=== PATIENT | female | born 1995 | race Asian ===

== ENCOUNTER 2020-04-18 15:33 | Emergency (ER) | payer MEDICAID, SELFPAY ==
[2020-04-18 16:21] VITALS: BP 117/79; PULSE 80; RESP 16; TEMP 37.7; O2SAT 98; BMI 23.1
--- NOTE | 2020-04-18 16:30 | PC.NURSE ---
PT TRAIGE DONE ON WRONG CHART, DISREGARD INITIAL TRIAGE BY THIS RN.
== END 2020-04-18 18:37 | disposition left against medical advice (07) ==
PROVIDERS: Emergency Provider Emergency Medicine
DX: R10.2 Pelvic and perineal pain (principal); N89.8 Other specified noninflammatory disorders of vagina
CPT/HCPCS: 99281; 99282

== ENCOUNTER 2020-05-18 07:14 | Emergency (ER) | payer MEDICAID, SELFPAY ==
[2020-05-18 07:23] VITALS: BP 140/78; PULSE 90; RESP 18; TEMP 36.7; O2SAT 98; BMI 23.6
--- NOTE | 2020-05-18 07:26 | ED_ITS ---
HPI - Asthma General Chief Complaint: Asthma Stated Complaint: asthma Time Seen by Provider: 05/18/20 07:26 Source: patient Mode of arrival: ambulatory Limitations: no limitations History of Present Illness HPI Narrative: No recent bump in steroids, now with increased wheezing and cough. Patient has been intubated once prior. complaint: asthma attack and shortness of breath Onset (ago): week(s) Severity: mild Context: recent URI Associated symptoms: dry cough Asthma History: history of frequent attacks and previously intubated Related Data Previous Rx's Medication Instructions Recorded prednisone 10 mg PO DAILY #69 tab 05/18/20 Allergies Allergy/AdvReac Type Severity Reaction Status Date / Time peach [PEACH] Allergy Severe RASH Unverified 12/31/19 16:33 perfume [PERFUME] Allergy Severe ASTHMA Unverified 12/31/19 16:33 ATTACK dog dander [DOG DANDER] Allergy Unknown ITCHY, Unverified 12/31/19 16:33 HIVES mite-Dermatophagoides Allergy Unknown ASTHMA, Unverified 12/31/19 16:33 farinae, wendy ITCHY [DUST MITES] THROAT Review of Systems Constitutional: Constitutional: Reports no additional constitutional complaints Eyes: Eyes: Reports no additional eye complaints ENT: Denies dizziness Cardiovascular: Cardiovascular: Reports no additional cardiovascular complaints Respiratory: Respiratory: Reports as per HPI Gastrointestinal: Gastrointestinal: Reports no additional gastrointestinal complaints Genitourinary: Genitourinary: Reports no additional female genitourinary complaints Musculoskeletal: Musculoskeletal: Reports no additional musculoskeletal complaints Integumentary/Breasts: Skin/Breast: Denies rash Neurologic: Reports system reviewed and no additional complaints, except as documented, Denies dizziness and Denies Sensory deficit (Neuro) Psychiatric: Psychiatric: Denies anxiety [facility] Past Medical History Medical History (Updated 05/18/20 @ 08:54 by Isac Franklin MD) No known health problems Social History Social History Alcohol intake: never Smoking Status: Never smoker Use of substances other than those prescribed or required for medical reasons: No Advance Directives: Yes Advance Directives Information Provided: No Advance Directives on File: No Physical Exam Vital Signs: Vital Signs: Last Vital Signs Temp 98.1 F 05/18/20 08:15 Pulse 90 05/18/20 08:15 Resp 18 05/18/20 08:15 BP 140/78 H 05/18/20 08:15 Pulse Ox 98 05/18/20 08:15 Body Mass Index 23.6 Const: General: healthy appearing Nutritional Appearance: average body habitus Orientation/consciousness: oriented to person and patient oriented x3 Limitations: no limitations HENMT: Head: Yes normal to inspection Ears: external ears normal General nose exam: Normal external nose present Mouth: Normal oral and palatal mucosa present and oropharynx normal Throat: Yes posterior oropharynx normal Eyes: General: appearance normal, both eyes and all related structures Neck: Other: supple Neck: Yes normal visual inspection Chest: Chest palpation & inspection: normal inspection of the chest Resp: Other: good air movement diffuse wheezing Cardio: Jugular venous distension: no JVD Rate: regular rate Rhythm: regular rhythm Heart sounds: S1 normal heart sound present and S2 normal heart sound present GI: Inspection: Yes normal to inspection Palpation (GI): Soft to palpation, nontender and No hepatosplenomegaly present Auscultation: normal bowel sounds : General: Yes no CVA tenderness Back/Spine/Pelvis: Back: no CVA tenderness Skin: General skin exam: no rashes or lesions noted Neuro: General: oriented to person and patient oriented x3 Cranial nerves: Yes CN's II-XII intact bilaterally Motor exam (neuro): 5/5 motor strength present throughout Sensory Exam: No Sensory deficit (Neuro) Extrem: General: Yes normal to inspection Psych: Appearance: grossly normal Course Course Course Narrative: breathing much better will dc on prednisone, albuterol and atrovent MDM - Asthma Differential Diagnosis Differential diagnosis: Likely Acute exacerbation Lab Data Labs: Lab Results 05/18/20 Range/Units 08:25 COVID-19 ([facility]) Negative (Negative) COVID-19 Clin Com See Note Discharge Plan Discharge Clinical Impression: Asthma with acute exacerbation Patient Disposition: Home, Self-Care Instructions: Asthma (ED) Additional Instructions: Albuuterol 4 puffs 4 times a day as needed, atrovent 2 puffs three times a day Prescriptions: New prednisone 10 mg tablet 10 mg PO DAILY Qty: 69 RF: 0 Referrals: Iveth Arauz MD [Primary Care Provider] - 2 days
[2020-05-18] MEDS: Albuterol Sulfate 90 MCG 8 GM INHALER 4 PUFF INHALE (07:50)
[2020-05-18] MEDS: predniSONE 20 MG TABLET 60 MG PO (07:51)
[2020-05-18 08:15] VITALS: BP 140/78; PULSE 90; RESP 18; TEMP 36.7; O2SAT 98
[2020-05-18] MEDS: Ipratropium Bromide 1 PUFF/17 MCG INHALER 4 PUFF INHALE (08:23)
[2020-05-18 08:48] LABS: COVID-19 Test Negative (Negative); IDNOW Serial# 9DD0AD1C
== END 2020-05-18 09:39 | disposition home or self-care (01) ==
PROVIDERS: Emergency Provider Emergency Medicine; PCP Internal Medicine
DX: J45.901 Unspecified asthma with (acute) exacerbation (principal); Z20.822 Contact with and (suspected) exposure to COVID-19
CPT/HCPCS: 36415; 87635; 99283; 99284

== ENCOUNTER 2020-07-10 18:06 | Emergency (ER) | payer MEDICAID, SELFPAY ==
--- NOTE | 2020-07-10 | ECG_ITS ---
Test Reason : ASTMA Blood Pressure : / mmHG Vent. Rate : 111 BPM Atrial Rate : 111 BPM P-R Int : 130 ms QRS Dur : 082 ms QT Int : 330 ms P-R-T Axes : 067 029 032 degrees QTc Int : 448 ms Sinus tachycardia Otherwise normal ECG When compared with ECG of 24-MAR-2017 15:12, No significant change was found Referred By: Domenico Yoon Electronically Signed By:Kashif Arce
[2020-07-10 18:21] VITALS: PULSE 98
[2020-07-10] MEDS: Albuterol Sulfate (0.083%) 2.5 MG/3 ML VIAL.NEB 10 MG INHALE (18:21)
[2020-07-10 18:24] VITALS: PULSE 128; RESP 30; O2SAT 97; BMI 22.3
[2020-07-10] MEDS: methylPREDNISolone Sod Succ 125 MG/2 ML VIAL IVPUSH (18:29)
[2020-07-10 20:00] VITALS: RESP 20; O2SAT 96
[2020-07-10 21:19] VITALS: PULSE 117; O2SAT 98
[2020-07-10] MEDS: Albuterol/Iprat 2.5/0.5MG 3 ML AMPUL.NEB INHALE (21:19)
--- NOTE | 2020-07-10 21:56 | ED.ASTHMA ---
HPI - Asthma General Chief Complaint: Dyspnea Stated Complaint: asthma Time Seen by Provider: 07/10/20 18:16 History of Present Illness HPI Narrative: Patient complains of asthma wheezing and chest tightness worse tonight, for the last days she has been using her nebulizer and her pump frequently but today it has been not enough to help her shortness of breath She has no chest pain, this wheezing is typical of prior asthma flare ups, she has had no sickness she has had no fever no cough no body aches no fatigue no runny nose Related Data Home Medications Medication Instructions Recorded Confirmed albuterol sulfate [ProAir HFA] 2 puff INHALATION Q6H PRN 06/06/20 06/06/20 cetirizine 10 mg PO DAILY 06/06/20 06/06/20 cholecalciferol (vitamin D3) 125 mcg PO DAILY 06/06/20 06/06/20 [Vitamin D3] fluticasone furoate-vilanterol 1 inh INHALATION DAILY 06/06/20 06/06/20 [Breo Ellipta] mepolizumab [Nucala] mg SUBCUT 06/06/20 06/06/20 montelukast [Singulair] 10 mg PO BEDTIME 06/06/20 06/06/20 nebulizer accessories [A.I.R.S 06/06/20 06/06/20 Nebulizer Replacement] nebulizer and compressor [Comp-Air 06/06/20 06/06/20 Compressor Neb System] omeprazole 20 mg PO DAILY 06/06/20 06/06/20 vit 64-szgh-seqtzs 6 1 tab PO 06/06/20 [Prenate Elite] tiotropium bromide [Spiriva 2 puff PO DAILY 06/06/20 06/06/20 Respimat] Previous Rx's Medication Instructions Recorded prednisone 10 mg PO DAILY #69 tab 05/18/20 albuterol sulfate 2 puff INHALATION Q4-6H PRN #8.5 g 07/10/20 albuterol sulfate 2.5 mg INHALATION Q6H PRN #75 ml 07/10/20 prednisone 60 mg PO DAILY 5 Days #15 tab 07/10/20 Allergies Allergy/AdvReac Type Severity Reaction Status Date / Time peach [PEACH] Allergy Severe RASH Verified 06/06/20 08:28 perfume [PERFUME] Allergy Severe ASTHMA Verified 06/06/20 08:28 ATTACK dog dander [DOG DANDER] Allergy Unknown ITCHY, Verified 06/06/20 08:28 HIVES mite-Dermatophagoides Allergy Unknown ASTHMA, Verified 06/06/20 08:28 farinae, wendy ITCHY [DUST MITES] THROAT Review of Systems Review of Systems: Wheezing shortness of breath and chest tightness There is no dizziness no weakness no fainting no confusion no headache no neck pain no sore throat no difficulty swallowing, no chest pain no palpitations, no abdominal pain no nausea no vomiting no leg swelling no calf pain or swelling, no rash no numbness or weakness [facility] Past Medical History [facility] Narrative: Patient has history of asthma with prior admissions in the past for asthma Medical History (Updated 07/10/20 @ 22:02 by MYRON Haas) Allergic rhinitis Anxiety History of miscarriage Hx of polyarthritis Severe persistent allergic asthma Sleep difficulties Family History Family History (Updated 06/06/20 @ 08:25 by Diane Wang RN) Maternal Aunt DVT (deep venous thrombosis) Father CHF (congestive heart failure) Diabetes Mother HTN (hypertension) Asthma Social History Social History (Updated 06/06/20 @ 08:27 by Diane Wang RN) Alcohol intake: current Alcohol intake frequency: holidays/special occasions only Smoking Status: Never smoker Use of substances other than those prescribed or required for medical reasons: No Substance Use Type: Marijuana Advance Directives: No Advance Directives Information Provided: Yes Physical Exam Vital Signs: Vital Signs: Last Vital Signs Pulse 117 H 07/10/20 21:19 Resp 20 07/10/20 20:00 Pulse Ox 96 07/10/20 20:00 Body Mass Index 22.3 General appearance is uncomfortable, breathing rapidly but speaking full sentences, a and O x3, no confusion The pharynx is clear with moist mucous membranes Neck is supple no JVD The chest has diminished breath sounds with prolonged expiration and wheezing, breath sounds are symmetrical Heart rate and rhythm regular Abdomen is soft nontender Extremities no edema, no calf tenderness or swelling Skin no rash Neural no deficit Course Course Course Narrative: Patient was given a dose of IV steroid and had several albuterol treatments and felt very improved but still had some wheezing and some mild shortness of breath She was speaking full sentences her chest exam was very improved with full symmetric breath sounds with some wheezing, no longer prolonged expiration, no longer diminished She was walked for 5 minutes with no decrease in O2 sat, no tachypnea, she did have a tachycardia around 125 after the albuterol treatments and this is attributed to the albuterol and patient was comfortable in very improved and discharged home Discharge Plan Discharge Clinical Impression: Asthma Qualifiers: Asthma severity: moderate Asthma persistence: unspecified Asthma complication type: with acute exacerbation Qualified Code(s): J45.901 - Unspecified asthma with (acute) exacerbation Patient Disposition: Home, Self-Care Additional Instructions: We treated with steroids and prolonged dosing of albuterol with lots of improvement, but he was still wheezing We expect further improvement as the prednisone steroid reduces inflammation You can return to the ER any time if you develop any worsening shortness of breath or have any concerns or any worse condition Prescriptions: New albuterol sulfate 90 mcg/actuation HFA aerosol inhaler 2 puff inhalation Q4-6H PRN (Reason: shortness of breath or wheezing) Qty: 8.5 RF: 0 albuterol sulfate 2.5 mg /3 mL (0.083 %) solution for nebulization 2.5 mg inhalation Q6H PRN (Reason: shortness of breath or wheezing) Qty: 75 RF: 0 prednisone 20 mg tablet 60 mg PO DAILY 5 Days Qty: 15 RF: 0 No Action prednisone 10 mg tablet 10 mg PO DAILY Qty: 69 RF: 0 cetirizine 10 mg Tablet 10 mg PO DAILY RF: 0 omeprazole 20 mg Capsule,Delayed Release(Dr/Ec) 20 mg PO DAILY RF: 0 montelukast [Singulair] 10 mg Tablet 10 mg PO BEDTIME RF: 0 albuterol sulfate [ProAir HFA] 90 mcg/actuation Hfa Aerosol Inhaler 2 puff INHALATION Q6H PRN (Reason: shortness of breath) RF: 0 (DME) A.I.R.S Nebulizer Replacement Kit MISCELLANEOUS RF: 0 (DME) Comp-Air Compressor Neb System Device MISCELLANEOUS RF: 0 cholecalciferol (vitamin D3) [Vitamin D3] 125 mcg (5,000 unit) Tablet 125 mcg PO DAILY RF: 0 Prenate Elite 26 mg iron- 1 mg Tablet 1 tab PO RF: 0 Spiriva Respimat 2.5 mcg/actuation mist 2 puff PO DAILY RF: 0 Breo Ellipta 100-25 mcg/dose Blister With Device 1 inh INHALATION DAILY RF: 0 Nucala 100 mg/mL auto-injector subcut RF: 0 Stand Alone Forms: Work/School Release
== END 2020-07-10 22:56 | disposition home or self-care (01) ==
PROVIDERS: Emergency Provider Emergency Medicine Emergency Medical Services; PCP Internal Medicine
DX: J45.901 Unspecified asthma with (acute) exacerbation (principal); Z79.899 Other long term (current) drug therapy; Z79.51 Long term (current) use of inhaled steroids; F12.90 Cannabis use, unspecified, uncomplicated
CPT/HCPCS: 93005; 94640; 94644; 96374; 99284; J2930

== ENCOUNTER 2020-09-03 05:58 | Emergency (ER) | payer MEDICAID, SELFPAY ==
--- NOTE | ~2020-09-03 | XR_ITS ---
EXAMINATION: XR CHEST CLINICAL INFORMATION: Cough and wheezing COMPARISON: 09/01/2019 TECHNIQUE: Frontal view of the chest was obtained. FINDINGS: The heart and mediastinum are normal in appearance. The lungs and pleural spaces are clear. No focal consolidation or atelectasis. XR/XR chest 1V IMPRESSION: Unremarkable examination.
[2020-09-03 06:16] VITALS: BP 143/90; PULSE 127; RESP 20; TEMP 36.4; O2SAT 99; BMI 24.9
[2020-09-03 07:37] VITALS: BP 144/97; PULSE 95; RESP 18; TEMP 36.9; O2SAT 100; BMI 24.7
--- NOTE | 2020-09-03 07:52 | ED_ITS ---
HPI - Asthma General Chief Complaint: Asthma Stated Complaint: SOB, asthma Time Seen by Provider: 09/03/20 07:38 Source: patient Mode of arrival: ambulatory Limitations: no limitations History of Present Illness HPI Narrative: 25-year-old female with a past medical history of asthma, multiple allergies here with complaints of wheezing, shortness of breath, cough acute on chronic for several days. She ran out of her albuterol tubing for her nebulizers and so has not had this. She is currently taking Spiriva, Breo, Singulair, albuterol MDI p.r.n.. She is also on Nucala injectable once a month. She is followed by pulmonology at [facility].. She is on chronic prednisone 5 mg daily. History of multiple admits. No intubation history MD complaint: asthma attack , shortness of breath and wheezing Related Data Home Medications Medication Instructions Recorded Confirmed albuterol sulfate [ProAir HFA] 2 puff INHALATION Q6H PRN 06/06/20 06/06/20 cetirizine 10 mg PO DAILY 06/06/20 06/06/20 cholecalciferol (vitamin D3) 125 mcg PO DAILY 06/06/20 06/06/20 [Vitamin D3] fluticasone furoate-vilanterol 1 inh INHALATION DAILY 06/06/20 06/06/20 [Breo Ellipta] mepolizumab [Nucala] mg SUBCUT 06/06/20 06/06/20 montelukast [Singulair] 10 mg PO BEDTIME 06/06/20 06/06/20 nebulizer accessories [A.I.R.S 06/06/20 06/06/20 Nebulizer Replacement] nebulizer and compressor [Comp-Air 06/06/20 06/06/20 Compressor Neb System] omeprazole 20 mg PO DAILY 06/06/20 06/06/20 vit 27-hhyu-ggaege 6 1 tab PO 06/06/20 [Prenate Elite] tiotropium bromide [Spiriva 2 puff PO DAILY 06/06/20 06/06/20 Respimat] Previous Rx's Medication Instructions Recorded prednisone 10 mg PO DAILY #69 tab 05/18/20 albuterol sulfate 2 puff INHALATION Q4-6H PRN #8.5 g 07/10/20 albuterol sulfate 2.5 mg INHALATION Q6H PRN #75 ml 07/10/20 prednisone 60 mg PO DAILY 5 Days #15 tab 07/10/20 prednisone 40 mg PO DAILY #10 tab 09/03/20 Allergies Allergy/AdvReac Type Severity Reaction Status Date / Time peach [PEACH] Allergy Severe RASH Verified 06/06/20 08:28 perfume [PERFUME] Allergy Severe ASTHMA Verified 06/06/20 08:28 ATTACK dog dander [DOG DANDER] Allergy Unknown ITCHY, Verified 06/06/20 08:28 HIVES mite-Dermatophagoides Allergy Unknown ASTHMA, Verified 06/06/20 08:28 farinae, wendy ITCHY [DUST MITES] THROAT Review of Systems Review of Systems: Yes all other systems are reviewed and are negative Constitutional: Constitutional: Reports no additional constitutional complaints, Denies body ache(s), Denies chills, Denies fever(s), Denies headache(s) and Denies weakness Eyes: Eyes: Reports no additional eye complaints and Denies change in vision ENT: Reports system reviewed and no additional complaints, except as documente d, Denies dizziness, Denies headache(s), Denies nasal congestion, Reports nasal discharge and Denies neck pain Cardiovascular: Cardiovascular: Reports no additional cardiovascular complaints, Denies chest pain, Denies leg edema and Reports dyspnea Respiratory: Respiratory: Reports no additional respiratory complaints, Reports cough and Reports dyspnea Gastrointestinal: Gastrointestinal: Reports no additional gastrointestinal complaints, Denies abdominal pain, Denies diarrhea, Denies nausea and Denies vomiting Genitourinary: Genitourinary: Reports no additional female genitourinary complaints and Denies urinary incontinence Musculoskeletal: Musculoskeletal: Reports no additional musculoskeletal complaints, Denies back pain, Denies arthralgias, Denies joint swelling, Denies neck pain, Denies numbness and Denies tingling Integumentary/Breasts: Skin/Breast: Reports system reviewed and no additional complaints, except as docu and Denies rash Neurologic: Reports system reviewed and no additional complaints, except as documented, Denies Abnormal speech present, Denies dizziness, Denies headache(s), Denies numbness, Denies tingling and Denies weakness PMFSH Past Medical History Attestation statement: The following information was validated with the patient. Source: old records reviewed and nursing notes reviewed Medical History Allergic rhinitis Anxiety History of miscarriage Hx of polyarthritis Severe persistent allergic asthma Sleep difficulties Family History Family History Maternal Aunt DVT (deep venous thrombosis) Father CHF (congestive heart failure) Diabetes Mother HTN (hypertension) Asthma Social History Social History Alcohol intake: current Alcohol intake frequency: holidays/special occasions only Smoking Status: Never smoker Use of substances other than those prescribed or required for medical reasons: No Substance Use Type: Marijuana Advance Directives: No Advance Directives Information Provided: No Patient : No Physical Exam Vital Signs: Vital Signs: Last Vital Signs Temp 98.5 F 09/03/20 07:37 Pulse 76 09/03/20 07:54 Resp 18 09/03/20 07:37 BP 144/97 H 09/03/20 07:37 Pulse Ox 100 09/03/20 07:37 Body Mass Index 24.7 Const: General: cooperative, healthy appearing, comfortable and no acute distress Orientation/consciousness: patient oriented x3 Limitations: no limitations HENMT: Head: Yes normal to inspection Ears: hearing grossly normal bilaterally General nose exam: Normal external nose present Face and sinus: Yes normal facial exam Mouth: Normal oral and palatal mucosa present Throat: Yes posterior oropharynx normal Eyes: General: appearance normal, both eyes and all related structures Pupils: Equal, round and reactive pupils present Neck: Neck: Yes normal visual inspection Chest: Chest palpation & inspection: normal inspection of the chest Resp: Effort & Inspection: normal respiratory effort Auscultation: abnormal I/E ratio and wheezes expiratory wheezes, inspiratory wheezes and throughout Cardio: Rate: regular rate Rhythm: regular rhythm Peripheral pulses: Peripheral pulses 2+ throughout GI: Inspection: Yes normal to inspection Palpation (GI): Soft to palpation and nontender Auscultation: normal bowel sounds Back/Spine/Pelvis: Thoracic/Lumbar Spine: thoracic and lumbar spine normal to inspection Skin: General skin exam: no rashes or lesions noted Neuro: General: patient oriented x3, no focal motor deficits and normal sensation to monofilament Cranial nerves: Yes Equal, round and reactive pupils present Cognition (Neuro): normal cognition Speech: No Abnormal speech present Gait exam (Neuro): Normal gait present Motor exam (neuro): 5/5 motor strength present throughout Extrem: General: Yes normal to inspection, Yes no pedal edema and Yes no calf tenderness Course Course Course Narrative: 25-year-old female with a past medical history of asthma here with complaints of cough, wheezing, shortness of breath acute on chronic for several days. No fevers, chills. She does have some rhinorrhea which she contributes to seasonal allergies. On exam mild tachycardia likely secondary to multiple albuterol treatments at home. Sitter and expiratory wheezing throughout. Will give DuoNeb, magnesium, Solu-Medrol. Check chest x-ray. Refusing COVID screen. 1015-x-ray negative. Labs show no acute finding. Patient feels much improved after receiving above medications. Her heart rate is 110 with activity however this is secondary to albuterol use and will improve with time. She ran out of tubing for her albuterol machine and so she was provided with tubing here. Will increase dose of prednisone for several days and have her f ollow-up with her pantograph setter. Reviewed worrisome signs and symptoms and when to return to the emergency department. Comfortable discharge home. MDM - Asthma Differential Diagnosis Differential diagnosis: Likely Acute exacerbation and Pneumonia Medical Records Attestation: I reviewed the patient's medical records. Lab Data Attestation: I reviewed the patient's lab results. Result diagrams: 09/03/20 08:12 09/03/20 08:12 Labs: Lab Results 09/03/20 09/03/20 09/03/20 Range/Units 08:12 08:12 08:12 WBC 10.4 (4.8-10.8) X10*3/uL RBC 4.54 (4.20-5.50) X10*6/uL Hgb 12.8 (12.0-16.0) g/dl Hct 40.0 (37-47) % MCV 88.1 (80-98) fL MCH 28.2 (27.0-33.0) pg MCHC 32.0 (31.0-35.0) g/dl RDW 14.4 (11.0-16.0) % Plt Count 317 (160-400) X10*3/uL MPV 9.9 (9.4-12.3) fL Immature Gran % (Auto) 0.5 H (0.0-0.4) % Neut % (Auto) 67.0 (45-73) % Lymph % (Auto) 24.3 (20-40) % [place] % (Auto) 8.0 (2-11) % Eos % (Auto) 0.0 (0-4) % Baso % (Auto) 0.2 (0-2) % Lymph # (Auto) 2.5 (1.2-4.9) X10*3/uL [place] # (Auto) 0.8 (0.1-1.2) X10*3/uL Eos # (Auto) 0.0 (0.0-0.4) X10*3/uL Baso # (Auto) 0.0 (0.0-0.2) X10*3/uL Abs Immat Gran (auto) 0.05 H (0.00-0.03) X10*3/uL Absolute Neuts (auto) 7.0 (2.0-8.3) X10*3/uL Absolute Nucleated RBC 0.000 (0.0-0.012) X10*3/uL Nucleated RBC % (auto) 0.0 (0.0-0.2) /100WBC Hold Blue Top SEE NOTE Sodium 141 (135-145) mmol/L Potassium 3.5 D (3.3-5.1) mmol/L Chloride 108 (96-108) mmol/L Carbon Dioxide 21 L (22-29) mmol/L Anion Gap 16 (12-20) BUN 11 (9-16) mg/dL Creatinine 0.80 (0.5-1.4) mg/dL Estim Creat Clear Calc 93.6 Estimated GFR > 60 Random Glucose 97 (60-115) mg/dL Calcium 9.1 D (8.4-10.2) mg/dL Imaging Data Chest x-ray: Attestation: I personally reviewed and interpreted this imaging study as follows: Radiologist's impression: EXAMINATION: XR CHEST CLINICAL INFORMATION: Cough and wheezing COMPARISON: 09/01/2019 TECHNIQUE: Frontal view of the chest was obtained. FINDINGS: The heart and mediastinum are normal in appearance. The lungs and pleural spaces are clear. No focal consolidation or atelectasis. XR/XR chest 1V IMPRESSION: Unremarkable examination. Discharge Plan Discharge Clinical Impression: Asthma with acute exacerbation Qualifiers: Asthma severity: severe Patient Disposition: Home, Self-Care Instructions: Asthma (ED) Additional Instructions: Start prednisone tomorrow Follow-up with your pantograph setter Prescriptions: New prednisone 20 mg tablet 40 mg PO DAILY Qty: 10 RF: 0 No Action prednisone 10 mg tablet 10 mg PO DAILY Qty: 69 RF: 0 cetirizine 10 mg Tablet 10 mg PO DAILY RF: 0 omeprazole 20 mg Capsule,Delayed Release(Dr/Ec) 20 mg PO DAILY RF: 0 montelukast [Singulair] 10 mg Tablet 10 mg PO BEDTIME RF: 0 albuterol sulfate [ProAir HFA] 90 mcg/actuation Hfa Aerosol Inhaler 2 puff INHALATION Q6H PRN (Reason: shortness of breath) RF: 0 (DME) A.I.R.S Nebulizer Replacement Kit MISCELLANEOUS RF: 0 (DME) Comp-Air Compressor Neb System Device MISCELLANEOUS RF: 0 cholecalciferol (vitamin D3) [Vitamin D3] 125 mcg (5,000 unit) Tablet 125 mcg PO DAILY RF: 0 Prenate Elite 26 mg iron- 1 mg Tablet 1 tab PO RF: 0 Spiriva Respimat 2.5 mcg/actuation mist 2 puff PO DAILY RF: 0 Breo Ellipta 100-25 mcg/dose Blister With Device 1 inh INHALATION DAILY RF: 0 Nucala 100 mg/mL auto-injector subcut RF: 0 albuterol sulfate 90 mcg/actuation HFA aerosol inhaler 2 puff inhalation Q4-6H PRN (Reason: shortness of breath or wheezing) Qty: 8.5 RF: 0 albuterol sulfate 2.5 mg /3 mL (0.083 %) solution for nebulization 2.5 mg inhalation Q6H PRN (Reason: shortness of breath or wheezing) Qty: 75 RF: 0 prednisone 20 mg tablet 60 mg PO DAILY 5 Days Qty: 15 RF: 0 Referrals: Physician,Unknown [Primary Care Provider] - 2 days
[2020-09-03 07:54] VITALS: PULSE 76; O2SAT 94
[2020-09-03] MEDS: Albuterol/Iprat 2.5/0.5MG 3 ML AMPUL.NEB INHALE (07:54)
[2020-09-03 08:19] LABS: MANUAL DIFF FLAG NO
[2020-09-03] MEDS: methylPREDNISolone Sod Succ 125 MG/2 ML VIAL IVPUSH (08:22)
[2020-09-03] MEDS: Magnesium Sulfate/H2O 2 GM/50 ML PIGGYBACK IV (08:22)
[2020-09-03 08:35] LABS: Basophils Percent Auto 0.2 % (0-2); Hemoglobin 12.8 g/dl (12.0-16.0); Imm Gran Abs Auto 0.05 X10*3/uL (0.00-0.03); Imm Gran Pct Auto 0.5 % (0.0-0.4); Lymphocytes Absolute Auto 2.5 X10*3/uL (1.2-4.9); Lymphocytes Percent Auto 24.3 % (20-40); Mean Corpuscular Hemoglobin 28.2 pg (27.0-33.0); Mean Corpuscular Volume 88.1 fL (80-98); Mean Platelet Volume 9.9 fL (9.4-12.3); Monocytes Absolute Auto 0.8 X10*3/uL (0.1-1.2); Platelet Count 317 X10*3/uL (160-400); Red Blood Count 4.54 X10*6/uL (4.20-5.50); Red Cell Distribution Width 14.4 % (11.0-16.0); White Blood Count 10.4 X10*3/uL (4.8-10.8)
[2020-09-03 08:47] LABS: Anion Gap 16 (12-20); Blood Urea Nitrogen 11 mg/dL (9-16); Calcium 9.1 mg/dL (8.4-10.2); Carbon Dioxide 21 mmol/L (22-29); Chloride 108 mmol/L (96-108); Creatinine Clr Calc Pharmacy 93.6; Estimated Glomerular Filt Rate > 60; Glucose Random 97 mg/dL (60-115); Potassium 3.5 mmol/L (3.3-5.1); Sodium 141 mmol/L (135-145)
--- NOTE | 2020-09-03 10:00 | PC.NURSE ---
pt eager to leave. has removed all medical equiptment.
[2020-09-03 10:22] VITALS: BP 125/86; PULSE 106; RESP 18; O2SAT 99
== END 2020-09-03 11:07 | disposition home or self-care (01) ==
PROVIDERS: Nurse Practitioner Family; Emergency Provider Emergency Medicine
DX: J45.51 Severe persistent asthma with (acute) exacerbation (principal)
CPT/HCPCS: 36415; 71045; 80048; 85025; 94640; 96365; 96366; 96374; 99284; J2930; J3475

== ENCOUNTER 2020-09-20 01:39 | Emergency (ER) | payer MEDICAID, SELFPAY ==
[2020-09-20 02:13] VITALS: BP 137/99; PULSE 93; RESP 16; TEMP 37; O2SAT 99; BMI 24.5
--- NOTE | 2020-09-20 03:00 | ED.GENADULT ---
HPI - General Adult General Chief complaint: Upper Respiratory Symptoms Stated complaint: asthma, sinus infection Time Seen by Provider: 09/20/20 03:00 Source: patient Mode of arrival: ambulatory History of Present Illness HPI narrative: 25-year-old female with nasal congestion without fevers, chills, purulent discharge and has strong history of asthma at this time as per patient. Related Data Home Medications Medication Instructions Recorded Confirmed albuterol sulfate [ProAir HFA] 2 puff INHALATION Q6H PRN 06/06/20 06/06/20 cetirizine 10 mg PO DAILY 06/06/20 06/06/20 cholecalciferol (vitamin D3) 125 mcg PO DAILY 06/06/20 06/06/20 [Vitamin D3] fluticasone furoate-vilanterol 1 inh INHALATION DAILY 06/06/20 06/06/20 [Breo Ellipta] mepolizumab [Nucala] mg SUBCUT 06/06/20 06/06/20 montelukast [Singulair] 10 mg PO BEDTIME 06/06/20 06/06/20 nebulizer accessories [A.I.R.S 06/06/20 06/06/20 Nebulizer Replacement] nebulizer and compressor [Comp-Air 06/06/20 06/06/20 Compressor Neb System] omeprazole 20 mg PO DAILY 06/06/20 06/06/20 vit 12-thdy-dtsehm 6 1 tab PO 06/06/20 [Prenate Elite] tiotropium bromide [Spiriva 2 puff PO DAILY 06/06/20 06/06/20 Respimat] Previous Rx's Medication Instructions Recorded prednisone 10 mg PO DAILY #69 tab 05/18/20 albuterol sulfate 2 puff INHALATION Q4-6H PRN #8.5 g 07/10/20 albuterol sulfate 2.5 mg INHALATION Q6H PRN #75 ml 07/10/20 prednisone 60 mg PO DAILY 5 Days #15 tab 07/10/20 prednisone 40 mg PO DAILY #10 tab 09/03/20 Allergies Allergy/AdvReac Type Severity Reaction Status Date / Time peach [PEACH] Allergy Severe RASH Verified 06/06/20 08:28 perfume [PERFUME] Allergy Severe ASTHMA Verified 06/06/20 08:28 ATTACK dog dander [DOG DANDER] Allergy Unknown ITCHY, Verified 06/06/20 08:28 HIVES mite-Dermatophagoides Allergy Unknown ASTHMA, Verified 06/06/20 08:28 farinae, wendy ITCHY [DUST MITES] THROAT Review of Systems Review of Systems: Pertinent positives and negatives as stated in HPI 10 point review of systems is otherwise negative. [facility] Past Medical History Source: nursing notes reviewed Medical History Allergic rhinitis Anxiety History of miscarriage Hx of polyarthritis Severe persistent allergic asthma Sleep difficulties Family History Family History Maternal Aunt DVT (deep venous thrombosis) Father CHF (congestive heart failure) Diabetes Mother HTN (hypertension) Asthma Social History Social History Alcohol intake: current Alcohol intake frequency: holidays/special occasions only Substance Use Type: Marijuana Advance Directives: No Patient : No Physical Exam Vital Signs: Vital Signs: Last Vital Signs Temp 98.6 F 09/20/20 02:13 Pulse 93 09/20/20 02:13 Resp 16 09/20/20 02:13 BP 137/99 H 09/20/20 02:13 Pulse Ox 99 09/20/20 02:13 Body Mass Index 24.5 VITAL SIGNS: Reviewed. GENERAL: Well developed, well nourished, in no acute distress. HEAD: Normocephalic/atraumatic, mild pain on palpation over frontal sinus but maxillary sinuses are without pain EYES: PERRLA, EOMI EARS: Ext canals without abnormality, TMs non-bulging and non-erythematous NOSE: boggy turbinate noted left greater than right OROPHARYNX: no oral lesions noted, posterior pharynx clear and non-erythematous without noted tonsillar enlargement/erythema/exudates NECK: Supple, no adenopathy LUNGS: Normal breath sounds. No adventitious sounds or accessory muscle use. SpO2<99> CARDIOVASCULAR: Regular rate and rhythm without noted murmurs ABDOMEN: Soft, non-tender, non-distended with bowel sounds. Course Course Course Narrative: 25-year-old female with history and clinical presentation most consistent with rhinosinusitis is no evidence of bacterial sinusitis. Discussed many mhxd-mzz-mfkeapb treatment options with the patient and she was discharged home in stable condition. Discharge Plan Discharge Clinical Impression: Allergic rhinitis, Sinusitis Patient Disposition: Home, Self-Care Instructions: Rhinosinusitis (ED) Additional Instructions: 1. Resume all home medications as prescribed. 2. Recommend initiating either Claritin D or Benadryl D to allow the decongestant to dry up your sinuses. 3. Recommend utilizing cool mist humidifier for additional symptom relief at night next to the bed. 4. Recommend reaching out to your primary care provider if in the next 1-2 days you began to develop thick mucus with color changes to green/yellow as this may be an indication that bacteria has set in. Return the ER for any acute worsening of your symptoms. Prescriptions: No Action prednisone 10 mg tablet 10 mg PO DAILY Qty: 69 RF: 0 cetirizine 10 mg Tablet 10 mg PO DAILY RF: 0 omeprazole 20 mg Capsule,Delayed Release(Dr/Ec) 20 mg PO DAILY RF: 0 montelukast [Singulair] 10 mg Tablet 10 mg PO BEDTIME RF: 0 albuterol sulfate [ProAir HFA] 90 mcg/actuation Hfa Aerosol Inhaler 2 puff INHALATION Q6H PRN (Reason: shortness of breath) RF: 0 (DME) A.I.R.S Nebulizer Replacement Kit MISCELLANEOUS RF: 0 (DME) Comp-Air Compressor Neb System Device MISCELLANEOUS RF: 0 cholecalciferol (vitamin D3) [Vitamin D3] 125 mcg (5,000 unit) Tablet 125 mcg PO DAILY RF: 0 Prenate Elite 26 mg iron- 1 mg Tablet 1 tab PO RF: 0 Spiriva Respimat 2.5 mcg/actuation mist 2 puff PO DAILY RF: 0 Breo Ellipta 100-25 mcg/dose Blister With Device 1 inh INHALATION DAILY RF: 0 Nucala 100 mg/mL auto-injector subcut RF: 0 albuterol sulfate 90 mcg/actuation HFA aerosol inhaler 2 puff inhalation Q4-6H PRN (Reason: shortness of breath or wheezing) Qty: 8.5 RF: 0 albuterol sulfate 2.5 mg /3 mL (0.083 %) solution for nebulization 2.5 mg inhalation Q6H PRN (Reason: shortness of breath or wheezing) Qty: 75 RF: 0 prednisone 20 mg tablet 60 mg PO DAILY 5 Days Qty: 15 RF: 0 prednisone 20 mg tablet 40 mg PO DAILY Qty: 10 RF: 0 Referrals: Iveth Arauz MD [Primary Care Provider] - 2 days (Re-evaluation after seen in the ER 09/20 for rhinosinusitis.) Stand Alone Forms: Work/School Release Interventions: ED Discharge Assessment Last Done: 09/20/20 03:31 Discharge Date/Time: 09/20/20 03:33
== END 2020-09-20 03:33 | disposition home or self-care (01) ==
PROVIDERS: Emergency Provider Student in an Organized Health Care Education/Training Program; PCP Internal Medicine
DX: J32.9 Chronic sinusitis, unspecified (principal); J45.909 Unspecified asthma, uncomplicated; F12.90 Cannabis use, unspecified, uncomplicated; Z79.899 Other long term (current) drug therapy
CPT/HCPCS: 99283

== ENCOUNTER 2020-12-13 22:29 | Emergency (ER) | payer MEDICAID, SELFPAY ==
[2020-12-13 22:30] VITALS: BP 157/94; PULSE 107; RESP 16; TEMP 36.2; O2SAT 98; BMI 25.7
--- NOTE | 2020-12-13 23:15 | ED.SOB ---
HPI - SOB/Dyspnea General Chief Complaint: Dyspnea Stated Complaint: asthma Time Seen by Provider: 12/13/20 22:51 Source: patient Mode of arrival: ambulatory Limitations: no limitations History of Present Illness HPI Narrative: Patient with history of asthma complaining of increased cough low-grade fever since yesterday wheezing a lot has not received COVID-19 vaccine. Related Data Home Medications Medication Instructions Recorded Confirmed albuterol sulfate 90 mcg/actuation 2 puff INHALATION Q6H PRN 06/06/20 06/06/20 aerosol inhaler (ProAir HFA) cetirizine 10 mg tablet 10 mg PO DAILY 06/06/20 06/06/20 cholecalciferol (vitamin D3) 125 125 mcg PO DAILY 06/06/20 06/06/20 mcg (5,000 unit) tablet (Vitamin D3) fluticasone furoate 100 1 inh INHALATION DAILY 06/06/20 06/06/20 mcg-vilanterol 25 mcg/dose inhalation powder (Breo Ellipta) mepolizumab 100 mg/mL subcutaneous mg SUBCUT 06/06/20 06/06/20 auto-injector (Nucala) montelukast 10 mg tablet 10 mg PO BEDTIME 06/06/20 06/06/20 (Singulair) nebulizer accessories (A.I.R.S 06/06/20 06/06/20 Nebulizer Replacement) nebulizer and compressor 06/06/20 06/06/20 omeprazole 20 mg capsule,delayed 20 mg PO DAILY 06/06/20 06/06/20 release vits no.36-ferrous fum 26 1 tab PO 06/06/20 mg iron-folate cmb no.6 1 mg tablet (Prenate Elite) tiotropium bromide 2.5 2 puff PO DAILY 06/06/20 06/06/20 mcg/actuation mist for inhalation (Spiriva Respimat) Previous Rx's Medication Instructions Recorded prednisone 10 mg tablet 10 mg PO DAILY #69 tab 05/18/20 albuterol sulfate 2.5 mg INHALATION Q6H PRN #75 ml 07/10/20 albuterol sulfate 90 mcg/actuation 2 puff INHALATION Q4-6H PRN #8.5 g 07/10/20 aerosol inhaler prednisone 20 mg tablet 60 mg PO DAILY 5 Days #15 tab 07/10/20 prednisone 20 mg tablet 40 mg PO DAILY #10 tab 09/03/20 albuterol sulfate 90 mcg/actuation 2 puff INHALATION Q4-6H PRN #8.5 g 12/14/20 aerosol inhaler (ProAir HFA) azithromycin 250 mg tablet 250 mg PO DAILY 120 Days #120 tab 12/14/20 (Zithromax) prednisone 20 mg tablet 40 mg PO DAILY #10 tab 12/14/20 Allergies Allergy/AdvReac Type Severity Reaction Status Date / Time peach [PEACH] Allergy Severe RASH Verified 06/06/20 08:28 perfume [PERFUME] Allergy Severe ASTHMA Verified 06/06/20 08:28 ATTACK dog dander [DOG DANDER] Allergy Unknown ITCHY, Verified 06/06/20 08:28 HIVES mite-Dermatophagoides Allergy Unknown ASTHMA, Verified 06/06/20 08:28 farinae, wendy ITCHY [DUST MITES] THROAT Review of Systems Review of Systems: Yes all other systems are reviewed and are negative PMFSH Past Medical History Medical History Allergic rhinitis Anxiety History of miscarriage Hx of polyarthritis Severe persistent allergic asthma Sleep difficulties Family History Family History Maternal Aunt DVT (deep venous thrombosis) Father CHF (congestive heart failure) Diabetes Mother HTN (hypertension) Asthma Social History Social History Alcohol intake: current Alcohol intake frequency: a few times a month Patient Tobacco Use Status: Never used Tobacco Substance Use Type: Marijuana Advance Directives: No Advance Directives Information Provided: Yes Physical Exam Vital Signs: Vital Signs: Last Vital Signs Temp 98.6 F 12/14/20 00:17 Pulse 90 12/14/20 00:17 Resp 18 12/14/20 00:17 BP 134/103 H 12/14/20 00:17 Pulse Ox 99 12/14/20 00:17 Body Mass Index 25.7 Appearance: Alert. Oriented X3. No acute distress. Eyes: PERRLA, No Nystagmus ENT: Pharynx normal. Oral Mucosa moist Neck: Normal inspection. Neck supple. CVS: Normal heart rate and rhythm. Pulses normal. Respiratory: No respiratory distress. Equal air entry bilateral, prolonged expiration with wheezing Abdomen: Soft and nontender. Skin: Skin warm and dry. Normal skin color. Normal skin turgor. Extremities: No lower extremity edema. No calf tenderness Neuro: Oriented X 3. MDM - SOB/Dyspnea Lab Data Labs: Lab Results 12/13/20 Range/Units 23:22 COVID-19 ([facility]) Negative (Negative) COVID-19 Clin Com See Note Discharge Plan Discharge Clinical Impression: Acute asthmatic bronchitis Patient Disposition: Home, Self-Care Instructions: Acute Bronchitis (ED) Additional Instructions: Continues inhaler as prescribed Prednisone and antibiotics as prescribed and follow with PCP Prescriptions: New azithromycin [Zithromax] 250 mg tablet 250 mg PO DAILY 120 Days Qty: 120 RF: 0 prednisone 20 mg tablet 40 mg PO DAILY Qty: 10 RF: 0 albuterol sulfate [ProAir HFA] 90 mcg/actuation HFA aerosol inhaler 2 puff inhalation Q4-6H PRN (Reason: shortness of breath or wheezing) Qty: 8.5 RF: 0 No Action prednisone 10 mg tablet 10 mg PO DAILY Qty: 69 RF: 0 cetirizine 10 mg Tablet 10 mg PO DAILY RF: 0 omeprazole 20 mg Capsule,Delayed Release(Dr/Ec) 20 mg PO DAILY RF: 0 montelukast [Singulair] 10 mg Tablet 10 mg PO BEDTIME RF: 0 albuterol sulfate [ProAir HFA] 90 mcg/actuation Hfa Aerosol Inhaler 2 puff INHALATION Q6H PRN (Reason: shortness of breath) RF: 0 (DME) A.I.R.S Nebulizer Replacement Kit MISCELLANEOUS RF: 0 (DME) Comp-Air Compressor Neb System Device MISCELLANEOUS RF: 0 cholecalciferol (vitamin D3) [Vitamin D3] 125 mcg (5,000 unit) Tablet 125 mcg PO DAILY RF: 0 Prenate Elite 26 mg iron- 1 mg Tablet 1 tab PO RF: 0 Spiriva Respimat 2.5 mcg/actuation mist 2 puff PO DAILY RF: 0 Breo Ellipta 100-25 mcg/dose Blister With Device 1 inh INHALATION DAILY RF: 0 Nucala 100 mg/mL auto-injector subcut RF: 0 albuterol sulfate 90 mcg/actuation HFA aerosol inhaler 2 puff inhalation Q4-6H PRN (Reason: shortness of breath or wheezing) Qty: 8.5 RF: 0 albuterol sulfate 2.5 mg /3 mL (0.083 %) solution for nebulization 2.5 mg inhalation Q6H PRN (Reason: shortness of breath or wheezing) Qty: 75 RF: 0 prednisone 20 mg tablet 60 mg PO DAILY 5 Days Qty: 15 RF: 0 prednisone 20 mg tablet 40 mg PO DAILY Qty: 10 RF: 0 Stand Alone Forms: Work/School Release
--- NOTE | 2020-12-13 23:26 | PC.NURSE ---
PT REPORTS DRY COUGH, BODY ACHES, JOINT PAIN, AND CHILLS BEGINNING TODAY. VOMITx1. UNVACCINATED. HX OF ASTHMA. DID NOT USE RESCUE INHALERS OR NEBULIZERS ROD TAPE OPERATOR. SAO2 98% RESPIRATIONS EVEN UNLABORED. SKIN PWD. LOW GRADE TEMP NOTED. COVID SWAB SENT TO LAB FOR PROCESSING.
[2020-12-13 23:29] VITALS: PULSE 99; RESP 18; TEMP 37.4; O2SAT 98
[2020-12-13 23:42] LABS: COVID-19 Test Negative (Negative)
--- NOTE | 2020-12-13 23:49 | PC.NURSE ---
COVID NEGATIVE PT AWAITING RT FOR UPDRAFT AND INHALER.
[2020-12-14] MEDS: Albuterol Sulfate (0.083%) 2.5 MG/3 ML VIAL.NEB 5 MG INHALE (00:15)
[2020-12-14] MEDS: Albuterol/Iprat 2.5/0.5MG 3 ML AMPUL.NEB INHALE (00:15)
[2020-12-14 00:16] VITALS: PULSE 95; O2SAT 97
[2020-12-14 00:17] VITALS: BP 134/103; PULSE 90; RESP 18; TEMP 37; O2SAT 99
[2020-12-14] MEDS: Azithromycin 500 MG TABLET PO (00:52)
[2020-12-14] MEDS: Benzonatate 100 MG CAPSULE 200 MG PO (00:52)
[2020-12-14] MEDS: predniSONE 20 MG TABLET 40 MG PO (00:53)
== END 2020-12-14 01:29 | disposition home or self-care (01) ==
PROVIDERS: Emergency Provider Internal Medicine
DX: J20.9 Acute bronchitis, unspecified (principal); Z20.822 Contact with and (suspected) exposure to COVID-19; R50.9 Fever, unspecified
CPT/HCPCS: 36415; 87635; 94640; 99284

== ENCOUNTER 2021-02-05 13:37 | Emergency (ER) | payer MEDICAID, SELFPAY ==
--- NOTE | ~2021-02-05 | US_ITS ---
EXAMINATION: US PELVIS CLINICAL INFORMATION: Suprapubic abdominal pain. Amenorrhea since July. COMPARISON: None TECHNIQUE: Ultrasound of the pelvis is performed using a transabdominal transducer along with Doppler. Transvaginal imaging is performed due to inadequate visualization transabdominally. FINDINGS: Uterus: The uterus is anteverted and measures 6.9 x 3.2 x 3.9 cm. The double wall endometrial thickness is 4 mm. The uterus is smooth in contour and has normal myometrial echogenicity. No visible fibroid. Adnexa: Both ovaries are visualized. There is normal color flow to the adnexa. There is no ovarian torsion. There is no pelvic ascites or fluid collection. Right ovary measures 3.3 x 2.0 x 2.5 cm. Left ovary measures 2.2 x 1.4 x 2.3 cm. US/US pelvic complete IMPRESSION: Unremarkable transabdominal ultrasound.
[2021-02-05 13:45] VITALS: BP 153/100; PULSE 100; RESP 18; TEMP 36.8; O2SAT 99; BMI 25.9
--- NOTE | 2021-02-05 14:24 | ED.ABDPAIN ---
HPI - Abdominal Pain General Chief Complaint: Abdominal Pain Stated Complaint: Abdominal Pain Time Seen by Provider: 02/05/21 14:08 Source: patient Mode of arrival: ambulatory History of Present Illness HPI narrative: 25-year-old female with a past medical history of anxiety, S/P miscarriage, presenting to the ED complaining of worsening lower abdominal cramping x months. Admits received 1st Depo-Provera shot in July, was due for 2nd shot in November, however, never received it, and her last LMP was in June. Reports breast soreness, nausea and pelvic pressure. Denies vaginal bleeding, vaginal discharge, dysuria/hematuria, flank pain Admits to taking 2 home tests that were negative MD elicited complaint: abdominal pain Related Data Home Medications Medication Instructions Recorded Confirmed albuterol sulfate 90 mcg/actuation 2 puff INHALATION Q6H PRN 06/06/20 06/06/20 aerosol inhaler (ProAir HFA) cetirizine 10 mg tablet 10 mg PO DAILY 06/06/20 06/06/20 cholecalciferol (vitamin D3) 125 125 mcg PO DAILY 06/06/20 06/06/20 mcg (5,000 unit) tablet (Vitamin D3) fluticasone furoate 100 1 inh INHALATION DAILY 06/06/20 06/06/20 mcg-vilanterol 25 mcg/dose inhalation powder (Breo Ellipta) mepolizumab 100 mg/mL subcutaneous mg SUBCUT 06/06/20 06/06/20 auto-injector (Nucala) montelukast 10 mg tablet 10 mg PO BEDTIME 06/06/20 06/06/20 (Singulair) nebulizer accessories (A.I.R.S 06/06/20 06/06/20 Nebulizer Replacement) nebulizer and compressor 06/06/20 06/06/20 omeprazole 20 mg capsule,delayed 20 mg PO DAILY 06/06/20 06/06/20 release vits no.36-ferrous fum 26 1 tab PO 06/06/20 mg iron-folate cmb no.6 1 mg tablet (Prenate Elite) tiotropium bromide 2.5 2 puff PO DAILY 06/06/20 06/06/20 mcg/actuation mist for inhalation (Spiriva Respimat) Previous Rx's Medication Instructions Recorded prednisone 10 mg tablet 10 mg PO DAILY #69 tab 05/18/20 albuterol sulfate 2.5 mg INHALATION Q6H PRN #75 ml 07/10/20 albuterol sulfate 90 mcg/actuation 2 puff INHALATION Q4-6H PRN #8.5 g 07/10/20 aerosol inhaler prednisone 20 mg tablet 60 mg PO DAILY 5 Days #15 tab 07/10/20 prednisone 20 mg tablet 40 mg PO DAILY #10 tab 09/03/20 albuterol sulfate 90 mcg/actuation 2 puff INHALATION Q4-6H PRN #8.5 g 12/14/20 aerosol inhaler (ProAir HFA) azithromycin 250 mg tablet 250 mg PO DAILY 120 Days #120 tab 12/14/20 (Zithromax) prednisone 20 mg tablet 40 mg PO DAILY #10 tab 12/14/20 Allergies Allergy/AdvReac Type Severity Reaction Status Date / Time peach [PEACH] Allergy Severe RASH Verified 06/06/20 08:28 perfume [PERFUME] Allergy Severe ASTHMA Verified 06/06/20 08:28 ATTACK dog dander [DOG DANDER] Allergy Unknown ITCHY, Verified 06/06/20 08:28 HIVES mite-Dermatophagoides Allergy Unknown ASTHMA, Verified 06/06/20 08:28 farinae, wendy ITCHY [DUST MITES] THROAT Review of Systems Review of Systems Constitutional: No Fever, No Fatigue, No Malaise ENT/Mouth: No Ear Pain, No Nasal Congestion, No sore throat, No Rhinorrhea Eyes: No Eye Pain, No Swelling, No Redness, No Vision Changes Cardiovascular: No Chest Pain, No SOB, No Edema, No Palpitations Respiratory: No Cough, No Dyspnea Gastrointestinal: + Nausea, No Vomiting, No Diarrhea, No Constipation, + Abdominal pain Genitourinary: No irregular bleeding, No Dysuria, No Urinary Frequency, No Hematuria,No Flank Pain Musculoskeletal: No joint pain, No Myalgias, No Joint Swelling Skin: No Skin Lesions, No rash Neuro: No Weakness, No Numbness, No Headache Yes all other systems are reviewed and are negative Physical Exam Vital Signs: Vital Signs: Last Vital Signs Temp 98.3 F 02/05/21 13:45 Pulse 88 02/05/21 15:50 Resp 16 02/05/21 15:50 BP 127/89 02/05/21 15:50 Pulse Ox 99 02/05/21 15:50 Body Mass Index 25.9 Const: General: cooperative, healthy appearing and no acute distress Orientation/consciousness: patient oriented x3 Limitations: no limitations HENMT: Head: Yes normal to inspection Ears: hearing grossly normal bilaterally General nose exam: Normal external nose present Face and sinus: Yes normal facial exam Eyes: General: appearance normal, both eyes and all related structures EOM: EOMs intact bilaterally Neck: Neck: Yes normal visual inspection and Yes no meningeal signs Resp: Effort & Inspection: normal respiratory effort and no respiratory distress Cardio: Rate: regular rate GI: Inspection: Yes normal to inspection Palpation (GI): Soft to palpation, Tenderness to palpation present (GI) (Suprapubic), no guarding and not rigid : General: Yes no CVA tenderness Back/Spine/Pelvis: Back: no CVA tenderness Skin: Rashes: no rashes Wounds: no wounds Neuro: General: patient oriented x3 and no meningeal signs Extrem: General: Yes normal to inspection Course Course Course Narrative: -1525--mild leukocytosis of 12, labs otherwise unremarkable, beta quant negative -1639--UA negative US pelvic complete IMPRESSION: Unremarkable transabdominal ultrasound. >> results discussed with patient, discussed she needs to follow-up with OBGYN for further testing/hormone testing outpatient, she verbalized understanding feel safe for discharge home MDM - Abdominal Pain MDM Narrative Medical decision making narrative: 25-year-old female with a past medical history of anxiety, S/P miscarriage, presenting to the ED complaining of worsening lower abdominal cramping x months. On exam hypertensive, NAD, suprapubic tenderness elicited, no CVAT. Concern for vs hormonal imbalance vs metabolic abnormalities vs ? PCOS Plan: Labs, urine , pelvic ultrasound, patient requesting STI testing Medical Records Attestation: I reviewed the patient's medical records. Lab Data Attestation: I reviewed the patient's lab results. Result diagrams: 02/05/21 14:32 02/05/21 14:32 Labs: Lab Results 02/05/21 02/05/21 02/05/21 Range/Units 14:32 14:32 14:32 WBC 12.0 H (4.8-10.8) X10*3/uL RBC 4.55 (4.20-5.50) X10*6/uL Hgb 13.2 (12.0-16.0) g/dl Hct 40.5 (37-47) % MCV 89.0 (80-98) fL MCH 29.0 (27.0-33.0) pg MCHC 32.6 (31.0-35.0) g/dl RDW 14.7 (11.0-16.0) % Plt Count 355 (160-400) X10*3/uL MPV 9.7 (9.4-12.3) fL Immature Gran % (Auto) 0.5 H (0.0-0.4) % Neut % (Auto) 70.0 (45-73) % Lymph % (Auto) 22.9 (20-40) % Dewitt % (Auto) 6.5 (2-11) % Eos % (Auto) 0.0 (0-4) % Baso % (Auto) 0.1 (0-2) % Lymph # (Auto) 2.7 (1.2-4.9) X10*3/uL Dewitt # (Auto) 0.8 (0.1-1.2) X10*3/uL Eos # (Auto) 0.0 (0.0-0.4) X10*3/uL Baso # (Auto) 0.0 (0.0-0.2) X10*3/uL Abs Immat Gran (auto) 0.06 H (0.00-0.03) X10*3/uL Absolute Neuts (auto) 8.4 H (2.0-8.3) X10*3/uL Absolute Nucleated RBC 0.000 (0.0-0.012) X10*3/uL Nucleated RBC % (auto) 0.0 (0.0-0.2) /100WBC Sodium 137 (135-145) mmol/L Potassium 4.0 (3.3-5.1) mmol/L Chloride 104 (96-108) mmol/L Carbon Dioxide 26 (22-29) mmol/L Anion Gap 11 L (12-20) BUN 12 (9-16) mg/dL Creatinine 0.86 (0.5-1.4) mg/dL Estim Creat Clear Calc 96.0 Estimated GFR > 60 Random Glucose 90 (60-115) mg/dL Calcium 9.5 (8.4-10.2) mg/dL Total Bilirubin 0.5 (0.0-1.0) mg/dL Direct Bilirubin 0.2 (0.0-0.5) mg/dL AST 16 (5-31) U/L ALT 12 (0-31) U/L Alkaline Phosphatase 77 (39-117) U/L Total Protein 7.3 (6.5-8.0) g/dL Albumin 4.2 (3.5-5.0) g/dL Lipase 38 (8-78) U/L TSH 0.74 (0.32-4.0) uIU/mL Beta HCG, Quant < 2 mIU/mL Urine Color Urine Appearance Urine pH (5.0-8.0) Ur Specific [place] (1.005-1.025) Urine Protein (NEG-TRACE) MG/DL Urine Glucose (UA) (NEG) MG/DL Urine Ketones (NEG) MG/DL Urine Blood (NEG) Urine Nitrite (NEG) Ur Leukocyte Esterase (NEG) Urine Test NEGATIVE (NEGATIVE) 02/05/21 Range/Units 15:48 WBC (4.8-10.8) X10*3/uL RBC (4.20-5.50) X10*6/uL Hgb (12.0-16.0) g/dl Hct (37-47) % MCV (80-98) fL MCH (27.0-33.0) pg MCHC (31.0-35.0) g/dl RDW (11.0-16.0) % Plt Count (160-400) X10*3/uL MPV (9.4-12.3) fL Immature Gran % (Auto) (0.0-0.4) % Neut % (Auto) (45-73) % Lymph % (Auto) (20-40) % Dewitt % (Auto) (2-11) % Eos % (Auto) (0-4) % Baso % (Auto) (0-2) % Lymph # (Auto) (1.2-4.9) X10*3/uL Dew[place] # (Auto) (0.1-1.2) X10*3/uL Eos # (Auto) (0.0-0.4) X10*3/uL Baso # (Auto) (0.0-0.2) X10*3/uL Abs Immat Gran (auto) (0.00-0.03) X10*3/uL Absolute Neuts (auto) (2.0-8.3) X10*3/uL Absolute Nucleated RBC (0.0-0.012) X10*3/uL Nucleated RBC % (auto) (0.0-0.2) /100WBC Sodium (135-145) mmol/L Potassium (3.3-5.1) mmol/L Chloride (96-108) mmol/L Carbon Dioxide (22-29) mmol/L Anion Gap (12-20) BUN (9-16) mg/dL Creatinine (0.5-1.4) mg/dL Estim Creat Clear Calc Estimated GFR Random Glucose (60-115) mg/dL Calcium (8.4-10.2) mg/dL Total Bilirubin (0.0-1.0) mg/dL Direct Bilirubin (0.0-0.5) mg/dL AST (5-31) U/L ALT (0-31) U/L Alkaline Phosphatase (39-117) U/L Total Protein (6.5-8.0) g/dL Albumin (3.5-5.0) g/dL Lipase (8-78) U/L TSH (0.32-4.0) uIU/mL Beta HCG, Quant mIU/mL Urine Color YELLOW Urine Appearance HAZY Urine pH 6.0 (5.0-8.0) Ur Specific [place] 1.025 (1.005-1.025) Urine Protein NEG (NEG-TRACE) MG/DL Urine Glucose (UA) NEG (NEG) MG/DL Urine Ketones NEG (NEG) MG/DL Urine Blood NEG (NEG) Urine Nitrite NEG (NEG) Ur Leukocyte Esterase NEG (NEG) Urine Test (NEGATIVE) Discharge Plan Discharge Clinical Impression: Abdominal pain, suprapubic, Amenorrhea Patient Disposition: Home, Self-Care Instructions: Pelvic Pain (ED) Additional Instructions: Your blood work, urine, and ultrasound were unremarkable You need to follow-up with your OBGYN You need hormone testing outpatient If her symptoms persist or worsen, you develop worsening or constant abdominal pain, nausea/vomiting, or fever please return to the ED Your STI testing is pending at this time, refrain from any sexual contact until your results are back You may go to [facility] for further STI testing Prescriptions: No Action prednisone 10 mg tablet 10 mg PO DAILY Qty: 69 RF: 0 cetirizine 10 mg Tablet 10 mg PO DAILY RF: 0 omeprazole 20 mg Capsule,Delayed Release(Dr/Ec) 20 mg PO DAILY RF: 0 montelukast [Singulair] 10 mg Tablet 10 mg PO BEDTIME RF: 0 albuterol sulfate [ProAir HFA] 90 mcg/actuation Hfa Aerosol Inhaler 2 puff INHALATION Q6H PRN (Reason: shortness of breath) RF: 0 (DME) A.I.R.S Nebulizer Replacement Kit MISCELLANEOUS RF: 0 (DME) Comp-Air Compressor Neb System Device MISCELLANEOUS RF: 0 cholecalciferol (vitamin D3) [Vitamin D3] 125 mcg (5,000 unit) Tablet 125 mcg PO DAILY RF: 0 Prenate Elite 26 mg iron- 1 mg Tablet 1 tab PO RF: 0 Spiriva Respimat 2.5 mcg/actuation mist 2 puff PO DAILY RF: 0 Breo Ellipta 100-25 mcg/dose Blister With Device 1 inh INHALATION DAILY RF: 0 Nucala 100 mg/mL auto-injector subcut RF: 0 azithromycin [Zithromax] 250 mg tablet 250 mg PO DAILY 120 Days Qty: 120 RF: 0 prednisone 20 mg tablet 40 mg PO DAILY Qty: 10 RF: 0 albuterol sulfate [ProAir HFA] 90 mcg/actuation HFA aerosol inhaler 2 puff inhalation Q4-6H PRN (Reason: shortness of breath or wheezing) Qty: 8.5 RF: 0 albuterol sulfate 90 mcg/actuation HFA aerosol inhaler 2 puff inhalation Q4-6H PRN (Reason: shortness of breath or wheezing) Qty: 8.5 RF: 0 albuterol sulfate 2.5 mg /3 mL (0.083 %) solution for nebulization 2.5 mg inhalation Q6H PRN (Reason: shortness of breath or wheezing) Qty: 75 RF: 0 prednisone 20 mg tablet 60 mg PO DAILY 5 Days Qty: 15 RF: 0 prednisone 20 mg tablet 40 mg PO DAILY Qty: 10 RF: 0 Referrals: Trevor Kelly MD [Physician] - 5 days [facility] Past Medical History Attestation statement: The following information was validated with the patient. Medical History Allergic rhinitis Anxiety History of miscarriage Hx of polyarthritis Severe persistent allergic asthma Sleep difficulties Family History Family History Maternal Aunt DVT (deep venous thrombosis) Father CHF (congestive heart failure) Diabetes Mother HTN (hypertension) Asthma Social History Social History Alcohol intake: current Alcohol intake frequency: a few times a month Patient Tobacco Use Status: Never used Tobacco Substance Use Type: Marijuana Advance Directives: No Advance Directives Information Provided: Yes
[2021-02-05 14:38] LABS: MANUAL DIFF FLAG NO
[2021-02-05 14:41] LABS: Basophils Percent Auto 0.1 % (0-2); Hematocrit 40.5 % (37-47); Hemoglobin 13.2 g/dl (12.0-16.0); Imm Gran Abs Auto 0.06 X10*3/uL (0.00-0.03); Imm Gran Pct Auto 0.5 % (0.0-0.4); Lymphocytes Absolute Auto 2.7 X10*3/uL (1.2-4.9); Lymphocytes Percent Auto 22.9 % (20-40); Mean Corpuscular HGB Conc 32.6 g/dl (31.0-35.0); Mean Platelet Volume 9.7 fL (9.4-12.3); Monocytes Absolute Auto 0.8 X10*3/uL (0.1-1.2); Monocytes Percent Auto 6.5 % (2-11); Neutrophils Absolute Auto 8.4 X10*3/uL (2.0-8.3); Platelet Count 355 X10*3/uL (160-400); Red Blood Count 4.55 X10*6/uL (4.20-5.50); Red Cell Distribution Width 14.7 % (11.0-16.0)
[2021-02-05 14:44] LABS: UPreg QC Valid YES; Urine Pregnancy NEGATIVE (NEGATIVE)
[2021-02-05 14:56] LABS: Alanine Aminotransferase 12 U/L (0-31); Albumin Level 4.2 g/dL (3.5-5.0); Alkaline Phosphatase 77 U/L (39-117); Anion Gap 11 (12-20); Aspartate Amino Transferase 16 U/L (5-31); Bilirubin Direct 0.2 mg/dL (0.0-0.5); Bilirubin Total 0.5 mg/dL (0.0-1.0); Blood Urea Nitrogen 12 mg/dL (9-16); Calcium 9.5 mg/dL (8.4-10.2); Carbon Dioxide 26 mmol/L (22-29); Chloride 104 mmol/L (96-108); Estimated Glomerular Filt Rate > 60; Glucose Random 90 mg/dL (60-115); Lipase 38 U/L (8-78); Sodium 137 mmol/L (135-145); Total Protein 7.3 g/dL (6.5-8.0)
[2021-02-05 15:02] LABS: HCG Quantitative < 2 mIU/mL
[2021-02-05 15:50] VITALS: BP 127/89; PULSE 88; RESP 16; O2SAT 99
[2021-02-05 15:55] LABS: Appearance Urine HAZY; Color Urine YELLOW; Glucose Urine UA NEG (NEG); Leukocyte Esterase Urine NEG (NEG); Nitrite Urine NEG (NEG); Specific Gravity - Urine 1.025 (1.005-1.025); Urine Blood NEG (NEG); Urine Ketones NEG (NEG); Urine Protein NEG (NEG-TRACE)
[2021-02-05 15:57] LABS: TSH reflex Free T4 0.74 uIU/mL (0.32-4.0)
[2021-02-06 01:34] LABS: CT PCR NOT DETECTED (Not Detect.); NG PCR NOT DETECTED (Not Detect.)
== END 2021-02-05 16:52 | disposition home or self-care (01) ==
PROVIDERS: Physician Assistant; Emergency Provider Emergency Medicine Emergency Medical Services
DX: N91.0 Primary amenorrhea (principal); R10.9 Unspecified abdominal pain; F41.9 Anxiety disorder, unspecified; Z79.899 Other long term (current) drug therapy
CPT/HCPCS: 36415; 76856; 80048; 80076; 81003; 81025; 83690; 84443; 84702; 85025; 87491; 87591; 99284

== ENCOUNTER 2021-02-15 07:12 | Emergency (ER) | payer MEDICAID, SELFPAY ==
--- NOTE | ~2021-02-15 | XR_ITS ---
EXAMINATION: XR CHEST CLINICAL INFORMATION: Asthma COMPARISON: None TECHNIQUE: Frontal view of the chest was obtained. FINDINGS: There is no hyperinflation. No pneumothorax or pneumomediastinum. The lungs are clear and there is no airspace elevation or groundglass opacity or effusion. The heart is normal in size. The hilar and mediastinal contours and visualized bony structures are unremarkable. XR/XR chest 1V IMPRESSION: Unremarkable examination.
[2021-02-15 07:25] VITALS: BP 147/94; PULSE 106; RESP 22; TEMP 36.6; O2SAT 97; BMI 25.7
--- NOTE | 2021-02-15 08:03 | ED_ITS ---
HPI - SOB/Dyspnea General Chief Complaint: Dyspnea Stated Complaint: asthma, cough Time Seen by Provider: 02/15/21 07:51 Source: patient Mode of arrival: ambulatory Limitations: no limitations History of Present Illness HPI Narrative: 25-year-old female history of asthma, history of intubation, no ICU admissions this year, came in for evaluation of asthma exacerbation. No sick contact, no recent travel. No fever, no chills. Related Data Home Medications Medication Instructions Recorded Confirmed albuterol sulfate 90 mcg/actuation 2 puff INHALATION Q6H PRN 06/06/20 06/06/20 aerosol inhaler (ProAir HFA) cetirizine 10 mg tablet 10 mg PO DAILY 06/06/20 06/06/20 cholecalciferol (vitamin D3) 125 125 mcg PO DAILY 06/06/20 06/06/20 mcg (5,000 unit) tablet (Vitamin D3) fluticasone furoate 100 1 inh INHALATION DAILY 06/06/20 06/06/20 mcg-vilanterol 25 mcg/dose inhalation powder (Breo Ellipta) mepolizumab 100 mg/mL subcutaneous mg SUBCUT 06/06/20 06/06/20 auto-injector (Nucala) montelukast 10 mg tablet 10 mg PO BEDTIME 06/06/20 06/06/20 (Singulair) nebulizer accessories (A.I.R.S 06/06/20 06/06/20 Nebulizer Replacement) nebulizer and compressor 06/06/20 06/06/20 omeprazole 20 mg capsule,delayed 20 mg PO DAILY 06/06/20 06/06/20 release vits no.36-ferrous fum 26 1 tab PO 06/06/20 mg iron-folate cmb no.6 1 mg tablet (Prenate Elite) tiotropium bromide 2.5 2 puff PO DAILY 06/06/20 06/06/20 mcg/actuation mist for inhalation (Spiriva Respimat) Previous Rx's Medication Instructions Recorded prednisone 10 mg tablet 10 mg PO DAILY #69 tab 05/18/20 albuterol sulfate 2.5 mg INHALATION Q6H PRN #75 ml 07/10/20 albuterol sulfate 90 mcg/actuation 2 puff INHALATION Q4-6H PRN #8.5 g 07/10/20 aerosol inhaler prednisone 20 mg tablet 60 mg PO DAILY 5 Days #15 tab 07/10/20 prednisone 20 mg tablet 40 mg PO DAILY #10 tab 09/03/20 albuterol sulfate 90 mcg/actuation 2 puff INHALATION Q4-6H PRN #8.5 g 12/14/20 aerosol inhaler (ProAir HFA) azithromycin 250 mg tablet 250 mg PO DAILY 120 Days #120 tab 12/14/20 (Zithromax) prednisone 20 mg tablet 40 mg PO DAILY #10 tab 12/14/20 dicyclomine 20 mg tablet 20 mg PO QID PRN #14 tab 02/05/21 albuterol sulfate 90 mcg/actuation 1 inh INHALATION QID PRN #8.5 g 02/15/21 aerosol inhaler prednisone 20 mg tablet 20 mg PO BID #10 tab 02/15/21 Allergies Allergy/AdvReac Type Severity Reaction Status Date / Time peach [PEACH] Allergy Severe RASH Verified 06/06/20 08:28 perfume [PERFUME] Allergy Severe ASTHMA Verified 06/06/20 08:28 ATTACK dog dander [DOG DANDER] Allergy Unknown ITCHY, Verified 06/06/20 08:28 HIVES mite-Dermatophagoides Allergy Unknown ASTHMA, Verified 06/06/20 08:28 farinae, wendy ITCHY [DUST MITES] THROAT Review of Systems Review of Systems: All other systems are reviewed and are negative Constitutional: Reports as per HPI and Reports no additional constitutional complaints Eyes: Reports as per HPI and Reports no additional eye complaints Reports system reviewed and no additional complaints, except as documented Cardiovascular: Reports as per HPI and Reports no additional cardiovascular complaints Respiratory: Reports as per HPI and Reports no additional respiratory complaints Gastrointestinal: Reports as per HPI and Reports no additional gastrointestinal complaints Genitourinary: Reports no additional female genitourinary complaints Musculoskeletal: Reports no additional musculoskeletal complaints Skin/Breast: Reports system reviewed and no additional complaints, except as d ocu Psychiatric: Reports no additional psychiatric complaints Endocrine: Reports no additional endocrine complaints Hematologic/Lymphatic: Reports no additional hematologic/lymphatic complaints Allergic/Immunologic: Reports no additional allergic/immunologic complaints Reports system reviewed and no additional complaints, except as documented and Reports Abnormal speech present PMFSH Past Medical History Medical History Allergic rhinitis Anxiety History of miscarriage Hx of polyarthritis Severe persistent allergic asthma Sleep difficulties Family History Family History Maternal Aunt DVT (deep venous thrombosis) Father CHF (congestive heart failure) Diabetes Mother HTN (hypertension) Asthma Social History Social History Alcohol intake: current Alcohol intake frequency: holidays/special occasions only Patient Tobacco Use Status: Never used Tobacco Use of substances other than those prescribed or required for medical reasons: Yes Substance Use Type: Marijuana Advance Directives: No Patient : No Physical Exam Vital Signs: Vital Signs: Last Vital Signs Temp 97.9 F 02/15/21 07:25 Pulse 106 H 02/15/21 10:02 Resp 18 02/15/21 10:02 BP 140/94 H 02/15/21 10:02 Pulse Ox 98 02/15/21 10:02 Body Mass Index 25.7 Vital signs have been reviewed as appeared to be correct. Blood pressure normal. Heart rate normal. Respiration rate normal. Temperature normal. Oxygen saturation normal. Appearance: Alert. Oriented X3. No acute distress. Head: Normal external exam. Normocephalic. Atraumatic. No Baez signs noted. No raccoon eyes noted Eyes: PERRLA. EOMI. Conjunctiva and sclera normal. Eyelids normal. ENT: TM's Normal. Pharynx normal. Uvula midline. Moist mucous membranes. No trismus noted. No drooling noted. No muffled voice noted. Neck: Normal inspection. Neck supple. FROM. No adenopathy. Thyroid Normal. No meningeal signs. No neck mass noted. CVS: Normal heart rate and rhythm. Heart sound normal. No murmurs noted. Pulses normal throughout. Respiratory: No respiratory distress. Painless inspiration. Breath sounds nor mal, diffuse expiratory wheezing with prolonged expiration. Chest nontender. No accessory muscle usage noted or decreased air movement noted. Abdomen: Soft and nontender. Bowel sounds normal in all 4 quadrants. No distention noted. No organomegaly noted. No visible injury noted. Back: No CVA tenderness. Full range of motion noted. Skin: Skin warm and dry. Normal skin color. Normal skin turgor. No rashes/lesions/lacerations noted. Extremities: No lower extremity edema. Extremities exhibit normal range of motion. Extremities nontender. Neuro: Oriented X 3. Cranial nerve exam: II-XII are grossly intact No motor deficit. No sensory deficit. Reflexes normal. Course Course Course Narrative: Assessment and plan. [age] old female history of asthma came in with acute asthma exacerbation will start her on albuterol/prednisone today. MDM - SOB/Dyspnea Medical Records Attestation: I reviewed the patient's medical records. Lab Data Attestation: I reviewed the patient's lab results. Labs: Lab Results 02/15/21 Range/Units 08:24 COVID-19 ([facility]) Negative (Negative) COVID-19 Clin Com See Note Imaging Data Chest x-ray: Radiologist's impression: Unremarkable examination Discharge Plan Discharge Clinical Impression: Asthma with exacerbation Patient Disposition: Home, Self-Care Instructions: Asthma (ED) Prescriptions: New albuterol sulfate 90 mcg/actuation HFA aerosol inhaler 1 inh inhalation QID PRN (Reason: shortness of breath or wheezing) Qty: 8.5 RF: 0 prednisone 20 mg tablet 20 mg PO BID Qty: 10 RF: 0 No Action prednisone 10 mg tablet 10 mg PO DAILY Qty: 69 RF: 0 cetirizine 10 mg Tablet 10 mg PO DAILY RF: 0 omeprazole 20 mg Capsule,Delayed Release(Dr/Ec) 20 mg PO DAILY RF: 0 montelukast [Singulair] 10 mg Tablet 10 mg PO BEDTIME RF: 0 albuterol sulfate [ProAir HFA] 90 mcg/actuation Hfa Aerosol Inhaler 2 puff INHALATION Q6H PRN (Reason: shortness of breath) RF: 0 (DME) A.I.R.S Nebulizer Replacement Kit MISCELLANEOUS RF: 0 (DME) Comp-Air Compressor Neb System Device MISCELLANEOUS RF: 0 cholecalciferol (vitamin D3) [Vitamin D3] 125 mcg (5,000 unit) Tablet 125 mcg PO DAILY RF: 0 Prenate Elite 26 mg iron- 1 mg Tablet 1 tab PO RF: 0 Spiriva Respimat 2.5 mcg/actuation mist 2 puff PO DAILY RF: 0 Breo Ellipta 100-25 mcg/dose Blister With Device 1 inh INHALATION DAILY RF: 0 Nucala 100 mg/mL auto-injector subcut RF: 0 azithromycin [Zithromax] 250 mg tablet 250 mg PO DAILY 120 Days Qty: 120 RF: 0 prednisone 20 mg tablet 40 mg PO DAILY Qty: 10 RF: 0 albuterol sulfate [ProAir HFA] 90 mcg/actuation HFA aerosol inhaler 2 puff inhalation Q4-6H PRN (Reason: shortness of breath or wheezing) Qty: 8.5 RF: 0 albuterol sulfate 90 mcg/actuation HFA aerosol inhaler 2 puff inhalation Q4-6H PRN (Reason: shortness of breath or wheezing) Qty: 8.5 RF: 0 albuterol sulfate 2.5 mg /3 mL (0.083 %) solution for nebulization 2.5 mg inhalation Q6H PRN (Reason: shortness of breath or wheezing) Qty: 75 RF: 0 prednisone 20 mg tablet 60 mg PO DAILY 5 Days Qty: 15 RF: 0 prednisone 20 mg tablet 40 mg PO DAILY Qty: 10 RF: 0 dicyclomine 20 mg tablet 20 mg PO QID PRN (Reason: Abdominal cramping) Qty: 14 RF: 0 Referrals: [facility] [Primary Care Provider] - 2 days
[2021-02-15] MEDS: predniSONE 20 MG TABLET 40 MG PO (08:21)
[2021-02-15 08:37] VITALS: PULSE 84; O2SAT 96
[2021-02-15] MEDS: Albuterol Sulfate (0.083%) 2.5 MG/3 ML VIAL.NEB INHALE (08:37)
[2021-02-15] MEDS: Albuterol/Iprat 2.5/0.5MG 3 ML AMPUL.NEB INHALE (08:37)
[2021-02-15 08:46] LABS: COVID-19 Test Negative (Negative)
[2021-02-15 10:02] VITALS: BP 140/94; PULSE 106; RESP 18; O2SAT 98
--- NOTE | 2021-02-15 10:16 | PC.NURSE ---
pt alert and oriented, vss, denies pain/sob/headache/dizziness. no complaints. pt states she feels better. will update ED provider.
--- NOTE | 2021-02-15 10:33 | PC.NURSE ---
pt medically cleared for discharge, discharge summary given and explained, pt denies pain, vss. no complaints.
== END 2021-02-15 10:37 | disposition home or self-care (01) ==
PROVIDERS: Emergency Provider Emergency Medicine
DX: J45.51 Severe persistent asthma with (acute) exacerbation (principal); Z20.822 Contact with and (suspected) exposure to COVID-19
CPT/HCPCS: 36415; 71045; 87635; 94640; 99284

== ENCOUNTER 2021-04-04 02:25 | Emergency (ER) | payer MEDICAID, SELFPAY ==
[2021-04-04 02:49] VITALS: BP 157/97; PULSE 127; RESP 20; TEMP 37; O2SAT 97; BMI 26.4
--- NOTE | 2021-04-04 02:55 | ECG_ITS ---
Test Reason : TACHYCARDIC Blood Pressure : / mmHG Vent. Rate : 120 BPM Atrial Rate : 120 BPM P-R Int : 126 ms QRS Dur : 076 ms QT Int : 308 ms P-R-T Axes : 046 009 009 degrees QTc Int : 435 ms Sinus tachycardia Nonspecific T wave abnormality Borderline ECG When compared with ECG of 10-JUL-2020 20:57, Nonspecific T wave abnormality now evident in Anterior leads Referred By: Generic ED Physician Electronically Signed By:JOHN PAUL RHOADES
[2021-04-04 03:22] LABS: IDNOW Serial# 55D5AD1C
[2021-04-04 03:23] LABS: COVID-19 Test Positive (Negative)
== END 2021-04-04 04:44 | disposition left against medical advice (07) ==
PROVIDERS: Emergency Provider Emergency Medicine; PCP Internal Medicine
DX: R68.89 Other general symptoms and signs (principal); Z20.822 Contact with and (suspected) exposure to COVID-19
CPT/HCPCS: 36415; 87635; 93005; 99283

== ENCOUNTER 2021-04-09 16:36 | Emergency (ER) | payer MEDICAID, SELFPAY | END 2021-04-09 23:15 | disposition left against medical advice (07) | PROVIDERS: Emergency Provider Emergency Medicine; PCP Internal Medicine | DX: R11.2 Nausea with vomiting, unspecified (principal) ==

== ENCOUNTER 2021-05-23 03:33 | Emergency (ER) | payer MEDICAID, SELFPAY ==
--- NOTE | ~2021-05-23 | XR_ITS ---
EXAMINATION: XR FOOT, LEFT CLINICAL INFORMATION: Fall, pain COMPARISON: None TECHNIQUE: 3 views of the left foot. of the left foot. XR/XR foot LT min 3V FINDINGS/IMPRESSION: There is a slightly displaced transverse fracture at the base of the fifth metatarsal. Adjacent soft tissue swelling is suspected. On the oblique view there appears to be slight malalignment of the base of the fourth metatarsal with the cuboid, of uncertain clinical significance as this alignment appears within normal limits on the AP view. Articular alignment across the foot otherwise appears preserved.
[2021-05-23 03:42] VITALS: BP 120/83; PULSE 125; RESP 16; TEMP 36.6; O2SAT 98; BMI 27.5
--- NOTE | 2021-05-23 04:36 | ED.LOWEXIN ---
HPI - Extremity Injury (Lower) General Chief Complaint: Extremity Injury, Lower Stated Complaint: foot/ankle inj Time Seen by Provider: 05/23/21 04:24 Source: patient Mode of arrival: ambulatory History of Present Illness HPI Narrative: 25-year-old female presents with complaints of pain to the left foot after she was reportedly intoxicated and fell down 5 steps tonight and rates the pain as a 10/10 to the lateral side of her left foot. Patient denies any head strike or loss of consciousness. Related Data Home Medications Medication Instructions Recorded Confirmed albuterol sulfate 90 mcg/actuation 2 puff INHALATION Q6H PRN 06/06/20 06/06/20 aerosol inhaler (ProAir HFA) cetirizine 10 mg tablet 10 mg PO DAILY 06/06/20 06/06/20 cholecalciferol (vitamin D3) 125 125 mcg PO DAILY 06/06/20 06/06/20 mcg (5,000 unit) tablet (Vitamin D3) fluticasone furoate 100 1 inh INHALATION DAILY 06/06/20 06/06/20 mcg-vilanterol 25 mcg/dose inhalation powder (Breo Ellipta) mepolizumab 100 mg/mL subcutaneous mg SUBCUT 06/06/20 06/06/20 auto-injector (Nucala) montelukast 10 mg tablet 10 mg PO BEDTIME 06/06/20 06/06/20 (Singulair) nebulizer accessories (A.I.R.S 06/06/20 06/06/20 Nebulizer Replacement) nebulizer and compressor 06/06/20 06/06/20 omeprazole 20 mg capsule,delayed 20 mg PO DAILY 06/06/20 06/06/20 release vits no.36-ferrous fum 26 1 tab PO 06/06/20 mg iron-folate cmb no.6 1 mg tablet (Prenate Elite) tiotropium bromide 2.5 2 puff PO DAILY 06/06/20 06/06/20 mcg/actuation mist for inhalation (Spiriva Respimat) Previous Rx's Medication Instructions Recorded prednisone 10 mg tablet 10 mg PO DAILY #69 tab 05/18/20 albuterol sulfate 2.5 mg (3 mL) INHALATION Q6H PRN 07/10/20 #75 ml albuterol sulfate 90 mcg/actuation 2 puff INHALATION Q4-6H PRN #8.5 g 07/10/20 aerosol inhaler prednisone 20 mg tablet 60 mg PO DAILY 5 Days #15 tab 07/10/20 prednisone 20 mg tablet 40 mg PO DAILY #10 tab 09/03/20 albuterol sulfate 90 mcg/actuation 2 puff INHALATION Q4-6H PRN #8.5 g 12/14/20 aerosol inhaler (ProAir HFA) azithromycin 250 mg tablet 250 mg PO DAILY 120 Days #120 tab 12/14/20 (Zithromax) prednisone 20 mg tablet 40 mg PO DAILY #10 tab 12/14/20 dicyclomine 20 mg tablet 20 mg PO QID PRN #14 tab 02/05/21 albuterol sulfate 90 mcg/actuation 1 inh INHALATION QID PRN #8.5 g 02/15/21 aerosol inhaler prednisone 20 mg tablet 20 mg PO BID #10 tab 02/15/21 Allergies Allergy/AdvReac Type Severity Reaction Status Date / Time peach [PEACH] Allergy Severe RASH Verified 06/06/20 08:28 perfume [PERFUME] Allergy Severe ASTHMA Verified 06/06/20 08:28 ATTACK dog dander [DOG DANDER] Allergy Unknown ITCHY, Verified 06/06/20 08:28 HIVES mite-Dermatophagoides Allergy Unknown ASTHMA, Verified 06/06/20 08:28 farinae, wendy ITCHY [DUST MITES] THROAT Review of Systems Review of Systems: Pertinent positives and negatives as stated in HPI 10 point review of systems is otherwise negative. [facility] Past Medical History Source: nursing notes reviewed Medical History Allergic rhinitis Anxiety History of miscarriage Hx of polyarthritis Severe persistent allergic asthma Sleep difficulties Family History Family History Maternal Aunt DVT (deep venous thrombosis) Father CHF (congestive heart failure) Diabetes Mother HTN (hypertension) Asthma Social History Social History Alcohol intake: current Alcohol intake frequency: holidays/special occasions only Patient Tobacco Use Status: Never used Tobacco Substance Use Type: Marijuana Advance Directives: No Advance Directives Information Provided: Yes Patient : No Physical Exam Vital Signs: Vital Signs: Last Vital Signs Temp 98 F 05/23/21 03:42 Pulse 75 05/23/21 04:52 Resp 18 05/23/21 04:52 BP 122/76 05/23/21 04:52 Pulse Ox 98 05/23/21 04:52 BMI result Body Mass Index 27.5 VITAL SIGNS: Reviewed. GENERAL: Well developed, well nourished, in no acute distress. HEAD: Normocephalic/atraumatic EYES: PERRLA, EOMI OROPHARYNX: no oral lesions noted, posterior pharynx clear LUNGS: Normal breath sounds. No adventitious sounds or accessory muscle use. SpO2<98> CARDIOVASCULAR: Regular rate and rhythm without noted murmurs ABDOMEN: Soft, non-tender, non-distended with bowel sounds. LEFT FOOT: No deformity, bruising noted to the lateral aspect of the left foot, capillary refill less than 3 seconds, sensation is intact and palpable DP/PT and no noted malleoli tenderness. NEUROLOGIC: Alert and oriented x 4. Course Course Course Narrative: 25-year-old female with history and clinical presentation after review of imaging studies consistent with zone 1/5 metatarsal fracture. Patient was placed in a postop shoe in provided with crutch training after discussion with the orthopedic provider. Patient is otherwise instructed to follow-up with orthopedics office this morning for re-evaluation. She was provided with combination analgesics and discharged home with a friend in stable condition. Discharge Plan Discharge Clinical Impression: Metatarsal fracture Patient Disposition: Home, Self-Care Instructions: Crutch Instructions (ED), Foot Fracture in Adults (ED) Additional Instructions: 1. Tylenol 1000 mg, orally, every 6 hours as needed for pain control. Do not exceed 4000 mg within 24 hours. 2. Ibuprofen 400 mg, for 6 hours as needed for pain control. 3. Apply ice to unexposed skin for 10-15 minutes, 3-4 times a a and keep extremity elevated as much as possible. 4. You with an orthopedic consult and should call the office 1st thing in the morning. Return to the ER for worsening symptoms. Prescriptions: No Action prednisone 10 mg tablet 10 mg PO DAILY Qty: 69 0RF Rx Instructions: 60mg for 4 days, 50mg for 3 days, 40mg for 3 days, 30mg for 3 days, 20mg for 3 days, 10mg for 3 days cetirizine 10 mg Tablet 10 mg PO DAILY 0RF omeprazole 20 mg Capsule,Delayed Release(Dr/Ec) 20 mg PO DAILY 0RF montelukast [Singulair] 10 mg Tablet 10 mg PO BEDTIME 0RF albuterol sulfate [ProAir HFA] 90 mcg/actuation Hfa Aerosol Inhaler 2 puff INHALATION Q6H PRN (Reason: shortness of breath) 0RF (DME) A.I.R.S Nebulizer Replacement Kit MISCELLANEOUS 0RF (DME) Comp-Air Compressor Neb System Device MISCELLANEOUS 0RF cholecalciferol (vitamin D3) [Vitamin D3] 125 mcg (5,000 unit) Tablet 125 mcg PO DAILY 0RF Prenate Elite 26 mg iron- 1 mg Tablet 1 tab PO 0RF Spiriva Respimat 2.5 mcg/actuation mist 2 puff PO DAILY 0RF Breo Ellipta 100-25 mcg/dose Blister With Device 1 inh INHALATION DAILY 0RF Nucala 100 mg/mL auto-injector subcut 0RF azithromycin [Zithromax] 250 mg tablet 250 mg PO DAILY 120 Days Qty: 120 0RF prednisone 20 mg tablet 40 mg PO DAILY Qty: 10 0RF albuterol sulfate [ProAir HFA] 90 mcg/actuation HFA aerosol inhaler 2 puff inhalation Q4-6H PRN (Reason: shortness of breath or wheezing) Qty: 8.5 0RF albuterol sulfate 90 mcg/actuation HFA aerosol inhaler 2 puff inhalation Q4-6H PRN (Reason: shortness of breath or wheezing) Qty: 8.5 0RF albuterol sulfate 2.5 mg /3 mL (0.083 %) solution for nebulization 2.5 mg inhalation Q6H PRN (Reason: shortness of breath or wheezing) Qty: 75 0RF prednisone 20 mg tablet 60 mg PO DAILY 5 Days Qty: 15 0RF prednisone 20 mg tablet 40 mg PO DAILY Qty: 10 0RF dicyclomine 20 mg tablet 20 mg PO QID PRN (Reason: Abdominal cramping) Qty: 14 0RF albuterol sulfate 90 mcg/actuation HFA aerosol inhaler 1 inh inhalation QID PRN (Reason: shortness of breath or wheezing) Qty: 8.5 0RF prednisone 20 mg tablet 20 mg PO BID Qty: 10 0RF Referrals: Richie Acevedo MD [Physician] - 2 days (Zone 1 fracture of left 5th metatarsal) [facility] [Primary Care Provider] - 2 days Stand Alone Forms: Work/School Release Interventions: ED Discharge Assessment Last Done: 05/23/21 04:53 Discharge Date/Time: 05/23/21 04:58
[2021-05-23 04:52] VITALS: BP 122/76; PULSE 75; RESP 18; O2SAT 98
[2021-05-23] MEDS: Ibuprofen 400 MG TABLET PO (04:56)
[2021-05-23] MEDS: Acetaminophen 325 MG TABLET 975 MG PO (04:56)
== END 2021-05-23 04:58 | disposition home or self-care (01) ==
PROVIDERS: Emergency Provider Student in an Organized Health Care Education/Training Program
DX: S92.202A Fracture of unspecified tarsal bone(s) of left foot, initial encounter for closed fracture (principal); M79.672 Pain in left foot; W10.9XXA Fall (on) (from) unspecified stairs and steps, initial encounter; Y93.9 Activity, unspecified; Y92.9 Unspecified place or not applicable; Y99.9 Unspecified external cause status; Z79.899 Other long term (current) drug therapy
CPT/HCPCS: 73630; 99283; 99284

== ENCOUNTER → 2021-05-29 09:11 | Outpatient (BNVA) | payer MEDICAID, SELFPAY | PROVIDERS: Visit Provider Physician Assistant | DX: S92.352A Displaced fracture of fifth metatarsal bone, left foot, initial encounter for closed fracture (principal) | CPT/HCPCS: 99202 ==

== ENCOUNTER 2021-05-31 13:33 | Day surgery (SDC) | payer MEDICAID, SELFPAY ==
--- NOTE | 2021-05-30 14:31 | HO.ANESPROP2 ---
Documented by User: Melania Boateng NP 05/30/21 14:32 HPI - Anesthesia Eval Consult details Narrative: 25yo F for Left fifth toe Fx ORIF PMFSH Active Problems Active Problems: All Active Problems (Updated 05/24/21 @ 00:01 by Luiz Dangelo) Anti-cardiolipin antibody positive (Acute) Past Medical History Medical History Allergic rhinitis Anxiety History of miscarriage Hx of polyarthritis Severe persistent allergic asthma Sleep difficulties Family History Family History Maternal Aunt DVT (deep venous thrombosis) Father CHF (congestive heart failure) Diabetes Mother HTN (hypertension) Asthma Social History Social History (Updated 05/29/21 @ 09:31 by OMAR Borrero) Alcohol intake: current Alcohol intake frequency: a few times a week Patient Tobacco Use Status: Never used Tobacco Use of substances other than those prescribed or required for medical reasons: Yes Substance Use Type: Marijuana Substance Use Frequency: Occasionally Are you DNR?: No Advance Directives: No Advance Directives Information Provided: Yes Current occupational status: employed 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 Allergies Allergy/AdvReac Type Severity Reaction Status Date / Time peach [PEACH] Allergy Severe RASH Verified 05/31/21 13:57 perfume [PERFUME] Allergy Severe ASTHMA Verified 05/31/21 13:57 ATTACK dog dander [DOG DANDER] Allergy Unknown ITCHY, Verified 05/31/21 13:57 HIVES mite-Dermatophagoides Allergy Unknown ASTHMA, Verified 05/31/21 13:57 farinae, wendy ITCHY [DUST MITES] THROAT kiwi Allergy Swelling Verified 05/31/21 13:57 strawberry Allergy Itching Verified 05/31/21 13:57 Home Medications Medication Instructions Recorded Confirmed Last Taken Type albuterol sulfate 90 mcg/actuation 2 puff INHALATION Q6H PRN 06/06/20 06/06/20 Unknown History aerosol inhaler (ProAir HFA) cetirizine 10 mg tablet 10 mg PO DAILY 06/06/20 06/06/20 Unknown History cholecalciferol (vitamin D3) 125 125 mcg PO DAILY 06/06/20 06/06/20 Unknown History mcg (5,000 unit) tablet (Vitamin D3) fluticasone furoate 100 1 inh INHALATION DAILY 06/06/20 06/06/20 Unknown History mcg-vilanterol 25 mcg/dose inhalation powder (Breo Ellipta) mepolizumab 100 mg/mL subcutaneous mg SUBCUT 06/06/20 06/06/20 Unknown History auto-injector (Nucala) montelukast 10 mg tablet 10 mg PO BEDTIME 06/06/20 06/06/20 Unknown History (Singulair) nebulizer accessories (A.I.R.S 06/06/20 06/06/20 Unknown History Nebulizer Replacement) nebulizer and compressor 06/06/20 06/06/20 Unknown History omeprazole 20 mg capsule,delayed 20 mg PO DAILY 06/06/20 06/06/20 Unknown History release vits no.36-ferrous fum 26 1 tab PO 06/06/20 Unknown History mg iron-folate cmb no.6 1 mg tablet (Prenate Elite) tiotropium bromide 2.5 2 puff PO DAILY 06/06/20 06/06/20 Unknown History mcg/actuation mist for inhalation (Spiriva Respimat) Exam Exam Date and Time: May 30, 2021 1431 Assessment and Plan Assessment Anesthesia Assessment: Chart Reviewed Documented by User: Tana Medina MD 05/31/21 14:29 [facility] Past Medical History Medical History Allergic rhinitis Anxiety History of miscarriage Hx of polyarthritis Severe persistent allergic asthma Sleep difficulties Family History Family History Maternal Aunt DVT (deep venous thrombosis) Father CHF (congestive heart failure) Diabetes Mother HTN (hypertension) Asthma Family history of problems with anesthesia: No Surgical History History of Problems with Anesthesia: No Social History Social History (Updated 05/29/21 @ 09:31 by Anahy Cigaran, CCMA) Alcohol intake: current Alcohol intake frequency: a few times a week Patient Tobacco Use Status: Never used Tobacco Use of substances other than those prescribed or required for medical reasons: Yes Substance Use Type: Marijuana Substance Use Frequency: Occasionally Are you DNR?: No Advance Directives: No Advance Directives Information Provided: Yes Current occupational status: employed 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 Allergies Allergy/AdvReac Type Severity Reaction Status Date / Time peach [PEACH] Allergy Severe RASH Verified 05/31/21 13:57 perfume [PERFUME] Allergy Severe ASTHMA Verified 05/31/21 13:57 ATTACK dog dander [DOG DANDER] Allergy Unknown ITCHY, Verified 05/31/21 13:57 HIVES mite-Dermatophagoides Allergy Unknown ASTHMA, Verified 05/31/21 13:57 farinae, wendy ITCHY [DUST MITES] THROAT kiwi Allergy Swelling Verified 05/31/21 13:57 strawberry Allergy Itching Verified 05/31/21 13:57 Home Medications Medication Instructions Recorded Confirmed Last Taken Type albuterol sulfate 90 mcg/actuation 2 puff INHALATION Q6H PRN 06/06/20 06/06/20 Unknown History aerosol inhaler (ProAir HFA) cetirizine 10 mg tablet 10 mg PO DAILY 06/06/20 06/06/20 Unknown History cholecalciferol (vitamin D3) 125 125 mcg PO DAILY 06/06/20 06/06/20 Unknown History mcg (5,000 unit) tablet (Vitamin D3) fluticasone furoate 100 1 inh INHALATION DAILY 06/06/20 06/06/20 Unknown History mcg-vilanterol 25 mcg/dose inhalation powder (Breo Ellipta) mepolizumab 100 mg/mL subcutaneous mg SUBCUT 06/06/20 06/06/20 Unknown History auto-injector (Nucala) montelukast 10 mg tablet 10 mg PO BEDTIME 06/06/20 06/06/20 Unknown History (Singulair) nebulizer accessories (A.I.R.S 06/06/20 06/06/20 Unknown History Nebulizer Replacement) nebulizer and compressor 06/06/20 06/06/20 Unknown History omeprazole 20 mg capsule,delayed 20 mg PO DAILY 06/06/20 06/06/20 Unknown History release vits no.36-ferrous fum 26 1 tab PO 06/06/20 Unknown History mg iron-folate cmb no.6 1 mg tablet (Prenate Elite) tiotropium bromide 2.5 2 puff PO DAILY 06/06/20 06/06/20 Unknown History mcg/actuation mist for inhalation (Spiriva Respimat) Exam Airway Mallampati Class: II TM Dist: >3cm Neck ROM: Full Assessment and Plan Assessment Anesthesia Assessment: Anesthesia Plan Discussed Final Anesthetic Review Family History of Problems with Anesthesia: No History of Problems with Anesthesia: No NPO: Yes ASA Class: II Final Preanesthetic Review: No Changes in Pt Med Stat, Meds/Allgs Chart Reviewed, Consent Obtained/Reviewed and Anes Risks/Benef Reviewed Patient Risk: Low Procedure Risk: Low Anesthetic Plan Anesthetic Plan: GA Disposition: Standard PACU
[2021-05-31] VITALS (9 sets, daily range): BP systolic 130–154; BP diastolic 68–108; PULSE 106–147; RESP 11–24; TEMP 36.4–36.7; O2SAT 95–100; BMI 25.0
--- NOTE | ~2021-05-31 | FL_ITS ---
EXAMINATION: XR FL WITH IMAGES CLINICAL INFORMATION: Fifth metatarsal fracture. COMPARISON: None TECHNIQUE: Fluoroscopy performed by Dr. Richie Acevedo. Fluoroscopy Time: 0.6 minutes. DAP: 2616.6 mGycm2. Images: 4. FINDINGS: Images demonstrate placement of a screw, 5th metatarsal. FL/FL guidance in OR IMPRESSION: Fluoroscopy and spot films provided during orthopedic procedure. Please see full procedure note for details.
[2021-05-31 13:55] LABS: UPreg QC Valid YES; Urine Pregnancy NEGATIVE (NEGATIVE)
[2021-05-31] MEDS: Lactated Ringers 1,000 ML 100 ML IVCONT (14:15)
--- NOTE | 2021-05-31 16:34 | PM.OP ---
Brief Operative Note Date of Service: 05/31/21 Pre-op diagnosis: left 5th metatarsal fracture Post-op diagnosis: same Procedure: ORIF left 5th MT fracture Implants: 4.0 partially threaded cancellous cannulated screw Surgeon: Richie Acevedo MD Anesthesia: GETA and local Was an Tipping Machine Operator Automatic used for this Procedure?: Yes Tipping Machine Operator Automatic: Sobia Beatty Estimated blood loss (mL): 20 Tourniquet time (min): 65 IV fluids (mL): 1,000 Pathology: none sent Condition: stable Disposition: PACU
[2021-05-31] MEDS: oxyCODONE HCl Immed Release 5 MG TABLET PO (17:36)
--- NOTE | 2021-06-13 09:51 | P.OP_ITS ---
Operative Note Operative Note Date of Service: 05/31/21 Narrative: Date of Service: 05/31/21 Pre-op diagnosis: left 5th metatarsal fracture Post-op diagnosis: same Procedure: ORIF left 5th MT fracture Implants: 4.0 partially threaded cancellous cannulated screw Surgeon: Richie Acevedo MD Anesthesia: GETA and local Was an Powder Hand used for this Procedure?: Yes Powder Hand: Sobia Beatty Estimated blood loss (mL): 20 Tourniquet time (min): 65 IV fluids (mL): 1,000 Pathology: none sent Condition: stable Disposition: PACU Procedure in detail: Patient was brought to the operating room and placed supine on the operative table. All bony prominences were well padded and a time-out was called to identify proper site proper procedure proper surgeon. IV antibiotics per weight were administered. I began by exsanguinating limb is slightly tourniquet to 300 mm Hg. I then made a standard oblique incision over the 5th metatarsal base. Littler dissection was taken down to the bone. I then used a sharp tenaculum to reduce the fracture. I then placed a threaded K-wire across the fracture. Biplanar fluoroscopy was used to confirm hardware position and fracture reduction. Once I was satisfied, i measured and placed a partially threaded 4.0 cancellous screw. Again biplanar fluoro was used to confirm hardware position. I was satisfied with the position. I then irrigated copiously and closed with absorbable suture. Patient was then placed in sterile dressing and then extubate d and brought to the recovery room in stable condition. There were no know complications.
== END 2021-05-31 19:00 | disposition home or self-care (01) ==
LOC: HO.SSS 13:34
PROVIDERS: Nurse Practitioner; PCP Internal Medicine; Visit Provider Orthopaedic Surgery
PROC: (CPT 26746; principal; 2021-05-31 16:00)
DX: S92.352A Displaced fracture of fifth metatarsal bone, left foot, initial encounter for closed fracture (principal); W10.9XXA Fall (on) (from) unspecified stairs and steps, initial encounter; Y93.01 Activity, walking, marching and hiking; Y92.9 Unspecified place or not applicable; Y99.8 Other external cause status; J45.50 Severe persistent asthma, uncomplicated; F41.1 Generalized anxiety disorder; F12.90 Cannabis use, unspecified, uncomplicated; Z79.51 Long term (current) use of inhaled steroids
CPT/HCPCS: 26746; 81025; C1713; J0690; J1170; J1200; J2250; J2405; J2550; J3010

== ENCOUNTER → 2021-06-07 11:24 | Outpatient (BNVA) | payer MEDICAID, SELFPAY | PROVIDERS: PCP Internal Medicine; Visit Provider Physician Assistant | DX: S92.352D Displaced fracture of fifth metatarsal bone, left foot, subsequent encounter for fracture with routine healing (principal) | CPT/HCPCS: 29405; 99212 ==

== ENCOUNTER 2021-06-12 08:05 | Outpatient (REF) | payer MEDICAID, SELFPAY ==
--- NOTE | ~2021-06-12 | XR_ITS ---
EXAMINATION: XR FOOT, LEFT CLINICAL INFORMATION: Pain COMPARISON: Left foot 05/23/2021 TECHNIQUE: AP, lateral, and oblique views of the left foot. FINDINGS: The base of fifth metatarsal fracture has been stabilized with a solitary screw in satisfactory alignment. Rest the visualized tarsal and metatarsal bones are unremarkable. The ankle mortise and subtalar joints are normal. XR/XR foot LT min 3V IMPRESSION: Stabilized fracture base of fifth metatarsal with a solitary screw in satisfactory alignment.
== END 2021-06-12 08:06 | disposition home or self-care (01) ==
LOC: HO.HOSX 08:05
PROVIDERS: Visit Provider Physician Assistant
DX: S92.352D Displaced fracture of fifth metatarsal bone, left foot, subsequent encounter for fracture with routine healing (principal)
CPT/HCPCS: 73630; 99212

== ENCOUNTER 2021-07-05 13:23 | Outpatient (REF) | payer MEDICAID, SELFPAY ==
--- NOTE | ~2021-07-05 | XR_ITS ---
EXAMINATION: XR FOOT, LEFT CLINICAL INFORMATION: Pain in the left foot. COMPARISON: Prior x-rays most recent May 2021. TECHNIQUE: AP, lateral, and oblique views of the left foot. FINDINGS: Single screw remains in place crossing the previously noted fracture at the base of the 5th metatarsal. The alignment is unchanged. There is ill-defined decreased density surrounding the fracture line which may be related to osteopenia or some bone resorption along the fracture line. The fracture line is not clearly outlined throughout the length of the fracture visible only laterally. The hardware remains intact without fracture or immediately surrounding lucency. XR/XR foot LT min 3V IMPRESSION: Postop changes related to orthopedic fixation of previously noted metatarsal fracture with unchanged alignment. Perhaps some bone resorption or disuse osteopenia immediately surrounding the fracture line. There may be some interval healing given that the fracture line is not fully visualized.
== END 2021-07-05 13:24 | disposition home or self-care (01) ==
LOC: HO.HOSX 13:23
PROVIDERS: PCP Internal Medicine; Visit Provider Physician Assistant
DX: S92.352D Displaced fracture of fifth metatarsal bone, left foot, subsequent encounter for fracture with routine healing (principal)
CPT/HCPCS: 73630; 99212

== ENCOUNTER 2021-07-10 07:41 | Outpatient (REF) | payer MEDICAID, SELFPAY ==
--- NOTE | ~2021-07-10 | XR_ITS ---
EXAMINATION: XR FOOT, LEFT CLINICAL INFORMATION: Pain COMPARISON: Prior x-rays latest 07/05/2021 TECHNIQUE: AP, lateral, and oblique views of the left foot. FINDINGS: Redemonstrated is single intact screw transfixing a proximal fifth metacarpal fracture. Intact hardware without surrounding lucency. Stable position and alignment of the fracture. The fracture plane remains ill-defined, similar to previous. There is a longitudinally oriented ill-defined lucency distal to the transverse fracture plane, along the lateral aspect of the proximal metatarsal base,, which may reflect a subtle additional fracture plane. The bones otherwise appear intact. XR/XR foot LT min 3V IMPRESSION: Postoperative changes, with similar appearance of ill-definition of the proximal fifth metatarsal fracture plane. Question subtle longitudinal oriented linear lucency along the lateral aspect of the fifth metatarsal base, distally to the transverse fracture plane. This could represent additional subacute fracture plane. Clinically correlate for focal tenderness.
== END 2021-07-10 07:42 | disposition home or self-care (01) ==
LOC: HO.HOSX 07:41
PROVIDERS: Visit Provider Physician Assistant
DX: S92.352D Displaced fracture of fifth metatarsal bone, left foot, subsequent encounter for fracture with routine healing (principal)
CPT/HCPCS: 73630; 99212

== ENCOUNTER 2021-08-07 08:32 | Outpatient (REF) | payer MEDICAID, SELFPAY | END 2021-08-07 08:33 | disposition home or self-care (01) | LOC: HO.HOSX 08:32 | PROVIDERS: Visit Provider Physician Assistant | DX: Z13.89 Encounter for screening for other disorder (principal) ==

== ENCOUNTER 2021-08-18 07:16 | Outpatient (REF) | payer MEDICAID, SELFPAY | END 2021-08-18 07:17 | disposition home or self-care (01) | LOC: HO.HOSX 07:16 | PROVIDERS: Visit Provider Physician Assistant | DX: Z13.89 Encounter for screening for other disorder (principal) ==

== ENCOUNTER 2021-08-28 08:55 | Inpatient (IN) | payer MEDICAID, SELFPAY ==
[2021-08-28] VITALS (8 sets, daily range): BP systolic 120–146; BP diastolic 86–98; PULSE 102–145; RESP 16–28; TEMP 36–37.5; O2SAT 95–98; BMI 24.9
--- NOTE | ~2021-08-28 | XR_ITS ---
EXAMINATION: XR CHEST CLINICAL INFORMATION: Shortness of breath COMPARISON: 02.15.2021 TECHNIQUE: 2 views of the chest were obtained. FINDINGS: No significant abnormality is noted involving the heart, lungs, mediastinum, bony thorax or soft tissues. XR/XR chest 2V IMPRESSION: Unremarkable examination.
[2021-08-28] MEDS: Albuterol Sulfate (0.083%) 2.5 MG/3 ML VIAL.NEB 7.5 MG INHALE (09:24)
[2021-08-28] MEDS: Albuterol/Iprat 2.5/0.5MG 3 ML AMPUL.NEB INHALE ×2 (09:24→20:08)
--- NOTE | 2021-08-28 09:36 | ECG_ITS ---
Test Reason : asthma Blood Pressure : / mmHG Vent. Rate : 134 BPM Atrial Rate : 134 BPM P-R Int : 124 ms QRS Dur : 078 ms QT Int : 320 ms P-R-T Axes : 083 046 001 degrees QTc Int : 477 ms Sinus tachycardia Nonspecific ST and T wave abnormality Abnormal ECG When compared with ECG of 04-APR-2021 03:01, No significant change was found Referred By: Sammie Sue Electronically Signed By:JOHN PAUL RHOADES
[2021-08-28] MEDS: 0.9 % Sodium Chloride 1,000 ML 999 ML IV (09:56)
[2021-08-28] MEDS: methylPREDNISolone Sod Succ 125 MG/2 ML VIAL IVPUSH (09:56)
[2021-08-28 10:28] LABS: MANUAL DIFF FLAG NO
[2021-08-28 10:30] LABS: Basophils Absolute Auto 0.2 X10*3/uL (0.0-0.2); Basophils Percent Auto 1.2 % (0-2); Eosinophils Absolute Auto 1.3 X10*3/uL (0.0-0.4); Eosinophils Percent Auto 9.4 % (0-4); Hematocrit 40.4 % (37.0-47.0); Hemoglobin 13.2 g/dl (12.0-16.0); Imm Gran Abs Auto 0.07 X10*3/uL (0.00-0.03); Imm Gran Pct Auto 0.5 % (0.0-0.4); Lymphocytes Absolute Auto 3.2 X10*3/uL (1.2-4.9); Mean Corpuscular HGB Conc 32.7 g/dl (31.0-35.0); Mean Corpuscular Hemoglobin 29.1 pg (27.0-33.0); Mean Corpuscular Volume 89.2 fL (80.0-98.0); Mean Platelet Volume 9.7 fL (9.4-12.3); Monocytes Absolute Auto 0.7 X10*3/uL (0.1-1.2); Monocytes Percent Auto 5.2 % (2-11); Neutrophils Percent Auto 59.7 % (45-73); Platelet Count 396 X10*3/uL (160-400); Red Blood Count 4.53 X10*6/uL (4.20-5.50); Red Cell Distribution Width 13.2 % (11.0-16.0); White Blood Count 13.4 X10*3/uL (4.8-10.8)
--- NOTE | 2021-08-28 10:34 | ED_ITS ---
HPI - Asthma General Chief Complaint: General Medical Stated Complaint: asthma attack Time Seen by Provider: 08/28/21 09:13 Source: patient Mode of arrival: ambulatory Limitations: no limitations History of Present Illness HPI Narrative: Patient presents to the emergency department for evaluation of an asthma attack. She states for the past 2 days her asthma has been particularly bothersome. Increasing shortness of breath and difficulty breathing with dry nonproductive cough and chest tightness. She has no albuterol inhaler that she has ran out of. She states she is currently taking prednisone 5 mg daily. Reports a history of being intubated in 2019. Denies any known sick contacts. States she has been vaccinated for COVID-19 with [employer] x2, reports she has been vaccinated for influenza this year. She denies fevers, chills, nasal congestion, neck pain, nausea, vomiting, abdominal pain dysuria, urinary frequency, pedal edema, generalized weakness. MD complaint: asthma attack Onset (ago): day(s) Severity: similar to prior Context: ran out of meds (Albuterol) Associated symptoms: dry cough and chest pain (Tightness) Treatments Prior to Arrival: inhaled bronchodilator Related Data Current Asthma Therapy: inhaled bronchodilator, inhaled steroid and recent oral steroid Home Medications Medication Instructions Recorded Confirmed fluticasone furoate 100 1 inh INHALATION DAILY 06/06/20 08/28/21 mcg-vilanterol 25 mcg/dose inhalation powder (Breo Ellipta) montelukast 10 mg tablet 10 mg PO BEDTIME 06/06/20 08/28/21 (Singulair) nebulizer accessories (A.I.R.S 06/06/20 06/06/20 Nebulizer Replacement) nebulizer and compressor 06/06/20 06/06/20 omeprazole 20 mg capsule,delayed 20 mg PO DAILY 06/06/20 08/28/21 release tiotropium bromide 2.5 2 puff PO DAILY 06/06/20 08/28/21 mcg/actuation mist for inhalation (Spiriva Respimat) diphenhydramine HCl 25 mg capsule 25 mg PO BEDTIME PRN 08/28/21 08/28/21 (Benadryl) prednisone 5 mg tablet 1 tab PO DAILY 08/28/21 08/28/21 Previous Rx's Medication Instructions Recorded albuterol sulfate 2.5 mg (3 mL) INHALATION Q6H PRN 07/10/20 #75 ml albuterol sulfate 90 mcg/actuation 2 puff INHALATION Q4-6H PRN #8.5 g 07/10/20 aerosol inhaler Allergies Allergy/AdvReac Type Severity Reaction Status Date / Time peach [PEACH] Allergy Severe RASH Verified 05/31/21 13:57 perfume [PERFUME] Allergy Severe ASTHMA Verified 05/31/21 13:57 ATTACK dog dander [DOG DANDER] Allergy Unknown ITCHY, Verified 05/31/21 13:57 HIVES mite-Dermatophagoides Allergy Unknown ASTHMA, Verified 05/31/21 13:57 farinae, wendy ITCHY [DUST MITES] THROAT kiwi Allergy Swelling Verified 05/31/21 13:57 strawberry Allergy Itching Verified 05/31/21 13:57 Review of Systems Review of Systems: Constitutional : No Fever, No Chills ENT/Mouth : No Hoarseness, No sore throat, No Rhinorrhea Eyes: No Redness, No Discharge, No Vision Changes Cardiovascular : No Chest Pain, positive SOB, positive Dyspnea on Exertion, No Edema Respiratory : positive Cough, No Sputum, positive Wheezing, Gastrointestinal : No Nausea, No Vomiting, No Diarrhea, No abdominal Pain Genitourinary : No Dysuria, No Hematuria Musculoskeletal : No joint pain, No Myalgias Skin : No rash Neuro : No Weakness, No Numbness, No Headache Psych : No anxiety, depression Heme/Lymph: No Bruising, No Bleeding Endocrine : No Polyuria, No Polydipsia Yes all other systems are reviewed and are negative [facility] Past Medical History Attestation statement: The following information was validated with the patient. Source: old records reviewed Medical History Allergic rhinitis Anxiety History of miscarriage Hx of polyarthritis Severe persistent allergic asthma Sleep difficulties Family History Family History Maternal Aunt DVT (deep venous thrombosis) Father CHF (congestive heart failure) Diabetes Mother HTN (hypertension) Asthma Social History Social History Alcohol intake: current Alcohol intake frequency: a few times a week Patient Tobacco Use Status: Never used Tobacco Substance Use Type: Marijuana Advance Directives: No Advance Directives Information Provided: No Current occupational status: employed 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 Blood pressure normal.? Heart rate normal.? Respiration rate normal. Temperature normal.? Oxygen saturation normal. Appearance: Alert.?Oriented to person, place and time.?Normal affect. Eyes: Pupils equal, round and reactive to light.? ENT: Pharynx normal.?? Neck: Normal inspection.? Neck supple.?? CVS: Heart sounds normal. Sinus tachycardia.? Pulses normal.?? Respiratory: Increased work of breathing, no tripoding, mildly diaphoretic, tachypneic, no hypoxia, Lung sounds with inspiratory and expiratory wheezing bilaterally Abdomen: Soft and non-tender. Normoactive bowel sounds. ? Skin: Skin warm and dry.? Normal skin color.? Extremities: No lower extremity edema.? No calf ttp? Neuro: Moves all extremities spontaneously. Sensation intact bilaterally. CN II- XII intact. No focal neuro deficits. Ambulates with normal steady gait. Course Course Course Narrative: 26-year-old female with history of asthma currently prescribed Breo, Spiriva, albuterol as needed and prednisone 5 mg daily. Asthma exacerbation with onset 2 days ago. Unrelieved with her home medications. No sick contacts as far she knows. Will obtain CBC, BMP, magnesium, troponin, EKG, COVID in influenza, and chest x-ray. Patient to receive ipratropium 0.5 mg/10 mg nebulizer, and Solu- Medrol 125 mg p.o. she appears fatigued, notable increased work of breathing she is tachycardic and tachypneic, afebrile, at this time do not suspect sepsis/bacterial infection, tachycardia and tachypnea with the secondary to a sthma exacerbation. Reevaluation(s) Reevaluation #1: CBC reveals mild leukocytosis 13.4. BMP overall unremarkable, except potassium which was 3.1, of note this was drawn after patient received 10 mg albuterol nebulizer. EKG reveals sinus tachycardia nonspecific ST/T-wave abnormality, Trop <3.5, unlikely ACS, no risk factors. Chest x-ray is unremarkable for acute findings, no pulmonary congestion, consolidation, infiltrate, pneumothorax. COVID-19 and influenza testing are negative. Time: 10:45 Reevaluation #2: Ambulatory O2 trial pulse oximeter 86% room air, heart rate 130, reporting dyspnea with exertion but does feel compared to arrival, faint expiratory wheezing in the upper lobes, bilateral lower lobes diminished, additional albuterol 5 mg nebulizer be ordered, magnesium 2 g IV Time: 12:00 Reevaluation #3: Lower lobes continue to be diminished. Second ambulation O2 trial, patient reports feeling short of breath while walking, O2 saturation 88% on room air heart rate 140s. Current heart rate at rest 110. Spoke with hospitalist service, Dr. Fan, who accepts patient for admission to medicine. Patient updated on plan of care and agreeable. Time: 13:27 [facility] - Asthma Medical Records Attestation: I reviewed the patient's medical records. Lab Data Attestation: I reviewed the patient's lab results. Result diagrams: 08/28/21 10:22 08/28/21 10:22 Labs: Lab Results 08/28/21 08/28/21 08/28/21 Range/Units 10:22 10:22 10:22 WBC 13.4 H (4.8-10.8) X10*3/uL RBC 4.53 (4.20-5.50) X10*6/uL Hgb 13.2 (12.0-16.0) g/dl Hct 40.4 (37.0-47.0) % MCV 89.2 (80.0-98.0) fL MCH 29.1 (27.0-33.0) pg MCHC 32.7 (31.0-35.0) g/dl RDW 13.2 (11.0-16.0) % Plt Count 396 (160-400) X10*3/uL MPV 9.7 (9.4-12.3) fL Immature Gran % (Auto) 0.5 H (0.0-0.4) % Neut % (Auto) 59.7 (45-73) % Lymph % (Auto) 24.0 (20-40) % [place] % (Auto) 5.2 (2-11) % Eos % (Auto) 9.4 H (0-4) % Baso % (Auto) 1.2 (0-2) % Lymph # (Auto) 3.2 (1.2-4.9) X10*3/uL [place] # (Auto) 0.7 (0.1-1.2) X10*3/uL Eos # (Auto) 1.3 H (0.0-0.4) X10*3/uL Baso # (Auto) 0.2 (0.0-0.2) X10*3/uL Abs Immat Gran (auto) 0.07 H (0.00-0.03) X10*3/uL Absolute Neuts (auto) 8.0 (2.0-8.3) x10*3/uL Absolute Nucleated RBC 0.000 (0.0-0.012) X10*3/uL Nucleated RBC % (auto) 0.0 (0.0-0.2) /100WBC Sodium 138 (135-145) mmol/L Potassium 3.1 L D (3.3-5.1) mmol/L Chloride 105 (96-108) mmol/L Carbon Dioxide 22 (22-29) mmol/L Anion Gap 14 (12-20) BUN 12 (9-16) mg/dL Creatinine 0.80 (0.5-1.4) mg/dL Estim Creat Clear Calc 100.3 Estimated GFR > 60 Random Glucose 157 H (60-115) mg/dL Calcium 9.0 (8.4-10.2) mg/dL Magnesium (1.6-2.6) mg/dL Troponin I High Sens (<3.5-17.0) ng/L Beta HCG, Quant < 2 mIU/mL COVID-19 (NEHA) (Negative) COVID-19 Clin Com Influenza Type A (DONOVAN) Negative (Negative) Influenza Type B (DONOVAN) Negative (Negative) Influenza A & B Note See Note 08/28/21 08/28/21 08/28/21 Range/Units 10:22 10:22 10:22 WBC (4.8-10.8) X10*3/uL RBC (4.20-5.50) X10*6/uL Hgb (12.0-16.0) g/dl Hct (37.0-47.0) % MCV (80.0-98.0) fL MCH (27.0-33.0) pg MCHC (31.0-35.0) g/dl RDW (11.0-16.0) % Plt Count (160-400) X10*3/uL MPV (9.4-12.3) fL Immature Gran % (Auto) (0.0-0.4) % Neut % (Auto) (45-73) % Lymph % (Auto) (20-40) % [place] % (Auto) (2-11) % Eos % (Auto) (0-4) % Baso % (Auto) (0-2) % Lymph # (Auto) (1.2-4.9) X10*3/uL [place] # (Auto) (0.1-1.2) X10*3/uL Eos # (Auto) (0.0-0.4) X10*3/uL Baso # (Auto) (0.0-0.2) X10*3/uL Abs Immat Gran (auto) (0.00-0.03) X10*3/uL Absolute Neuts (auto) (2.0-8.3) x10*3/uL Absolute Nucleated RBC (0.0-0.012) X10*3/uL Nucleated RBC % (auto) (0.0-0.2) /100WBC Sodium (135-145) mmol/L Potassium (3.3-5.1) mmol/L Chloride (96-108) mmol/L Carbon Dioxide (22-29) mmol/L Anion Gap (12-20) BUN (9-16) mg/dL Creatinine (0.5-1.4) mg/dL Estim Creat Clear Calc Estimated GFR Random Glucose (60-115) mg/dL Calcium (8.4-10.2) mg/dL Magnesium 1.8 (1.6-2.6) mg/dL Troponin I High Sens < 3.5 (<3.5-17.0) ng/L Beta HCG, Quant mIU/mL COVID-19 (NEHA) Negative (Negative) COVID-19 Clin Com See Note Influenza Type A (DONOVAN) (Negative) Influenza Type B (DONOVAN) (Negative) Influenza A & B Note Imaging Data Chest x-ray: Radiologist's impression: FINDINGS: No significant abnormality is noted involving the heart, lungs, mediastinum, bony thorax or soft tissues. XR/XR chest 2V IMPRESSION: Unremarkable examination. ECG Data Attestation: I personally reviewed and interpreted this ECG as follows: ECG interpretation date: 08/28/21 ECG interpretation time: 10:46 Prior ECG tracings: available for review Interpretation: Rate: 134 Rhythm:? Sinus tachycardia [place]:? Normal Normal P waves.? Normal [place]IS.?? Normal QRS complex.?? ST T wave :??Nonspecific ST/ T abnormality qTC: 477 prior studies:? March 2021 The study has been interpreted contemporaneously by me. Discharge Plan Discharge Clinical Impression: Asthma exacerbation Patient Disposition: Admitted As Inpatient
[2021-08-28 10:46] LABS: Anion Gap 14 (12-20); Blood Urea Nitrogen 12 mg/dL (9-16); Carbon Dioxide 22 mmol/L (22-29); Chloride 105 mmol/L (96-108); Creatinine Clr Calc Pharmacy 100.3; Estimated Glomerular Filt Rate > 60; Glucose Random 157 mg/dL (60-115); Potassium 3.1 mmol/L (3.3-5.1); Sodium 138 mmol/L (135-145)
[2021-08-28 10:47] LABS: Magnesium 1.8 mg/dL (1.6-2.6)
[2021-08-28 10:53] LABS: Troponin-I High Sensitivity < 3.5 ng/L (<3.5-17.0)
[2021-08-28 10:54] LABS: HCG Quantitative < 2 mIU/mL
[2021-08-28 10:57] LABS: COVID-19 Test Negative (Negative); IDNOW Serial# 16C4AD1C; Influenza A Negative (Negative); Influenza B2 Negative (Negative)
[2021-08-28] MEDS: Albuterol Sulfate (0.083%) 2.5 MG/3 ML VIAL.NEB 5 MG INHALE (12:22)
[2021-08-28] MEDS: Magnesium Sulfate/H2O 2 GM/50 ML PIGGYBACK IV (12:44)
--- NOTE | 2021-08-28 13:57 | PHA.MEDREC ---
Pharmacy Consult ? Medication Reconciliation Pharmacy has completed the medication reconciliation. Patient confirmed medicaitons. Adrienne Doty, AbdirahmanD
--- NOTE | 2021-08-28 16:39 | PM.IMHP ---
History of Present Illness Date of Service: 08/28/21 Chief Complaint: dyspnea, cough, wheeze 26yo F with severe allergic asthma, chronically steroid-dependent, and on immunotherapy with Fasenra (benralizumab) at [facility], with history of prior intubation in 2019, presenting with 1 day of worsening wheezing, cough, and dyspnea unresponsive to her nebulized albuterol at home and she thinks may be triggered by tree pollen. No fever, rigors, or purulent sputum production. 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 She is vaccinated against Covid-19. In the ED, she presented with extensive wheezing and respiratory distress and was given 125 mg of methylprednisolone, 2g of IV magnseium sulfate and a continuous 10mg albuterol nebulization. She became hypoxic to 86%. She was given another 5mg of albuterol. Review of Systems Review of Systems: Yes all other systems are reviewed and are negative [facility] Medical History Allergic rhinitis Anxiety History of miscarriage Hx of polyarthritis Severe persistent allergic asthma Sleep difficulties Family History Maternal Aunt DVT (deep venous thrombosis) Father CHF (congestive heart failure) Diabetes Mother HTN (hypertension) Asthma Social History Alcohol intake: current Alcohol intake frequency: a few times a week Patient Tobacco Use Status: Never used Tobacco Substance Use Type: Marijuana Advance Directives: No Advance Directives Information Provided: No Current occupational status: employed 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 Meds Allergies Allergy/AdvReac Type Severity Reaction Status Date / Time peach [PEACH] Allergy Severe RASH Verified 05/31/21 13:57 perfume [PERFUME] Allergy Severe ASTHMA Verified 05/31/21 13:57 ATTACK dog dander [DOG DANDER] Allergy Unknown ITCHY, Verified 05/31/21 13:57 HIVES mite-Dermatophagoides Allergy Unknown ASTHMA, Verified 05/31/21 13:57 farinae, wendy ITCHY [DUST MITES] THROAT kiwi Allergy Swelling Verified 05/31/21 13:57 strawberry Allergy Itching Verified 05/31/21 13:57 Active Medications: Current Medications Acetaminophen (Acetaminophen 325 Mg Tablet) 650 mg PO Q6H PRN PRN Reason: Pain, Mild (Pain Scale 1-3) Albuterol Sulfate (Albuterol Sulfate (0.083%) 2.5 Mg/3 Ml Vial.Neb) 2.5 mg INHALE Q2H PRN PRN Reason: Shortness of Breath/Wheezing Albuterol/Ipratropium (Albuterol/Iprat 2.5/0.5mg 3 Ml Ampul.Neb) 3 ml INHALE RQ6H WHILE AWAKE [facility] Diphenhydramine HCl (Diphenhydramine Hcl 25 Mg Tablet) 25 mg PO BEDTIME PRN PRN Reason: Allergy Symptoms Fluticasone/Vilanterol (Fluticasone/Vilanterol 100/25 Blst.W.Dev) 1 puff INHALE DAILY [facility]1983 Methylprednisolone Sodium Succinate (Methylprednisolone Sod Succ 40 Mg/Ml Vial) 40 mg IVPUSH Q12H [facility] Montelukast Sodium (Montelukast Sodium 10 Mg Tablet) 10 mg PO BEDTIME [facility] Non-Formulary Medication (Tiotropium Hibbs [Spiriva Respimat]) 2 puff PO DAILY [facility] Omeprazole (Omeprazole 20 Mg Capsule.Dr) 20 mg PO DAILY@0630 [facility] Ondansetron HCl (Ondansetron Hcl 4 Mg/2 Ml Vial) 4 mg IVPUSH Q8H PRN PRN Reason: Nausea and Vomiting Pharmacy Consult (Consult Rx Perform Med Rec) 1 each MISCELLANE ONCE PRN PRN Reason: Consult order Sodium Chloride (0.9 % Sodium Chloride Flush 3 Ml Syringe) 3 ml IVFLUSH QSHIFT [facility] Home Medications Medication Instructions Recorded Confirmed Last Taken Type fluticasone furoate 100 1 inh INHALATION DAILY 06/06/20 08/28/21 08/27/21 History mcg-vilanterol 25 mcg/dose inhalation powder (Breo Ellipta) montelukast 10 mg tablet 10 mg PO BEDTIME 06/06/20 08/28/21 08/27/21 History (Chat[place]air) nebulizer accessories (A.I.R.S 06/06/20 06/06/20 Unknown History Nebulizer Replacement) nebulizer and compressor 06/06/20 06/06/20 Unknown History omeprazole 20 mg capsule,delayed 20 mg PO DAILY 06/06/20 08/28/21 08/27/21 History release tiotropium bromide 2.5 2 puff PO DAILY 06/06/20 08/28/21 08/27/21 History mcg/actuation mist for inhalation (Spiriva Respimat) diphenhydramine HCl 25 mg capsule 25 mg PO BEDTIME PRN 08/28/21 08/28/21 08/27/21 History (Benadryl) prednisone 5 mg tablet 1 tab PO DAILY 08/28/21 08/28/21 08/27/21 History Physical Exam Vital Signs and Narrative: Vital Signs: Last Vital Signs Temp 97 F 08/28/21 09:05 Pulse 117 H 08/28/21 12:22 Resp 20 08/28/21 12:22 BP 146/86 H 08/28/21 10:46 Pulse Ox 98 08/28/21 10:46 BMI result Body Mass Index 24.9 Gen: in mild resp distress HEENT: sclera anicteric, moist mucus membranes Neck: supple Lungs: tachypneic, bibasilar expiratory and inspiratory wheezing Heart: regular, tachycardic, no murmurs Abd: soft, non-tender, non-distended Ext: no edema Skin: warm/well-perfused Neuro: alert and oriented x3, no focal findings Psych: appropriate affect Results Labs CBC and Chem 7: 08/28/21 10:22 08/28/21 10:22 Labs: Laboratory Results - last 24 hr 08/28/21 08/28/21 08/28/21 10:22 10:22 10:22 MCV 89.2 MCH 29.1 MCHC 32.7 RDW 13.2 Plt Count 396 MPV 9.7 Immature Gran % (Auto) 0.5 H Neut % (Auto) 59.7 Lymph % (Auto) 24.0 [place] % (Auto) 5.2 Eos % (Auto) 9.4 H Baso % (Auto) 1.2 Lymph # (Auto) 3.2 [place] # (Auto) 0.7 Eos # (Auto) 1.3 H Baso # (Auto) 0.2 Abs Immat Gran (auto) 0.07 H Absolute Neuts (auto) 8.0 Absolute Nucleated RBC 0.000 Nucleated RBC % (auto) 0.0 Anion Gap 14 Estim Creat Clear Calc 100.3 Estimated GFR > 60 Random Glucose 157 H Calcium 9.0 Magnesium Troponin I High Sens Beta HCG, Quant < 2 COVID-19 ([facility]HA) COVID-19 Clin Com Influenza Type A (DONOVAN) Negative Influenza Type B (DONOVAN) Negative Influenza A & B Note See Note 08/28/21 08/28/21 08/28/21 10:22 10: 10:22 MCV MCH MCHC RDW Plt Count MPV Immature Gran % (Auto) Neut % (Auto) Lymph % (Auto) [place] % (Auto) Eos % (Auto) Baso % (Auto) Lymph # (Auto) [place] # (Auto) Eos # (Auto) Baso # (Auto) Abs Immat Gran (auto) Absolute Neuts (auto) Absolute Nucleated RBC Nucleated RBC % (auto) Anion Gap Estim Creat Clear Calc Estimated GFR Random Glucose Calcium Magnesium 1.8 Troponin I High Sens < 3.5 Beta HCG, Quant COVID-19 (NEHA) Negative COVID-19 Clin Com See Note Influenza Type A (DONOVAN) Influenza Type B (DONOVAN) Influenza A & B Note Imaging Radiologist's Impressions: Impressions Chest X-Ray 08/28/21 10:08 IMPRESSION: Unremarkable examination. Assessment and Plan (1) Severe persistent allergic asthma with acute exacerbation: Status: Acute Plan 26yo F with severe allergic asthma on chronic steroids + immunotherapy, previously intubated 3 yrs ago, presenting with acute exacerbation and hypoxia # acute exacerbation of severe persistent allergic asthma - admit to M/S, give IV methylprednisolone, standing/prn nebs, continue ICS/LABA, consult Pulmnology # acute hypoxic resp failure - supplemental O2, wean O2 as srikanth # hypoK - replete, recheck in AM # VTE ppx - SCDs, early ambulation I anticipate that the patient will stay at least 2 midnights in hospital due to the above reasons. It is not reasonable or safe to care for them in a less acute setting. Quality Stroke Does the patient have a stroke diagnosis?: No VTE Prior VTE?: No VTE Risk Level:: Medical - moderate - high VTE Device Contraindication: N/A - Device Ordered VTE Drug Contraindication: Treatment Not Indicated
[2021-08-28] MEDS: Potassium Chloride ER 20 MEQ TAB.ER.PRT PO (17:27)
[2021-08-28] MEDS: Acetaminophen 325 MG TABLET 650 MG PO (19:59)
[2021-08-28] MEDS: Fluticasone/Vilanterol 100/25 BLST.W.DEV 1 PUFF INHALE (20:20)
[2021-08-28] MEDS: methylPREDNISolone Sod Succ 40 MG/ML VIAL IVPUSH (22:09)
[2021-08-28] MEDS: Montelukast Sodium 10 MG TABLET PO (22:09)
[2021-08-29] MEDS: diphenhydrAMINE HCL 25 MG TABLET PO (01:52)
[2021-08-29] MEDS: Acetaminophen 325 MG TABLET 650 MG PO (01:52)
[2021-08-29] MEDS: 0.9 % Sodium Chloride Flush 3 ML SYRINGE IVFLUSH ×2 (03:37→08:38)
[2021-08-29 04:03] VITALS: BP 149/88; PULSE 111; RESP 17; TEMP 36.9; O2SAT 98
[2021-08-29] MEDS: Omeprazole 20 MG CAPSULE.DR PO (06:12)
--- NOTE | 2021-08-29 07:00 | PC.NURSE ---
Received patient to overflow, bed 10 - awaiting bed assignment on med surg - patient denies pain, no distress. Vitals stable - 98% on room air. Patient requesting to go home if possible today.
[2021-08-29 07:40] LABS: Anion Gap 16 (12-20); Blood Urea Nitrogen 12 mg/dL (9-16); Calcium 10.3 mg/dL (8.4-10.2); Carbon Dioxide 19 mmol/L (22-29); Chloride 105 mmol/L (96-108); Creatinine Clr Calc Pharmacy 104.2; Estimated Glomerular Filt Rate > 60; Glucose Random 161 mg/dL (60-115); Potassium 5.7 mmol/L (3.3-5.1); Sodium 134 mmol/L (135-145)
[2021-08-29] MEDS: Fluticasone/Vilanterol 100/25 BLST.W.DEV 1 PUFF INHALE (08:09)
[2021-08-29] MEDS: Albuterol/Iprat 2.5/0.5MG 3 ML AMPUL.NEB INHALE (08:09)
[2021-08-29 08:11] VITALS: PULSE 101; RESP 18; O2SAT 98
[2021-08-29] MEDS: methylPREDNISolone Sod Succ 40 MG/ML VIAL IVPUSH (08:38)
--- NOTE | 2021-08-29 08:41 | PC.NURSE ---
Pt A&Ox4, would like to go home as she is feeling better at this time. LCA, ST w/VS but had received IV solumedrol. No complaints at this time. Walking O2 sat remains 99% on room air. made aware, rodger coles within reach. Will continue to monitor.
[2021-08-29 08:44] VITALS: BP 151/92; PULSE 133; RESP 16; TEMP 36.9; O2SAT 99
--- NOTE | 2021-08-29 09:34 | P.CONPL_ITS ---
History of Present Illness History of Present Illness Consult date: 08/29/21 Chief complaint: Asthma, hypoxia Narrative: This is an inpatient pulmonary consultation. The patient is a 26yo F with severe allergic asthma, chronically steroid-dependent, and on immunotherapy with Fasenra (benralizumab) at [facility] [place], with history of prior intubation in 2019, presenting with 1 day of worsening wheezing, cough, and dyspnea unresponsive to her nebulized albuterol at home and she thinks may be triggered by tree pollen.? No fever, rigors, or purulent sputum production.? She works at a [employer].? She is vaccinated against Covid-19. In the ED, she presented with extensive wheezing and respiratory distress and was given 125 mg of methylprednisolone, 2g of IV magnseium sulfate and a continuous 10mg albuterol nebulization.? She became hypoxic to 86%.? She was given another 5mg of albuterol. Today the patient workup feeling much better. She is back to her baseline. No further wheezing. I did evaluate her blood work demonstrating significant eosinophilia. On further questioning she has not been taking her Fasenra as prescribed. After she had a ankle fracture she has been able to move around as much. She also had surgery for her foot. She still recovering from that. She is open to switch her care to a close her by clinic. Will make arrangements for 4 to follow-up with us. Currently she is feeling a lot better. I did review her chest x-ray demonstrating no acute disease. And again her blood work with eosinophilia. Her oxygenation vital signs appear to be better at this time. She is talking in full sentences without any wheezing on examination. Review of Systems Review of Systems: Constitutional : No Fever, No Chills ENT/Mouth : No Hoarseness, No sore throat, No Rhinorrhea Eyes: No Redness, No Discharge, No Vision Changes Cardiovascular : No Chest Pain, positive SOB, positive Dyspnea on Exertion, No Edema Respiratory : positive Cough, No Sputum, positive Wheezing, Gastrointestinal : No Nausea, No Vomiting, No Diarrhea, No abdominal Pain Genitourinary : No Dysuria, No Hematuria Musculoskeletal : No joint pain, No Myalgias Skin : No rash Neuro : No Weakness, No Numbness, No Headache Psych : No anxiety, depression Heme/Lymph: No Bruising, No Bleeding Endocrine : No Polyuria, No Polydipsia Yes all other systems are reviewed and are negative PMFSH Past Medical History Medical History (Updated 08/29/21 @ 09:39 by Tato Zhang MD) Allergic rhinitis Anxiety Eosinophilia History of miscarriage Hx of polyarthritis Severe persistent allergic asthma Sleep difficulties Family History Family History Maternal Aunt DVT (deep venous thrombosis) Father CHF (congestive heart failure) Diabetes Mother HTN (hypertension) Asthma Social History Social History Alcohol intake: current Alcohol intake frequency: a few times a week Patient Tobacco Use Status: Never used Tobacco Substance Use Type: Marijuana Advance Directives: No Advance Directives Information Provided: No Current occupational status: employed 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 Meds Allergies Allergy/AdvReac Type Severity Reaction Status Date / Time peach [PEACH] Allergy Severe RASH Verified 05/31/21 13:57 perfume [PERFUME] Allergy Severe ASTHMA Verified 05/31/21 13:57 ATTACK dog dander [DOG DANDER] Allergy Unknown ITCHY, Verified 05/31/21 13:57 HIVES mite-Dermatophagoides Allergy Unknown ASTHMA, Verified 05/31/21 13:57 farinae, wendy ITCHY [DUST MITES] THROAT kiwi Allergy Swelling Verified 05/31/21 13:57 strawberry Allergy Itching Verified 05/31/21 13:57 Active Medications: Current Medications Acetaminophen (Acetaminophen 325 Mg Tablet) 650 mg PO Q6H PRN PRN Reason: Pain, Mild (Pain Scale 1-3) Last Admin: 08/28/21 19:59 Dose: 650 mg Documented by: Albuterol Sulfate (Albuterol Sulfate (0.083%) 2.5 Mg/3 Ml Vial.Neb) 2.5 mg INHALE Q2H PRN PRN Reason: Shortness of Breath/Wheezing Albuterol/Ipratropium (Albuterol/Iprat 2.5/0.5mg 3 Ml Ampul.Neb) 3 ml INHALE RQ6H WHILE AWAKE LORI Last Admin: 08/29/21 08:09 Dose: 3 ml Documented by: Diphenhydramine HCl (Diphenhydramine Hcl 25 Mg Tablet) 25 mg PO BEDTIME PRN PRN Reason: Allergy Symptoms Fluticasone/Vilanterol (Fluticasone/Vilanterol 100/25 Blst.W.Dev) 1 puff INHALE DAILY [facility] Last Admin: 08/29/21 08:09 Dose: 1 puff Documented by: Methylprednisolone Sodium Succinate (Methylprednisolone Sod Succ 40 Mg/Ml Vial) 40 mg IVPUSH Q12H [facility] Last Admin: 08/29/21 08:38 Dose: 40 mg Documented by: Montelukast Sodium (Montelukast Sodium 10 Mg Tablet) 10 mg PO BEDTIME [facility] Last Admin: 08/28/21 22:09 Dose: 10 mg Documented by: Omeprazole (Omeprazole 20 Mg Capsule.) 20 mg PO DAILY@0630 [facility] Last Admin: 08/29/21 06:12 Dose: 20 mg Documented by: Ondansetron HCl (Ondansetron Hcl 4 Mg/2 Ml Vial) 4 mg IVPUSH Q8H PRN PRN Reason: Nausea and Vomiting Pharmacy Consult (Consult Rx Perform Med Rec) 1 each MISCELLANE ONCE PRN PRN Reason: Consult order Sodium Chloride (0.9 % Sodium Chloride Flush 3 Ml Syringe) 3 ml IVFLUSH QSHIFT [facility] Last Admin: 08/29/21 08:38 Dose: 3 ml Documented by: Home Medications Medication Instructions Recorded Confirmed Last Taken Type fluticasone furoate 100 1 inh INHALATION DAILY 06/06/20 08/28/21 08/27/21 History mcg-vilanterol 25 mcg/dose inhalation powder (Breo Ellipta) montelukast 10 mg tablet 10 mg PO BEDTIME 06/06/20 08/28/21 08/27/21 History (Singulair) nebulizer accessories (A.I.R.S 06/06/20 06/06/20 Unknown History Nebulizer Replacement) nebulizer and compressor 06/06/20 06/06/20 Unknown History omeprazole 20 mg capsule,delayed 20 mg PO DAILY 06/06/20 08/28/21 08/27/21 History release tiotropium bromide 2.5 2 puff PO DAILY 06/06/20 08/28/21 08/27/21 History mcg/actuation mist for inhalation (Spiriva Respimat) diphenhydramine HCl 25 mg capsule 25 mg PO BEDTIME PRN 08/28/21 08/28/21 08/27/21 History (Benadryl) prednisone 5 mg tablet 1 tab PO DAILY 08/28/21 08/28/21 08/27/21 History Physical Exam Vital Signs: Vital Signs: Last Vital Signs Temp 98.4 F 08/29/21 08:44 Pulse 133 H 08/29/21 08:44 Resp 16 08/29/21 08:44 BP 151/92 H 08/29/21 08:44 Pulse Ox 99 08/29/21 08:44 BMI result Body Mass Index 24.9 Const: General: alert Neck: Neck: Yes normal visual inspection, Yes full ROM and Yes no lymphadenopathy Chest: Chest palpation & inspection: normal inspection of the chest Resp: Auscultation: diminished lung sounds Cardio: Rate: regular rate Rhythm: regular rhythm Heart sounds: S1 normal heart sound present and S2 normal heart sound present GI: Palpation (GI): Soft to palpation and nontender Auscultation: normal bowel sounds Skin: General skin exam: rashes and/or lesions noted Results Laboratory Findings CBC and BMP: 08/28/21 10:22 08/29/21 07:02 Abnormal lab findings: Abnormal Labs 08/28/21 08/28/21 08/29/21 10:22 10:22 07:02 WBC 13.4 H Immature Gran % (Auto) 0.5 H Eos % (Auto) 9.4 H Eos # (Auto) 1.3 H Abs Immat Gran (auto) 0.07 H Sodium 134 L Potassium 3.1 L D 5.7 H D Carbon Dioxide 19 L Random Glucose 157 H 161 H Calcium 10.3 H D Assessment and Plan (1) Severe persistent allergic asthma with acute exacerbation: Status: Acute (2) Eosinophilia: Status: Acute Plan prednisone taper, is on 5mg chronic dose Needs to restart Biologic therapy Continue Breo and Spiriva Continue Singulair SOCO as needed Will benefit from allergy referral ([place]) Will make arrangements for her to follow up with [facility] pulmonology Procedures Date of Service Date of Service: 08/29/21
--- NOTE | 2021-08-29 10:39 | PM.DS ---
DS: Providers Provider Date of Service: 08/29/21 Date of admission: 08/28/21 16:16 Date of discharge: 08/29/21 Primary care physician: Iveth Arauz MD Consults: 08/28/21 16:14 Consult to Pulmonology Routine Consulting Provider: Tato Zhang Reason for consultation: severe persistent asthma with exacerbation, steroid dependent Follow-up with Dr. Zhang 09/12/2021 at 03:30pm DS: Diagnosis Discharge Diagnosis (1) Severe persistent allergic asthma with acute exacerbation: Status: Acute (2) Eosinophilia: Status: Acute DS: Summary Hospital Course Hospital Course: 26-year-old female with severe persistent allergic asthma steroid dependent presents with acute exacerbation that failed outpatient therapies. She states she has been taking her Fasenra as prescribed along with other inhalers however her breathing has failed to respond to these treatments. She presented to the emergency room where she was given 125 mg of methylprednisolone 2 g of Mag sulfate and continuous neb. On arrival she was hypoxic at 86%. She was admitted given aggressive nebs and IV methylprednisolone. Over the next 24 hours she continued to improve and was over able to wean off oxygen. At this point time she is medically acceptable for discharge and will follow-up with Dr. Zhang as scheduled in the office. She will complete a prednisone taper resume her 5 mg daily and this can be titrated at the discretion of Dr. Zhang Time Spent with Patient Time attestation: Total time spent providing and/or coordinating discharge services: Discharge coordination time: Greater than 30 minutes Quality: Safe Use of Opioids Does Pt have an Active Cancer Diagnosis on the Problem List?: No Quality: Stroke Does the patient have a stroke diagnosis?: No Physical Exam Vital Signs: Vital Signs: Last Vital Signs Temp 98.4 F 08/29/21 08:44 Pulse 133 H 08/29/21 08:44 Resp 16 08/29/21 08:44 BP 151/92 H 08/29/21 08:44 Pulse Ox 99 08/29/21 08:44 BMI result Body Mass Index 24.9 Const: Other: Awake alert oriented x3 breathing effortlessly lying supine Resp: Other: Clear to auscultation bilaterally no rales rhonchi or wheezes Cardio: Other: No S4; positive S1-S2; no S3 murmurs rubs or gallops GI: Other: Soft nontender nondistended with normoactive bowel sounds. There are no acute peritoneal signs Extrem: Other: No edema bilaterally DS: Data Data Completed and Pending Labs on day of discharge: Laboratory Results - last 24 hr 08/28/21 08/28/21 08/28/21 10:22 10:22 10:22 Sodium 138 Potassium 3.1 L D Chloride 105 Carbon Dioxide 22 Anion Gap 14 BUN 12 Creatinine 0.80 Estim Creat Clear Calc 100.3 Estimated GFR > 60 Random Glucose 157 H Calcium 9.0 Magnesium Troponin I High Sens Beta HCG, Quant < 2 COVID-19 ([facility]) Negative COVID-19 Clin Com See Note Influenza Type A (DONOVAN) Negative Influenza Type B (DONOVAN) Negative Influenza A & B Note See Note 08/28/21 08/28/21 08/29/21 10:22 10:22 07:02 Sodium 134 L Potassium 5.7 H D Chloride 105 Carbon Dioxide 19 L Anion Gap 16 BUN 12 Creatinine 0.77 Estim Creat Clear Calc 104.2 Estimated GFR > 60 Random Glucose 161 H Calcium 10.3 H D Magnesium 1.8 Troponin I High Sens < 3.5 Beta HCG, Quant COVID-19 ([facility]) COVID-19 Clin Com Influenza Type A (DONOVAN) Influenza Type B (DONOVAN) Influenza A & B Note Discharge Plan Discharge Patient Disposition: Home, Self-Care Discharge Diagnosis: Severe persistent allergic asthma with acute exacerbation Referrals: Iveth Arauz MD [Primary Care Provider] - 1 Week Discharge Medications: New prednisone 20 mg tablet See Rx Instructions .ROUTE .COMPLEX Qty: 18 0RF Rx Instructions: 20 mg orally ;Three tabs daily x3 days, 2 tabs daily for 3 days, 1 tab daily for 3 days Continued omeprazole 20 mg Capsule,Delayed Release(Dr/Ec) 20 mg PO DAILY 0RF montelukast [Singulair] 10 mg Tablet 10 mg PO BEDTIME 0RF (DME) A.I.R.S Nebulizer Replacement Kit MISCELLANEOUS 0RF (DME) nebulizer and compressor Device MISCELLANEOUS 0RF Spiriva Respimat 2.5 mcg/actuation mist 2 puff PO DAILY 0RF Breo Ellipta 100-25 mcg/dose Blister With Device 1 inh INHALATION DAILY 0RF albuterol sulfate 90 mcg/actuation HFA aerosol inhaler 2 puff inhalation Q4-6H PRN (Reason: shortness of breath or wheezing) Qty: 8.5 0RF albuterol sulfate 2.5 mg /3 mL (0.083 %) solution for nebulization 2.5 mg inhalation Q6H PRN (Reason: shortness of breath or wheezing) Qty: 75 0RF diphenhydramine HCl [Benadryl] 25 mg Capsule 25 mg PO BEDTIME PRN (Reason: Allergy Symptoms) 0RF Discontinued prednisone 5 mg tablet 1 tab PO DAILY 0RF Discharge Orders: Discharge Order (Routine); Ordered 08/29/21 Ordered By: Armando Lopez Diet: advance to usual diet Activity on Discharge: As tolerated Stand Alone Forms: Patient Portal Discharge page Care Plan Goals: Stop taking prednisone 5 mg daily. Take prednisone 20 mg as prescribed. When complete restart 5 mg tabs and follow up with Dr. Zhang Health Concerns: Continue to use your inhalers nebs and all other medicines as usual Plan of Treatment: You have an appointment with Dr. Zhang 09/12/2021 at 15:30 Assessment: See DC summary
--- NOTE | 2021-08-29 11:06 | MHC.CM.PN ---
Patient has been medically cleared for dc to home today no services. DC order was in prior to CM meeting with Patient.
== END 2021-08-29 12:14 | disposition home or self-care (01) | DRG 141 ==
LOC: HO.ED 09:16 → HO.EDOVER 16:23
PROVIDERS: Nurse Practitioner Family; Admitting Provider Family Medicine; Emergency Provider Emergency Medicine; PCP Internal Medicine; Visit Provider Hospitalist
DX: J45.51 Severe persistent asthma with (acute) exacerbation (principal); J96.01 Acute respiratory failure with hypoxia; E87.6 Hypokalemia; D72.10 Eosinophilia, unspecified; F41.9 Anxiety disorder, unspecified; Z20.822 Contact with and (suspected) exposure to COVID-19; Z79.899 Other long term (current) drug therapy
CPT/HCPCS: 36415; 71046; 80048; 83735; 84484; 84702; 85025; 87502; 87635; 93005; 94640; 94645; 96361; 96365; 96366; 96375; 99218; 99285; J2920; J2930; J3475; Q0163

== ENCOUNTER 2021-09-04 08:13 | Outpatient (REF) | payer MEDICAID, SELFPAY ==
--- NOTE | ~2021-09-04 | XR_ITS ---
EXAMINATION: XR FOOT, LEFT CLINICAL INFORMATION: Fracture COMPARISON: Previous x-ray most recent June 2021 TECHNIQUE: AP, lateral, and oblique views of the left foot. FINDINGS: There is a single screw seen in the base proximal shaft of the fifth metatarsal bone. Orthopedic hardware appears intact. No evidence of loosening is seen. There is an old healed fracture of the base of the fifth metatarsal bone. No other fracture is seen. Soft tissues are unremarkable. XR/XR foot LT min 3V IMPRESSION: ORIF of left fifth metatarsal fracture.
== END 2021-09-04 08:14 | disposition home or self-care (01) ==
LOC: HO.HOSX 08:13
PROVIDERS: Visit Provider Physician Assistant
DX: S92.352D Displaced fracture of fifth metatarsal bone, left foot, subsequent encounter for fracture with routine healing (principal); M76.72 Peroneal tendinitis, left leg
CPT/HCPCS: 73630; 99212

== ENCOUNTER 2021-10-01 20:33 | Emergency (ER) | payer MEDICAID, SELFPAY ==
[2021-10-01 21:04] VITALS: BP 142/93; PULSE 90; RESP 22; TEMP 37.3; O2SAT 98; BMI 25.3
[2021-10-01 21:18] LABS: Appearance Urine HAZY; Color Urine YELLOW; Glucose Urine UA NEG (NEG); Leukocyte Esterase Urine 1+ (NEG); Nitrite Urine NEG (NEG); PH 5.5 (5.0-8.0); UACC Culture Trigger YES; Urine Blood TRACE (NEG); Urine Ketones NEG (NEG); Urine Protein NEG (NEG-TRACE)
[2021-10-01 21:19] VITALS: BP 143/99; PULSE 97; RESP 13; TEMP 37.4; O2SAT 98
[2021-10-01 21:21] LABS: UPreg QC Valid YES; Urine Pregnancy POSITIVE (NEGATIVE)
[2021-10-01 21:27] LABS: Squamous Epithelial Cell Urine 4+ /LPF
[2021-10-01 21:28] LABS: Bacteria Urine 2+ /LPF; RBC Urine 0-2 /HPF (0)
--- NOTE | 2021-10-01 21:50 | ED_ITS ---
HPI - Asthma General Chief Complaint: Asthma Stated Complaint: asthma Time Seen by Provider: 10/01/21 21:50 Source: patient Mode of arrival: ambulatory Limitations: no limitations History of Present Illness HPI Narrative: patient With history of asthma LMP 08/17 missed her cycle in September , was seen here on 08/28 hCG was negative, tested positive for a week ago on prednisone 5 mg daily comes here for increased shortness of breath and wheezing for last 1 week also complaining of strong odor in the urine no dysuria frequency no vaginal bleeding patient has severe allergic asthma chronically steroid dependent currently taking 5 mg prednisone daily on immunotherapy with Fasenra with history of prior intubation 2018 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 Related Data Home Medications Medication Instructions Recorded Confirmed fluticasone furoate 100 1 inh inhalation DAILY 06/06/20 08/28/21 mcg-vilanterol 25 mcg/dose inhalation powder (Breo Ellipta) montelukast 10 mg tablet 10 mg PO BEDTIME 06/06/20 08/28/21 (Singulair) nebulizer accessories (A.I.R.S 06/06/20 06/06/20 Nebulizer Replacement) nebulizer and compressor 06/06/20 06/06/20 omeprazole 20 mg capsule,delayed 20 mg PO DAILY 06/06/20 08/28/21 release tiotropium bromide 2.5 2 puff PO DAILY 06/06/20 08/28/21 mcg/actuation mist for inhalation (Spiriva Respimat) diphenhydramine HCl 25 mg capsule 25 mg PO BEDTIME PRN Allergy 08/28/21 08/28/21 (Benadryl) Symptoms Previous Rx's Medication Instructions Recorded albuterol sulfate 2.5 mg (3 mL) inhalation Q6H PRN 07/10/20 shortness of breath or wheezing #75 mL albuterol sulfate 90 mcg/actuation 2 puff inhalation Q4-6H PRN 07/10/20 aerosol inhaler shortness of breath or wheezing #8.5 grams prednisone 20 mg tablet See Rx Instructions .Route 08/29/21 .COMPLEX #18 tabs prednisone 20 mg tablet 40 mg PO DAILY #10 tabs 10/02/21 Allergies Allergy/AdvReac Type Severity Reaction Status Date / Time peach [PEACH] Allergy Severe RASH Verified 09/04/21 13:54 perfume [PERFUME] Allergy Severe ASTHMA Verified 09/04/21 13:54 ATTACK dog dander [DOG DANDER] Allergy Unknown ITCHY, Verified 09/04/21 13:54 HIVES mite-Dermatophagoides Allergy Unknown ASTHMA, Verified 09/04/21 13:54 farinae, wendy ITCHY [DUST MITES] THROAT kiwi Allergy Swelling Verified 09/04/21 13:54 strawberry Allergy Itching Verified 09/04/21 13:54 Review of Systems Review of Systems: Yes all other systems are reviewed and are negative [facility] Past Medical History Medical History Allergic rhinitis Anxiety History of miscarriage Hx of polyarthritis Severe persistent allergic asthma Sleep difficulties Family History Family History Maternal Aunt DVT (deep venous thrombosis) Father CHF (congestive heart failure) Diabetes Mother HTN (hypertension) Asthma Social History Social History Alcohol intake: current Alcohol intake frequency: a few times a week Patient Tobacco Use Status: Never used Tobacco Substance Use Type: Marijuana Advance Directives: No Advance Directives Information Provided: Yes Current occupational status: employed 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 Oriented X3. No acute distress. ENT: Pharynx normal. Oral Mucosa moist Neck: Normal inspection. Neck supple. CVS: Normal heart rate and rhythm. Pulses normal. Respiratory: No respiratory distress. Equal air entry bilateral, bilateral wheezing Abdomen: Soft and nontender. Bowel sounds are present, no mass palpable, no CVA tenderness Skin: Skin warm and dry. Normal skin color. Normal skin turgor. Extremities: No lower extremity edema. No calf tenderness Neuro: Oriented X 3. No motor deficit. MDM - Asthma MDM Narrative Medical decision making narrative: Patient about 6 weeks with severe asthma responded to prednisone and continued albuterol treatment discharge patient home advised to take prednisone 40 mg for 5 days patient is saturating 96% at room air Differential Diagnosis Differential diagnosis: Likely Acute exacerbation Lab Data Attestation: I reviewed the patient's lab results. Labs: Lab Results 10/01/21 10/01/21 10/01/21 Range/Units 21:12 21:12 22:53 Beta HCG, Quant 72713 mIU/mL Urine Color YELLOW Urine Appearance HAZY Urine pH 5.5 (5.0-8.0) Ur Specific [place] 1.020 (1.005-1.025) Urine Protein NEG (NEG-TRACE) MG/DL Urine Glucose (UA) NEG (NEG) MG/DL Urine Ketones NEG (NEG) MG/DL Urine Blood TRACE (NEG) Urine Nitrite NEG (NEG) Ur Leukocyte Esterase 1+ H (NEG) Urine RBC 0-2 (0) /HPF Urine WBC 1-4 (0-4) /HPF Ur Squamous Epith Cells 4+ /LPF Urine Bacteria 2+ /LPF Urine Test POSITIVE H (NEGATIVE) Discharge Plan Discharge Clinical Impression: Asthma with acute exacerbation, Early stage of Patient Disposition: Home, Self-Care Instructions: (ED), Asthma (ED) Additional Instructions: Continue albuterol inhaler/nebulizing treatment every 4-6 hours as needed Increased dose of prednisone to 40 mg daily for 5 days Follow-up with retail loss prevention specialist Follow-up with OBG for your Prescriptions: New prednisone 20 mg tablet 40 mg PO DAILY Qty: 10 0RF No Action omeprazole 20 mg Capsule,Delayed Release(Dr/Ec) 20 mg PO DAILY montelukast [Singulair] 10 mg Tablet 10 mg PO BEDTIME (DME) A.I.R.S Nebulizer Replacement Kit MISCELLANEOUS (DME) nebulizer and compressor Device MISCELLANEOUS Spiriva Respimat 2.5 mcg/actuation mist 2 puff PO DAILY Breo Ellipta 100-25 mcg/dose Blister With Device 1 inh INHALATION DAILY albuterol sulfate 90 mcg/actuation HFA aerosol inhaler 2 puff inhalation Q4-6H PRN (Reason: shortness of breath or wheezing) Qty: 8.5 0RF albuterol sulfate 2.5 mg /3 mL (0.083 %) solution for nebulization 2.5 mg inhalation Q6H PRN (Reason: shortness of breath or wheezing) Qty: 75 0RF diphenhydramine HCl [Benadryl] 25 mg Capsule 25 mg PO BEDTIME PRN (Reason: Allergy Symptoms) prednisone 20 mg tablet See Rx Instructions .ROUTE .COMPLEX Qty: 18 0RF Rx Instructions: 20 mg orally ;Three tabs daily x3 days, 2 tabs daily for 3 days, 1 tab daily for 3 days Referrals: Trevor Kelly MD [Physician] - 2 weeks
--- NOTE | 2021-10-01 21:59 | PC.NURSE ---
respiratory contacted to give nebulizer tx
[2021-10-01] MEDS: Albuterol/Iprat 2.5/0.5MG 3 ML AMPUL.NEB INHALE (22:13)
[2021-10-01] MEDS: Albuterol Sulfate (0.083%) 2.5 MG/3 ML VIAL.NEB 7.5 MG INHALE (22:13)
[2021-10-01 22:14] VITALS: PULSE 90; RESP 16; O2SAT 95
[2021-10-01 23:42] LABS: HCG Quantitative 54316 mIU/mL
[2021-10-01] MEDS: predniSONE 20 MG TABLET 40 MG PO (23:43)
[2021-10-01] MEDS: Albuterol Sulfate (0.083%) 2.5 MG/3 ML VIAL.NEB 5 MG INHALE (23:52)
[2021-10-01 23:53] VITALS: PULSE 90; RESP 16; O2SAT 95
[2021-10-01 23:59] VITALS: BP 132/80; PULSE 97; RESP 16; TEMP 36.8; O2SAT 97
== END 2021-10-02 00:15 | disposition home or self-care (01) ==
PROVIDERS: Emergency Provider Internal Medicine
DX: J45.901 Unspecified asthma with (acute) exacerbation (principal); R06.02 Shortness of breath; Z79.899 Other long term (current) drug therapy
CPT/HCPCS: 36415; 81001; 81025; 84702; 87086; 94640; 94644; 99284; 99285

== ENCOUNTER → 2021-10-17 10:56 | Outpatient (BNVA) | payer MEDICAID, SELFPAY | PROVIDERS: PCP Internal Medicine; Visit Provider Hospitalist | DX: O99.511 Diseases of the respiratory system complicating pregnancy, first trimester (principal); J45.50 Severe persistent asthma, uncomplicated; J30.89 Other allergic rhinitis; O99.111 Other diseases of the blood and blood-forming organs and certain disorders involving the immune mechanism complicating pregnancy, first trimester; D72.19 Other eosinophilia; Z3A.00 Weeks of gestation of pregnancy not specified | CPT/HCPCS: 99212 ==

== ENCOUNTER → 2021-11-07 13:51 | Outpatient (BNVA) | payer MEDICAID, SELFPAY | PROVIDERS: PCP Internal Medicine; Visit Provider Hospitalist | DX: J45.50 Severe persistent asthma, uncomplicated (principal); J30.89 Other allergic rhinitis; D72.19 Other eosinophilia | CPT/HCPCS: 99212 ==

== ENCOUNTER 2021-12-26 03:54 | Emergency (ER) | payer MEDICAID, SELFPAY ==
[2021-12-26 04:09] VITALS: BP 127/83; PULSE 114; RESP 18; TEMP 37.4; O2SAT 96; BMI 25.2
[2021-12-26 04:49] LABS: COVID-19 Test Negative (Negative)
[2021-12-26 05:34] VITALS: BP 120/77; PULSE 92; RESP 16; TEMP 36.3; O2SAT 97
--- NOTE | 2021-12-26 06:11 | ED_ITS ---
HPI - Asthma General Chief Complaint: Asthma Stated Complaint: asthma, Time Seen by Provider: 12/26/21 06:11 Source: patient Mode of arrival: ambulatory Limitations: no limitations History of Present Illness HPI Narrative: patient felt wheezy and her oxygen was low at home so she got nervous and came to the ED. Patient is 18 weeks , . complaint: shortness of breath Onset (ago): hour(s) Severity: mild Associated symptoms: none Treatments Prior to Arrival: inhaled bronchodilator and inhaled steroid Related Data Home Medications Medication Instructions Recorded Confirmed fluticasone furoate 100 1 inh inhalation DAILY 06/06/20 08/28/21 mcg-vilanterol 25 mcg/dose inhalation powder (Breo Ellipta) montelukast 10 mg tablet 10 mg PO BEDTIME 06/06/20 08/28/21 (Singulair) nebulizer accessories (A.I.R.S 06/06/20 06/06/20 Nebulizer Replacement kit) nebulizer and compressor 06/06/20 06/06/20 omeprazole 20 mg capsule,delayed 20 mg PO DAILY 06/06/20 08/28/21 release tiotropium bromide 2.5 2 puff PO DAILY 06/06/20 08/28/21 mcg/actuation mist for inhalation (Spiriva Respimat) diphenhydramine HCl 25 mg capsule 25 mg PO BEDTIME PRN Allergy 08/28/21 08/28/21 (Benadryl) Symptoms Previous Rx's Medication Instructions Recorded albuterol sulfate 2.5 mg/3 mL 2.5 mg (3 mL) inhalation Q6H PRN 07/10/20 (0.083 %) solution for nebulization shortness of breath or wheezing #75 mL albuterol sulfate 90 mcg/actuation 2 puff inhalation Q4-6H PRN 07/10/20 aerosol inhaler shortness of breath or wheezing #8.5 grams prednisone 20 mg tablet 40 mg PO DAILY #10 tabs 10/02/21 budesonide-formoterol HFA 160 2 puff inhalation BID 30 days 10/17/21 mcg-4.5 mcg/actuation aerosol #10.2 grams inhaler (Symbicort) benzonatate 200 mg capsule 200 mg PO BID PRN cough 30 days 11/07/21 #30 caps budesonide 0.5 mg/2 mL suspension 0.5 mg (2 mL) inhalation BID 30 11/07/21 for nebulization days #120 mL Allergies Allergy/AdvReac Type Severity Reaction Status Date / Time peach [PEACH] Allergy Severe RASH Verified 11/07/21 14:12 perfume [PERFUME] Allergy Severe ASTHMA Verified 11/07/21 14:12 ATTACK dog dander [DOG DANDER] Allergy Unknown ITCHY, Verified 11/07/21 14:12 HIVES mite-Dermatophagoides Allergy Unknown ASTHMA, Verified 11/07/21 14:12 farinae, wendy ITCHY [DUST MITES] THROAT kiwi Allergy Swelling Verified 11/07/21 14:12 strawberry Allergy Itching Verified 11/07/21 14:12 Review of Systems Constitutional: Constitutional: Reports no additional constitutional complaints Eyes: Eyes: Reports no additional eye complaints ENT: Denies dizziness Cardiovascular: Cardiovascular: Reports no additional cardiovascular complaints Respiratory: Respiratory: Reports as per HPI Gastrointestinal: Gastrointestinal: Reports no additional gastrointestinal complaints Genitourinary: Genitourinary: Reports no additional female genitourinary complaints Musculoskeletal: Musculoskeletal: Reports no additional musculoskeletal complaints Integumentary/Breasts: Skin/Breast: Denies rash Neurologic: Reports system reviewed and no additional complaints, except as documented, Denies dizziness and Denies Sensory deficit (Neuro) Psychiatric: Psychiatric: Denies anxiety PMFSH Past Medical History Medical History Allergic rhinitis Anti-cardiolipin antibody positive Anxiety Eosinophilia History of miscarriage Hx of polyarthritis Severe persistent allergic asthma Sleep difficulties Family History Family History Maternal Aunt DVT (deep venous thrombosis) Father CHF (congestive heart failure) Diabetes Mother HTN (hypertension) Asthma Social History Social History Alcohol intake: current Alcohol intake frequency: a few times a week Patient Tobacco Use Status: Never used Tobacco Substance Use Type: Marijuana Advance Directives: No Current occupational status: employed 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 Physical Exam Vital Signs: Vital Signs: Last Vital Signs Temp 97.4 F 12/26/21 05:34 Pulse 76 12/26/21 06:27 Resp 14 12/26/21 06:27 BP 120/77 12/26/21 05:34 Pulse Ox 97 12/26/21 05:34 O2 Del Method 12/26/21 05:34 BMI result Body Mass Index 25.2 Const: General: healthy appearing Nutritional Appearance: average body habitus Orientation/consciousness: oriented to person and patient oriented x3 Limitations: no limitations HEENT: Head: Yes normal to inspection Ears: external ears normal General nose exam: Normal external nose present Mouth: Normal oral and palatal mucosa present and oropharynx normal Throat: Yes posterior oropharynx normal Eyes: General: appearance normal, both eyes and all related structures Neck: Other: supple Neck: Yes normal visual inspection Chest: Chest palpation & inspection: normal inspection of the chest Resp: Other: slight wheeze bilaterally Cardio: Jugular venous distension: no JVD Rate: regular rate Rhythm: regular rhythm Heart sounds: S1 normal heart sound present and S2 normal heart sound present GI: Other: gravid uterus Palpation (GI): Soft to palpation, nontender and No hepatosplenomegaly present Auscultation: normal bowel sounds : General: Yes no CVA tenderness Back/Spine/Pelvis: Back: no CVA tenderness Skin: General skin exam: no rashes or lesions noted Neuro: General: oriented to person and patient oriented x3 Cranial nerves: Yes CN's II-XII intact bilaterally Motor exam (neuro): 5/5 motor strength present throughout Sensory Exam: No Sensory deficit (Neuro) Extrem: General: Yes normal to inspection Psych: Appearance: grossly normal Course Reevaluation(s) Reevaluation #1: breathing better will dc home Time: 07:31 MDM - Asthma Lab Data Labs: Lab Results 12/26/21 Range/Units 04:15 COVID-19 ([facility]) Negative (Negative) COVID-19 Clin Com See Note Discharge Plan Discharge Clinical Impression: Asthma with acute exacerbation, Patient Disposition: Home, Self-Care Instructions: Asthma (ED) Prescriptions: No Action omeprazole 20 mg Capsule,Delayed Release(Dr/Ec) 20 mg PO DAILY montelukast [Singulair] 10 mg Tablet 10 mg PO BEDTIME (DME) A.I.R.S Nebulizer Replacement Kit MISCELLANEOUS (DME) nebulizer and compressor Device MISCELLANEOUS Spiriva Respimat 2.5 mcg/actuation mist 2 puff PO DAILY Breo Ellipta 100-25 mcg/dose Blister With Device 1 inh INHALATION DAILY albuterol sulfate 90 mcg/actuation HFA aerosol inhaler 2 puff inhalation Q4-6H PRN (Reason: shortness of breath or wheezing) Qty: 8.5 0RF albuterol sulfate 2.5 mg /3 mL (0.083 %) solution for nebulization 2.5 mg inhalation Q6H PRN (Reason: shortness of breath or wheezing) Qty: 75 0RF diphenhydramine HCl [Benadryl] 25 mg Capsule 25 mg PO BEDTIME PRN (Reason: Allergy Symptoms) prednisone 20 mg tablet 40 mg PO DAILY Qty: 10 0RF budesonide 0.5 mg/2 mL suspension for nebulization 0.5 mg inhalation BID 30 Days Qty: 120 11RF benzonatate 200 mg capsule 200 mg PO BID PRN (Reason: cough) 30 Days Qty: 30 11RF budesonide-formoterol [Symbicort] 160-4.5 mcg/actuation HFA aerosol inhaler 2 puff inhalation BID 30 Days Qty: 10.2 11RF Referrals: Iveth Arauz MD [Primary Care Provider] - 5 days
[2021-12-26 06:27] VITALS: PULSE 76; RESP 14; O2SAT 97
[2021-12-26] MEDS: Albuterol/Iprat 2.5/0.5MG 3 ML AMPUL.NEB INHALE (06:27)
== END 2021-12-26 07:47 | disposition home or self-care (01) ==
PROVIDERS: Emergency Provider Emergency Medicine; PCP Internal Medicine
DX: O99.512 Diseases of the respiratory system complicating pregnancy, second trimester (principal); J45.901 Unspecified asthma with (acute) exacerbation; Z3A.18 18 weeks gestation of pregnancy
CPT/HCPCS: 87635; 94640; 99284

== ENCOUNTER → 2022-01-05 13:44 | Outpatient (BNVA) | payer MEDICAID, SELFPAY | PROVIDERS: PCP Internal Medicine; Visit Provider Hospitalist | DX: J44.9 Chronic obstructive pulmonary disease, unspecified (principal); J45.50 Severe persistent asthma, uncomplicated; J30.89 Other allergic rhinitis; D72.19 Other eosinophilia | CPT/HCPCS: 99212 ==

== ENCOUNTER 2022-02-14 15:28 | Outpatient (RCR) | payer MEDICAID, SELFPAY ==
--- NOTE | 2022-02-15 13:48 | MHC.PT.EP ---
[facility] [place] Office [place] Office [place] Office [address] Harika Shrestha [address] [phone] F: [phone] F: [phone] F: [phone] F: [phone] Physical Therapy Plan of Care Date of Evaluation: Date of Surgery: 05/31/2021 Diagnosis: s/p ORIF for L 5th metatarsal fracture Assessment: Patient is , 26 y.o. female who presents to PT s/p ORIF of 5th metatarsal fracture (DOS: 05/31/21). She presents with antalgic gait, pain, weakness, tightness with limited ROM, impaired functional mobility with difficulty with work tasks, stair use. She will benefit from skilled PT to restore full function of L ankle/foot. Frequency and Duration: The patient will be seen 2x/week for 4 weeks Short Term Goals: 2 weeks Patient demonstrates ability to perform desensitization of L foot at incision site at home. Patient presents with increased L ankle DF 0 degrees to perform gait rockers. 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 Patient presents with increased L ankle eversion 4+/5 to improve joint stability for bend/squatting. Treatment Plan: Modalities to reduce pain, spasms and effusion. Manual therapy to restore motion and function. Therapeutic exercise to improve strength and flexibility. Neuromuscular re-education for posture and balance. Therapeutic activities to return to functional activities of daily living. Electronically signed by: Angela Ortiz, PT, DPT Please sign and return to therapist. Thank you for your referral.
--- NOTE | 2022-03-21 10:56 | MHC.PT.DC ---
[facility] [place] Office [place] Office [place] Office [address] Harika Shrestha 140 [facility] [phone] F: [phone] F: [phone] F: [phone] F: [phone] Physical Therapy Discharge Report Diagnosis: s/p ORIF for L 5th metatarsal fracture Date of Surgery: 05/31/2021 Date of Evaluation: 02/14/22 Date of Discharge: 03/21/22 Treatments to Date: 1 Cancellations to Date: 1 No Shows to Date: 3 Discharge Status: Visit Non-compliance Discharge Summary: Patient was only seen for initial evaluation and canceled or did not show to any FUP visits. Therefore she is discharged from PT. Electronically signed by: Angela Ortiz, PT, DPT Please sign and return to therapist. Thank you for your referral.
== END 2022-03-21 10:56 | disposition home or self-care (01) ==
LOC: HO.PT 15:28
PROVIDERS: PCP Internal Medicine; Visit Provider Physician Assistant
DX: S92.352A Displaced fracture of fifth metatarsal bone, left foot, initial encounter for closed fracture (principal); M76.72 Peroneal tendinitis, left leg
CPT/HCPCS: 97110; 97116; 97161

== ENCOUNTER 2022-03-19 10:57 | Emergency (ER) | payer MEDICAID, SELFPAY ==
--- NOTE | ~2022-03-19 | XR_ITS ---
EXAMINATION: XR CHEST CLINICAL INFORMATION: Cough, . COMPARISON: Chest radiographs 08/28/2021, 02/15/2021 TECHNIQUE: Frontal view of the chest was obtained. FINDINGS: The lungs are clear. There is no hyperinflation, airspace consolidation or groundglass opacity. The costophrenic sulci are clear. The heart is normal in size. The vascularity is normal. The hilar and mediastinal contours and visualized bony structures are unremarkable. XR/XR chest 1V IMPRESSION: Lungs clear.
[2022-03-19 11:00] VITALS: BP 145/89; PULSE 120; RESP 22; TEMP 36.4; O2SAT 92; BMI 25.7
[2022-03-19] MEDS: predniSONE 20 MG TABLET 60 MG PO (11:19)
[2022-03-19] MEDS: Albuterol/Iprat 2.5/0.5MG 3 ML AMPUL.NEB INHALE (11:24)
[2022-03-19 11:26] VITALS: RESP 18; O2SAT 96
--- NOTE | 2022-03-19 11:35 | ED_ITS ---
HPI - Asthma General Chief Complaint: Asthma Stated Complaint: asthma Time Seen by Provider: 03/19/22 11:09 Source: patient Mode of arrival: ambulatory Limitations: no limitations History of Present Illness HPI Narrative: 26-year-old female 7 months 1st time presents to ED for asthma exacerbation. Patient states coughing since yesterday with shortness of breath and wheezing. Patient states now she could hear herself wheezing and needs treatment. Patient denies any leg swelling, calf pain, or coughing up blood. Patient states her mother was sick. Patient denies any abdominal pain, or vaginal bleeding Related Data Home Medications Medication Instructions Recorded Confirmed fluticasone furoate 100 1 inh inhalation DAILY 06/06/20 08/28/21 mcg-vilanterol 25 mcg/dose inhalation powder (Breo Ellipta) montelukast 10 mg tablet 10 mg PO BEDTIME 06/06/20 08/28/21 (Singulair) nebulizer accessories (A.I.R.S 06/06/20 06/06/20 Nebulizer Replacement kit) nebulizer and compressor 06/06/20 06/06/20 omeprazole 20 mg capsule,delayed 20 mg PO DAILY 06/06/20 08/28/21 release tiotropium bromide 2.5 2 puff PO DAILY 06/06/20 08/28/21 mcg/actuation mist for inhalation (Spiriva Respimat) diphenhydramine HCl 25 mg capsule 25 mg PO BEDTIME PRN Allergy 08/28/21 08/28/21 (Benadryl) Symptoms Previous Rx's Medication Instructions Recorded albuterol sulfate 2.5 mg/3 mL 2.5 mg (3 mL) inhalation Q6H PRN 07/10/20 (0.083 %) solution for nebulization shortness of breath or wheezing #75 mL albuterol sulfate 90 mcg/actuation 2 puff inhalation Q4-6H PRN 07/10/20 aerosol inhaler shortness of breath or wheezing #8.5 grams prednisone 20 mg tablet 40 mg PO DAILY #10 tabs 10/02/21 budesonide-formoterol HFA 160 2 puff inhalation BID 30 days 10/17/21 mcg-4.5 mcg/actuation aerosol #10.2 grams inhaler (Symbicort) benzonatate 200 mg capsule 200 mg PO BID PRN cough 30 days 11/07/21 #30 caps budesonide 0.5 mg/2 mL suspension 0.5 mg (2 mL) inhalation BID 30 11/07/21 for nebulization days #120 mL prednisone 5 mg tablet 10 mg PO DAILY #60 tabs 03/12/22 albuterol sulfate 90 mcg/actuation 2 puff inhalation Q4-6H PRN 03/19/22 aerosol inhaler shortness of breath or wheezing #6.7 grams prednisone 20 mg tablet 40 mg PO DAILY 5 days #10 tabs 03/19/22 Allergies Allergy/AdvReac Type Severity Reaction Status Date / Time peach [PEACH] Allergy Severe RASH Verified 03/19/22 11:02 perfume [PERFUME] Allergy Severe ASTHMA Verified 03/19/22 11:02 ATTACK dog dander [DOG DANDER] Allergy Unknown ITCHY, Verified 03/19/22 11:02 HIVES mite-Dermatophagoides Allergy Unknown ASTHMA, Verified 03/19/22 11:02 farinae, wendy ITCHY [DUST MITES] THROAT kiwi Allergy Swelling Verified 03/19/22 11:02 strawberry Allergy Itching Verified 03/19/22 11:02 Review of Systems Review of Systems: Cough, wheezing, asthma exacerbation Yes all other systems are reviewed and are negative PMFSH Past Medical History Medical History Allergic rhinitis Anti-cardiolipin antibody positive Anxiety Eosinophilia History of miscarriage Hx of polyarthritis Severe persistent allergic asthma Sleep difficulties Family History Family History Maternal Aunt DVT (deep venous thrombosis) Father CHF (congestive heart failure) Diabetes Mother HTN (hypertension) Asthma Social History Social History Alcohol intake: never Patient Tobacco Use Status: Never used Tobacco Smoked in Last 30 Days: No Use of substances other than those prescribed or required for medical reasons: No Substance Use Type: Marijuana Advance Directives: No Advance Directives Information Provided: No Patient : Yes Current occupational status: employed 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 Physical Exam Vital Signs: Vital Signs: Last Vital Signs Temp 97.6 F 03/19/22 11:00 Pulse 94 12/05/22 12:32 Resp 18 03/19/22 12:32 BP 138/76 03/19/22 12:00 Pulse Ox 96 03/19/22 12:00 O2 Del Method 03/19/22 12:00 BMI result Body Mass Index 25.7 Const: General: cooperative, healthy appearing, comfortable, no acute distress, well developed, alert, awake and Physically active Orientation/consciousness: oriented to person, oriented to place, oriented to time and patient oriented x3 HEENT: Head: Yes normal to inspection, Yes No palpable skull fracture present, Yes normocephalic, Yes atraumatic and No abrasion Eyes: General: appearance normal, both eyes and all related structures Neck: Neck: Yes normal visual inspection, Yes full ROM, Yes no lymphadenopathy, Yes no meningeal signs, Yes trachea midline, Yes supple, No anterior neck swelling and No tender Chest: Chest palpation & inspection: normal inspection of the chest Resp: Effort & Inspection: normal respiratory effort and able to speak in complete sentences Auscultation: wheezes (Auditory) expiratory wheezes and throughout Cardio: Jugular venous distension: no JVD Heart sounds: S1 normal heart sound present and S2 normal heart sound present GI: Inspection: Yes normal to inspection and No abdominal wall ecchymosis Palpation (GI): Soft to palpation, not firm, nontender, no guarding and not rigid : General: No CVA tenderness and Yes no CVA tenderness Back/Spine/Pelvis: Back: no CVA tenderness, No CVA tenderness and No back tenderness Skin: General skin exam: no rashes or lesions noted and elasticity normal Neuro: General: oriented to person, oriented to place, oriented to time, patient oriented x3, gait normal and no meningeal signs Extrem: Other: Lower extremities negative for swelling, pitting edema, calf tenderness Course Course Course Narrative: Audible wheezing O2 sat 92%. Albuterol DuoNeb ordered. SARs ordered. Informed that in house OBGYN recommend patient be transferred immediately to [facility]. Will do heart monitoring and call [facility] Reevaluation(s) Reevaluation #1: After albuterol treatments steroids patient O2 sat now 96% the patient still tachycardic at heart rate of 118. Respiratory rate now 16. 138/76. FHR 165. POC 100. : [facility] transfer with OBGYN to call back Time: 12:11 Reevaluation #2: On ambulation O2 saturation 96 97%. Patient still has some wheezing. Will order another nebulizer treatment. Time: 12:26 Reevaluation #3: Case discussed with OBGYN Dr. Rodriguze. She was informed of patient's history and physical exam. Patient states feeling better. Recommends patient be sent to [place]. patient given cobra and her mother will bring her. Patient presently not any distress. X-ray and COVID swabs pending Time: 12:38 Additional Reevaluation(s): Patient no longer tachycardic. History rate improved. O2 sat 96%. Will discharge with albuterol inhaler and prednisone. Mother will bring patient straight to [facility]. Chest x-ray normal. SARs influenza COVID RSV negative. 13:30. Patient wheezing significantly improved. Patient no longer has any audible wheezing. Patient is safe for transport. 13:37. Medications Administered Discontinued Medications Generic Name Dose Route Start Last Admin Trade Name Freq PRN Reason Stop Dose Admin Albuterol Sulfate 2.5 mg/ 5 mg 03/19/22 12:25 03/19/22 12:32 Albuterol Sulfate 2.5 mg INHALE 03/19/22 12:26 5 mg ONCE ONE Administration Albuterol/Ipratropium 3 ml 03/19/22 11:10 03/19/22 11:24 Albuterol/Iprat 2.5/0.5mg 3 Ml Ampul.Neb INHALE 03/19/22 11:11 3 ml ONCE ONE Administration Prednisone 60 mg 03/19/22 11:10 03/19/22 11:19 Prednisone 20 Mg Tablet PO 03/19/22 11:11 60 mg ONCE ONE Administration Medical Decision Making Medical Decision Making MDM Narrative: 26-year-old 7 month be seen in the ER for asthma exacerbation. Patient asthma symptoms improved. Vital signs improved. Patient no longer tachycardic. Patient room air 96 97% on ambulation. Respiratory rate improved. Patient states she feels better. COVID RSV and influenza negative. Chest x-ray normal. Presently not suspecting PE or CHF hydro myopathy. Patient has no chest pain, pleurisy, or calf pain. Patient [facility] be [facility] straight [facility] after discharge. Discharge Plan Discharge Clinical Impression: Asthma exacerbation, Asthma with acute exacerbation Patient Disposition: Home, Self-Care Instructions: Asthma (ED) Additional Instructions: You came back negative for COVID, influenza, and RSV. His chest x-ray came back normal. Your vital signs improved. Recommend after discharge going to [facility] Triage for monitoring and observation of your asthma at [address] [place] [address]. Return to the ED immediately for any leg swelling, calf pain, coughing up blood, weakness, fever, chills, or any other concerning symptoms. FOllow up with your OBGYN as soon as possible after being seen and cleared at [facility] Prescriptions: New prednisone 20 mg tablet 40 mg PO DAILY 5 Days Qty: 10 0RF albuterol sulfate 90 mcg/actuation HFA aerosol inhaler 2 puff inhalation Q4-6H PRN (Reason: shortness of breath or wheezing) Qty: 6.7 0RF No Action prednisone 5 mg tablet 10 mg PO DAILY Qty: 60 1RF omeprazole 20 mg Capsule,Delayed Release(Dr/Ec) 20 mg PO DAILY montelukast [Singulair] 10 mg Tablet 10 mg PO BEDTIME (DME) A.I.R.S Nebulizer Replacement Kit MISCELLANEOUS (DME) nebulizer and compressor Device MISCELLANEOUS Spiriva Respimat 2.5 mcg/actuation mist 2 puff PO DAILY Breo Ellipta 100-25 mcg/dose Blister With Device 1 inh INHALATION DAILY albuterol sulfate 90 mcg/actuation HFA aerosol inhaler 2 puff inhalation Q4-6H PRN (Reason: shortness of breath or wheezing) Qty: 8.5 0RF albuterol sulfate 2.5 mg /3 mL (0.083 %) solution for nebulization 2.5 mg inhalation Q6H PRN (Reason: shortness of breath or wheezing) Qty: 75 0RF diphenhydramine HCl [Benadryl] 25 mg Capsule 25 mg PO BEDTIME PRN (Reason: Allergy Symptoms) prednisone 20 mg tablet 40 mg PO DAILY Qty: 10 0RF budesonide 0.5 mg/2 mL suspension for nebulization 0.5 mg inhalation BID 30 Days Qty: 120 11RF benzonatate 200 mg capsule 200 mg PO BID PRN (Reason: cough) 30 Days Qty: 30 11RF budesonide-formoterol [Symbicort] 160-4.5 mcg/actuation HFA aerosol inhaler 2 puff inhalation BID 30 Days Qty: 10.2 11RF Interventions: ED Discharge Assessment Last Done: 03/19/22 13:40 Discharge Date/Time: 03/19/22 13:42 Print Language: Tamazight
[2022-03-19 11:44] LABS: Glucose, Whole Blood 100 mg/dL (60-115)
[2022-03-19 12:00] VITALS: BP 138/76; PULSE 115; RESP 20; O2SAT 96
--- NOTE | 2022-03-19 12:03 | PC.NURSE ---
HEART RATE OBTAINED. 165 STRONG/REGULAR
--- NOTE | 2022-03-19 12:27 | PC.NURSE ---
@ 1226PM CALL RECEIVED FROM [facility] PT TX LINE ASKING TO SPEAK WITH MYRON ROMERO TAKES OVER CALL RIGHT AWAY
[2022-03-19 12:32] VITALS: PULSE 94; RESP 18; O2SAT 97
[2022-03-19] MEDS: Albuterol Sulfate 2.5 MG, Albuterol Sulfate (0.083%) 2.5 MG 5 MG INHALE (12:32)
[2022-03-19 12:48] LABS: Influenza A PCR NEGATIVE (Negative); Influenza B PCR NEGATIVE (Negative); Resp Syncy Virus RNA Qual PCR NEGATIVE (Negative); SARS COV2 PCR INHOUSE NEGATIVE (Negative)
== END 2022-03-19 13:42 | disposition home or self-care (01) ==
PROVIDERS: Physician Assistant; Emergency Provider Emergency Medicine; PCP Internal Medicine
DX: O99.512 Diseases of the respiratory system complicating pregnancy, second trimester (principal); Z3A.28 28 weeks gestation of pregnancy; Z20.822 Contact with and (suspected) exposure to COVID-19; Z79.899 Other long term (current) drug therapy
CPT/HCPCS: 0241U; 71045; 82947; 94640; 99284; 99285

== ENCOUNTER 2022-09-30 12:42 | Emergency (ER) | payer MEDICAID, SELFPAY ==
--- NOTE | ~2022-09-30 | XR_ITS ---
EXAMINATION: Chest x-ray and right foot CLINICAL INDICATIONS:: SOB.. Right foot pain COMPARISON: Chest x-ray 03/19/2022. TECHNIQUE: chest one view. Right foot 3 views. FINDINGS: CHEST: The lungs are fairly well-expanded and clear. The heart size and pulmonary vascularity is normal. No gross bony abnormality seen except for minimal dextroscoliosis of dorsolumbar spine. RIGHT FOOT: There is no visible acute fracture, dislocation or subluxation seen. The ankle mortise and subtalar joints are normal. No visible fracture or dislocation seen. The soft tissues are normal. XR/XR foot RT 2V IMPRESSION: Unremarkable chest exam. Unremarkable right foot exam.
--- NOTE | ~2022-09-30 | XR_ITS ---
EXAMINATION: Chest x-ray and right foot CLINICAL INDICATIONS:: SOB.. Right foot pain COMPARISON: Chest x-ray 03/19/2022. TECHNIQUE: chest one view. Right foot 3 views. FINDINGS: CHEST: The lungs are fairly well-expanded and clear. The heart size and pulmonary vascularity is normal. No gross bony abnormality seen except for minimal dextroscoliosis of dorsolumbar spine. RIGHT FOOT: There is no visible acute fracture, dislocation or subluxation seen. The ankle mortise and subtalar joints are normal. No visible fracture or dislocation seen. The soft tissues are normal. XR/XR chest 1V IMPRESSION: Unremarkable chest exam. Unremarkable right foot exam.
--- NOTE | 2022-09-30 12:58 | ED.GENADULT ---
HPI - General Adult General Chief complaint: Upper Respiratory Symptoms Stated complaint: R foot swelling, sore throat Time Seen by Provider: 09/30/22 13:19 Source: patient Mode of arrival: ambulatory Limitations: no limitations History of Present Illness HPI narrative: 27 yo female with history of asthma here with 2 days of sore throat, cough, wheezing unrelieved with home albuterol MDI. No fevers, chills, diff breathing, chest pain. Son has similar symptoms. Also right foot pain with no known injury or trauma. NO associated redness, warmth, fevers, numbness.tinging, calf pain or swelling. Related Data Home Medications Medication Instructions Recorded Confirmed fluticasone furoate 100 1 inh inhalation DAILY 06/06/20 08/28/21 mcg-vilanterol 25 mcg/dose inhalation powder (Breo Ellipta) montelukast 10 mg tablet 10 mg PO BEDTIME 06/06/20 08/28/21 (Singulair) nebulizer accessories (A.I.R.S 06/06/20 06/06/20 Nebulizer Replacement kit) nebulizer and compressor 06/06/20 06/06/20 omeprazole 20 mg capsule,delayed 20 mg PO DAILY 06/06/20 08/28/21 release tiotropium bromide 2.5 2 puff PO DAILY 06/06/20 08/28/21 mcg/actuation mist for inhalation (Spiriva Respimat) diphenhydramine HCl 25 mg capsule 25 mg PO BEDTIME PRN Allergy 08/28/21 08/28/21 (Benadryl) Symptoms Previous Rx's Medication Instructions Recorded albuterol sulfate 2.5 mg/3 mL 2.5 mg (3 mL) inhalation Q6H PRN 07/10/20 (0.083 %) solution for nebulization shortness of breath or wheezing #75 mL albuterol sulfate 90 mcg/actuation 2 puff inhalation Q4-6H PRN 07/10/20 aerosol inhaler shortness of breath or wheezing #8.5 grams prednisone 20 mg tablet 40 mg PO DAILY #10 tabs 10/02/21 budesonide-formoterol HFA 160 2 puff inhalation BID 30 days 10/17/21 mcg-4.5 mcg/actuation aerosol #10.2 grams inhaler (Symbicort) benzonatate 200 mg capsule 200 mg PO BID PRN cough 30 days 11/07/21 #30 caps budesonide 0.5 mg/2 mL suspension 0.5 mg (2 mL) inhalation BID 30 11/07/21 for nebulization days #120 mL albuterol sulfate 90 mcg/actuation 2 puff inhalation Q4-6H PRN 03/19/22 aerosol inhaler shortness of breath or wheezing #6.7 grams prednisone 20 mg tablet 40 mg PO DAILY 5 days #10 tabs 03/19/22 prednisone 5 mg tablet 10 mg PO DAILY #60 ea 09/24/22 prednisone 20 mg tablet 60 mg PO DAILY #12 tabs 09/30/22 Allergies Allergy/AdvReac Type Severity Reaction Status Date / Time peach [PEACH] Allergy Severe RASH Verified 03/19/22 11:02 perfume [PERFUME] Allergy Severe ASTHMA Verified 03/19/22 11:02 ATTACK dog dander [DOG DANDER] Allergy Unknown ITCHY, Verified 03/19/22 11:02 HIVES mite-Dermatophagoides Allergy Unknown ASTHMA, Verified 03/19/22 11:02 farinae, wendy ITCHY [DUST MITES] THROAT kiwi Allergy Swelling Verified 03/19/22 11:02 strawberry Allergy Itching Verified 03/19/22 11:02 Review of Systems Review of Systems: Yes all other systems are reviewed and are negative Constitutional: Constitutional: Reports no additional constitutional complaints, Denies body ache(s), Denies chills, Denies fever(s), Denies headache(s) and Denies weakness Eyes: Eyes: Reports no additional eye complaints and Denies change in vision ENT: Reports system reviewed and no additional complaints, except as documented, Denies dizziness, Denies headache(s), Denies nasal congestion, Denies nasal discharge, Denies neck pain and Reports sore throat Cardiovascular: Cardiovascular: Reports no additional cardiovascular complaints, Denies chest pain, Denies leg edema and Denies dyspnea Respiratory: Respiratory: Reports no additional respiratory complaints, Reports cough, Denies dyspnea and Reports wheezing Gastrointestinal: Gastrointestinal: Reports no additional gastrointestinal complaints, Denies abdominal pain, Denies diarrhea, Denies nausea and Denies vomiting Genitourinary: Genitourinary: Reports no additional female genitourinary complaints and Denies urinary incontinence Musculoskeletal: Musculoskeletal: Reports no additional musculoskeletal complaints, Denies back pain, Reports arthralgias, Denies joint swelling, Denies neck pain, Denies numbness and Denies tingling Integumentary/Breasts: Skin/Breast: Reports system reviewed and no additional complaints, except as docu and Denies rash Neurologic: Reports system reviewed and no additional complaints, except as documented, Denies dizziness, Denies headache(s), Denies numbness, Denies tingling and Denies weakness Allergic/Immunologic: Allergic/Immunologic: Reports wheezing PMFSH Past Medical History Attestation statement: The following information was validated with the patient. Source: old records reviewed and nursing notes reviewed Medical History Allergic rhinitis Anti-cardiolipin antibody positive Anxiety Eosinophilia History of miscarriage Hx of polyarthritis Severe persistent allergic asthma Sleep difficulties Family History Family History Maternal Aunt DVT (deep venous thrombosis) Father CHF (congestive heart failure) Diabetes Mother HTN (hypertension) Asthma Social History Social History Alcohol intake: never Patient Tobacco Use Status: Never used Tobacco Substance Use Type: Marijuana Advance Directives: No Advance Directives Information Provided: Yes Current occupational status: employed 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 Physical Exam ED Vital Signs: Vital Signs - 24 hr 09/30/22 13:03 09/30/22 14:14 Temperature 98.7 F Pulse Rate 119 H Respiratory Rate 18 18 Blood Pressure 140/101 H Pulse Oximetry 96 Oxygen Delivery Method Room Air BMI result Body Mass Index 25.7 Const General: cooperative, healthy appearing, comfortable and no acute distress Orientation/consciousness: patient oriented x3 Limitations: no limitations HENMT Head: Yes normal to inspection Ears: hearing grossly normal bilaterally and TM's normal bilaterally General nose exam: Normal external nose present Face and sinus: Yes normal facial exam Mouth: Normal oral and palatal mucosa present Throat: Yes posterior oropharynx normal, Yes tonsils normal and Yes uvula midline Eyes General: appearance normal, both eyes and all related structures Pupils: Equal, round and reactive pupils present Neck Neck: Yes normal visual inspection, Yes full ROM, Yes no lymphadenopathy and Yes no meningeal signs Chest Chest palpation & inspection: normal inspection of the chest Resp Other: exp wheezing Effort & Inspection: normal respiratory effort Cardio Rate: regular rate Rhythm: regular rhythm Peripheral pulses: Peripheral pulses 2+ throughout GI Inspection: Yes normal to inspection Palpation (GI): Soft to palpation and nontender General: Yes no CVA tenderness Back/Spine/Pelvis Back: no CVA tenderness Thoracic/Lumbar Spine: thoracic and lumbar spine normal to inspection Skin General skin exam: no rashes or lesions noted Neuro General: patient oriented x3, moves all extremities and no meningeal signs Cranial nerves: Yes Equal, round and reactive pupils present Cognition (Neuro): normal cognition Gait exam (Neuro): Normal gait present Extrem Other: Over the distal dorsal foot there is TTP with no erythema/warmth or swelling. Normal pulses/sensation. FROM General: Yes no pedal edema and Yes no calf tenderness Course Course Course Narrative: This is an RME: Additional HPI, ROS, PE not included below will be deferred to primary provider. 27-year-old female presents with fatigue, malaise, sore throat home a redness to top of right foot a past few days. Also reports her asthma has been progressively worsening. Denies fevers, chills, chest pain, shortness of breath. Physical exam benign. Vital signs stable. Plan viral testing Reevaluation(s) Reevaluation #1: Viral testing is negative. X-ray of the chest shows no acute finding. X-ray of the right foot shows no bony abnormality. Likely viral syndrome with asthma exacerbation. Patient be discharged home with course of prednisone. Reviewed worrisome signs and symptoms of when to return to the emergency room. Comfortable plan for discharge home. Medications Administered Discontinued Medications Generic Name Dose Route Start Last Admin Trade Name Neo PRN Reason Stop Dose Admin Albuterol/Ipratropium 3 ml 09/30/22 13:43 09/30/22 14:13 Albuterol/Iprat 2.5/0.5mg 3 Ml Ampul.Neb INHALE 09/30/22 13:44 3 ml ONCE ONE Administration Ibuprofen 600 mg 09/30/22 13:43 09/30/22 14:03 Ibuprofen 600 Mg Tablet PO 09/30/22 13:44 600 mg ONCE ONE Administration Prednisone 60 mg 09/30/22 13:43 09/30/22 14:03 Prednisone 20 Mg Tablet PO 09/30/22 13:44 60 mg ONCE ONE Administration Medical Decision Making Medical Decision Making [facility] Narrative: 27 yo female with history of asthma here with complaints of URI symptoms with wheezing with sick contact. VSS. Does have exp wheezing. Will give prednisone, duoneb, send testing for flu/covid, check CXR Also c/o atraumatic right foot pain with TTP over right dorsal foot with no obvious swelling/redness/warmth. Will check xray Differential Diagnosis Differential Diagnoses: The differential diagnosis associated with the presentation includes viral syndrome, asthma exacerbation Lab Data [facility] Lab Attestation statement: I reviewed the patient's lab results. Labs: Lab Results 09/30/22 09/30/22 09/30/22 Range/Units 13:17 13:17 13:17 COVID-19 ([facility]) Negative (Negative) COVID-19 Clin Com See Note Influenza Type A ([facility]) Negative (Negative) Influenza Type B ([facility]) Negative (Negative) Influenza A & B Note See Note S. pyogenes GrpA [facility] Negative (Negative) Independent Interpretation I performed an independent interpretation of an: Plain X-Ray Interpretation: I independetely reviewed the x-ray and agree with radiologist's report Radiology Impression Discussion of test interpretation with radiology: I have reviewed the radiologist's reading. Radiologist Impression: [address] [address] XRay Report Signed Patient: Afshan Stein MR#: [id number] : 1995 Acct:[id number] Age/Sex: 27 / F ADM Date: 09/30/22 Loc: .ED Attending Dr: Ordering Physician: Felipe Smith Date of Service: 09/30/22 Procedure(s): XR chest 1V Accession Number(s): [id number] cc: Felipe Smith~ EXAMINATION: Chest x-ray and right foot CLINICAL INDICATIONS:: SOB.. Right foot pain COMPARISON: Chest x-ray 03/19/2022. TECHNIQUE: chest one view. Right foot 3 views. FINDINGS: CHEST: The lungs are fairly well-expanded and clear. The heart size and pulmonary vascularity is normal. No gross bony abnormality seen except for minimal dextroscoliosis of dorsolumbar spine. RIGHT FOOT: There is no visible acute fracture, dislocation or subluxation seen. The ankle mortise and subtalar joints are normal. No visible fracture or dislocation seen. The soft tissues are normal. XR/XR chest 1V IMPRESSION: Unremarkable chest exam. ? Unremarkable right foot exam. Discharge Plan Discharge Clinical Impression: Viral infection, Asthma exacerbation, Acute foot pain Patient Disposition: Home, Self-Care Instructions: Viral Syndrome (ED), Arthralgia (ED) Additional Instructions: Testing for flu and COVID are negative X-ray of chest shows no signs of infection Start prednisone tomorrow Prescriptions: New prednisone 20 mg tablet 60 mg PO DAILY Qty: 12 0RF No Action prednisone 5 mg tablet 10 mg PO DAILY Qty: 60 1RF omeprazole 20 mg Capsule,Delayed Release(Dr/Ec) 20 mg PO DAILY montelukast [Singulair] 10 mg Tablet 10 mg PO BEDTIME (DME) A.I.R.S Nebulizer Replacement Kit MISCELLANEOUS (DME) nebulizer and compressor Device MISCELLANEOUS Spiriva Respimat 2.5 mcg/actuation mist 2 puff PO DAILY Breo Ellipta 100-25 mcg/dose Blister With Device 1 inh INHALATION DAILY albuterol sulfate 90 mcg/actuation HFA aerosol inhaler 2 puff inhalation Q4-6H PRN (Reason: shortness of breath or wheezing) Qty: 8.5 0RF albuterol sulfate 2.5 mg /3 mL (0.083 %) solution for nebulization 2.5 mg inhalation Q6H PRN (Reason: shortness of breath or wheezing) Qty: 75 0RF diphenhydramine HCl [Benadryl] 25 mg Capsule 25 mg PO BEDTIME PRN (Reason: Allergy Symptoms) prednisone 20 mg tablet 40 mg PO DAILY Qty: 10 0RF prednisone 20 mg tablet 40 mg PO DAILY 5 Days Qty: 10 0RF albuterol sulfate 90 mcg/actuation HFA aerosol inhaler 2 puff inhalation Q4-6H PRN (Reason: shortness of breath or wheezing) Qty: 6.7 0RF budesonide 0.5 mg/2 mL suspension for nebulization 0.5 mg inhalation BID 30 Days Qty: 120 11RF benzonatate 200 mg capsule 200 mg PO BID PRN (Reason: cough) 30 Days Qty: 30 11RF budesonide-formoterol [Symbicort] 160-4.5 mcg/actuation HFA aerosol inhaler 2 puff inhalation BID 30 Days Qty: 10.2 11RF Referrals: Yvonne Kee MD [Primary Care Provider] - 5 days
[2022-09-30 13:03] VITALS: BP 140/101; PULSE 119; RESP 18; TEMP 37.1; O2SAT 96; BMI 25.7
[2022-09-30 13:37] LABS: IDNOW Serial# 08D9AD1C; Strep A Nucleic Acid Negative (Negative)
[2022-09-30 13:45] LABS: COVID-19 Test Negative (Negative); IDNOW Serial# 9DB6401D
[2022-09-30 13:46] LABS: IDNOW Serial# BCCEAD1C; Influenza A Negative (Negative); Influenza B2 Negative (Negative)
[2022-09-30] MEDS: Ibuprofen 600 MG TABLET PO (14:03)
[2022-09-30] MEDS: predniSONE 20 MG TABLET 60 MG PO (14:03)
--- NOTE | 2022-09-30 14:07 | PC.NURSE ---
pt medicated per JUN, awaiting resp for updraft
[2022-09-30] MEDS: Albuterol/Iprat 2.5/0.5MG 3 ML AMPUL.NEB INHALE (14:13)
[2022-09-30 14:14] VITALS: RESP 18; O2SAT 96
== END 2022-09-30 16:55 | disposition home or self-care (01) ==
PROVIDERS: Physician Assistant; Emergency Provider Student in an Organized Health Care Education/Training Program; PCP General Practice
DX: B34.9 Viral infection, unspecified (principal); J45.901 Unspecified asthma with (acute) exacerbation; M79.671 Pain in right foot; Z20.822 Contact with and (suspected) exposure to COVID-19; F12.90 Cannabis use, unspecified, uncomplicated; Z79.899 Other long term (current) drug therapy
CPT/HCPCS: 71045; 73620; 87502; 87635; 87651; 94640; 99283; 99284

== ENCOUNTER 2022-10-25 13:17 | Outpatient (AMB) | payer MEDICAID, SELFPAY ==
[2022-10-25 13:31] VITALS: PULSE 90; O2SAT 97; BMI 26.4
--- NOTE | 2022-10-25 13:31 | A.OFFVIS_ITS ---
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 Allergies peach [PEACH] Allergy (Severe, Verified 10/25/22 13:32) RASH perfume [PERFUME] Allergy (Severe, Verified 10/25/22 13:32) ASTHMA ATTACK dog dander [DOG DANDER] Allergy (Unknown, Verified 10/25/22 13:32) ITCHY, HIVES mite-Dermatophagoides farinae, wendy [DUST MITES] Allergy (Unknown, Verified 10/25/22 13:32) ASTHMA, ITCHY THROAT kiwi Allergy (Verified 10/25/22 13:32) Swelling strawberry Allergy (Verified 10/25/22 13:32) Itching HPI HPI Comments History of Present Illness Details The patient is a 27yo F with severe allergic asthma, chronically steroid-dependent, and on immunotherapy with Fasenra (benralizumab) at [facility], with history of prior intubation in 2019, Who presented to [facility] couple months ago worsening respiratory symptoms. She was admitted with status asthmaticus. The patient was able to improved. She did follow-up with her primary care doctor found that she is . Currently she is around 6-7 weeks gestation. This is her 2nd and had 1 miscarriage. She is concerned about the medication she is taking and the health of her baby. Therefore will try to help her with a respiratory regimen that is safe for her baby and also helps her with her respiratory symptoms. This patient has been on prednisone off and on because of her uncontrolled asthma. She has been off the biologic therapy. She does use her allergy medicine. 11/07/2021 the patient is here for a pulmonary follow-up visit. Her still Going well. She continues on the Symbicort twice a day. Unfortunately she still continues on the prednisone because of worsening asthma symptoms. We had prescribed her budesonide to optimize her inhaled steroids and hopefully wean her off the prednisone. However, this has been just approved and she will pick it up at the pharmacy. Also the patient complains of a cough primarily at nighttime that starts triggering her asthma symptoms. She is having some reflux symptoms. We did talk about raising the head of the bed to try to eliminate that. Also she can try Tessalon Perles as needed for cough. She also continues on her allergy medication. Spiriva was not effective for her and therefore she is not taking any longer. 01/05/2022 the patient is here for a pulmonary follow-up visit. She still struggling with her asthma. We did add the budesonide nebs but she did not see any improvement. The only thing that helps her is prednisone. We also talked about restarting the Spiriva but, she did not feel that that helped either. She has been a prednisone now for about 5-6 years. again, talking about her regimen she does not take her medications as prescribed. She is reluctant to take medications specially because of her . I emphasized to her that she needs to take her medications in order to allow him to work and improve her symptoms and to minimize her prednisone use. Understanding that she will need to stay on a small dose prednisone since she has been on it for so many years. I did write around a program of how to take her inhalers and nebulized therapy and she will follow up. 10/25/2022 the patient is here for pulmonary follow-up visit. The patient is now 6 months post gestation. She did have a very tough with significant asthma flare ups. She was also hospitalized because of hypoxia. The patient continues to be on prednisone chronically. Prior to becoming she had a good response to biologics. She does have an elevated eosinophil count. Her IgE level is only slightly elevated. The patient is known to have significant allergies. Will go ahead and retest her at this time. The patient needs to come off prednisone. Therefore, she needs to go back in biologics now that she is no longer . She continues on Symbicort and also Spiriva out although some time she is not a 6 year into the therapy. I do believe that a triple agent will be best in order to provide better adherence to the medicine. She is also using Ventolin HFA. She does not feel like it is as effective and she also gets tremors. Will try Xopenex at this time. 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 Review of Systems Const Denies fatigue and Reports weight gain Eyes Denies change in vision ENT Reports nasal congestion Card Denies chest pain and Reports dyspnea on exertion Resp Reports cough, Reports dyspnea on exertion and Reports wheezing GI Denies abdominal pain Denies no additional complaints Musc Reports no additional complaints Skin/Breast Denies rash Neuro Reports no additional complaints and Denies Sensory deficit (Neuro) Endo Denies fatigue Aller/Immun Reports wheezing Physical Exam Vital Signs: Last Vital Signs Pulse 90 10/25/22 13:31 Pulse Ox 97 10/25/22 13:31 Oxygen Delivery Method Room Air 10/25/22 13:31 BMI result Body Mass Index 26.4 Const General: healthy appearing Nutritional Appearance: average body habitus Orientation/consciousness: oriented to person and patient oriented x3 Limitations: no limitations HEENT Head: Yes normal to inspection Ears: external ears normal General nose exam: Normal external nose present Mouth: Normal oral and palatal mucosa present and oropharynx normal Throat: Yes posterior oropharynx normal Eyes General: appearance normal, both eyes and all related structures Neck Other: supple Neck: Yes normal visual inspection Chest Chest palpation & inspection: normal inspection of the chest Resp Other: slight wheeze bilaterally Auscultation: wheezes and diminished lung sounds Cardio Jugular venous distension: no JVD Rate: regular rate Rhythm: regular rhythm Heart sounds: S1 normal heart sound present and S2 normal heart sound present GI Other: gravid uterus Palpation (GI): Soft to palpation, nontender and No hepatosplenomegaly present Auscultation: normal bowel sounds General: Yes no CVA tenderness Back/Spine/Pelvis Back: no CVA tenderness Skin General skin exam: no rashes or lesions noted Neuro General: oriented to person and patient oriented x3 Cranial nerves: Yes CN's II-XII intact bilaterally Motor exam (neuro): 5/5 motor strength present throughout Sensory Exam: No Sensory deficit (Neuro) Extrem General: Yes normal to inspection Psych Appearance: grossly normal Assessment & Plan Assessment & Plan (1) Severe persistent allergic asthma: Code(s): J45.50 - Severe persistent asthma, uncomplicated (2) Allergic rhinitis: Code(s): J30.9 - Allergic rhinitis, unspecified Qualifiers: Allergic rhinitis seasonality: seasonal Allergic rhinitis trigger: other Qualified Code(s): J30.89 - Other allergic rhinitis (3) Eosinophilia: Code(s): D72.10 - Eosinophilia, unspecified Qualifiers: Eosinophilia type: other eosinophilia Qualified Code(s): D72.19 - Other eosinophilia Plan stop Symbicort and spiriva start Trelegy 200 start Xopenex cont budesonide/albuterol nebulized therapy wean the prednisone slowly to 5mg continue Singulair Tessalon pearls as needed for cough start Tezspire, if not available Fasenra Bloodwork / Allergy testing F/U 6-8 weeks Orders: Orders Complete Blood Count Auto Diff Today J30.9 - Allergic rhinitis, unspecified, J45.50 - Severe persistent asthma, uncomplicated Erythrocyte Sedimentation Rate Today J30.9 - Allergic rhinitis, unspecified, J45.50 - Severe persistent asthma, uncomplicated Hypersensitive Pneumonitis Prf Today J30.9 - Allergic rhinitis, unspecified, J45.50 - Severe persistent asthma, uncomplicated, R91.8 - Other nonspecific abnormal finding of lung field Immunoglobulin E Today J30.9 - Allergic rhinitis, unspecified, J45.50 - Severe persistent asthma, uncomplicated Rast Allergen Today J30.9 - Allergic rhinitis, unspecified, J45.50 - Severe persistent asthma, uncomplicated Medications: New avmqzynauwe-arjbufxlm-unneqstp 200-62.5-25 mcg (Trelegy Ellipta) 1 inh inhalation DAILY 30 days 60 ea 12RF levalbuterol tartrate 45 mcg/actuation (Xopenex HFA) 2 puffs inhalation Q6H 30 days PRN 15 grams 11RF shortness of breath or wheezing J45.909 - Unspecified asthma, uncomplicated Coding Level of Care Code Est Pt Level 4 (92791) Diagnoses Severe persistent allergic asthma J45.50 Allergic rhinitis J30.89 Allergic rhinitis seasonality: seasonal Allergic rhinitis trigger: other Eosinophilia D72.19 Eosinophilia type: other eosinophilia Time Spent (min) 21
== END 2022-10-25 14:09 | disposition home or self-care (01) ==
PROVIDERS: PCP General Practice; Visit Provider Hospitalist
DX: J45.50 Severe persistent asthma, uncomplicated (principal); J30.89 Other allergic rhinitis; D72.19 Other eosinophilia
CPT/HCPCS: 99214

== ENCOUNTER 2022-10-25 13:17 | Outpatient (REF) | payer MEDICAID, SELFPAY ==
[2022-10-25 14:42] LABS: MANUAL DIFF FLAG NO
[2022-10-25 15:08] LABS: Basophils Absolute Auto 0.1 X10*3/uL (0.0-0.2); Basophils Percent Auto 0.6 % (0-2); Eosinophils Absolute Auto 1.1 X10*3/uL (0.0-0.4); Eosinophils Percent Auto 6.8 % (0-4); Hematocrit 45.6 % (37.0-47.0); Hemoglobin 14.8 g/dl (12.0-16.0); Imm Gran Abs Auto 0.13 X10*3/uL (0.00-0.03); Imm Gran Pct Auto 0.8 % (0.0-0.4); Lymphocytes Absolute Auto 2.8 X10*3/uL (1.2-4.9); Lymphocytes Percent Auto 17.9 % (20-40); Mean Corpuscular HGB Conc 32.5 g/dl (31.0-35.0); Mean Corpuscular Hemoglobin 29.1 pg (27.0-33.0); Mean Corpuscular Volume 89.8 fL (80.0-98.0); Mean Platelet Volume 9.3 fL (9.4-12.3); Monocytes Absolute Auto 0.9 X10*3/uL (0.1-1.2); Monocytes Percent Auto 5.5 % (2-11); Neutrophils Absolute Auto 10.8 x10*3/uL (2.0-8.3); Neutrophils Percent Auto 68.4 % (45-73); Platelet Count 459 X10*3/uL (160-400); Red Blood Count 5.08 X10*6/uL (4.20-5.50); Red Cell Distribution Width 12.8 % (11.0-16.0); White Blood Count 15.8 X10*3/uL (4.8-10.8)
[2022-10-25 15:59] LABS: Erythrocyte Sedimentation Rate 7 MM/HR (0-20)
[2022-10-29 20:08] LABS: Immunoglobulin E 21 kU/L (<OR=114)
[2022-11-03 00:24] LABS: Asperg fumigatus Precip Abs NEGATIVE (NEGATIVE); Micropoly faeni Abs NEGATIVE (NEGATIVE); Pigeon serum Abs NEGATIVE (NEGATIVE); Saccharo pora viridis Abs NEGATIVE (NEGATIVE); Thermo candidus Abs NEGATIVE (NEGATIVE); Thermoa vulgaris #1 NEGATIVE (NEGATIVE)
== END 2022-10-25 13:18 | disposition home or self-care (01) ==
LOC: HO.LAB 13:17
PROVIDERS: PCP General Practice; Visit Provider Hospitalist
DX: J45.50 Severe persistent asthma, uncomplicated (principal); R91.8 Other nonspecific abnormal finding of lung field; J30.89 Other allergic rhinitis; D72.19 Other eosinophilia
CPT/HCPCS: 36415; 82785; 85025; 85652; 86003; 86331; 86606; 86609; 99212

== ENCOUNTER 2022-11-26 12:45 | Outpatient (REF) | payer MEDICAID, SELFPAY | END 2022-11-26 12:46 | disposition home or self-care (01) | LOC: HO.MDS 12:45 | PROVIDERS: Visit Provider Hospitalist | DX: J45.50 Severe persistent asthma, uncomplicated (principal) | CPT/HCPCS: 96372 ==

== ENCOUNTER 2023-01-08 12:51 | Outpatient (REF) | payer MEDICAID, SELFPAY | END 2023-01-08 12:52 | disposition home or self-care (01) | LOC: HO.MDS 12:51 | PROVIDERS: Visit Provider Hospitalist | DX: J45.50 Severe persistent asthma, uncomplicated (principal) | CPT/HCPCS: 96372 ==

== ENCOUNTER 2023-01-25 13:30 | Outpatient (AMB) | payer MEDICAID, SELFPAY ==
[2023-01-25 13:30] VITALS: BMI 27.1
--- NOTE | 2023-01-25 13:30 | A.OFFVIS_ITS ---
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 Allergies peach [PEACH] Allergy (Severe, Verified 01/25/23 13:31) RASH perfume [PERFUME] Allergy (Severe, Verified 01/25/23 13:31) ASTHMA ATTACK dog dander [DOG DANDER] Allergy (Unknown, Verified 01/25/23 13:31) ITCHY, HIVES mite-Dermatophagoides farinae, wendy [DUST MITES] Allergy (Unknown, Verified 01/25/23 13:31) ASTHMA, ITCHY THROAT kiwi Allergy (Verified 01/25/23 13:31) Swelling strawberry Allergy (Verified 01/25/23:31) Itching HPI HPI Comments History of Present Illness Details The patient is a 27yo F with severe allergic asthma, chronically steroid-dependent, and on immunotherapy with Fasenra (benralizumab) at [facility], with history of prior intubation in 2019, Who presented to [facility] couple months ago worsening respiratory symptoms. She was admitted with status asthmaticus. The patient was able to improved. She did follow-up with her primary care doctor found that she is . Currently she is around 6-7 weeks gestation. This is her 2nd and had 1 miscarriage. She is concerned about the medication she is taking and the health of her baby. Therefore will try to help her with a respiratory regimen that is safe for her baby and also helps her with her respiratory symptoms. This patient has been on prednisone off and on because of her uncontrolled asthma. She has been off the biologic therapy. She does use her allergy medicine. 11/07/2021 the patient is here for a pulmonary follow-up visit. Her still Going well. She continues on the Symbicort twice a day. Unfortunately she still continues on the prednisone because of worsening asthma symptoms. We had prescribed her budesonide to optimize her inhaled steroids and hopefully wean her off the prednisone. However, this has been just approved and she will pick it up at the pharmacy. Also the patient complains of a cough primarily at nighttime that starts triggering her asthma symptoms. She is having some reflux symptoms. We did talk about raising the head of the bed to try to eliminate that. Also she can try Tessalon Perles as needed for cough. She also continues on her allergy medication. Spiriva was not effective for her and therefore she is not taking any longer. 01/05/2022 the patient is here for a pulmonary follow-up visit. She still struggling with her asthma. We did add the budesonide nebs but she did not see any improvement. The only thing that helps her is prednisone. We also talked about restarting the Spiriva but, she did not feel that that helped either. She has been a prednisone now for about 5-6 years. again, talking about her regimen she does not take her medications as prescribed. She is reluctant to take medications specially because of her . I emphasized to her that she needs to take her medications in order to allow him to work and improve her symptoms and to minimize her prednisone use. Understanding that she will need to stay on a small dose prednisone since she has been on it for so many years. I did write around a program of how to take her inhalers and nebulized therapy and she will follow up. 10/25/2022 the patient is here for pulmonary follow-up visit. The patient is now 6 months post gestation. She did have a very tough with significant asthma flare ups. She was also hospitalized because of hypoxia. The patient continues to be on prednisone chronically. Prior to becoming she had a good response to biologics. She does have an elevated eosinophil count. Her IgE level is only slightly elevated. The patient is known to have significant allergies. Will go ahead and retest her at this time. The patient needs to come off prednisone. Therefore, she needs to go back in biologics now that she is no longer . She continues on Symbicort and also Spiriva out although some time she is not a 6 year into the therapy. I do believe that a triple agent will be best in order to provide better adherence to the medicine. She is also using Ventolin HFA. She does not feel like it is as effective and she also gets tremors. Will try Xopenex at this time. 01/25/2023 the patient has a telehealth visit. She is been having difficulties with her asthma again. She did start the biologic therapy that appears to be very affecting beneficial. She was able to stop the prednisone altogether and actually stopped all her inhalers after starting the Tezspire. unfortunately her symptoms came back and she is been having some difficulty with breathing. She also noticed a rash looks like eczema around her eyes. She is not sure if his from the biologic injection. Will going to continue to watch him monitor specially since she did very well with the therapy. She continue with her respiratory inhalers she knows she continued them even if she feels well after Taking the next does of Tezspire. if her rash worsen she will call the office otherwise will follow-up in 2-3 months. 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 Review of Systems Const Denies fatigue and Reports weight gain Eyes Denies change in vision ENT Reports nasal congestion Card Denies chest pain and Reports dyspnea on exertion Resp Reports cough, Reports dyspnea on exertion and Reports wheezing GI Denies abdominal pain Denies no additional complaints Musc Reports no additional complaints Skin/Breast Reports rash Neuro Reports no additional complaints and Denies Sensory deficit (Neuro) Endo Denies fatigue Aller/Immun Reports wheezing Physical Exam Vital Signs: BMI result Body Mass Index 27.1 Const General: comfortable Orientation/consciousness: patient oriented x3 Resp Effort & Inspection: able to speak in complete sentences Neuro General: patient oriented x3 Sensory Exam: No Sensory deficit (Neuro) Assessment & Plan Assessment & Plan (1) Severe persistent allergic asthma: Code(s): J45.50 - Severe persistent asthma, uncomplicated (2) Allergic rhinitis: Code(s): J30.9 - Allergic rhinitis, unspecified Qualifiers: Allergic rhinitis seasonality: seasonal Allergic rhinitis trigger: other Qualified Code(s): J30.89 - Other allergic rhinitis (3) Eosinophilia: Code(s): D72.10 - Eosinophilia, unspecified Qualifiers: Eosinophilia type: other eosinophilia Qualified Code(s): D72.19 - Other eosinophilia (4) Rash: Comment: eczema like around eyes Code(s): R21 - Rash and other nonspecific skin eruption Plan continue Trelegy 200 continue Xopenex as needed holding budesonide continue albuterol nebulized therapy wean the prednisone slowly off continue Singulair Tessalon pearls as needed for cough continue Tezspire, monitor for eczema rash F/U 3-4 months Medications: Refilled albuterol sulfate 90 mcg/actuation 2 puffs inhalation Q4-6H PRN 6.7 grams 9RF shortness of breath or wheezing prednisone 10 mg (2 x 5 mg) PO DAILY 60 ea 1RF albuterol sulfate 2.5 mg (3 mL) inhalation Q6H PRN 180 mL 7RF shortness of breath or wheezing Telehealth Telehealth Location of provider rendering services: practice address Location of patient: address on file Patient Identification confirmed using: Name, : Yes Telehealth method: voice only Patient verbally consented to treatment: Yes Patient verbally consented to billing insurance company: Yes Patient informed of any privacy concerns related to visit: Yes Coding Level of Care Code Tele Est Pt Level 4 (93485) Diagnoses Severe persistent allergic asthma J45.50 Seasonal allergic rhinitis due to other allergic trigger J30.89 Allergic rhinitis seasonality: seasonal Allergic rhinitis trigger: other Other eosinophilia D72.19 Eosinophilia type: other eosinophilia Rash R21 Time Spent (min) 14
== END 2023-01-25 14:05 | disposition home or self-care (01) ==
LOC: HO.HPS 13:30
PROVIDERS: PCP General Practice; Visit Provider Hospitalist
DX: J45.50 Severe persistent asthma, uncomplicated (principal); J30.89 Other allergic rhinitis; D72.19 Other eosinophilia; R21 Rash and other nonspecific skin eruption
CPT/HCPCS: 99214

== ENCOUNTER → 2023-01-25 13:30 | Outpatient (BNVA) | payer MEDICAID, SELFPAY | PROVIDERS: PCP General Practice; Visit Provider Hospitalist | DX: J45.50 Severe persistent asthma, uncomplicated (principal); J30.9 Allergic rhinitis, unspecified; J45.909 Unspecified asthma, uncomplicated ==

== ENCOUNTER 2023-02-04 14:43 | Outpatient (REF) | payer MEDICAID, SELFPAY | END 2023-02-04 14:44 | disposition home or self-care (01) | LOC: HO.MDS 14:43 | PROVIDERS: Visit Provider Hospitalist | DX: J45.909 Unspecified asthma, uncomplicated (principal) | CPT/HCPCS: 96372 ==

== ENCOUNTER 2023-03-10 20:36 | Emergency (ER) | payer MEDICAID, SELFPAY ==
[2023-03-10 20:44] VITALS: BP 170/86; PULSE 143; RESP 18; TEMP 37.4; O2SAT 97; BMI 26.0
[2023-03-10 21:16] LABS: Basophils Absolute Auto 0.1 X10*3/uL (0.0-0.2); Basophils Percent Auto 0.4 % (0-2); Eosinophils Absolute Auto 0.2 X10*3/uL (0.0-0.4); Eosinophils Percent Auto 1.1 % (0-4); Hematocrit 46.1 % (37.0-47.0); Hemoglobin 15.1 g/dl (12.0-16.0); Imm Gran Abs Auto 0.09 X10*3/uL (0.00-0.03); Imm Gran Pct Auto 0.5 % (0.0-0.4); Lymphocytes Absolute Auto 0.7 X10*3/uL (1.2-4.9); Lymphocytes Percent Auto 3.6 % (20-40); MANUAL DIFF FLAG SCAN; Mean Corpuscular HGB Conc 32.8 g/dl (31.0-35.0); Mean Corpuscular Hemoglobin 28.3 pg (27.0-33.0); Mean Corpuscular Volume 86.5 fL (80.0-98.0); Mean Platelet Volume 9.5 fL (9.4-12.3); Monocytes Absolute Auto 0.7 X10*3/uL (0.1-1.2); Monocytes Percent Auto 3.3 % (2-11); Neutrophils Absolute Auto 17.9 x10*3/uL (2.0-8.3); Neutrophils Percent Auto 91.1 % (45-73); Platelet Count 418 X10*3/uL (160-400); Red Blood Count 5.33 X10*6/uL (4.20-5.50); Red Cell Distribution Width 13.6 % (11.0-16.0); SCAN SMEAR FLAG 1; White Blood Count 19.6 X10*3/uL (4.8-10.8)
[2023-03-10 21:20] LABS: SLIDE REVIEW VERIFIED
[2023-03-10 21:39] LABS: Alanine Aminotransferase 19 U/L (0-31); Albumin Level 4.4 g/dL (3.5-5.0); Alkaline Phosphatase 101 U/L (39-117); Anion Gap 16 (12-20); Aspartate Amino Transferase 26 U/L (5-31); Bilirubin Direct 0.2 mg/dL (0.0-0.5); Bilirubin Total 0.9 mg/dL (0.0-1.0); Blood Urea Nitrogen 14 mg/dL (9-16); Calcium 9.4 mg/dL (8.4-10.2); Carbon Dioxide 23 mmol/L (22-29); Chloride 107 mmol/L (96-108); Creatinine Clr Calc Pharmacy 96.5; Estimated Glomerular Filt Rate > 60; Glucose Random 145 mg/dL (60-115); Potassium 3.9 mmol/L (3.3-5.1); Sodium 142 mmol/L (135-145); Total Protein 8.4 g/dL (6.5-8.0)
[2023-03-10 22:55] VITALS: BP 132/89; PULSE 111; RESP 16; TEMP 37; O2SAT 98
--- NOTE | 2023-03-10 23:24 | ED_ITS ---
HPI - Nausea/Vomiting/Diarrhea General Chief complaint: Nausea/Vomiting/Diarrhea Stated complaint: vomiting Time Seen by Provider: 03/10/23 23:14 Source: patient Mode of arrival: ambulatory Limitations: no limitations History of Present Illness HPI Narrative: 27-year-old female past medical history asthma who presents emergency department for evaluation of nausea vomiting diarrhea with symptoms beginning last night. Patient states that she has not been able to hold down food or fluid. She states she has vomited too numerous times to count. She states she has also had frequent diarrhea again too numerous to count. Patient denies any blood in the emesis or stool. She states she has diffuse myalgias and arthralgias, she is also having abdominal pain. She points to her epigastric area when asked to localize the pain, she describes as a constant, dull ache which is 7/10 at its worse, she is also having pain in her lower back which is 8/10. Patient states that last week she had laryngitis and this just regaining her voice. She denied fever but did have chills. She denied rhinorrhea, sore throat, she has an occasional cough. Related Data Home Medications Medication Instructions Recorded Confirmed fluticasone furoate 100 1 inh inhalation DAILY 06/06/20 08/28/21 mcg-vilanterol 25 mcg/dose inhalation powder (Breo Ellipta) montelukast 10 mg tablet 10 mg PO BEDTIME 06/06/20 08/28/21 (Singulair) nebulizer and compressor 06/06/20 06/06/20 omeprazole 20 mg capsule,delayed 20 mg PO DAILY 06/06/20 08/28/21 release tiotropium bromide 2.5 2 puff PO DAILY 06/06/20 08/28/21 mcg/actuation mist for inhalation (Spiriva Respimat) diphenhydramine HCl 25 mg capsule 25 mg PO BEDTIME PRN Allergy 08/28/21 08/28/21 (Benadryl) Symptoms Previous Rx's Medication Instructions Recorded budesonide-formoterol HFA 160 2 puff inhalation BID 30 days 10/17/21 mcg-4.5 mcg/actuation aerosol #10.2 grams inhaler (Symbicort) budesonide 0.5 mg/2 mL suspension 0.5 mg (2 mL) inhalation BID 30 11/07/21 for nebulization days #120 mL fluticasone fur. 200 mcg-umeclid 1 inh inhalation DAILY 30 days #60 10/25/22 62.5 mcg-vilant 25 mcg ea inhalat.powder (Trelegy Ellipta) levalbuterol tartrate 45 2 puff inhalation Q6H PRN 10/25/22 mcg/actuation aerosol inhaler shortness of breath or wheezing 30 (Xopenex HFA) days #15 grams tezepelumab-ekko 210 mg/1.91 mL 210 mg (1.91 mL) subcut Q4W 4 11/12/22 (110 mg/mL) subcutaneous syringe weeks #1.91 mL (Tezspire) albuterol sulfate 2.5 mg/3 mL 2.5 mg (3 mL) inhalation Q6H PRN 01/25/23 (0.083 %) solution for nebulization shortness of breath or wheezing #180 mL albuterol sulfate 90 mcg/actuation 2 puff inhalation Q4-6H PRN 01/25/23 aerosol inhaler shortness of breath or wheezing #6.7 grams prednisone 5 mg tablet 10 mg (2 x 5 mg) PO DAILY #60 ea 01/25/23 ondansetron 4 mg disintegrating 4 mg PO Q6-8H PRN nausea and 03/11/23 tablet vomiting #20 tabs Allergies Allergy/AdvReac Type Severity Reaction Status Date / Time peach [PEACH] Allergy Severe RASH Verified 01/25/23 13:31 perfume [PERFUME] Allergy Severe ASTHMA Verified 01/25/23 13:31 ATTACK dog dander [DOG DANDER] Allergy Unknown ITCHY, Verified 01/25/23 13:31 HIVES mite-Dermatophagoides Allergy Unknown ASTHMA, Verified 01/25/23 13:31 farinae, wendy ITCHY [DUST MITES] THROAT kiwi Allergy Swelling Verified 01/25/23 13:31 strawberry Allergy Itching Verified 01/25/23 13:31 Review of Systems 2 Review of Systems: Yes all other systems are reviewed and are negative [facility] Past Medical History [facility] Narrative: Social history: She denies tobacco use. She occasionally drinks alcohol. She states that over the she has had increased alcohol consumption. She denied drug use. 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 Exam General: Awake, alert in no distress Head: Normocephalic, atraumatic EENT: PERRL, Lids normal, sclera normal, conjunctiva normal, nose normal , ears normal, throat without erythema or exudates Neck: Supple, no adenopathy, no trachea midline or C-spine tenderness Lung: breath sounds symmetric, no wheezing, rales or rhonchi Chest: symmetric movement, nontender Heart: regular rate and rhythm, normal S1, S2 no murmurs or rubs Abdomen: soft, diffuse tenderness with moderate epigastric tender, nondistended, normal bowel sounds Back: no vertebral tenderness, no CVAT Extremities: no deformities, moves all extremities symmetrically Neuro: Awake, alert, oriented, normal speech, moves all extremities symmetrically Psych: Pleasant, cooperative Medications Administered Discontinued Medications Generic Name Dose Route Start Last Admin Trade Name Freq PRN Reason Stop Dose Admin Sodium Chloride 1,000 mls @ 999 mls/hr 03/10/23 23:24 03/10/23 23:35 Ns IV 03/11/23 00:24 999 mls/hr .Q1H1M STA Administration Ketorolac Tromethamine 15 mg 03/10/23 23:24 03/10/23 23:35 Ketorolac Tromethamine 15 Mg/Ml Vial IVPUSH 03/10/23 23:25 15 mg ONCE STA Administration Ondansetron HCl 4 mg 03/10/23 23:24 03/10/23 23:35 Ondansetron Hcl 4 Mg/2 Ml Vial IVPUSH 03/10/23 23:25 4 mg ONCE ONE Administration Medical Decision Making Medical Decision Making [facility] Narrative: 27-year-old female past medical history asthma who presents emergency department for evaluation of nausea vomiting diarrhea with symptoms beginning last night. Patient is not able to eat or drink secondary to symptoms. She complained of epigastric and back pain as well as diffuse myalgias arthralgias. Vital signs were unremarkable pain. Examination did reveal diffuse abdominal tenderness with moderate epigastric tenderness otherwise unremarkable. Following evaluation was ordered: CBC, CMP, liver panel, urinalysis, urine test. Patient was treated with the following medications: Toradol 15 mg IV, Zofran 4 mg IV and normal saline x1 L. 00:28 Patient is feeling better after the above treatment She is able to drink orlando sana and water without vomiting she was also able to eat crackers without vomiting. Patient was prescribed Zofran ODT 4 mg every 6-8 hours as needed for nausea and vomiting She was advised to take Tylenol and ibuprofen for pain and Imodium for diarrhea She was given printed and verbal instructions and discharged home Differential Diagnosis Differential Diagnoses: The differential diagnosis associated with the presentation includes Differential diagnosis includes was not limited to viral syndrome, food poisoning, gastritis, volume depletion, dehydration, electrolyte abnormalities, COVID-19, influenza, RSV Admission/Observation Consideration of admission/observation: Escalation of care including admission/observation considered Lab Data [facility] Lab Attestation statement: I reviewed the patient's lab results. My interpretation patient's laboratory evaluation as follows elevated WBC 98824. Platelet count elevated 418,000. Glucose elevated 145. 03/10/23 21:11 03/10/23 21:11 Labs: Lab Results 03/10/23 03/10/23 Range/Units 21:11 23:40 WBC 19.6 H (4.8-10.8) X10*3/uL RBC 5.33 (4.20-5.50) X10*6/uL Hgb 15.1 (12.0-16.0) g/dl Hct 46.1 (37.0-47.0) % MCV 86.5 (80.0-98.0) fL MCH 28.3 (27.0-33.0) pg MCHC 32.8 (31.0-35.0) g/dl RDW 13.6 (11.0-16.0) % Plt Count 418 H (160-400) X10*3/uL MPV 9.5 (9.4-12.3) fL Immature Gran % (Auto) 0.5 H (0.0-0.4) % Neut % (Auto) 91.1 H (45-73) % Lymph % (Auto) 3.6 L (20-40) % Saunders % (Auto) 3.3 (2-11) % Eos % (Auto) 1.1 (0-4) % Baso % (Auto) 0.4 (0-2) % Lymph # (Auto) 0.7 L (1.2-4.9) X10*3/uL Saunders # (Auto) 0.7 (0.1-1.2) X10*3/uL Eos # (Auto) 0.2 (0.0-0.4) X10*3/uL Baso # (Auto) 0.1 (0.0-0.2) X10*3/uL Abs Immat Gran (auto) 0.09 H (0.00-0.03) X10*3/uL Absolute Neuts (auto) 17.9 H (2.0-8.3) x10*3/uL Absolute Nucleated RBC 0.000 (0.0-0.012) X10*3/uL Nucleated RBC % (auto) 0.0 (0.0-0.2) /100WBC Smear Tech's Comments VERIFIED Sodium 142 (135-145) mmol/L Potassium 3.9 D (3.3-5.1) mmol/L Chloride 107 (96-108) mmol/L Carbon Dioxide 23 (22-29) mmol/L Anion Gap 16 (12-20) BUN 14 (9-16) mg/dL Creatinine 0.84 (0.5-1.4) mg/dL Estim Creat Clear Calc 96.5 Estimated GFR > 60 Random Glucose 145 H (60-115) mg/dL Calcium 9.4 D (8.4-10.2) mg/dL Total Bilirubin 0.9 (0.0-1.0) mg/dL Direct Bilirubin 0.2 (0.0-0.5) mg/dL AST 26 (5-31) U/L ALT 19 (0-31) U/L Alkaline Phosphatase 101 (39-117) U/L Total Protein 8.4 H (6.5-8.0) g/dL Albumin 4.4 (3.5-5.0) g/dL Influenza Type A (PCR) NEGATIVE (Negative) Influenza Type B (PCR) NEGATIVE (Negative) RSV RNA Qual (PCR) NEGATIVE (Negative) SARS-CoV-2 RNA (RT-PCR) NEGATIVE (Negative) Prescription Management I considered prescription management with: Other (Anti emetics) Chronic Conditions Patient?s care impacted by: Other (Asthma) Discharge Plan Discharge Clinical Impression: Viral syndrome, Acute dehydration Vomiting Qualifiers: Vomiting type: unspecified Nausea presence: with nausea Qualified Code(s): R 11.2 - Nausea with vomiting, unspecified Diarrhea Qualifiers: Diarrhea type: unspecified type Qualified Code(s): R19.7 - Diarrhea, unspecified Patient Disposition: Home, Self-Care Instructions: Viral Syndrome (ED) Additional Instructions: Your blood [place] [address] otherwise was unremarkable. Your COVID-19, influenza and RSV were negative Your symptoms are consistent with a viral infection. Take Zofran ODT 4 mg pills, 1 pill dissolved in your mouth every 8 hours as needed for nausea and vomiting. Take ibuprofen 200 mg pills, 2 pills every 6 hours as needed for pain or fever. Take Tylenol (acetaminophen) 500 mg pills, 2 pills every 6 hours as needed for pain or fever. For diarrhea I want you to take Imodium 2 mg pills. Take 2 pills after the 1st loose, diarrheal stool then 1 pill after each loose, diarrheal stool up to 8 pills per day. This usually stops diarrhea within 24 hours. Follow-up with your doctor in 2 days. Please return to the emergency department if your symptoms get worse or if you develop any symptoms that are concerning to you. Prescriptions: New ondansetron 4 mg tablet,disintegrating 4 mg PO Q6-8H PRN (Reason: nausea and vomiting) Qty: 20 0RF No Action Tezspire 210 mg/1.91 mL (110 mg/mL) syringe 210 mg subcut Q4W 28 Days Qty: 1.91 11RF omeprazole 20 mg Capsule,Delayed Release(Dr/Ec) 20 mg PO DAILY montelukast [Singulair] 10 mg Tablet 10 mg PO BEDTIME (DME) nebulizer and compressor Device MISCELLANEOUS Spiriva Respimat 2.5 mcg/actuation mist 2 puff PO DAILY Breo Ellipta 100-25 mcg/dose Blister With Device 1 inh INHALATION DAILY diphenhydramine HCl [Benadryl] 25 mg Capsule 25 mg PO BEDTIME PRN (Reason: Allergy Symptoms) budesonide 0.5 mg/2 mL suspension for nebulization 0.5 mg inhalation BID 30 Days Qty: 120 11RF budesonide-formoterol [Symbicort] 160-4.5 mcg/actuation HFA aerosol inhaler 2 puff inhalation BID 30 Days Qty: 10.2 11RF prednisone 5 mg tablet 10 mg PO DAILY Qty: 60 1RF albuterol sulfate 2.5 mg /3 mL (0.083 %) solution for nebulization 2.5 mg inhalation Q6H PRN (Reason: shortness of breath or wheezing) Qty: 180 7RF albuterol sulfate 90 mcg/actuation HFA aerosol inhaler 2 puff inhalation Q4-6H PRN (Reason: shortness of breath or wheezing) Qty: 6.7 9RF Trelegy Ellipta 200-62.5-25 mcg blister with device 1 inh inhalation DAILY 30 Days Qty: 60 12RF levalbuterol tartrate [Xopenex HFA] 45 mcg/actuation HFA aerosol inhaler 2 puff inhalation Q6H PRN (Reason: shortness of breath or wheezing) 30 Days Qty: 15 11RF
[2023-03-10] MEDS: Ketorolac Tromethamine 15 MG/ML VIAL IVPUSH (23:35)
[2023-03-10] MEDS: 0.9 % Sodium Chloride 1,000 ML 999 ML IV (23:35)
[2023-03-10] MEDS: ondansetron HCL 4 MG/2 ML VIAL IVPUSH (23:35)
[2023-03-11 00:22] LABS: Influenza A PCR NEGATIVE (Negative); Influenza B PCR NEGATIVE (Negative); Resp Syncy Virus RNA Qual PCR NEGATIVE (Negative); SARS COV2 PCR INHOUSE NEGATIVE (Negative)
[2023-03-11 01:04] VITALS: BP 150/84; PULSE 108; RESP 17; O2SAT 98
== END 2023-03-11 01:04 | disposition home or self-care (01) ==
PROVIDERS: Emergency Provider Emergency Medicine Emergency Medical Services; PCP General Practice
DX: R11.2 Nausea with vomiting, unspecified (principal); R19.7 Diarrhea, unspecified; R10.30 Lower abdominal pain, unspecified; R05.9 Cough, unspecified; M79.10 Myalgia, unspecified site; B34.9 Viral infection, unspecified; E86.0 Dehydration; Z20.822 Contact with and (suspected) exposure to COVID-19; Z20.828 Contact with and (suspected) exposure to other viral communicable diseases; Z79.899 Other long term (current) drug therapy
CPT/HCPCS: 0241U; 36415; 80053; 82248; 85025; 96374; 96375; 99284; 99285; J1885; J2405

== ENCOUNTER 2023-10-31 14:21 | Outpatient (AMB) | payer MEDICAID, SELFPAY ==
[2023-10-31 14:23] VITALS: BP 112/67; PULSE 105; O2SAT 97; BMI 26.3
--- NOTE | 2023-10-31 14:23 | MHC.OFFVIS ---
Vital Signs 10/31/23 14:23 Height 5 ft 4 in Weight 153 lb 3.54 oz BMI 26.3 BP 112/67 Blood Pressure Location Lt brachial Position Sitting Pulse 105 H Pulse Source Doppler Pulse Oximetry (%) 97 Oxygen Delivery Method Room Air Intake Visit Reasons: asthma Allergies peach [PEACH] Allergy (Severe, Verified 01/25/23 13:31) RASH perfume [PERFUME] Allergy (Severe, Verified 01/25/23 13:31) ASTHMA ATTACK dog dander [DOG DANDER] Allergy (Unknown, Verified 01/25/23 13:31) ITCHY, HIVES mite-Dermatophagoides farinae, wendy [DUST MITES] Allergy (Unknown, Verified 01/25/23 13:31) ASTHMA, ITCHY THROAT kiwi Allergy (Verified 01/25/23:) Swelling strawberry Allergy (Verified 01/25/23) Itching HPI Comments Details: The patient is a 28yo F with severe allergic asthma, chronically steroid-dependent, and on immunotherapy with Fasenra (benralizumab) at [facility], with history of prior intubation in 2019, Who presented to [facility] couple months ago worsening respiratory symptoms. She was admitted with status asthmaticus. The patient was able to improved. She did follow-up with her primary care doctor found that she is . Currently she is around 6-7 weeks gestation. This is her 2nd and had 1 miscarriage. She is concerned about the medication she is taking and the health of her baby. Therefore will try to help her with a respiratory regimen that is safe for her baby and also helps her with her respiratory symptoms. This patient has been on prednisone off and on because of her uncontrolled asthma. She has been off the biologic therapy. She does use her allergy medicine. 11/07/2021 the patient is here for a pulmonary follow-up visit. Her still Going well. She continues on the Symbicort twice a day. Unfortunately she still continues on the prednisone because of worsening asthma symptoms. We had prescribed her budesonide to optimize her inhaled steroids and hopefully wean her off the prednisone. However, this has been just approved and she will pick it up at the pharmacy. Also the patient complains of a cough primarily at nighttime that starts triggering her asthma symptoms. She is having some reflux symptoms. We did talk about raising the head of the bed to try to eliminate that. Also she can try Tessalon Perles as needed for cough. She also continues on her allergy medication. Spiriva was not effective for her and therefore she is not taking any longer. 01/05/2022 the patient is here for a pulmonary follow-up visit. She still struggling with her asthma. We did add the budesonide nebs but she did not see any improvement. The only thing that helps her is prednisone. We also talked about restarting the Spiriva but, she did not feel that that helped either. She has been a prednisone now for about 5-6 years. again, talking about her regimen she does not take her medications as prescribed. She is reluctant to take medications specially because of her . I emphasized to her that she needs to take her medications in order to allow him to work and improve her symptoms and to minimize her prednisone use. Understanding that she will need to stay on a small dose prednisone since she has been on it for so many years. I did write around a program of how to take her inhalers and nebulized therapy and she will follow up. 10/25/2022 the patient is here for pulmonary follow-up visit. The patient is now 6 months post gestation. She did have a very tough with significant asthma flare ups. She was also hospitalized because of hypoxia. The patient continues to be on prednisone chronically. Prior to becoming she had a good response to biologics. She does have an elevated eosinophil count. Her IgE level is only slightly elevated. The patient is known to have significant allergies. Will go ahead and retest her at this time. The patient needs to come off prednisone. Therefore, she needs to go back in biologics now that she is no longer . She continues on Symbicort and also Spiriva out although some time she is not a 6 year into the therapy. I do believe that a triple agent will be best in order to provide better adherence to the medicine. She is also using Ventolin HFA. She does not feel like it is as effective and she also gets tremors. Will try Xopenex at this time. 01/25/2023 the patient has a telehealth visit. She is been having difficulties with her asthma again. She did start the biologic therapy that appears to be very affecting beneficial. She was able to stop the prednisone altogether and actually stopped all her inhalers after starting the Tezspire. unfortunately her symptoms came back and she is been having some difficulty with breathing. She also noticed a rash looks like eczema around her eyes. She is not sure if his from the biologic injection. Will going to continue to watch him monitor specially since she did very well with the therapy. She continue with her respiratory inhalers she knows she continued them even if she feels well after Taking the next does of Tezspire. if her rash worsen she will call the office otherwise will follow-up in 2-3 months. 10/31/2023 the patient is here for a pulmonary follow-up visit. The patient is struggling to breathe. She was started on Tezspire during the last visit. She was on it for few months. Unfortunately she did not see the benefits that she was hoping for. The patient would get some slight improvement for about a week or so and then was started having symptoms again. Therefore she stopped calling for the prescription. Will go ahead and discontinue this time. The patient however has been on chronic prednisone. Therefore, I do believe that switching over to Dupixent be the better option. The patient will be able to give her some Dupixent every 2 weeks with the hope of stabilizing her asthma and decreasing the prednisone dose. Recently her prednisone was increased to 40 mg daily although she typically uses about 10 mg a day. She does have significant wheezing on examination. She also describes different episodes of cause of shortness of breath and sometimes feels like her throat is close that. Therefore is reasonable just to do a bronchoscopy to assess for vocal cord dysfunction or other reasons for obstructive airway disease. Therefore will plan to do a bronchoscopy at this time. In the meantime because of her chronic prednisone use and chronic bronchitis the addition of Daliresp will be a good option as well 2 Swazi minimize the amount of prednisone she is using. Unfortunately she has already been diagnosed with diabetes and started on medications for that. As far as imaging the patient did have a chest x-ray demonstrating no acute disease. 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 Review of Systems Const Denies fatigue and Reports weight gain Eyes Denies change in vision ENT Reports nasal congestion Card Denies chest pain and Reports dyspnea on exertion Resp Reports cough, Reports dyspnea on exertion and Reports wheezing GI Denies abdominal pain Denies no additional complaints Musc Reports no additional complaints Skin/Breast Reports rash Neuro Reports no additional complaints and Denies Sensory deficit (Neuro) Endo Denies fatigue Aller/Immun Reports wheezing Physical Exam Vital Signs: Last Vital Signs Pulse 105 H 10/31/23 14:23 BP 112/67 10/31/23 14:23 Pulse Ox 97 10/31/23 14:23 Oxygen Delivery Method Room Air 10/31/23 14:23 BMI result Body Mass Index 26.3 Const General: healthy appearing Nutritional Appearance: average body habitus Orientation/consciousness: oriented to person and patient oriented x3 Limitations: no limitations HEENT Head: Yes normal to inspection Ears: external ears normal General nose exam: Normal external nose present Mouth: Normal oral and palatal mucosa present and oropharynx normal Throat: Yes posterior oropharynx normal Eyes General: appearance normal, both eyes and all related structures Neck Other: supple Neck: Yes normal visual inspection Chest Chest palpation & inspection: normal inspection of the chest Resp Other: slight wheeze bilaterally Auscultation: wheezes and diminished lung sounds Cardio Jugular venous distension: no JVD Rate: regular rate Rhythm: regular rhythm Heart sounds: S1 normal heart sound present and S2 normal heart sound present GI Other: gravid uterus Palpation (GI): Soft to palpation, nontender and No hepatosplenomegaly present Auscultation: normal bowel sounds General: Yes no CVA tenderness Back/Spine/Pelvis Back: no CVA tenderness Skin General skin exam: no rashes or lesions noted Neuro General: oriented to person and patient oriented x3 Cranial nerves: Yes CN's II-XII intact bilaterally Motor exam (neuro): 5/5 motor strength present throughout Sensory Exam: No Sensory deficit (Neuro) Extrem General: Yes normal to inspection Psych Appearance: grossly normal Assessment & Plan Assessment & Plan (1) Severe persistent allergic asthma: Code(s): J45.50 - Severe persistent asthma, uncomplicated Category: Medical (2) Allergic rhinitis: Code(s): J30.9 - Allergic rhinitis, unspecified Category: Medical Qualifiers: Allergic rhinitis seasonality: seasonal Allergic rhinitis trigger: other Qualified Code(s): J30.89 - Other allergic rhinitis (3) Eosinophilia: Code(s): D72.10 - Eosinophilia, unspecified Category: Medical Qualifiers: Eosinophilia type: other eosinophilia Qualified Code(s): D72.19 - Other eosinophilia (4) Rash: Comment: eczema like around eyes Code(s): R21 - Rash and other nonspecific skin eruption Category: Medical Plan continue Trelegy 200 continue Xopenex as needed continue albuterol nebulized therapy wean the prednisone slowly off continue Singulair Tessalon pearls as needed for cough stop Tezspire, monitor for eczema rash, not effective start Dupixent start Daliresp 250mcg daily bronchosocopy to assess the persistent wheezing F/U 2 months Medications: New prednisone PO daily; Take 3 tabs x 4 days, then 2 tabs daily x 4 days, then 1 tab x 4 days to complete. 24 tabs 0RF 12 days roflumilast (Daliresp) 250 mcg PO DAILY 30 tabs 11RF 30 days J44.9 - Chronic obstructive pulmonary disease, unspecified Coding Level of Care Code Est Pt Level 4 (75260) Diagnoses Severe persistent allergic asthma J45.50 Seasonal allergic rhinitis due to other allergic trigger J30.89 Allergic rhinitis seasonality: seasonal Allergic rhinitis trigger: other Other eosinophilia D72.19 Eosinophilia type: other eosinophilia Rash R21 Time Spent (min) 18
== END 2023-10-31 15:03 | disposition home or self-care (01) ==
PROVIDERS: PCP General Practice; Visit Provider Hospitalist
DX: J45.50 Severe persistent asthma, uncomplicated (principal); J30.89 Other allergic rhinitis; D72.19 Other eosinophilia; R21 Rash and other nonspecific skin eruption
CPT/HCPCS: 99214

== ENCOUNTER → 2023-10-31 14:21 | Outpatient (BNVA) | payer MEDICAID, SELFPAY | PROVIDERS: PCP General Practice; Visit Provider Hospitalist | DX: J45.50 Severe persistent asthma, uncomplicated (principal); J44.9 Chronic obstructive pulmonary disease, unspecified; J30.89 Other allergic rhinitis; D72.19 Other eosinophilia; R21 Rash and other nonspecific skin eruption | CPT/HCPCS: 99212 ==

== ENCOUNTER → 2023-12-11 14:51 | Outpatient (RCR) | payer MEDICAID, SELFPAY ==
[2020-06-06 08:21] VITALS: BP 132/85; PULSE 76; RESP 18; TEMP 36.4; O2SAT 99; BMI 24.6
--- NOTE | 2020-06-06 08:54 | P.CNHO_ITS ---
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 Patient: new to practice Consult date: 06/06/20 Requesting Physician: Thomas Arauz. Primary Care Provider: Iveth Arauz MD Medical Summary: DIAGNOSIS: 1. Positive cardiolipin antibody. 2. Positive beta 2 glycoprotein. HPI - Consult Narrative Narrative: Afshan Stein is a pleasant 24 year old lady, who has had multiple complaints. She had multiple joint pains, family history of unspecified arthritis. She had a first-trimester miscarriage. Her primary was concerned and the proceeded with further evaluation. Cardiolipin antibody: IgM 18, IgG less than 14. Beta 2 glycoprotein: IgM 24, IgG: less than 20 ROS: She does feel rather fatigued. She has been under stress lately. She has been depressed. Her dad . She does get sick easily. She gets headaches. She has been sleeping a lot. Her appetite is good however she has not been eating due to the stress. She has lost 10 lb. She has bad asthma. She has to be on steroids. She has heartburn and nausea. Bowels are regular. No gross blood in the stools. Denies urinary complaints. She does get joint pains. Her legs are weak. She does not have rashes but she is allergic to a lot of things. Family history: Her father has CHF diabetes sleep apnea and bradycardia. Her maternal aunt has a history of blood clot. 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 She is not . Has no children. She does not smoke. She drinks occasionally. She does use marijuana edibles and cigarettes. Review of Systems - Constitutional Reports system reviewed and no additional complaints, except as documented, Reports fatigue, Reports lack of energy, Reports malaise, Reports weakness, Reports weight loss - Eyes Reports system reviewed and no additional complaints, except as documented - ENT Reports system reviewed and no additional complaints, except as documented - Cardiovascular Reports system reviewed and no additional complaints, except as documented - Respiratory Reports no additional respiratory complaints - Gastrointestinal Reports system reviewed and no additional complaints, except as documented - Genitourinary Reports no additional female genitourinary complaints - Musculoskeletal Reports system reviewed and no additional complaints, except as documented - Integumentary/Breasts Skin/Breast: Reports no additional skin complaints - Neurologic Reports system reviewed and no additional complaints, except as documented - Psychiatric Reports system reviewed and no additional complaints, except as documented - Endocrine Reports no additional endocrine complaints - Hematologic/Lymphatic Reports system reviewed and no additional complaints, except as documented - Allergic/Immunologic Reports system reviewed and no additional complaints, except as documented Oncology Screenings - ECOG Performance Status ECOG Performance Status: 0 [facility] Medical History: Medical History (Last Updated 06/06/20 @ 08:27 by Diane Wang RN) Allergic rhinitis Anxiety History of miscarriage Hx of polyarthritis Severe persistent allergic asthma Sleep difficulties Functional capacity: independent ambulation Patient : No Family History: Family History (Last Updated 06/06/20 @ 08:25 by Diane Wang RN) Maternal Aunt DVT (deep venous thrombosis) Father CHF (congestive heart failure) Diabetes Mother HTN (hypertension) Asthma Social History: Social History (Last Updated 06/06/20 @ 08:27 by Diane Wang RN) Alcohol History: Alcohol intake: current Alcohol History Details: Alcohol intake frequency: holiday/special occasion Substance Use History: Use of substances other than those prescribed or required for medical reasons : Yes Substance Use Type: Marijuana Nutrition Assessment: Patient : No Home Medications and Allergies Home Medications Medication Instructions Recorded Confirmed Type albuterol sulfate [ProAir HFA] 2 puff INHALATION Q6H PRN 06/06/20 06/06/20 History cetirizine 10 mg PO DAILY 06/06/20 06/06/20 History cholecalciferol (vitamin D3) 125 mcg PO DAILY 06/06/20 06/06/20 History [Vitamin D3] fluticasone furoate-vilanterol 1 inh INHALATION DAILY 06/06/20 06/06/20 History [Breo Ellipta] mepolizumab [Nucala] mg SUBCUT 06/06/20 06/06/20 History montelukast [Singulair] 10 mg PO BEDTIME 06/06/20 06/06/20 History nebulizer accessories [A.I.R.S 06/06/20 06/06/20 History Nebulizer Replacement] nebulizer and compressor [Comp-Air 06/06/20 06/06/20 History Compressor Neb System] omeprazole 20 mg PO DAILY 06/06/20 06/06/20 History vit 82-kyrz-rxbflk 6 1 tab PO 02/22/21 History [Prenate Elite] tiotropium bromide [Spiriva 2 puff PO DAILY 06/06/20 06/06/20 History Respimat] Allergies Allergy/AdvReac Type Severity Reaction Status Date / Time peach [PEACH] Allergy Severe RASH Verified 06/06/20 08:28 perfume [PERFUME] Allergy Severe ASTHMA Verified 06/06/20 08:28 ATTACK dog dander [DOG DANDER] Allergy Unknown ITCHY, Verified 06/06/20 08:28 HIVES mite-Dermatophagoides Allergy Unknown ASTHMA, Verified 06/06/20 08:28 farinae, wendy ITCHY [DUST MITES] THROAT Physical Exam Vital signs: Vital Signs Temp 97.5 F 06/06/20 08:21 Pulse 76 06/06/20 08:21 Resp 18 06/06/20 08:21 BP 132/85 06/06/20 08:21 Pulse Ox 99 06/06/20 08:21 Intake & Output 06/05/20 06/06/20 06/06/20 18:59 06:59 18:59 Other: Weight 65.1 kg [place] Weight in Grams [id number] Weight 65.1 kg - Constitutional Present: no acute distress - Routine HEENT Exam Head: Present: normal inspection ENT: Present: mucous membranes moist - Routine Neck Exam Present: supple - Routine Respiratory Exam Present: CTAB - Routine Cardiovascular Exam Cardiovascular: Present: RRR, S1, S2 - Routine Abdominal Exam Present: normal bowel sounds, nontender - Routine Rectal Exam Patient deferred: digital exam - Routine Skin Exam Present: intact - Routine Neurological Exam Present: alert, oriented X3 - Detailed Neurological Exam: Coma Scale Eye Opening: Spontaneous (4) Verbal Response: Oriented (5) Motor Response: Obeys commands (6) Geoffrey Coma Scale Total: 15 Hem/Onc Consult Result - Labs CBC & Chem 7: 06/06/20 08:54 06/06/20 08:54 Assessment and Plan (1) Anti-cardiolipin antibody positive Status: Acute In this is a pleasant 24-year-old lady with history of asthma and arthralgias. She was tested for at cardiolipin antibody. This came back mildly positive. Beta 2 glycoprotein also showed low positivity. She does not have any history of previous thromboembolic phenomena nor 2nd trimester miscarriage. PLAN: I will simply repeat the tests. Actually, repeat testing revealed: Beta 2 GPI-IGG Ab: <9. Beta 2 GPI- IGM Ab: 11. Anti cardiolipin IgG antibody:<14. Anti cardiolipin IgM antibody:<12. All these are in the normal range. I called her to reassure her of that. She will return in 1 month for a follow-up. Thank you, CC: Dr. Thomas Arauz.
[2020-06-06 08:56] LABS: MANUAL DIFF FLAG NO
--- NOTE | 2020-06-06 08:58 | MHC.HEMONC ---
Patient here for consult for elevated labs. Clinical summary updated with nurse. Provider seen patient. Labs drawn. Patient to follow-up in one month.
[2020-06-06 09:26] LABS: Basophils Percent Auto 0.2 % (0-2); Hemoglobin 12.6 g/dl (12.0-16.0); Imm Gran Abs Auto 0.08 X10*3/uL (0.00-0.03); Imm Gran Pct Auto 0.5 % (0.0-0.4); Lymphocytes Absolute Auto 1.5 X10*3/uL (1.2-4.9); Lymphocytes Percent Auto 9.6 % (20-40); Mean Corpuscular HGB Conc 31.5 g/dl (31.0-35.0); Mean Corpuscular Hemoglobin 28.2 pg (27.0-33.0); Mean Corpuscular Volume 89.5 fL (80-98); Mean Platelet Volume 10.2 fL (9.4-12.3); Monocytes Absolute Auto 0.6 X10*3/uL (0.1-1.2); Monocytes Percent Auto 3.9 % (2-11); Neutrophils Absolute Auto 13.6 X10*3/uL (2.0-8.3); Neutrophils Percent Auto 85.8 % (45-73); Platelet Count 408 X10*3/uL (160-400); Red Blood Count 4.47 X10*6/uL (4.20-5.50); Red Cell Distribution Width 14.6 % (11.0-16.0); White Blood Count 15.8 X10*3/uL (4.8-10.8)
[2020-06-06 09:48] LABS: Alanine Aminotransferase 20 U/L (0-31); Albumin Level 4.4 g/dL (3.5-5.0); Alkaline Phosphatase 89 U/L (39-117); Anion Gap 15 (12-20); Aspartate Amino Transferase 17 U/L (5-31); Bilirubin Total 0.5 mg/dL (0.0-1.0); Blood Urea Nitrogen 13 mg/dL (9-16); Calcium 9.7 mg/dL (8.4-10.2); Carbon Dioxide 24 mmol/L (22-29); Chloride 104 mmol/L (96-108); Creatinine Clr Calc Pharmacy 102.1; Estimated Glomerular Filt Rate > 60; Glucose Random 84 mg/dL (60-115); Potassium 4.6 mmol/L (3.3-5.1); Sodium 138 mmol/L (135-145); Total Protein 7.6 g/dL (6.5-8.0)
--- NOTE | 2020-06-06 13:15 | P.PNHO_ITS ---
Hem/Onc Clinic Telehealth - Telehealth Location of Provider rendering services: Oncology department Telehealth Method: Telephone Medical Summary - Medical Summary Date of Service: 06/06/20 Medical Summary: DIAGNOSIS: 1. Positive cardiolipin antibody. 2. Positive beta 2 glycoprotein. Review of Systems - Neurologic Reports no additional neurologic complaints, Reports weakness Home Medications and Allergies Home Medications Medication Instructions Recorded Confirmed Type albuterol sulfate [ProAir HFA] 2 puff INHALATION Q6H PRN 06/06/20 06/06/20 History cetirizine 10 mg PO DAILY 06/06/20 06/06/20 History cholecalciferol (vitamin D3) 125 mcg PO DAILY 06/06/20 06/06/20 History [Vitamin D3] fluticasone furoate-vilanterol 1 inh INHALATION DAILY 06/06/20 06/06/20 History [Breo Ellipta] mepolizumab [Nucala] mg SUBCUT 06/06/20 06/06/20 History montelukast [Singulair] 10 mg PO BEDTIME 06/06/20 06/06/20 History nebulizer accessories [A.I.R.S 06/06/20 06/06/20 History Nebulizer Replacement] nebulizer and compressor [Comp-Air 06/06/20 06/06/20 History Compressor Neb System] omeprazole 20 mg PO DAILY 06/06/20 06/06/20 History vit 55-cpoy-dqwhbk 6 1 tab PO 06/06/20 History [Prenate Elite] tiotropium bromide [Spiriva 2 puff PO DAILY 06/06/20 06/06/20 History Respimat] Allergies Allergy/AdvReac Type Severity Reaction Status Date / Time peach [PEACH] Allergy Severe RASH Verified 06/06/20 08:28 perfume [PERFUME] Allergy Severe ASTHMA Verified 06/06/20 08:28 ATTACK dog dander [DOG DANDER] Allergy Unknown ITCHY, Verified 06/06/20 08:28 HIVES mite-Dermatophagoides Allergy Unknown ASTHMA, Verified 06/06/20 08:28 farinae, wendy ITCHY [DUST MITES] THROAT Exam Vital signs: Vital Signs Temp 97.5 F 06/06/20 08:21 Pulse 76 06/06/20 08:21 Resp 18 06/06/20 08:21 BP 132/85 06/06/20 08:21 Pulse Ox 99 06/06/20 08:21 Intake & Output 06/05/20 06/06/20 06/06/20 18:59 06:59 18:59 Other: Weight 65.1 kg Weight in Grams [id number] Weight 65.1 kg Body Mass Index 24.6 - Constitutional Present: no acute distress - Routine HEENT Exam Head: Present: normal inspection - Routine Respiratory Exam Present: CTAB - Routine Cardiovascular Exam Cardiovascular: Present: RRR, S1, S2 - Routine Abdominal Exam Present: normal bowel sounds, nontender - Routine Rectal Exam Patient deferred: digital exam - Routine Skin Exam Present: intact - Routine Neurological Exam Present: alert, oriented X3 - Detailed Neurological Exam: Coma Scale Eye Opening: Spontaneous (4) Data - Labs CBC & Chem 7: 06/06/20 08:54 06/06/20 08:54 Labs: 06/06/20 08:54 Complete Blood Count Auto Diff Routine Comprehensive Met. Panel Routine Laboratory Last Values WBC 15.8 X10*3/uL (4.8-10.8) H 06/06/20 08:54 RBC 4.47 X10*6/uL (4.20-5.50) 06/06/20 08:54 Hgb 12.6 g/dl (12.0-16.0) 06/06/20 08:54 Hct 40.0 % (37-47) 06/06/20 08:54 MCV 89.5 fL (80-98) 06/06/20 08:54 MCH 28.2 pg (27.0-33.0) 06/06/20 08:54 MCHC 31.5 g/dl (31.0-35.0) 06/06/20 08:54 RDW 14.6 % (11.0-16.0) 06/06/20 08:54 Plt Count 408 X10*3/uL (160-400) H 06/06/20 08:54 MPV 10.2 fL (9.4-12.3) 06/06/20 08:54 Immature Gran % (Auto) 0.5 % (0.0-0.4) H 06/06/20 08:54 Neut % (Auto) 85.8 % (45-73) H 06/06/20 08:54 Lymph % (Auto) 9.6 % (20-40) L 06/06/20 08:54 [place]mer % (Auto) 3.9 % (2-11) 06/06/20 08:54 Eos % (Auto) 0.0 % (0-4) 06/06/20 08:54 Baso % (Auto) 0.2 % (0-2) 06/06/20 08:54 Lymph # (Auto) 1.5 X10*3/uL (1.2-4.9) 06/06/20 08:54 [place]mer # (Auto) 0.6 X10*3/uL (0.1-1.2) 06/06/20 08:54 Eos # (Auto) 0.0 X10*3/uL (0.0-0.4) 06/06/20 08:54 Baso # (Auto) 0.0 X10*3/uL (0.0-0.2) 06/06/20 08:54 Abs Immat Gran (auto) 0.08 X10*3/uL (0.00-0.03) H 06/06/20 08:54 Absolute Neuts (auto) 13.6 X10*3/uL (2.0-8.3) H 06/06/20 08:54 Absolute Nucleated RBC 0.000 X10*3/uL (0.0-0.012) 06/06/20 08:54 Nucleated RBC % (auto) 0.0 /100WBC (0.0-0.2) 06/06/20 08:54 Sodium 138 mmol/L (135-145) 06/06/20 08:54 Potassium 4.6 mmol/L (3.3-5.1) 06/06/20 08:54 Chloride 104 mmol/L (96-108) 06/06/20 08:54 Carbon Dioxide 24 mmol/L (22-29) 06/06/20 08:54 Anion Gap 15 (12-20) 06/06/20 08:54 BUN 13 mg/dL (9-16) 06/06/20 08:54 Creatinine 0.74 mg/dL (0.5-1.4) 06/06/20 08:54 Estim Creat Clear Calc 102.1 06/06/20 08:54 Estimated GFR > 60 06/06/20 08:54 Random Glucose 84 mg/dL (60-115) 06/06/20 08:54 Calcium 9.7 mg/dL (8.4-10.2) 06/06/20 08:54 Total Bilirubin 0.5 mg/dL (0.0-1.0) 06/06/20 08:54 AST 17 U/L (5-31) 06/06/20 08:54 ALT 20 U/L (0-31) 06/06/20 08:54 Alkaline Phosphatase 89 U/L (39-117) 06/06/20 08:54 Total Protein 7.6 g/dL (6.5-8.0) 06/06/20 08:54 Albumin 4.4 g/dL (3.5-5.0) 06/06/20 08:54 Progress Note: A/P (1) Anti-cardiolipin antibody positive Status: Acute - Time Spent With Patient Total time spent is greater than 50% in coordination of care (as documented) at patient's floor/unit and/or counseling patient:
[2020-06-09 13:52] LABS: PTT (LAC) Screen 29 sec (< OR = 40)
[2020-06-09 15:51] LABS: Cardiolipin IgG Ab <14 GPL; Cardiolipin IgM Ab <12 MPL
[2020-06-10 02:06] LABS: Beta-2 Glycoprotein IgA <9 SAU (<=20); Beta-2 Glycoprotein IgG <9 SGU (<=20); Beta-2 Glycoprotein IgM 11 SMU (<=20)
== END | disposition home or self-care (01) ==
LOC: HO.ONC 06-06 08:08
PROVIDERS: PCP Internal Medicine; Referring Provider Internal Medicine; Visit Provider Internal Medicine Medical Oncology
DX: R76.0 Raised antibody titer (principal)
CPT/HCPCS: 36415; 80053; 85025; 85597; 85613; 85730; 86146; 86147; 99204

== ENCOUNTER 2024-03-30 08:23 | Emergency (ER) | payer MEDICAID, SELFPAY ==
[2024-03-30 08:36] VITALS: BP 128/94; PULSE 112; RESP 18; TEMP 37.5; O2SAT 97; BMI 26.8
--- NOTE | 2024-03-30 09:25 | ED_ITS ---
HPI - Nausea/Vomiting/Diarrhea General Chief complaint: Nausea/Vomiting/Diarrhea Stated complaint: abd pain Time Seen by Provider: 03/30/24 08:54 Source: patient Mode of arrival: ambulatory Limitations: no limitations History of Present Illness ED Provider: DENIS HPI Narrative: 28 yo female with PMH of allergies, asthma here with c/o n/v/d starting 2pm yesterday. She feels weak and dehydrated. No recent travel or abx use, no abdominal pain, no fevers. Patient also feels she has body aches and chills. She did go to a [employer] republican at on Saturday night but denies sick contacts or anyone else getting sick. MD elicited complaint: nausea, vomiting and diarrhea Onset (ago): day(s) (Saturday 2pm) Description of vomiting: watery Description of diarrhea: watery Associated nausea: Yes Associated abdominal pain: No Severity: moderate Exacerbating factors: eating Relieving factors: none Context: possible food poisoning and sick contacts Associated symptoms: loss of appetite, malaise and nausea/vomiting Related Data Home Medications ?Medication ?Instructions ?Recorded ?Confirmed montelukast 10 mg tablet 10 mg PO BEDTIME 06/06/20 08/28/21 (Singulair) nebulizer and compressor 06/06/20 06/06/20 omeprazole 20 mg capsule,delayed 20 mg PO DAILY 06/06/20 08/28/21 release tiotropium bromide 2.5 2 puff PO DAILY 06/06/20 08/28/21 mcg/actuation mist for inhalation (Spiriva Respimat) diphenhydramine HCl 25 mg capsule 25 mg PO BEDTIME PRN Allergy 08/28/21 08/28/21 (Benadryl) Symptoms Previous Rx's ?Medication ?Instructions ?Recorded budesonide-formoterol HFA 160 2 puff inhalation BID 30 days 10/17/21 mcg-4.5 mcg/actuation aerosol #10.2 grams inhaler (Symbicort) budesonide 0.5 mg/2 mL suspension 0.5 mg (2 mL) inhalation BID 30 11/07/21 for nebulization days #120 mL levalbuterol tartrate 45 2 puff inhalation Q6H PRN 10/25/22 mcg/actuation aerosol inhaler shortness of breath or wheezing 30 (Xopenex HFA) days #15 grams tezepelumab-ekko 210 mg/1.91 mL 210 mg (1.91 mL) subcut Q4W 4 11/12/22 (110 mg/mL) subcutaneous syringe weeks #1.91 mL (Tezspire) albuterol sulfate 2.5 mg/3 mL 2.5 mg (3 mL) inhalation Q6H PRN 01/25/23 (0.083 %) solution for nebulization shortness of breath or wheezing #180 mL albuterol sulfate 90 mcg/actuation 2 puff inhalation Q4-6H PRN 01/25/23 aerosol inhaler shortness of breath or wheezing #6.7 grams ondansetron 4 mg disintegrating 4 mg PO Q6-8H PRN nausea and 03/11/23 tablet vomiting #20 tabs prednisone 5 mg tablet 10 mg (2 x 5 mg) PO DAILY #60 tabs 09/21/23 prednisone 10 mg tablet See Rx Instructions PO DAILY 12 10/31/23 days #24 tabs roflumilast 250 mcg tablet 250 mcg PO DAILY 30 days #30 tabs 10/31/23 (Daliresp) dupilumab 300 mg/2 mL subcutaneous See Rx Instructions subcut Q2W 4 11/12/23 pen injector (Dupixent) weeks #4 mL ondansetron 4 mg disintegrating 4 mg PO Q8H PRN nausea and 03/30/24 tablet vomiting #20 tabs Allergies Allergy/AdvReac Type Severity Reaction Status Date / Time peach [PEACH] Allergy Severe RASH Verified 03/30/24 08:37 perfume [PERFUME] Allergy Severe ASTHMA Verified 03/30/24 08:37 ATTACK dog dander [DOG DANDER] Allergy Unknown ITCHY, Verified 03/30/24 08:37 HIVES mite-Dermatophagoides Allergy Unknown ASTHMA, Verified 03/30/24 08:37 farinae, wendy ITCHY [DUST MITES] THROAT kiwi Allergy Swelling Verified 03/30/24 08:37 strawberry Allergy Itching Verified 03/30/24 08:37 Review of Systems 2 Review of Systems: Constitutional : No Weight loss, No Fever, No Chills ENT/Mouth : No sore throat, No Rhinorrhea Eyes: No Swelling, No Redness Cardiovascular : No Chest Pain, No SOB, NoEdema Respiratory : No Cough, No Sputum, No Wheezing Gastrointestinal : Positive Nausea, Positive Vomiting, positive Diarrhea, positive abdominal Pain, No Hematochezia, No Melena Genitourinary : No Dysuria, No Urinary Frequency, No Hematuria, No Urgency Musculoskeletal : No joint pain, No Myalgias, No Joint Swelling Skin : No Skin Lesions, No rash Neuro : No Weakness, No Numbness, No Dizziness, No Headache All other systems reviewed and are negative. Gastrointestinal: Gastrointestinal: Reports nausea PMFSH Past Medical History Attestation statement: The following information was validated with the patient. Source: old records reviewed Medical History Eosinophilia Anti-cardiolipin antibody positive History of miscarriage Hx of polyarthritis Severe persistent allergic asthma Anxiety Sleep difficulties Allergic rhinitis Family History Family History Maternal Aunt DVT (deep venous thrombosis) Father CHF (congestive heart failure) Diabetes Mother HTN (hypertension) Asthma Social History Social History Alcohol intake: never Patient Tobacco Use Status: Never used Tobacco Smoked in Last 30 Days: No Use of substances other than those prescribed or required for medical reasons: No Substance Use Type: Marijuana Advance Directives: No Advance Directives Information Provided: Yes Do you have a plan to hurt others: No Plan Patient : No Current occupational status: employed 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 Oriented X3. No acute distress. Eyes: Pupils equal, round and reactive to light. ENT: Pharynx mild dry MM Neck: Normal inspection. Neck supple. CVS: Normal heart rate and rhythm. Pulses normal. Respiratory: No respiratory distress. Breath sounds normal. Abdomen: Soft and nontender. Skin: Skin warm and dry. Normal skin color. Normal skin turgor. Extremities: No lower extremity edema. No calf ttp Neuro: Oriented X 3. No motor deficit. No sensory deficit. Course Course Course Narrative: able to drink fluids feels better stable for DC Medications Administered Discontinued Medications Generic Name Dose Route Start Last Admin Trade Name Neo PRN Reason Stop Dose Admin Sodium Chloride 1,000 mls @ 999 mls/hr 03/30/24 08:56 03/30/24 10:06 Ns IV 03/30/24 09:56 999 mls/hr .Q1H1M ONE Administration Acetaminophen 1,000 mg in 100 mls @ 400 mls/hr 03/30/24 08:57 03/30/24 10:06 Ofirmev IV 03/30/24 09:11 400 mls/hr ONCE ONE Administration Ondansetron HCl 4 mg 03/30/24 08:56 03/30/24 10:06 Ondansetron Hcl 4 Mg/2 Ml Vial IVPUSH 03/30/24 08:57 4 mg ONCE ONE Administration Medical Decision Making Medical Decision Making MDM Narrative: 28 yo female with PMH of allergies, asthma here with c/o n/v/d after [employer] but she denies any food exposures or sick contacts. At this time labs, hydration, supportive medications. Has no pain on abdominal exam at this time to suggest localized pathology in the abdomen. Suspect viral syndrome and food toxicity. Overall not toxic Differential Diagnosis Differential Diagnoses: The differential diagnosis associated with the presentation includes viral syndrome, food toxicity, dehydration Admission/Observation Consideration of admission/observation: Escalation of care including admission/observation considered feels better able to tolerate PO stable for DC Lab Data [facility] Lab Attestation statement: I reviewed the patient's lab results. 03/30/24 09:17 03/30/24 09:17 Labs: Lab Results 03/30/24 Range/Units 09:17 WBC 12.6 H (4.8-10.8) X10*3/uL RBC 4.69 (4.20-5.50) X10*6/uL Hgb 13.8 (12.0-16.0) g/dl Hct 40.9 (37.0-47.0) % MCV 87.2 (80.0-98.0) fL MCH 29.4 (27.0-33.0) pg MCHC 33.7 (31.0-35.0) g/dl RDW 12.7 (11.0-16.0) % Plt Count 370 (160-400) X10*3/uL MPV 9.8 (9.4-12.3) fL Immature Gran % (Auto) 0.5 H (0.0-0.4) % Neut % (Auto) 84.5 H (45-73) % Lymph % (Auto) 7.6 L (20-40) % [place] % (Auto) 5.2 (2-11) % Eos % (Auto) 1.7 (0-4) % Baso % (Auto) 0.5 (0-2) % Lymph # (Auto) 1.0 L (1.2-4.9) X10*3/uL [place] # (Auto) 0.7 (0.1-1.2) X10*3/uL Eos # (Auto) 0.2 (0.0-0.4) X10*3/uL Baso # (Auto) 0.1 (0.0-0.2) X10*3/uL Abs Immat Gran (auto) 0.06 H (0.00-0.03) X10*3/uL Absolute Neuts (auto) 10.7 H (2.0-8.3) x10*3/uL Absolute Nucleated RBC 0.000 (0.0-0.012) X10*3/uL Nucleated RBC % (auto) 0.0 (0.0-0.2) /100WBC Sodium 139 (135-145) mmol/L Potassium 3.3 (3.3-5.1) mmol/L Chloride 104 (96-108) mmol/L Carbon Dioxide 25 (22-29) mmol/L Anion Gap 13 (12-20) BUN 11 (9-16) mg/dL Creatinine 0.84 (0.5-1.4) mg/dL Estim Creat Clear Calc 97.1 Estimated GFR > 60 Random Glucose 140 H (60-115) mg/dL Calcium 9.0 (8.4-10.2) mg/dL Total Bilirubin 0.7 (0.0-1.0) mg/dL AST 24 (5-31) U/L ALT 17 (0-31) U/L Alkaline Phosphatase 95 (39-117) U/L Total Protein 7.9 (6.5-8.0) g/dL Albumin 4.1 (3.5-5.0) g/dL Lipase 16 (8-78) U/L Beta HCG, Quant < 2 mIU/mL Urine Color Yellow Urine Appearance Cloudy Urine pH 5.5 (5.0-9.0) Ur Specific [place] >= 1.030 H (1.005-1.025) Urine Protein 30 (1+) H (Neg-Trace) mg/dL Urine Glucose (UA) Negative (Negative) mg/dL Urine Ketones Negative (Negative) mg/dL Urine Blood Negative (Negative) Urine Nitrite Negative (Negative) Ur Leukocyte Esterase Small (1+) H (Negative) Urine RBC 0-2 (0-2) /HPF Urine WBC 21-50 H (0-5) /HPF Ur Squamous Epith Cells 11-20 (0-2) /HPF Urine Bacteria Trace (None Seen) Hyaline Casts 0-2 (0-2) /LPF Influenza Type A (PCR) NEGATIVE (Negative) Influenza Type B (PCR) NEGATIVE (Negative) RSV RNA Qual (PCR) NEGATIVE (Negative) SARS-CoV-2 RNA (RT-PCR) NEGATIVE (Negative) External Record Review External record reviewed: Outpatient record Prescription Management I considered prescription management with: Other Discharge Plan Discharge Clinical Impression: Nausea vomiting and diarrhea Patient Disposition: Home, Self-Care Instructions: Acute Nausea and Vomiting (ED), Acute Diarrhea (ED) Additional Instructions: return for any worsening symptoms 48 hours bland diet - rice apple sauce bananas toast stay hydrated and drink plenty of fluids return for worsening symptoms, fevers, blood stools or any other concerns. Prescriptions: New ondansetron 4 mg tablet,disintegrating 4 mg PO Q8H PRN (Reason: nausea and vomiting) Qty: 20 0RF No Action Tezspire 210 mg/1.91 mL (110 mg/mL) syringe 210 mg subcut Q4W 28 Days Qty: 1.91 11RF prednisone 5 mg tablet 10 mg PO DAILY Qty: 60 1RF Dupixent Pen 300 mg/2 mL pen injector See Rx Instructions subcut Q2W 28 Days Qty: 4 11RF Rx Instructions: loading dose: 600mg SC x 1, then 300mg SC every 2 weeks omeprazole 20 mg Capsule,Delayed Release(Dr/Ec) 20 mg PO DAILY montelukast [Singulair] 10 mg Tablet 10 mg PO BEDTIME (DME) nebulizer and compressor Device MISCELLANEOUS Spiriva Respimat 2.5 mcg/actuation mist 2 puff PO DAILY diphenhydramine HCl [Benadryl] 25 mg Capsule 25 mg PO BEDTIME PRN (Reason: Allergy Symptoms) ondansetron 4 mg tablet,disintegrating 4 mg PO Q6-8H PRN (Reason: nausea and vomiting) Qty: 20 0RF budesonide 0.5 mg/2 mL suspension for nebulization 0.5 mg inhalation BID 30 Days Qty: 120 11RF budesonide-formoterol [Symbicort] 160-4.5 mcg/actuation HFA aerosol inhaler 2 puff inhalation BID 30 Days Qty: 10.2 11RF albuterol sulfate 2.5 mg /3 mL (0.083 %) solution for nebulization 2.5 mg inhalation Q6H PRN (Reason: shortness of breath or wheezing) Qty: 180 7RF albuterol sulfate 90 mcg/actuation HFA aerosol inhaler 2 puff inhalation Q4-6H PRN (Reason: shortness of breath or wheezing) Qty: 6.7 9RF levalbuterol tartrate [Xopenex HFA] 45 mcg/actuation HFA aerosol inhaler 2 puff inhalation Q6H PRN (Reason: shortness of breath or wheezing) 30 Days Qty: 15 11RF prednisone 10 mg tablet See Rx Instructions PO DAILY 12 Days Qty: 24 0RF Rx Instructions: PO daily; Take 3 tabs x 4 days, then 2 tabs daily x 4 days, then 1 tab x 4 days to complete. roflumilast [Daliresp] 250 mcg tablet 250 mcg PO DAILY 30 Days Qty: 30 11RF Stand Alone Forms: Work/School Release Print Language: Yi
[2024-03-30 09:38] LABS: MANUAL DIFF FLAG NO
[2024-03-30 09:40] LABS: Basophils Absolute Auto 0.1 X10*3/uL (0.0-0.2); Basophils Percent Auto 0.5 % (0-2); Eosinophils Absolute Auto 0.2 X10*3/uL (0.0-0.4); Eosinophils Percent Auto 1.7 % (0-4); Hematocrit 40.9 % (37.0-47.0); Hemoglobin 13.8 g/dl (12.0-16.0); Imm Gran Abs Auto 0.06 X10*3/uL (0.00-0.03); Imm Gran Pct Auto 0.5 % (0.0-0.4); Lymphocytes Percent Auto 7.6 % (20-40); Mean Corpuscular HGB Conc 33.7 g/dl (31.0-35.0); Mean Corpuscular Hemoglobin 29.4 pg (27.0-33.0); Mean Corpuscular Volume 87.2 fL (80.0-98.0); Mean Platelet Volume 9.8 fL (9.4-12.3); Monocytes Absolute Auto 0.7 X10*3/uL (0.1-1.2); Monocytes Percent Auto 5.2 % (2-11); Neutrophils Absolute Auto 10.7 x10*3/uL (2.0-8.3); Neutrophils Percent Auto 84.5 % (45-73); Platelet Count 370 X10*3/uL (160-400); Red Blood Count 4.69 X10*6/uL (4.20-5.50); Red Cell Distribution Width 12.7 % (11.0-16.0); White Blood Count 12.6 X10*3/uL (4.8-10.8)
[2024-03-30 09:42] LABS: Appearance Urine Cloudy; Color Urine Yellow; Glucose Urine UA Negative (Negative); Leukocyte Esterase Urine Small (1+) (Negative); Nitrite Urine Negative (Negative); PH 5.5 (5.0-9.0); Specific Gravity - Urine >= 1.030 (1.005-1.025); UMIC TRIGGER UACC YES; Urine Blood Negative (Negative); Urine Ketones Negative (Negative); Urine Protein 30 (1+) mg/dL (Neg-Trace)
[2024-03-30 09:50] LABS: Bacteria Urine Trace (None Seen); Hyaline Casts Urine 0-2 /LPF (0-2); RBC Urine 0-2 /HPF (0-2); UACC Culture Trigger YES; WBC Urine 21-50 /HPF (0-5)
[2024-03-30 09:51] LABS: Lipase 16 U/L (8-78)
[2024-03-30 09:59] LABS: Alanine Aminotransferase 17 U/L (0-31); Albumin Level 4.1 g/dL (3.5-5.0); Alkaline Phosphatase 95 U/L (39-117); Anion Gap 13 (12-20); Aspartate Amino Transferase 24 U/L (5-31); Bilirubin Total 0.7 mg/dL (0.0-1.0); Blood Urea Nitrogen 11 mg/dL (9-16); Carbon Dioxide 25 mmol/L (22-29); Chloride 104 mmol/L (96-108); Creatinine Clr Calc Pharmacy 97.1; Estimated Glomerular Filt Rate > 60; Glucose Random 140 mg/dL (60-115); Potassium 3.3 mmol/L (3.3-5.1); Sodium 139 mmol/L (135-145); Total Protein 7.9 g/dL (6.5-8.0)
[2024-03-30] MEDS: ondansetron HCL 4 MG/2 ML VIAL IVPUSH (10:06)
[2024-03-30] MEDS: Acetaminophen 1,000 MG/100 ML PIGGYBACK 400 MG IV (10:06)
[2024-03-30] MEDS: 0.9 % Sodium Chloride 1,000 ML 999 ML IV (10:06)
[2024-03-30 10:09] VITALS: BP 128/92; PULSE 100; RESP 18; TEMP 36.6; O2SAT 97
--- NOTE | 2024-03-30 10:10 | PC.NURSE ---
slightly dry MM. states she's vomited x 100 since yesterday 2p. unlikely but unkown . was drinking heavily p/t N/V/D. at this time denies abd pain and nausea. axox3. Abd soft non tender.
[2024-03-30 10:30] LABS: Influenza A PCR NEGATIVE (Negative); Influenza B PCR NEGATIVE (Negative); Resp Syncy Virus RNA Qual PCR NEGATIVE (Negative); SARS COV2 PCR INHOUSE NEGATIVE (Negative)
[2024-03-30 10:31] LABS: HCG Quantitative < 2 mIU/mL
[2024-03-30 11:24] VITALS: BP 128/87; PULSE 94; RESP 18; TEMP 36.6; O2SAT 100
== END 2024-03-30 11:25 | disposition home or self-care (01) ==
PROVIDERS: Emergency Provider Emergency Medicine; PCP General Practice
DX: R11.2 Nausea with vomiting, unspecified (principal); E86.0 Dehydration; R19.7 Diarrhea, unspecified; Z03.818 Encounter for observation for suspected exposure to other biological agents ruled out; Z79.899 Other long term (current) drug therapy
CPT/HCPCS: 0241U; 36415; 80053; 81001; 83690; 84702; 85025; 87086; 96361; 96374; 96375; 99284; J0131; J2405

== ENCOUNTER 2024-04-02 08:51 | Outpatient (REF) | payer MEDICAID, SELFPAY | END 2024-04-02 08:52 | disposition home or self-care (01) | LOC: HO.HOSX 08:51 | PROVIDERS: Visit Provider Physician Assistant | DX: Z13.89 Encounter for screening for other disorder (principal) ==

== ENCOUNTER 2024-06-15 14:11 | Outpatient (REF) | payer MEDICAID, SELFPAY ==
[2024-06-15 16:19] LABS: MANUAL DIFF FLAG NO
[2024-06-15 16:31] LABS: Basophils Absolute Auto 0.1 X10*3/uL (0.0-0.2); Basophils Percent Auto 0.5 % (0-2); Eosinophils Percent Auto 6.8 % (0-4); Hematocrit 43.4 % (37.0-47.0); Hemoglobin 14.2 g/dl (12.0-16.0); Imm Gran Abs Auto 0.07 X10*3/uL (0.00-0.03); Imm Gran Pct Auto 0.5 % (0.0-0.4); Lymphocytes Absolute Auto 3.3 X10*3/uL (1.2-4.9); Mean Corpuscular HGB Conc 32.7 g/dl (31.0-35.0); Mean Corpuscular Hemoglobin 28.2 pg (27.0-33.0); Mean Corpuscular Volume 86.3 fL (80.0-98.0); Mean Platelet Volume 10.6 fL (9.4-12.3); Monocytes Absolute Auto 0.6 X10*3/uL (0.1-1.2); Monocytes Percent Auto 4.1 % (2-11); Neutrophils Absolute Auto 9.8 x10*3/uL (2.0-8.3); Neutrophils Percent Auto 66.1 % (45-73); Platelet Count 412 X10*3/uL (160-400); Red Blood Count 5.03 X10*6/uL (4.20-5.50); Red Cell Distribution Width 13.9 % (11.0-16.0); White Blood Count 14.9 X10*3/uL (4.8-10.8)
[2024-06-15 16:36] LABS: Estimated Average Glucose 120 mg/dL; Hemoglobin A1C 146.6411 umol/L; Hemoglobin A1c % 5.8 % (<6.0); Total Hemoglobin (HGBA1C) 3727.5212 umol/L
[2024-06-15 16:56] LABS: Alanine Aminotransferase 29 U/L (0-31); Albumin Level 4.3 g/dL (3.5-5.0); Alkaline Phosphatase 116 U/L (39-117); Anion Gap 14 (12-20); Aspartate Amino Transferase 27 U/L (5-31); Bilirubin Total 0.5 mg/dL (0.0-1.0); Blood Urea Nitrogen 12 mg/dL (9-16); Calcium 9.4 mg/dL (8.4-10.2); Carbon Dioxide 27 mmol/L (22-29); Chloride 104 mmol/L (96-108); Cholesterol 263 mg/dL (<200); Estimated Glomerular Filt Rate > 60; Glucose Random 124 mg/dL (60-115); HDL Cholesterol 65 mg/dL (>40); LDL Cholesterol Calculated 155 mg/dL (<100); Potassium 3.3 mmol/L (3.3-5.1); Sodium 142 mmol/L (135-145); Total Protein 8.5 g/dL (6.5-8.0); Triglycerides 215 mg/dL (<150)
[2024-06-15 16:58] LABS: TSH reflex Free T4 0.51 uIU/mL (0.32-4.0)
--- OUTSIDE RECORDS SUMMARY | 2024-06-15 17:01 | XMS_ITS | Clinical Summary ---
Author Organization [employer] Address [address] [facility] [address] [place] [address] Care Team Providers Care Coal Hauler Name Role Phone Yvonne Kee MD Primary Care Provider [phone] Allergies Active Allergy Reactions Criticality Noted Date Comments Dog Epithelium 11/19/2022 Kiwi Extract 11/19/2022 Prunus Persica 10/05/2011 Medications FREESTYLE LITE test stripIndications: Hyperglycemia Test blood sugar fasting daily and after 2 hours after eating a meal 100 each 3 024 Active TRUEplus Lancets 33G miscIndications:H yperglycemia Test blood sugar BID 100 each 11 024 Active cetirizine (ZyrTEC) 10 MG tabletIndications :Severe persistent asthma, unspecified whether complicated Take 1 tablet (10 mg) by mouth in the morning. 90 tablet 3 Active Blood Glucose Monitoring Suppl (FreeStyle [place] Lite) w/Device kitIndications:Hy perglycemia Test blood sugar fasting and more as needed 1 kit 024 Active Dupilumab (Dupixent) 100 MG/0.67ML solution prefilled syringe Inject under the skin. Active Ventolin HFA 108 (90 Base) MCG/ACT inhaler Inhale 2 puffs every 4 (four) hours if needed for wheezing. 18 g 3 024 Active fluticasone (Flonase Allergy Relief) 50 MCG/ACT nasal spray Administer 1 spray into each nostril Once per day. Shake gently. Before first use, prime pump. After use, clean tip and replace cap. 16 g 12 024 2024 Active Blood Pressure kit 1 each 2 times daily. 1 kit 024 2024 Active predniSONE (Deltasone) 5 MG tablet TAKE 1 TABLET BY MOUTH ONCE DAILY 30 tablet 2 Active 28-0.8 MG tablet Take 1 tablet by mouth Once per day. 90 tablet 3 025 2025 Active NIFEdipine XL (Procardia XL) 30 MG 24 hr tablet Take 1 tablet (30 mg) by mouth Once per day. Do not crush, chew, or split. 30 tablet 11 2025 Active ondansetron ODT (Zofran-ODT) 4 MG disintegrating tablet DISSOLVE 1 TABLET BY MOUTH EVERY 8 HOURS NEEDED FOR NAUSEA AND VOMITING Active norethindrone (Micronor) 0.35 MG tablet Take 1 tablet (0.35 mg) by mouth Once per day. 84 tablet 2025 Active acetaminophen (Tylenol Extra Strength) 500 MG tablet Take 1 tablet (500 mg) by mouth every 6 (six) hours if needed for mild pain or moderate pain for up to 15 days. 30 tablet 1 025 2024 Active acetaminophen (Tylenol) 325 MG tablet Take 650 mg by mouth every 6 (six) hours if needed. 023 2024 Discontinued levalbuterol (Xopenex) 45 MCG/ACT inhaler INHALE 2 PUFFS EVERY 6 HOURS NEEDED FOR WHEEZING OR SHORTNESS OF BREATH 023 2024 Discontinued(T herapy completed) Tezspire 210 MG/1.91ML solution prefilled syringe 023 2024 Discontinued(T herapy completed) dulaglutide (Trulicity) 0.75 MG/0.5ML solution pen-injector Inject 0.75 mg under the skin 1 (one) time per week. 4 each 024 2024 Discontinued(T herapy completed) amoxicillin-clavu lanate (Augmentin) 875-125 MG tablet Take 1 tablet by mouth 2 times daily. 14 tablet 024 2024 Discontinued(T herapy completed) Active Problems Patient Care Coordination No te Formatting of this note migh t be different from the original. C3/CM Cleo Pérez RN /[id number] Nickyoon Bettencourt Problem Noted Date Diagnosed Date Hyperglycemia 06/19/2023 Overview (06/19/2023): check fasting BG at least 3x/wk until visit w/ PCP, call clinic if BG >250 or worsening sx Assessment & Plan (08/13/2023 8:52 AM EDT): History of GDM is last , rising blood sugars with consistent prednisone use - test blood sugars daily - stop Metformin, switch to Bydureon Assessment & Plan (06/19/2023 12:27 PM EST): History of GDM is last , normal A1C after delivery Noticing extra thirsty and hungry in past few weeks BG 300 PP and 180 fasting - sent lancets and test strips - start Metformin 500mg BID - A1C, lipids, CMP ordered Gestational diabetes 10/17/2022 Family planning 10/15/2022 Assessment & Plan (10/15/2022 2:28 PM EDT): All options discussed. -Pt would like to start NuvaRing. Severe persistent asthma 03/16/2022 Assessment & Plan (08/13/2023 8:48 AM EDT): Continue Symbicort, Budesonide inh, SOCO prn Call to make pulm followup ER/UC for any worsening symptoms, SOB Goal is to taper off prednisone eventually Assessment & Plan (04/11/2022 8:31 AM EST): Continue Symbicort, Budesoniide inh, SOCO prn Call to make pulm followup ER/UC for any worsening symptoms, SOB Finish prednisone taper Allergic rhinitis 06/27/2016 Anxiety 04/12/2015 Difficulty sleeping 01/03/2012 Resolved Problems Problem Noted Date Diagnosed Date Resolved Date Disease due to severe acute respiratory syndrome coronavirus 2 (SARS-CoV-2) 10/17/2022 03/0 09/2023 Asthma complicating , antepartum 10/17/2022 06/19/2023 Urinary tract infection without hematuria 10/15/2022 06/19/2023 Assessment & Plan (10/15/2022 2:41 PM EDT): Likely acute UTI based on history, exam and urine dip. No clinical evidence of acute abdomen or pyelonephritis. Denies antibiotic use in the past 90 days. Allergies reviewed. -Urinalysis and urine culture sent to the lab -Empiric antibiotics started -Potential adverse effects of the medication reviewed -Discussed strategies to prevent future infections: Increase fluids. Urinate after sex. Avoid bladder irritants. -Report fever, chills, worsening symptoms or abdominal/flank pain -Advised to seek medical attention if no improvement or worsening of symptoms -ER precautions reviewed. Encounters Date Type Department Care Team Description 06/15/2024 1:30 PM EST Office Visit [facility] [address] [place] [phone] Yvonne Kee MD Elevated blood pressure reading (Primary Dx); Screening examination for STI 06/15/2024 Travel 06/08/2024 Travel 06/03/2024 Patient Outreach [facility] [address] [place] [phone] Yvonne Kee MD Pre-visit Planning ((Unable to reach for PVP screening, LVM)) 05/13/2024 Refill [facility] [address] [place] [phone] Yvonne Kee MD 03/30/2024 Orders Only GENERIC EXTERNAL DATA DEPARTMENT Provider, Generic External Data 03/26/2024 9:00 AM EST Office Visit [facility] [address] [place] [phone] Jayesh Urias MD Acute conjunctivitis of right eye, unspecified acute conjunctivitis type (Primary Dx) from Last 3 Months Immunizations Name Administration Dates Next Due DTaP 02/06/2001, 8,06/29/1997,04/27,1996 HPV, Quadrivalent 10/05/2011,05/25/2010,03/22/20 09 Hep A, ped/adol, 2 dose 02/10/2014,02/10/2013 Hep B, Adolescent or Pediatric 06/29/1997,1996,1996 Hib (HbOC) 10/06/1997, 8,04/27/1997,10/14 IPV 02/06/2001, 9,02/16/1998,04/27,1996 Influenza injectable quadriv alent IIV4 with preservative 04/10/2022,12/24/2018 Influenza injectable quadriv alent preservative free 04/19/2020,05/20/2018,02/13/2017,01/26 Influenza live intranasal qu adrivalent LIAV4 02/10/2014 Influenza, High Dose Seasona l, Preservative Free 05/09/2017 Influenza, live, intranasal 02/10/2013 Influenza, trivalent, adjuvanted 12/24/2018 MMR 02/06/2001,10/06/1997 Meningococcal MPSV4 03/22/2009 Pfizer Covid-19 Vaccine 12+ 04/24/2021, Pneumococcal Polysaccharide PPSV23 05/09/2017, Tdap 03/05/2022,05/06/2018,03/22/2009 Varicella 03/22/2009,10/06/1997 Social History Tobacco Use Types Packs/Day Years Used Date Smoking Tobacco: Never Passive Smoke Exposure: Never Smokeless Tobacco: Never Tobacco Cessation:Counseling Given: Not Answered Alcohol Use Standard Drinks/Week Comments Never 0 (1 standard drink = 0.6 oz pur e alcohol) Depression Answer Date Recorded Patient Health Questionnaire-9 Score 0 08/09/2023 Patient Health Questionnaire-9 Score 0 08/09/2023 Last PHQ-9: Questionnaire Data Not on file 0 08/09/2023 Housing Stability Answer Date Recorded What is your housing situation today? I have merritt bernard 08/01/[address] you li ve. Do you have problems with any of the following? None of the above 08/01/2023 Food Insecurity Answer Date Recorded Within the past 12 months, y ou worried that your food would run out before you got money to buy more: Never True 08/01/2023 Within the past 12 months,th e food you bought just didn't last and you didn't have enough money to get more: Never True Transportation Answer Date Recorded In the past 12 months, has l ack of transportation kept you from medical appts, meetings, work or from getting things needed for daily living? No 08/01/2023 Utilities Answer Date Recorded In the past 12 months, has t he electric, gas, oil or water company threatened to shut off services in your home? No 08/01/2023 Depression Answer Date Recorded Patient Health Questionnaire-2 Score 0 08/09/2023 Comments No Sex and Gender Information Value Date Recorded Sex Assigned at Female 02/12/2022 10:14 AM EDT Legal Sex Female 10:14 AM EDT Gender Identity Female 02/12/2022 10:14 AM EDT Sexual Orientation Straight 02/12/2022 10 :14 AM EDT Last Filed Vital Signs Vital Sign Reading Time Taken Comments Blood Pressure 150/94 06/15/2024 1:26 PM EST Pulse 98 06/15/2024 1:26 PM EST Temperature 36.2 ??C (97.1 ??F) 06/15/2024 1:[address] Respiratory Rate 18 06/15/2024 1:26 PM EST Oxygen Saturation 100% 06/15/2024 1:26 PM EST Inhaled Oxygen Concentration - - Weight 73 kg (161 lb) 06/15/2024 1:26 PM EST Height 162.6 cm (5' 4 ) 06/15/2024 1:26 PM EST Body Mass Index 27.64 06/15/2024 1:26 PM EST Plan of Treatment Upcoming Encounters Date Type Department Care Team (Late st Contact Info) Description 07/06/2024 9:30 AM EDT Procedure Visit [facility] [address] [place] [address] Amrita Kebede CNM [address] [place] [address] Health Maintenance Due Date Last Done Comments Alcohol/Substance Use Screening 2008 Pneumococcal Vaccine: Pediatrics (0 to 5 Years) and At-Risk Patients (6 to 49) Years) (2 of 2 - PCV) 05/09/2018 05/09/2017, 02/13/2017 Pap Smear 11/14/2022 11/14/2021, 04/16, 05/05/2020 COVID-19 Vaccine ( season) 2023 04/24/2021, 04/03/2021 Influenza Vaccine (#1) 2023 2, 04/19/2020, 12/24/2018, Additional history exists Family Planning (PISQ) 06/18/2024 06/19/2023 SDOH Screening 07/31/2024 08/01/2023 Depression Screening 08/08/2024 08/09/2023, 08/09/19 Diabetes: Hemoglobin A1C 08/08/2024 025, 08/09/2023, 08/03/2022 Tobacco Screening 06/15/2025 06/15/2024 DTaP/Tdap/Td Vaccines (9 - Td or Tdap) 03/05/2032 03/05/2022, 05/06/2018, 03/22/2009, Additional history exists Zoster Vaccines (1 of 2) 2046 RSV Patients and Patients Aged 60 years or older (1 - 1-dose 75+ series) 07/20/2071 Hepatitis B Vaccines Completed 06/29/1997, 1996, 1996 HIB Vaccines Completed 10/06/1997, 06/13, 04/27/1997, Additional history exists IPV Vaccines Completed 02/06/2001, 07/15, 02/16/1998, Additional history exists Meningococcal Vaccine Aged Out 03/22/2009 No hannah edwige eligible based on patient's age to complete this topic HPV Vaccines Completed 10/05/2011, 05/16, 03/22/2009 Hepatitis A Vaccines Completed 02/10/2014, 02/11/20 13 HIV Screening Completed 10/15/2022, 05/17/2020 Hepatitis C Screening Completed 10/15/2022, 021 RSV under 20 months Aged Out No longe r eligible based on patient's age to complete this topic Rotavirus Vaccines Aged Out No longer eligible based on patient's age to complete this topic Procedures Procedure Name Priority Date/Time Associated Diagnosis Comments CBC WITH AUTO DIFFERENTIAL Routine 06/15/2024 2:15 PM EST Elevated blood pressure reading TSH W/REFLEX TO FT4 Routine 06/15/2024 2 :15 PM EST Elevated blood pressure reading LIPID PANEL, STANDARD Routine 06/15/2024 2:15 PM EST Elevated blood pressure reading COMPREHENSIVE METABOLIC PANEL Routine 06/15/2024 2:15 PM EST Elevated blood pressure reading HEMOGLOBIN A1C Routine 06/15/2024 2:15 PM EST Hyperglycemia COMPREHENSIVE METABOLIC PANEL Routine 03/30/2024 9:17 AM EST LIPASE Routine 03/30/2024 9:17 AM EST URINALYSIS, COMPLETE, WITH REFLEX TO CULTURE Routine 03/30/2024 9:17 AM EST CBC WITH AUTO DIFFERENTIAL Routine 03/30/2024 9:17 AM EST SARS COV2/INFLUENZA A/B AND RSV RNA QL NAAT Routine 03/30/2024 9:17 AM EST CULTURE, URINE, ROUTINE Routine 03/30/2024 12:00 AM EST HEPATITIS C AB W/REFL TO HCV RNA, QN, PCR Routine 10/15/2022 2:46 PM EDT Routine screening for STI (sexually transmitted infection) HIV 1/2 ANTIGEN/ANTIBODY, FOURTH GENERATION W/RFL Routine 10/15/2022 2:46 PM EDT Routine screening for STI (sexually transmitted infection) HM PAP/HPV Routine 11/14/2021 from Last 3 Months or Most Recently Relevant to Health Maintenance Results * TSH W/Reflex to FT4 (06/15/2024 2:15 PM EST) TSH reflex Free T4 0.51 0.32 - 4.0 uIU/mL [facility] Blood Venous blood specimen / Unknown 06/15/2024 2:15 PM EST 06/15/2024 4:15 PM EST us Yvonne Kee MD LAB BLOOD ORDERABLES Final Res ult [facility] [address] [place] [phone] * (ABNORMAL) CBC auto differential (06/15/2024 2:15 PM EST) Only the most recent of2 resultswithin the time period is included. White Blood Count 14.9(H) 4.8 - 10.8 X10*3/uL [facility] Red Blood Count 5.03 4.20 - 5.50 X10*6/uL [facility] Hemoglobin 14.2 12.0 - 16.0 g/dl [facility] Hematocrit 43.4 37.0 - 47.0 % [facility] Mean Corpuscular Volume 86.3 80.0 - 98.0 fL [facility] Mean Corpuscular Hemoglobin 28.2 27.0 - 33.0 pg [facility] Mean Corpuscular HGB Conc 32.7 31.0 - 35.0 g/dl [facility] Red Cell Distribution Width 13.9 11.0 - 16.0 % [facility] Platelet Count 412(H) 160 - 400 X10*3/uL [facility] Mean Platelet Volume 10.6 9.4 - 12.3 fL [facility] Neutrophils Percent Auto 66.1 45 - 73 % [facility] Imm Gran Pct Auto 0.5(H) 0.0 - 0.4 % [facility] Lymphocytes Percent Auto 22.0 20 - 40 % [facility] Monocytes Percent Auto 4.1 2 - 11 % [facility] Eosinophils Percent Auto 6.8(H) 0 - 4 % [facility] Basophils Percent Auto 0.5 0 - 2 % [facility] NRBC Pct Auto 0.0 0.0 - 0.2 /100WBC [facility] Neutrophils Absolute Auto 9.8(H) 2.0 - 8.3 x10*3/uL [facility] Imm Gran Abs Auto 0.07(H) 0.00 - 0.03 X10*3/uL [facility] Lymphocytes Absolute Auto 3.3 1.2 - 4.9 X10*3/uL [facility] Monocytes Absolute Auto 0.6 0.1 - 1.2 X10*3/uL [facility] Eosinophils Absolute Auto 1.0(H) 0.0 - 0.4 X10*3/uL [facility] Basophils Absolute Auto 0.1 0.0 - 0.2 X10*3/uL [facility] NRBC Abs Auto 0.000 0.0 - 0.012 X10*3/uL [facility] Blood Venous blood specimen / Unknown 06/15/2024 2:15 PM EST 06/15/2024 4:15 PM EST us Yvonne Kee MD LAB BLOOD ORDERABLES Final Res ult [facility] [address] [place] [phone] * Hemoglobin A1c (06/15/2024 2:15 PM EST) Hemoglobin A1c 5.8 <6.0 % [facility] Comment:Hemoglobin A1C Refer ence Range Adults: 4.8 - 6.0 % Non diabetic: < 6.0 % Goal: < 7.0 %Additional Action Suggested: > 8.0 %Note: Hemoglobin A1c results are invalid for patients with abnormal amounts of HbF. Blood transfusions may impact the HbA1c concentration in the patient sample. Estimated Average Glucose 120 mg/dL [facility] Comment:eAG = Estimated ave rage glucose which is %A1C expressed asaverage glucose, using the formula of the [id number] Glucose study (ADAG), Diabetes Care, Vol.31,#8,2007 Blood Venous blood specimen / Unknown 06/15/2024 2:15 PM EST 06/15/2024 4:15 PM EST us Yvonne Kee MD LAB BLOOD ORDERABLES Final Res ult [facility] [address] [place] [phone] * (ABNORMAL) Lipid Panel, Standard (06/15/2024 2:15 PM EST) Triglycerides 215(H) <150 mg/dL [facility] Comment:Desirable Triglyceri de: less than 150 mg/dLBorderline High Triglyceride 150-199 mg/dLHigh Triglyceride: 200-499 mg/dLVery High Triglyceride: greater than or equal to 5OO mg/dL Cholesterol 263(H) <200 mg/dL [facility] Comment:Desirable Cholestero l: less than 200 mg/dLBorderline High Cholesterol: 200-239 mg/dLHigh Cholesterol: greater than 239 mg/dL LDL Cholesterol Calculated 155(H) <100 mg/dL [facility] Comment:Desirable LDL: less than 100 mg/dLNear Optimal/Above Optimal LDL: 110- 129 mg/dLBorderline High LDL: 130-159 mg/dLHigh LDL: 160-189 mg/dLVery High LDL: greater than or equal to 190 mg/dL HDL Cholesterol 65 >40 mg/dL [facility] Comment:Desirable HDL: great er than 40 mg/dL Note: This HDL assay may give artificially low results in patients with liver disease. Blood Venous blood specimen / Unknown 06/15/2024 2:15 PM EST 06/15/2024 4:15 PM EST us Yvonne Kee MD LAB BLOOD ORDERABLES Final Res ult [facility] [address] [place] [phone] * (ABNORMAL) Comprehensive Metabolic Panel (06/15/2024 2:15 PM EST) Sodium 142 135 - 145 mmol/L [facility] Potassium 3.3 3.3 - 5.1 mmol/L [facility] Chloride 104 96 - 108 mmol/L [facility] Carbon Dioxide 27 22 - 29 mmol/L [facility] Anion Gap 14 12 - 20 [facility] Urea Nitrogen (BUN) 12 9 - 16 mg/dL [facility] Creatinine, Serum 0.80 0.5 - 1.4 mg/dL [facility] Estimated Glomerular Filt Rate >60 [facility] Comment:Chronic Kidney Disea se: Estimated GFR < 60 mL/min/1.28z2Hsofmk Kidney Disease: Estimated GFR < 15 mL/min/1.73m2 Glucose 124(H) 60 - 115 mg/dL [facility] Calcium 9.4 8.4 - 10.2 mg/dL [facility] Bilirubin, Total 0.5 0.0 - 1.0 mg/dL [facility] Aspartate Amino Transferase 27 5 - 31 U/L [facility] Alanine Aminotransferase 29 0 - 31 U/L [facility] Total Protein 8.5(H) 6.5 - 8.0 g/dL [facility] Albumin Level 4.3 3.5 - 5.0 g/dL [facility] Alkaline Phosphatase 116 39 - 117 U/L [facility] Blood Venous blood specimen / Unknown 06/15/2024 2:15 PM EST 06/15/2024 4:15 PM EST us Yvonne Kee MD LAB BLOOD ORDERABLES Final Res ult [facility] [address] [place] [phone] * (ABNORMAL) Urinalysis, Complete, with Reflex to Culture (03/30/2024 9:17 AM EST) Color Urine Yellow [facility] Appearance Urine Cloudy [facility] PH 5.5 5.0 - 9.0 [facility] Glucose Urine UA Negative Negative mg/dL [facility] Urine Blood Negative Negative [facility] Specific Donna - Urine >=1.030(H) 1.005 - 1.025 [facility] Urine Protein 30 (1+)(A) Neg-Trace mg/dL [facility] Urine Ketones Negative Negative mg/dL [facility] Nitrite Urine Negative Negative [facility] Leukocyte Esterase Urine Small (1+)(A) Negative [facility] RBC Urine 0-2 0 - 2 /HPF [facility] Urine WBC 21-50(A) 0 - 5 /HPF [facility] Urine Squamous Epithelial Cell 11-20 0 - 2 /HPF [facility] Urine Bacteria Trace None Seen [facility] Hyaline Casts, Urine 0-2 0 - 2 /LPF [facility] 03/30/2024 9:17 AM EST 03/30/2024 9:36 AM EST Narrative [facility] - 03/30/2024 9:50 AM EST 0907Urine, Clean Catch us Generic External Data Provider LAB URINE ORDERAB LES Final Result [facility] [address] [place] [phone] * SARS-CoV-2 RNA, Influenza A/B, and RSV RNA, Ql NAAT (03/30/2024 9:17 AM EST) Influenza A PCR NEGATIVE Negative [facility] Influenza B PCR NEGATIVE Negative [facility] Resp Syncy Virus RNA Qual PCR NEGATIVE Negative [facility] SARS COV2 PCR NEGATIVE Negative [facility] Comment:All test results mus t be correlated with clinical findings.Negative results do not preclude SARS-CoV2, influenza Avirus, influenza B virus and/or RSV infectionand should not be used as the sole basis for treatment orother patient management decisions. Negative results must becombined with clinical observations, patient history, andepidemiological information.This test has not been evaluated for monitoring treatment ofinfection.This test has been authorized by the FDA under an EmergencyUse Authorization (EUA) for use by authorized laboratories.Testing performed on the Bumble BeezXpert utilizingreal-time RT-PCR.All SARS CoV2 and positive influenza A/B results arereported to [facility]. 03/30/2024 9:17 AM EST 03/30/2024 9:36 AM EST Generic External Data Provider LAB MICROBIOLOGY - GENERAL ORDERABLES Final Result Performing Organization Address [facility] Co de Phone Number [facility] [address] [place] [phone] * Lipase (03/30/2024 9:17 AM EST) Lipase 16 8 - 78 U/L [facility] 03/30/2024 9:17 AM EST 03/30/2024 9:36 AM EST Generic External Data Provider LAB BLOOD ORDERAB LES Final Result Performing Organization Address [facility] de Phone Number [facility] [address] [place] [phone] * Culture, Urine, Routine (03/30/2024 12:00 AM EST) Urine Urine specimen obtained by clean catch procedure / Unknown 03/30/2024 03/30/2024 Comment:[facility] Narrative [facility] - 03/31/2024 10:50 AM EST Urine Culture Report Result Urine Culture 10,000 to 50,000 cfu/ml Urine Culture Mixed bacterial gabby characteristic of Urine Culture urogenital contamination. Specimen Source: Urine clean catch Generic External Data Provider LAB MICROBIOLOGY - GENERAL ORDERABLES Final Result Performing Organization Address [facility] Co de Phone Number [facility] [address] [place] [phone] * Hepatitis C Antibody with Reflex to HCV, RNA, Quantitative, Real-Time PCR (10/15/2022 2:46 PM EDT) Hepatitis C Antibody NON-REACT JUAN PABLO NON-REACT JUAN PABLO [facility] Comment: HCV antibody was non-reactive. There is no laboratory evidence of HCV infection. In most cases, no further action is required. However, if recent HCV exposure is suspected, a test for HCV RNA (test code 35517) is suggested. For additional information please refer to [email or web address] [email or web address]/faq/[email or web address] (This link is being provided for informational/ educational purposes only.) Blood Venous blood specimen / Unknown 10/15/2022 2:46 PM EDT 10/15/2022 2:46 PM EDT Cherie Gonzalez MD LAB BLOOD ORDERABLES Final Result [facility] [address], [place] [address] [facility] [employer] [address] [place] [address] * HIV-1/2 Antigen and Antibodies, Fourth Generation, with Reflexes (10/15/2022 2:46 PM EDT) [facility] HIV Antigen/Antibody, 4th Generation NON-REAC TIVE NON-REAC TIVE [facility] [employer] Comment: HIV-1 antigen and HIV-1/HIV-2 antibodies were not detected. There is no laboratory evidence of HIV infection. PLEASE NOTE: This information has been disclosed to you from records whose confidentiality may be protected by state law. ??If your state requires such protection, then the state law prohibits you from making any further disclosure of the information without the specific written consent of the person to whom it pertains, or as otherwise permitted by law. A general authorization for the release of medical or other information is NOT sufficient for this purpose. ?? For additional information please refer to http://Software 2000.CareLuLu/faq/HQY792 (This link is being provided for informational/ educational purposes only.) The performance of this assay has not been clinically validated in patients less than 2 years old. Blood Venous blood specimen / Unknown 10/15/2022 2:46 PM EDT 10/15/2022 2:46 PM EDT us Cherie Gonzalez MD LAB BLOOD ORDERABLES Final Result [facility] [address] [facility], [facility], [place] [address] [facility] [address] [place] [address] * (ABNORMAL) Hm Pap Smear (11/14/2021) Pap Epithelial cell abnormality(A ) Negative for intraephithelial lesion or malignancy, Other Comment:LSIL HPV Detected(A) Undetected, Indeterminate, Quantitative, Not Detected Historical Provider HEALTH MAINTENANCE Edited Result - Final from Last 3 Months or Most Recently Relevant to Health Maintenance Insurance Care Teams Coal Hauler Relationship Specialty Start Date End Date Yvonne Kee MD [address] [place] [address] PCP - General Family Medicine 03/12/22
--- OUTSIDE RECORDS SUMMARY | 2024-06-15 17:01 | XMS_ITS | Encounter Summary ---
Author Organization [employer] Address [address] [facility] 7t [place] [address] Care Team Providers Care Chemical Maker Name Role Phone Yvonne Kee MD Primary Care Provider [phone] Encounter Details Date Type Department Care Team (Late st Contact Info) Description 12/17/2023 Orders Only [facility] MED[facility] [address] [place], [place] [phone] Yvonne Kee MD [address] [place], [place] [phone] Social History Tobacco Use Types Packs/Day Years Used Date Smoking Tobacco: Never Passive Smoke Exposure: Never Smokeless Tobacco: Never Alcohol Use Standard Drinks/Week Comments Never 0 [...] Orientation Straight 02/12/2022 10 :14 AM EDT documented as of this encounter Plan of Treatment Upcoming Encounters Date Type Department Care Team (Late st Contact Info) Description 07/06/2024 9:30 AM EDT Procedure Visit [facility] [address] [place], [place] [phone] Amrita Kebede CNM [address] [place] [address] documented as of this encounter Visit Diagnoses Not on filedocumented in this encounter Additional Health Concerns Assessment Noted Time PHQ-9 Depression Total Score: 0 08/09/19 24 2:42 PM EDT documented as of this encounter Care Teams Chemical Maker Relationship Specialty Start Date End Date Yvonne Kee MD [address] [place], [place] [phone] PCP - General Family Medicine 03/12/22 documented as of this encounter
--- OUTSIDE RECORDS SUMMARY | 2024-06-15 17:02 | XMS_ITS | Encounter Summary ---
Author Organization [employer] Address [address] [facility] 7t [place] [address] Care Team Providers Care Lieutenant Ballistics Name Role Phone Yvonne Kee MD Primary Care Provider [phone] Encounter Details Date Type Department Care Team (Late st Contact Info) Description 09/26/2023 Orders Only [facility] [address] [place], [place] [phone] Yvonne Kee MD [address] [place], [place] [phone] Social History Tobacco Use Types Packs/Day Years [...] Description 07/06/2024 9:30 AM EDT Procedure Visit [facility] [address] [place], [place] [phone] Amrita Kebede CNM [address] [place] [address] documented as of this encounter Visit Diagnoses Not on filedocumented in this encounter Additional Health Concerns Assessment Noted Time PHQ-9 Depression Total Score: 0 08/09/19 24 2:42 PM EDT documented as of this encounter Care Teams Lieutenant Ballistics Relationship Specialty Start Date End Date Yvonne Kee MD [address] [place], [place] [phone] PCP - General Family Medicine 03/12/22 documented as of this encounter
--- OUTSIDE RECORDS SUMMARY | 2024-06-15 17:02 | XMS_ITS | Encounter Summary ---
Author Organization [employer] Address [address] [facility] 7t [place] [address] Care Team Providers Care Pouncer Machine Name Role Phone Yvonne Kee MD Primary Care Provider [phone] Encounter Details Date Type Department Care Team (Late st Contact Info) Description 06/06/2022 Orders Only [facility] [address] [place], [place] [phone] Yvonne Kee MD [address] [place], [place] [phone] Severe persistent allergic asthma (Primary Dx) Social History Tobacco Use Types Packs/Day Years Used Date Smoking Tobacco: Never Smokeless Tobacco: Never Alcohol Use Standard Drinks/Week Comments Never 0 (1 standard drink = 0.6 oz pur e alcohol) Depression Answer Date Recorded Patient Health Questionnaire-2 Score 0 04/10/2022 Comments Yes Sex and Gender Information Value Date Recorded Sex Assigned at Female 02/12/2022 10:14 AM EDT Legal Sex Female 10:14 AM EDT Gender Identity Female 02/12/2022 10:14 AM EDT Sexual Orientation Straight 02/12/2022 10 :14 AM EDT COVID-19 Exposure Response Date Recorded In the last 10 days, have yo u been in contact with someone who was confirmed or suspected to have Coronavirus/COVID-19? Unable to assess 05/09/2022 3:44 PM EST documented as of this encounter Progress Notes * Yvonne Kee MD - 06/06/2022 3:38 PM EST Prednisone ordered at 10mg day x 5 days, mild URI symptoms currently, which is a normal trigger forher asthma. Will recheck her lungs 06/08/22 when brings baby is for check documented in this encounter Plan of Treatment Upcoming Encounters Date Type Department Care Team (Late st Contact Info) Description 07/06/2024 9:30 AM EDT Procedure Visit [facility] [address] [place] [address] Amrita Kebede CN [address] [place], [place] [phone] documented as of this encounter Visit Diagnoses Diagnosis Severe persistent allergic asthma- Primary documented in this encounter Care Teams Pouncer Machine Relationship Specialty Start Date End Date Yvonne Kee MD [address] [place], [place] [phone] PCP - General Family Medicine 03/12/22 documented as of this encounter
--- OUTSIDE RECORDS SUMMARY | 2024-06-15 17:02 | XMS_ITS | Encounter Summary ---
Author Organization [employer] Address 75 [facility] 7t [place] [address] Care Team Providers Care Bag Liner Name Role Phone Yvonne Kee MD Primary Care Provider [phone] Encounter Details Date Type Department Care Team (Latest Contact Info) Description 06/08/2024 Travel Social History Tobacco Use Types Packs/Day Years [...] Description 07/06/2024 9:30 AM EDT Procedure Visit [facility] [address] [place] [address] Amrita Kebede CNM [address] [place] [address] documented as of this encounter Visit Diagnoses Not on filedocumented in this encounter Additional Health Concerns Assessment Noted Time PHQ-9 Depression Total Score: 0 08/09/19 24 2:42 PM EDT documented as of this encounter Care Teams Bag Liner Relationship Specialty Start Date End Date Yvonne Kee MD [address] [place] [address] PCP - General Family Medicine 03/12/22 documented as of this encounter
--- OUTSIDE RECORDS SUMMARY | 2024-06-15 17:02 | XMS_ITS | Encounter Summary ---
Author Organization [employer] Address 75 [facility] 7t [place] [address] Care Team Providers Care Pharmacy Operations Coordinator Name Role Phone Yvonne Kee MD Primary Care Provider [phone] Encounter Details Date Type Department Care Team (Late st Contact Info) Description 04/19/2022 Orders Only [facility] [address] [place], [place] [phone] Yvonne Kee MD [address] [place] [address] [phone] Social History Tobacco Use Types Packs/Day Years [...] was confirmed or suspected to have Coronavirus/COVID-19? No / Unsure 04/10/2022 1:24 PM EST documented as of this encounter Plan of Treatment Upcoming Encounters Date Type Department Care Team (Late Contact Info) Description 07/06/2024 9:30 AM EDT Procedure Visit [facility]INE [address] [place] [address] Amrita Kebede CNM [address] [place], [place] [phone] documented as of this encounter Visit Diagnoses Not on filedocumented in this encounter Care Teams Pharmacy Operations Coordinator Relationship Specialty Start Date End Date Yvonne Kee MD [address] [place] [address] PCP - General Family Medicine 03/12/22 documented as of this encounter
--- OUTSIDE RECORDS SUMMARY | 2024-06-15 17:02 | XMS_ITS | Encounter Summary ---
Author Organization [employer] Address [address] [facility] 7t [place] [address] Care Team Providers Care Tape Recorder Mechanic Name Role Phone Yvonne Kee MD Primary Care Provider [phone] Reason for Visit * Reason Comments Pre-visit Planning (Unable to reach for PVP screening, LVM) Encounter Details Date Type Department Care Team ([facility] Contact Info) Description 06/03/2024 Patient Outreach [facility] [address] [place] [address] Yvonne Kee MD [address] [place] [address] Pre-visit Planning ((Unable to reach for PVP screening, LVM)) Social History Tobacco Use Types Packs/Day Years [...] AM EDT documented as of this encounter Progress Notes * Tracey Saleem - 06/03/2024 9:07 AM EST CC Tracey. Placed outbound call to patient to complete pre-visit planning. No answer at this time. Patient name and were not confirmed. CC left voicemail requesting return call. Direct contact information provided. documented in this encounter Plan of Treatment Upcoming Encounters Date Type Department Care Team (Late st Contact Info) Description 07/06/2024 9:30 AM EDT Procedure Visit [facility] [address] [place] [address] Amrita Kebede CNM [address] [place] [address] documented as of this encounter Visit Diagnoses Not on filedocumented in this encounter Additional Health Concerns Assessment Noted Time PHQ-9 Depression Total Score: 0 08/09/19 24 2:42 PM EDT documented as of this encounter Care Teams Tape Recorder Mechanic Relationship Specialty Start Date End Date Yvonne Kee MD [address] [place] [address] PCP - General Family Medicine 03/12/22 documented as of this encounter
--- OUTSIDE RECORDS SUMMARY | 2024-06-15 17:02 | XMS_ITS | Encounter Summary ---
Author Organization [employer] [facility] Address [address] [facility] 7t [place] [address] Care Team Providers Care Gold Wheel Blocker And Polisher Name Role Phone Yvonne Kee MD Primary Care Provider [phone] Encounter Details Date Type Department Care Team (Late Contact Info) Description 11/22/2022 Telephone [facility] MEDICINE [address] [place] [address] Yvonne Kee MD [address] [place] [address] Social History Tobacco Use Types Packs/Day Years [...] Description 07/06/2024 9:30 AM EDT Procedure Visit [facility] [address] [place] [address] Amrita Kebede CNM [address] [place] [address] documented as of this encounter Visit Diagnoses Not on filedocumented in this encounter Care Teams Gold Wheel Blocker And Polisher Relationship Specialty Start Date End Date Yvonne Kee MD [address] [facility] [address] PCP - General Family Medicine 03/12/22 documented as of this encounter
--- OUTSIDE RECORDS SUMMARY | 2024-06-15 17:02 | XMS_ITS | Encounter Summary ---
Author Organization [employer] Address [address] [facility] 7t [place] [address] Care Team Providers Care Nutrition Professor Name Role Phone Yvonne Kee MD Primary Care Provider [phone] Encounter Details Date Type Department Care Team (Latest Contact Info) Description 06/15/2024 Travel Social History Tobacco Use Types Packs/Day [...] Description 07/06/2024 9:30 AM EDT Procedure Visit [facility]INE [address] [place] [address] Amrita Kebdee CNM [address] [place] [address] documented as of this encounter Visit Diagnoses Not on filedocumented in this encounter Additional Health Concerns Assessment Noted Time PHQ-9 Depression Total Score: 0 08/09/19 24 2:42 PM EDT documented as of this encounter Care Teams Nutrition Professor Relationship Specialty Start Date End Date Yvonne Kee MD [address] [place] [address] PCP - General Family Medicine 03/12/22 documented as of this encounter
--- OUTSIDE RECORDS SUMMARY | 2024-06-15 17:02 | XMS_ITS | Encounter Summary ---
Author Organization [employer] Address [address] [facility] 7t [place] [address] Care Team Providers Care Explosive Ordnance Manager Name Role Phone Yvonne Kee MD Primary Care Provider [phone] Reason for Visit * Reason Comments Med Refill Encounter Details Date Type Department Care Team ([facility] st Contact Info) Description 06/20/2023 Refill [facility] MEDICINE [address] [place], [place] [phone] Yvonne Kee MD [address] [place], [place] [phone] 34 weeks gestation of Social History Tobacco Use Types Packs/Day Years Used Date Smoking Tobacco: Never Passive Smoke Exposure: Never Smokeless Tobacco: Never Alcohol Use Standard Drinks/Week Comments Never 0 (1 standard drink = 0.6 oz pur e alcohol) Housing Stability Answer Date Recorded What is your housing situation today? I have [facility] 01/28/[address] you li ve. Do you have problems with any of the following? None of the above 01/28/2023 Food Insecurity Answer Date Recorded Within the past 12 months, y ou worried that your food would run out before you got money to buy more: Never True 01/28/2023 Within the past 12 months,th e food you bought just didn't last and you didn't have enough money to get more: Never True Transportation Answer Date Recorded In the past 12 months, has l ack of transportation kept you from medical appts, meetings, work or from getting things needed for daily living? No 01/28/2023 Utilities Answer Date Recorded In the past 12 months, has t he electric, gas, oil or water company threatened to shut off services in your home? No 01/28/2023 Depression Answer Date Recorded Patient Health Questionnaire-2 Score 0 04/10/2022 Comments Unknown Sex and Gender Information Value Date Recorded Sex Assigned at Female 02/12/2022 10:14 AM EDT Legal Sex Female 10:14 AM EDT Gender Identity Female 02/12/2022 10:14 AM EDT Sexual Orientation Straight 02/12/2022 10 :14 AM EDT documented as of this encounter Plan of Treatment Upcoming Encounters Date Type Department Care Team (Late st Contact Info) Description 07/06/2024 9:30 AM EDT Procedure Visit [facility] MED[facility]INE [address] [place], [place] [phone] Amrita Kebede CNM [address] [place] [address] documented as of this encounter Visit Diagnoses Diagnosis 34 weeks gestation of documented in this encounter Care Teams Explosive Ordnance Manager Relationship Specialty Start Date End Date Yvonne Kee MD [address] [place], [place] [phone] PCP - General Family Medicine 03/12/22 documented as of this encounter
--- OUTSIDE RECORDS SUMMARY | 2024-06-15 17:02 | XMS_ITS | Clinical Summary ---
Author Organization [facility] Address [address] [place] [address] Care Team Providers Care Tape Recorder Repairer Name Role Phone Unavailable Primary Care Provider Unavailabl e Social History Tobacco Use Types Packs/Day Years Used Date Smoking Tobacco: Never Assessed Comments Unknown Sex and Gender Information Value Date Recorded Sex Assigned at Not on file Legal Sex Female 3:50 AM EST Gender Identity Not on file Sexual Orientation Not on file Plan of Treatment Health Maintenance Due Date Last Done Comments DTaP,Tdap,and Td Vaccines (1 - Tdap) 07/20/2015 Hepatitis B Vaccines (1 of 3 - 19+ 3-dose series) 07/20/2015 Cervical Cancer Screening: P ap Smear 2017 COVID-19 Vaccine ( - 2023-2 5 season) 2023 Influenza Vaccine (#1) 2023 HIB Vaccines Aged Out No longer eligi ble based on patient's age to complete this topic HPV Vaccines Aged Out No longer eligi ble based on patient's age to complete this topic Hepatitis A Vaccines Aged Out No long er eligible based on patient's age to complete this topic IPV Vaccines Aged Out No longer eligi ble based on patient's age to complete this topic MMR Vaccines Aged Out No longer eligi ble based on patient's age to complete this topic Meningococcal ACWY Vaccine Aged Out N o longer eligible based on patient's age to complete this topic Meningococcal B Vacine Aged Out No lo nger eligible based on patient's age to complete this topic Pneumococcal Vaccine: Pediat rics (0 to 5 Years) and At-Risk Patients (6 to 64 Years) Aged Out No longer eligible b ased on patient's age to complete this topic RSV Immunization Patients Un radha 20 months Aged Out No longer eligible b ased on patient's age to complete this topic Varicella Vaccines Aged Out No longer eligible based on patient's age to complete this topic
--- OUTSIDE RECORDS SUMMARY | 2024-06-15 17:02 | XMS_ITS | Encounter Summary ---
Author Organization [employer] Address 75 [facility] 7t [place] [address] Care Team Providers Care Cnc Maintenance Mechanic Name Role Phone Yvonne Kee MD Primary Care Provider [phone] Encounter Details Date Type Department Care Team (Late st Contact Info) Description 10/17/2022 Orders Only [facility] MEDICINE [address] [place] [address] [phone] Cherie Gonzalez MD [address] [place] [address] [phone] Social History Tobacco Use Types Packs/Day Years [...] suspected to have Coronavirus/COVID-19? No / Unsure 10/15/2022 1:29 PM EDT documented as of this encounter Plan of Treatment Upcoming Encounters Date Type Department Care Team (Late Contact Info) Description 07/06/2024 9:30 AM EDT Procedure Visit [facility] MED[facility]INE [address] [place] [phone] Amrita Kebede CNM [address] [place], [place] [phone] documented as of this encounter Visit Diagnoses Not on filedocumented in this encounter Care Teams Cnc Maintenance Mechanic Relationship Specialty Start Date End Date Yvonne Kee MD [address] [place] [address] PCP - General Family Medicine 03/12/22 documented as of this encounter
--- OUTSIDE RECORDS SUMMARY | 2024-06-15 17:02 | XMS_ITS | Encounter Summary ---
Author Organization [employer] Address [address] [facility] [address] [place] [address] Care Team Providers Care Hand Glove Cleaner Name Role Phone Yvonne Kee MD Primary Care Provider [phone] Reason for Visit * Reason Comments Annual Exam Encounter Details Date Type Department Care Team ([facility] st Contact Info) Description 06/15/2024 1:30 PM EST Office Visit [facility] [address] [place] [address] Yvonne Kee MD [address] [place] [address] Elevated blood pressure reading (Primary Dx); Screening examination for STI Social History Tobacco Use Types Packs/Day Years [...] AM EDT documented as of this encounter Last Filed Vital Signs Vital Sign Reading Time Taken Comments Blood Pressure 150/94 06/15/2024 1:26 PM EST Pulse 98 06/15/2024 1:26 PM EST Temperature 36.2 ??C (97.1 ??F) 06/15/2024 1:26 PM ES T Respiratory Rate 18 06/15/2024 1:26 PM EST Oxygen Saturation 100% 06/15/2024 1:26 PM EST Inhaled Oxygen Concentration - - Weight 73 kg (161 lb) 06/15/2024 1:26 PM EST Height 162.6 cm (5' 4 ) 06/15/2024 1:26 PM EST Body Mass Index 27.64 06/15/2024 1:26 PM EST documented in this encounter Plan of Treatment Upcoming Encounters Date Type Department Care Team (Late st Contact Info) Description 07/06/2024 9:30 AM EDT Procedure Visit [facility] [address] [place] [address] Amrita Kebede CNM [address] [place] [address] Scheduled Orders Name Type Priority Associated Diagnoses Orde r Schedule Hemoglobin A1c Lab Routine Elevated blood pressure reading Expected: 06/15/2024 (Approximate), Expires: 06/15/2025 Chlamydia/N. Gonorrhoeae RNA, TMA, Urogenitial Microbiology Routine Screening examination for STI Expected: 06/15/2024 (Approximate), Expires: 06/15/2025 RPR (Monitor) with Reflex to??Titer Lab Routine Screening examination for STI Expected: 06/15/2024, Expires: 06/15/2025 HIV-1/2 Antigen and Antibodies, Fourth Generation, with Reflexes Lab Routine Screening examination for STI Expected: 06/15/2024 (Approximate), Expires: 06/15/2025 Hepatitis C Antibody with Reflex to HCV, RNA, Quantitative, Real-Time PCR Lab Routine Screening examination for STI Expected: 06/15/2024, Expires: 06/15/2025 documented as of this encounter Procedures Procedure Name Priority Date/Time Associated Diagnosis Comments TSH W/REFLEX TO FT4 Routine 06/15/2024 2 :15 PM EST Elevated blood pressure reading CBC WITH AUTO DIFFERENTIAL Routine 06/15/2024 2:15 PM EST Elevated blood pressure reading LIPID PANEL, STANDARD Routine 06/15/2024 2:15 PM EST Elevated blood pressure reading COMPREHENSIVE METABOLIC PANEL Routine 06/15/2024 2:15 PM EST Elevated blood pressure reading documented in this encounter Results * (ABNORMAL) CBC auto differential (06/15/2024 2:15 PM EST) White Blood Count 14.9(H) 4.8 - 10.8 X10*3/uL [facility] Red Blood Count 5.03 4.20 - 5.50 X10*6/uL [facility] Hemoglobin 14.2 12.0 - 16.0 g/dl [facility] Hematocrit 43.4 37.0 - 47.0 % [facility] Mean Corpuscular Volume 86.3 80.0 - 98.0 fL [facility] Mean Corpuscular Hemoglobin 28.2 27.0 - 33.0 pg [facility] Mean Corpuscular HGB Conc 32.7 31.0 - 35.0 g/dl [facility] Red Cell Distribution Width 13.9 11.0 - 16.0 % [facility] Platelet Count 412(H) 160 - 400 X10*3/uL [facility] Mean Platelet Volume 10.6 9.4 - 12.3 fL [facility] Neutrophils Percent Auto 66.1 45 - 73 % [facility] Imm Gran Pct Auto 0.5(H) 0.0 - 0.4 % [facility] Lymphocytes Percent Auto 22.0 20 - 40 % [facility] Monocytes Percent Auto 4.1 2 - 11 % [facility] Eosinophils Percent Auto 6.8(H) 0 - 4 % [facility] Basophils Percent Auto 0.5 0 - 2 % [facility] NRBC Pct Auto 0.0 0.0 - 0.2 /100WBC [facility] Neutrophils Absolute Auto 9.8(H) 2.0 - 8.3 x10*3/uL [facility] Imm Gran Abs Auto 0.07(H) 0.00 - 0.03 X10*3/uL [facility] Lymphocytes Absolute Auto 3.3 1.2 - 4.9 X10*3/uL [facility] Monocytes Absolute Auto 0.6 0.1 - 1.2 X10*3/uL [facility] Eosinophils Absolute Auto 1.0(H) 0.0 - 0.4 X10*3/uL [facility] Basophils Absolute Auto 0.1 0.0 - 0.2 X10*3/uL [facility] NRBC Abs Auto 0.000 0.0 - 0.012 X10*3/uL [facility] Blood Venous blood specimen / Unknown 06/15/2024 2:15 PM EST 06/15/2024 4:15 PM EST us Yvonne Kee MD LAB BLOOD ORDERABLES Final Res ult [facility] [address] [place] [phone] * TSH W/Reflex to FT4 (06/15/2024 2:15 PM EST) TSH reflex Free T4 0.51 0.32 - 4.0 uIU/mL [facility] Blood Venous blood specimen / Unknown 06/15/2024 2:15 PM EST 06/15/2024 4:15 PM EST us Yvonne Kee MD LAB BLOOD ORDERABLES Final Res ult Performing Organization Address [facility] de Phone Number [facility] [address] [place] [address] [phone] * (ABNORMAL) Lipid Panel, Standard (06/15/2024 2:15 PM EST) Triglycerides 215(H) <150 mg/dL [facility] Comment:Desirable Triglyceri de: less than 150 mg/dLBorderline High Triglyceride 150-199 mg/dLHigh Triglyceride: 200-499 mg/dLVery High Triglyceride: greater than or equal to 5OO mg/dL Cholesterol 263(H) <200 mg/dL [facility] Comment:Desirable Cholestero l: less than 200 mg/dLBorderline High Cholesterol: 200-239 mg/dLHigh Cholesterol: greater than 239 mg/dL LDL Cholesterol Calculated 155(H) <100 mg/dL [facility] Comment:Desirable LDL: less than 100 mg/dLNear Optimal/Above Optimal LDL: 110- 129 mg/dLBorderline High LDL: 130-159 mg/dLHigh LDL: 160-189 mg/dLVery High LDL: greater than or equal to 190 mg/dL HDL Cholesterol 65 >40 mg/dL [facility] Comment:Desirable HDL: great er than 40 mg/dL Note: This HDL assay may give artificially low results in patients with liver disease. Blood Venous blood specimen / Unknown 06/15/2024 2:15 PM EST 06/15/2024 4:15 PM EST us Yvonne Kee MD LAB BLOOD ORDERABLES Final Res ult Performing Organization Address [facility]/ZIP Co de Phone Number [facility] [address] [place] [address] [phone] * (ABNORMAL) Comprehensive Metabolic Panel (06/15/2024 2:15 PM EST) Sodium 142 135 - 145 mmol/L [facility] Potassium 3.3 3.3 - 5.1 mmol/L [facility] Chloride 104 96 - 108 mmol/L [facility] Carbon Dioxide 27 22 - 29 mmol/L [facility] Anion Gap 14 12 - 20 [facility] Urea Nitrogen (BUN) 12 9 - 16 mg/dL [facility] Creatinine, Serum 0.80 0.5 - 1.4 mg/dL [facility] Estimated Glomerular Filt Rate >60 [facility] Comment:Chronic Kidney Disea se: Estimated GFR < 60 mL/min/[id number] Kidney Disease: Estimated GFR < 15 mL/min/1.73m2 Glucose 124(H) 60 - 115 mg/dL [facility] Calcium 9.4 8.4 - 10.2 mg/dL [facility] Bilirubin, Total 0.5 0.0 - 1.0 mg/dL [facility] Aspartate Amino Transferase 27 5 - 31 U/L [facility] Alanine Aminotransferase 29 0 - 31 U/L [facility] Total Protein 8.5(H) 6.5 - 8.0 g/dL [facility] Albumin Level 4.3 3.5 - 5.0 g/dL [facility] Alkaline Phosphatase 116 39 - 117 U/L [facility] Blood Venous blood specimen / Unknown 06/15/2024 2:15 PM EST 06/15/2024 4:15 PM EST us Yvonne Kee MD LAB BLOOD ORDERABLES Final Res ult [facility] [address] [place], [place] [phone] documented in this encounter Visit Diagnoses Diagnosis Elevated blood pressure reading- Primary Elevated blood pressure reading without diagnosis of hypertension Screening examination for STI documented in this encounter Additional Health Concerns Assessment Noted Time PHQ-9 Depression Total Score: 0 08/09/19 24 2:42 PM EDT documented as of this encounter Care Teams Hand Glove Cleaner Relationship Specialty Start Date End Date Yvonne Kee MD [address] [place] [address] PCP - General Family Medicine 03/12/22 documented as of this encounter
--- OUTSIDE RECORDS SUMMARY | 2024-06-15 17:02 | XMS_ITS | Encounter Summary ---
Author Organization [facility] [facility] Address [address] [facility] [address] [place] [address] Care Team Providers Care Folder Seamer Automatic Name Role Phone Yvonne Kee MD Primary Care Provider [phone] Reason for Visit * Reason Comments Med Refill Encounter Details Date Type Department Care Team (Late Contact Info) Description 06/22/2022 Refill [facility] [address] [place], [place] [phone] Yvonne Kee MD [address] [place] [address] [phone] Severe persistent asthma, uncomplicated Social History Tobacco Use Types Packs/Day Years [...] Description 07/06/2024 9:30 AM EDT Procedure Visit [facility] [address] [place], [place] [phone] Amrita Kebede CNM [address] [place], [place] [phone] documented as of this encounter Visit Diagnoses Diagnosis Severe persistent asthma, uncomplicated documented in this encounter Care Teams Folder Seamer Automatic Relationship Specialty Start Date End Date Yvonne Kee MD [address] [place] [address] PCP - General Family Medicine 03/12/22 documented as of this encounter
[2024-06-16 08:14] LABS: HIV AB/AG Nonreactive (Nonreactive); HIV Num 1 0.05 S/CO (0.00-0.99); ~HepC Num1 0.14 S/CO (0.00-0.79); ~Hepatitis C Antibody Nonreactive (Nonreactive)
[2024-06-16 11:38] LABS: RPR Rapid Plasma Reagin NON-REACTIVE (NON-REACTIVE)
[2024-06-16 13:13] LABS: CT PCR NOT DETECTED (Not Detect.); NG PCR NOT DETECTED (Not Detect.)
== END 2024-06-15 14:12 | disposition home or self-care (01) ==
LOC: HO.HHCL 14:11
PROVIDERS: Visit Provider General Practice
DX: R03.0 Elevated blood-pressure reading, without diagnosis of hypertension (principal); R73.9 Hyperglycemia, unspecified; Z11.3 Encounter for screening for infections with a predominantly sexual mode of transmission
CPT/HCPCS: 80053; 80061; 83036; 84443; 85025; 86592; 86803; 87389; 87491; 87591

== ENCOUNTER 2024-07-06 | Outpatient (REF) | payer MEDICAID, SELFPAY ==
[2024-07-09 15:09] LABS: HPV Genotype 16 Negative (Negative); HPV Genotype 18 Negative (Negative); HPV High Risk Negative (Negative)
--- OUTSIDE RECORDS SUMMARY | 2024-10-08 14:34 | XMS_ITS | Encounter Summary ---
Author Organization [employer] Address [address] [place] [address] Care Team Providers Care High School Business Teacher Name Role Phone Yvonne Kee MD Primary Care Provider [phone] Celina Bettencourt RN Unavailable [phone] Harper Zhang Unavailable Encounter Details Date Type Department Care Team ([facility] st Contact Info) Description 12/17/2023 Orders Only [facility] [address] [place] [address] Yvonne Kee MD [address] [place] [address] Social History Tobacco Use Types Packs/Day Years [...] Care Team (Late st Contact Info) Description 12/17/2024 1:00 PM EDT Office Visit [facility] [address] [place] [address] Lindsey Ram 12/21/2024 3:30 PM EDT Clinical Support [facility] [address] [place] [address] documented as of this encounter Visit Diagnoses Not on filedocumented in this encounter Additional Health Concerns Assessment Noted Time PHQ-9 Depression Total Score: 0 08/09/19 24 2:42 PM EDT documented as of this encounter Care Teams High School Business Teacher Relationship Specialty Start Date End Date Yvonne Kee MD [address] [place] [address] PCP - General Family Medicine 03/12/22 Celina Bettencourt, ALISHA [address] [place] [address] Registered Nurse Family Medicine 09/11/24 Harper Zhang 09/11/24 documented as of this encounter
== END 2024-07-06 00:01 | disposition home or self-care (01) ==
LOC: HO.LNP
PROVIDERS: Visit Provider Advanced Practice Midwife
DX: R87.612 Low grade squamous intraepithelial lesion on cytologic smear of cervix (LGSIL) (principal)
CPT/HCPCS: 87626; 88175

== ENCOUNTER 2024-07-24 17:47 | Outpatient (REF) | payer MEDICAID, SELFPAY ==
[2024-07-25 10:54] LABS: Bacterial Vaginosis PCR NEGATIVE (Negative); Candida Group PCR DETECTED (Not Detect); Candida glab krusei PCR DETECTED (Not Detect); Trichomonas vaginalis PCR NOT DETECTED (Not Detect)
[2024-07-25 11:26] LABS: CT PCR NOT DETECTED (Not Detect.); NG PCR NOT DETECTED (Not Detect.)
== END 2024-07-24 17:48 | disposition home or self-care (01) ==
LOC: HO.HHCLNP 17:47
PROVIDERS: Visit Provider Nurse Practitioner Family
DX: N89.8 Other specified noninflammatory disorders of vagina (principal)
CPT/HCPCS: 81515; 87491; 87591

== ENCOUNTER 2024-09-10 19:41 | Emergency (ER) | payer MEDICAID, SELFPAY ==
--- NOTE | ~2024-09-10 | XR_ITS ---
CLINICAL HISTORY: asthma, SOB, cough 2 view chest x-ray Comparison: Chest x-ray from 09/30/2022 Findings: No consolidation, pneumothorax, or pleural effusion. Imaged mediastinum is unchanged. No acute fracture, by chest radiographs. IMPRESSION: No consolidation. This document has been electronically signed by: Mikael Bermeo MD on 09/10/2024 20:18:52
[2024-09-10 19:42] VITALS: BP 132/83; PULSE 106; RESP 20; TEMP 36.2; O2SAT 98; BMI 27.5
--- NOTE | 2024-09-10 19:42 | ED_ITS ---
HPI - Asthma General Chief Complaint: Asthma Stated Complaint: diff breathing, wheezy Time Seen by Provider: 09/10/24 20:17 Source: patient Mode of arrival: ambulatory Limitations: no limitations History of Present Illness ED Provider: tushar rivers np HPI Narrative: Patient is a 21-year-old female who presents emergency department for evaluation. She reports over the past 4-5 days she has been experiencing nonproductive cough and shortness of breath. Feels consistent with asthma exacerbation, she states that this is often triggered by environmental allergies. She presented to an urgent care today, she was given a prescription for an albuterol inhaler, prednisone and ?a cough medicine?. Does not recall the name of these medications. Unfortunately, the prescriptions were sent to [facility] and by the time she presented to the pharmacy the pharmacy had closed. She felt as though she was not receiving full relief from her albuterol inhaler which prompted her coming to emergency department tonight. She believes that she has a nebulizer machine at home, but does not know where it is and has not used it in a very long time. She has a burning sensation in her chest when she is coughing. She denies any dyspnea on exertion or orthopnea. Denies trauma, fevers, chills, sore throat, difficulty swallowing, neck pain, chest pain, palpitations, nausea, vomiting, abdominal pain, numbness or tingling of the extremities, recent lower extremity pain or swelling. Denies alcohol use, recreational drugs, or smoking tobacco. Related Data Home Medications ?Medication ?Instructions ?Recorded ?Confirmed montelukast 10 mg tablet 10 mg PO BEDTIME 06/06/20 08/28/21 (Singulair) nebulizer and compressor 06/06/20 06/06/20 omeprazole 20 mg capsule,delayed 20 mg PO DAILY 06/06/20 08/28/21 release tiotropium bromide 2.5 2 puff PO DAILY 06/06/20 08/28/21 mcg/actuation mist for inhalation (Spiriva Respimat) diphenhydramine HCl 25 mg capsule 25 mg PO BEDTIME PRN Allergy 08/28/21 08/28/21 (Benadryl) Symptoms Previous Rx's ?Medication ?Instructions ?Recorded budesonide-formoterol HFA 160 2 puff inhalation BID 30 days 10/17/21 mcg-4.5 mcg/actuation aerosol #10.2 grams inhaler (Symbicort) budesonide 0.5 mg/2 mL suspension 0.5 mg (2 mL) inhalation BID 30 11/07/21 for nebulization days #120 mL levalbuterol tartrate 45 2 puff inhalation Q6H PRN 10/25/22 mcg/actuation aerosol inhaler shortness of breath or wheezing 30 (Xopenex HFA) days #15 grams tezepelumab-ekko 210 mg/1.91 mL 210 mg (1.91 mL) subcut Q4W 4 11/12/22 (110 mg/mL) subcutaneous syringe weeks #1.91 mL (Tezspire) albuterol sulfate 2.5 mg/3 mL 2.5 mg (3 mL) inhalation Q6H PRN 01/25/23 (0.083 %) solution for nebulization shortness of breath or wheezing #180 mL albuterol sulfate 90 mcg/actuation 2 puff inhalation Q4-6H PRN 01/25/23 aerosol inhaler shortness of breath or wheezing #6.7 grams ondansetron 4 mg disintegrating 4 mg PO Q6-8H PRN nausea and 03/11/23 tablet vomiting #20 tabs prednisone 5 mg tablet 10 mg (2 x 5 mg) PO DAILY #60 tabs 09/21/23 prednisone 10 mg tablet See Rx Instructions PO DAILY 12 10/31/23 days #24 tabs roflumilast 250 mcg tablet 250 mcg PO DAILY 30 days #30 tabs 10/31/23 (Daliresp) dupilumab 300 mg/2 mL subcutaneous See Rx Instructions subcut Q2W 4 11/12/23 pen injector (Dupixent) weeks #4 mL ondansetron 4 mg disintegrating 4 mg PO Q8H PRN nausea and 03/30/24 tablet vomiting #20 tabs Allergies Allergy/AdvReac Type Severity Reaction Status Date / Time peach [PEACH] Allergy Severe RASH Verified 09/10/24 19:45 perfume [PERFUME] Allergy Severe ASTHMA Verified 09/10/24 19:45 ATTACK dog dander [DOG DANDER] Allergy Unknown ITCHY, Verified 09/10/24 19:45 HIVES mite-Dermatophagoides Allergy Unknown ASTHMA, Verified 09/10/24 19:45 farinae, wendy ITCHY [DUST MITES] THROAT kiwi Allergy Swelling Verified 09/10/24 19:45 strawberry Allergy Itching Verified 09/10/24 19:45 Review of Systems 2 Review of Systems: Yes all other systems are reviewed and are negative [facility] Past Medical History Attestation statement: The following information was validated with the patient. Source: old records reviewed Medical History Eosinophilia Anti-cardiolipin antibody positive History of miscarriage Hx of polyarthritis Severe persistent allergic asthma Anxiety Sleep difficulties Allergic rhinitis Family History Family History Maternal Aunt DVT (deep venous thrombosis) Father CHF (congestive heart failure) Diabetes Mother HTN (hypertension) Asthma Social History Social History Alcohol intake: never Patient Tobacco Use Status: Never used Tobacco Use of substances other than those prescribed or required for medical reasons: No Substance Use Type: Marijuana Advance Directives: No Advance Directives Information Provided: Yes Current occupational status: employed 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 No acute distress.?Normal affect. Eyes: Pupils equal, round and reactive to light.? ENT: Pharynx normal.?? Neck: Normal inspection.? Neck supple.?? CVS: Heart sounds normal. Normal heart rate and rhythm.? Pulses normal.?? Respiratory: No respiratory distress.? Lung sounds with mild inspiratory and expiratory wheezing. No tachypnea. No hypoxia. Abdomen: Soft and non-tender. Normoactive bowel sounds. Skin: Skin warm and dry.? Normal skin color.? Extremities: No lower extremity edema.? No calf ttp? Neuro: Moves all extremities spontaneously. Sensation intact bilaterally. No focal neuro deficits. Ambulates with normal steady gait. Course Course Course Narrative: This is an RME: Additional HPI, ROS, PE not included below will be deferred to primary provider. RME assessment and note performed by: Fanny Ventura PA-C 29 yo female with PMHx of asthma presents to the ED due to cough. She states she started feeling unwell with general malaise on Wednesday 09/06, and reports cough started last night thinking it was triggered by pollen. Reports she took Tylenol cough and cold, took 20mg of prednisone and used albuterol inhaler without effect. Went to today and could not picking tech her prescriptions and was out of her inhaler prompting her to seek care in the ED. PE: active productive cough in triage Plan: Labs, Chest XR Reevaluation(s) Reevaluation #1: Patient received the prednisone while in the emergency department. When respiratory therapy arrived to the bedside to provide her with a nebulizer treatment she decided to walk out of the emergency department at that time prior to receiving the treatment. Again she was not previously in respiratory distress had mild inspiratory and expiratory wheezing. Prescriptions have previously been sent to the pharmacy by urgent care as per HPI. Anticipated otherwise that she would be discharge, was not able to re-evaluate sounds prior to discharge however she ambulated out of the department with steady gait per nursing staff Medications Administered Discontinued Medications Generic Name Dose Route Start Last Admin Trade Name Freq PRN Reason Stop Dose Admin Prednisone 40 mg 09/10/24 21:51 09/10/24 22:04 Prednisone 20 Mg Tablet PO 09/10/24 21:52 40 mg ONCE ONE Administration Medical Decision Making Medical Decision Making [facility] Narrative: Patient is a 29-year-old female with past medical history of asthma, allergic rhinitis, polyarthritis who presents emergency department with concern for asthma exacerbation/bronchitis. She was seen at urgent care today and provided with prescriptions as per HPI but unfortunately pharmacy was closed by the time she arrived there. She states that despite using albuterol inhaler at home she has not had sufficient relief. Initially upon my evaluation she was requesting to go home as she felt that she has been waiting here for too long already and i'm tired?. She does have mild inspiratory and expiratory wheezing on evaluation, she arrived mildly tachycardic but did just use her albuterol inhaler prior to which I suspect is etiology for her tachycardia. She is in no respiratory distress, no tachypnea, no hypoxia. She is speaking clear full sentences. She is requesting treatment here in the emergency department, patient received albuterol nebulizer will provide her with a dose of prednisone as she only took 5 mg this morning for her polyarthritis. She has no clinical evidence of DVT to suggest pulmonary embolism. Chest x-ray was obtained and there is no consolidation infiltrate to suggest pneumonia. Feel that she will otherwise be stable for discharge home, outpatient follow-up with PCP and picking tech her prescriptions in the morning. We discussed strict return precautions. Differential Diagnosis Differential Diagnoses: The differential diagnosis associated with the presentation includes (See narrative above) Admission/Observation Consideration of admission/observation: Escalation of care including admission/observation considered Lab Data MDM Lab Attestation statement: I reviewed the patient's lab results. 09/10/24 20:30 09/10/24 20:30 Labs: Lab Results 09/10/24 Range/Units 20:30 WBC 19.2 H (4.8-10.8) X10*3/uL RBC 4.60 (4.20-5.50) X10*6/uL Hgb 13.4 (12.0-16.0) g/dl Hct 39.8 (37.0-47.0) % MCV 86.5 (80.0-98.0) fL MCH 29.1 (27.0-33.0) pg MCHC 33.7 (31.0-35.0) g/dl RDW 13.2 (11.0-16.0) % Plt Count 384 (160-400) X10*3/uL MPV 9.3 L (9.4-12.3) fL Immature Gran % (Auto) 0.7 H (0.0-0.4) % Neut % (Auto) 77.4 H (45-73) % Lymph % (Auto) 14.4 L (20-40) % [place] % (Auto) 3.8 (2-11) % Eos % (Auto) 3.3 (0-4) % Baso % (Auto) 0.4 (0-2) % Lymph # (Auto) 2.8 (1.2-4.9) X10*3/uL [place] # (Auto) 0.7 (0.1-1.2) X10*3/uL Eos # (Auto) 0.6 H (0.0-0.4) X10*3/uL Baso # (Auto) 0.1 (0.0-0.2) X10*3/uL Abs Immat Gran (auto) 0.14 H (0.00-0.03) X10*3/uL Absolute Neuts (auto) 14.9 H (2.0-8.3) x10*3/uL Absolute Nucleated RBC 0.000 (0.0-0.012) X10*3/uL Nucleated RBC % (auto) 0.0 (0.0-0.2) /100WBC Sodium 143 (135-145) mmol/L Potassium 3.6 (3.3-5.1) mmol/L Chloride 106 (96-108) mmol/L Carbon Dioxide 26 (22-29) mmol/L Anion Gap 15 (12-20) BUN 13 (9-16) mg/dL Creatinine 0.77 (0.5-1.4) mg/dL Estim Creat Clear Calc 106.2 Estimated GFR > 60 Random Glucose 119 H (60-115) mg/dL Calcium 9.1 (8.4-10.2) mg/dL Total Bilirubin 0.2 (0.0-1.0) mg/dL AST 21 (5-31) U/L ALT 15 (0-31) U/L Alkaline Phosphatase 110 (39-117) U/L Total Protein 7.6 (6.5-8.0) g/dL Albumin 4.2 (3.5-5.0) g/dL Independent Interpretation I performed an independent interpretation of an: Plain X-Ray (No consolidation or infiltrate to suggest pneumonia) Radiology Impression Discussion of test interpretation with radiology: I have reviewed the radiologist's reading. Radiologist Impression: 2 view chest x-ray Comparison: Chest x-ray from 09/30/2022 Findings: No consolidation, pneumothorax, or pleural effusion. Imaged mediastinum is unchanged. No acute fracture, by chest radiographs. IMPRESSION: No consolidation. External Record Review External record reviewed: Outpatient record Prescription Management I considered prescription management with: Other (See narrative above) Chronic Conditions Patient?s care impacted by: Other (See narrative above) Discharge Plan Discharge Clinical Impression: Asthmatic bronchitis Patient Disposition: Home, Self-Care Prescriptions: No Action Tezspire 210 mg/1.91 mL (110 mg/mL) syringe 210 mg subcut Q4W 28 Days Qty: 1.91 11RF prednisone 5 mg tablet 10 mg PO DAILY Qty: 60 1RF Dupixent Pen 300 mg/2 mL pen injector See Rx Instructions subcut Q2W 28 Days Qty: 4 11RF Rx Instructions: loading dose: 600mg SC x 1, then 300mg SC every 2 weeks omeprazole 20 mg Capsule,Delayed Release(Dr/Ec) 20 mg PO DAILY montelukast [Singulair] 10 mg Tablet 10 mg PO BEDTIME (DME) nebulizer and compressor Device MISCELLANEOUS Spiriva Respimat 2.5 mcg/actuation mist 2 puff PO DAILY diphenhydramine HCl [Benadryl] 25 mg Capsule 25 mg PO BEDTIME PRN (Reason: Allergy Symptoms) ondansetron 4 mg tablet,disintegrating 4 mg PO Q6-8H PRN (Reason: nausea and vomiting) Qty: 20 0RF ondansetron 4 mg tablet,disintegrating 4 mg PO Q8H PRN (Reason: nausea and vomiting) Qty: 20 0RF budesonide 0.5 mg/2 mL suspension for nebulization 0.5 mg inhalation BID 30 Days Qty: 120 11RF budesonide-formoterol [Symbicort] 160-4.5 mcg/actuation HFA aerosol inhaler 2 puff inhalation BID 30 Days Qty: 10.2 11RF albuterol sulfate 2.5 mg /3 mL (0.083 %) solution for nebulization 2.5 mg inhalation Q6H PRN (Reason: shortness of breath or wheezing) Qty: 180 7RF albuterol sulfate 90 mcg/actuation HFA aerosol inhaler 2 puff inhalation Q4-6H PRN (Reason: shortness of breath or wheezing) Qty: 6.7 9RF levalbuterol tartrate [Xopenex HFA] 45 mcg/actuation HFA aerosol inhaler 2 puff inhalation Q6H PRN (Reason: shortness of breath or wheezing) 30 Days Qty: 15 11RF prednisone 10 mg tablet See Rx Instructions PO DAILY 12 Days Qty: 24 0RF Rx Instructions: PO daily; Take 3 tabs x 4 days, then 2 tabs daily x 4 days, then 1 tab x 4 days to complete. roflumilast [Daliresp] 250 mcg tablet 250 mcg PO DAILY 30 Days Qty: 30 11RF Referrals: Yvonne Kee MD [Primary Care Provider] - Print Language: Czech
[2024-09-10 20:34] LABS: MANUAL DIFF FLAG NO
[2024-09-10 20:39] LABS: Basophils Absolute Auto 0.1 X10*3/uL (0.0-0.2); Basophils Percent Auto 0.4 % (0-2); Eosinophils Absolute Auto 0.6 X10*3/uL (0.0-0.4); Eosinophils Percent Auto 3.3 % (0-4); Hematocrit 39.8 % (37.0-47.0); Hemoglobin 13.4 g/dl (12.0-16.0); Imm Gran Abs Auto 0.14 X10*3/uL (0.00-0.03); Imm Gran Pct Auto 0.7 % (0.0-0.4); Lymphocytes Absolute Auto 2.8 X10*3/uL (1.2-4.9); Lymphocytes Percent Auto 14.4 % (20-40); Mean Corpuscular HGB Conc 33.7 g/dl (31.0-35.0); Mean Corpuscular Hemoglobin 29.1 pg (27.0-33.0); Mean Corpuscular Volume 86.5 fL (80.0-98.0); Mean Platelet Volume 9.3 fL (9.4-12.3); Monocytes Absolute Auto 0.7 X10*3/uL (0.1-1.2); Monocytes Percent Auto 3.8 % (2-11); Neutrophils Absolute Auto 14.9 x10*3/uL (2.0-8.3); Neutrophils Percent Auto 77.4 % (45-73); Platelet Count 384 X10*3/uL (160-400); Red Cell Distribution Width 13.2 % (11.0-16.0); White Blood Count 19.2 X10*3/uL (4.8-10.8)
[2024-09-10 20:49] LABS: Alanine Aminotransferase 15 U/L (0-31); Albumin Level 4.2 g/dL (3.5-5.0); Alkaline Phosphatase 110 U/L (39-117); Anion Gap 15 (12-20); Aspartate Amino Transferase 21 U/L (5-31); Bilirubin Total 0.2 mg/dL (0.0-1.0); Blood Urea Nitrogen 13 mg/dL (9-16); Calcium 9.1 mg/dL (8.4-10.2); Carbon Dioxide 26 mmol/L (22-29); Chloride 106 mmol/L (96-108); Creatinine Clr Calc Pharmacy 106.2; Estimated Glomerular Filt Rate > 60; Glucose Random 119 mg/dL (60-115); Potassium 3.6 mmol/L (3.3-5.1); Sodium 143 mmol/L (135-145); Total Protein 7.6 g/dL (6.5-8.0)
[2024-09-10 21:30] VITALS: BP 126/88; PULSE 90; RESP 18; TEMP 36.6; O2SAT 98
[2024-09-10] MEDS: predniSONE 20 MG TABLET 40 MG PO (22:04)
--- NOTE | 2024-09-10 22:24 | PC.NURSE ---
respiratory called to come administer breathing tx to pt as ordered by provider.
[2024-09-10 22:34] VITALS: BP 126/88; PULSE 90; RESP 18; TEMP 36.6; O2SAT 98
== END 2024-09-10 22:35 | disposition home or self-care (01) ==
PROVIDERS: Emergency Provider Emergency Medicine; PCP General Practice
DX: J45.909 Unspecified asthma, uncomplicated (principal); R06.02 Shortness of breath; Z79.899 Other long term (current) drug therapy
CPT/HCPCS: 36415; 71046; 80053; 85025; 99283; 99284

== ENCOUNTER → 2024-09-10 19:47 | Outpatient (BNV) | payer MEDICAID, SELFPAY | PROVIDERS: PCP General Practice; Visit Provider Radiology Neuroradiology | DX: J45.909 Unspecified asthma, uncomplicated (principal) | CPT/HCPCS: 71046 ==

== ENCOUNTER 2024-09-25 15:15 | Outpatient (AMB) | payer MEDICAID, SELFPAY ==
--- OUTSIDE RECORDS SUMMARY | 2024-09-25 15:18 | XMS_ITS | Clinical Summary ---
Author Organization [facility] ity Address [address] [place] [address] Care Team Providers Care Log Deckman Name Role Phone Unavailable Primary Care Provider [...] - 2023-2 5 season) 2023 Influenza Vaccine (Season Ended) 2024 HIB Vaccines Aged Out No longer eligi [...] age to complete this topic Meningococcal B Vaccine Aged Out No l onger eligible based on patient's age to complete [...]
[2024-09-25 15:21] VITALS: BP 130/72; PULSE 90; O2SAT 98; BMI 27.1
--- NOTE | 2024-09-25 15:21 | A.OFFVIS_ITS ---
Vital Signs 09/25/24 15:21 Height 5 ft 4 in Weight 157 lb 10.088 oz BMI 27.1 BP 130/72 Blood Pressure Location Lt brachial Position Sitting Pulse 90 Pulse Source Pulse Oximeter Pulse Oximetry (%) 98 Oxygen Delivery Method Room Air Intake Visit Reasons: Asthma Allergies peach [PEACH] Allergy (Severe, Verified 09/25/24 15:23) RASH perfume [PERFUME] Allergy (Severe, Verified 09/25/24 15:23) ASTHMA ATTACK dog dander [DOG DANDER] Allergy (Unknown, Verified 09/25/24 15:23) ITCHY, HIVES mite-Dermatophagoides farinae, wendy [DUST MITES] Allergy (Unknown, Verified 09/25/24 15:23) ASTHMA, ITCHY THROAT kiwi Allergy (Verified 09/25/24 15:23) Swelling strawberry Allergy (Verified 09/25/24 15:23) Itching HPI Comments Details: The patient is a 29 y/o F with severe allergic asthma, chronically steroid- dependent, and on immunotherapy with Fasenra (benralizumab) at [facility] [place], with history of prior intubation in 2019, Who presented to [facility] couple months ago worsening respiratory symptoms. She was admitted with status asthmaticus. The patient was able to improved. She did follow-up with her primary care doctor found that she is . Currently she is around 6-7 weeks gestation. This is her 2nd and had 1 miscarriage. She is concerned about the medication she is taking and the health of her baby. Therefore will try to help her with a respiratory regimen that is safe for her baby and also helps her with her respiratory symptoms. This patient has been on prednisone off and on because of her uncontrolled asthma. She has been off the biologic therapy. She does use her allergy medicine. 11/07/2021 the patient is here for a pulmonary follow-up visit. Her still Going well. She continues on the Symbicort twice a day. Unfortunately she still continues on the prednisone because of worsening asthma symptoms. We had prescribed her budesonide to optimize her inhaled steroids and hopefully wean her off the prednisone. However, this has been just approved and she will pick it up at the pharmacy. Also the patient complains of a cough primarily at nighttime that starts triggering her asthma symptoms. She is having some reflux symptoms. We did talk about raising the head of the bed to try to eliminate that. Also she can try Tessalon Perles as needed for cough. She also continues on her allergy medication. Spiriva was not effective for her and therefore she is not taking any longer. 01/05/2022 the patient is here for a pulmonary follow-up visit. She still struggling with her asthma. We did add the budesonide nebs but she did not see any improvement. The only thing that helps her is prednisone. We also talked about restarting the Spiriva but, she did not feel that that helped either. She has been a prednisone now for about 5-6 years. again, talking about her regimen she does not take her medications as prescribed. She is reluctant to take medications specially because of her . I emphasized to her that she needs to take her medications in order to allow him to work and improve her symptoms and to minimize her prednisone use. Understanding that she will need to stay on a small dose prednisone since she has been on it for so many years. I did write around a program of how to take her inhalers and nebulized therapy and she will follow up. 10/25/2022 the patient is here for pulmonary follow-up visit. The patient is now 6 months post gestation. She did have a very tough with significant asthma flare ups. She was also hospitalized because of hypoxia. The patient continues to be on prednisone chronically. Prior to becoming she had a good response to biologics. She does have an elevated eosinophil count. Her IgE level is only slightly elevated. The patient is known to have significant allergies. Will go ahead and retest her at this time. The patient needs to come off prednisone. Therefore, she needs to go back in biologics now that she is no longer . She continues on Symbicort and also Spiriva out although some time she is not a 6 year into the therapy. I do believe that a triple agent will be best in order to provide better adherence to the medicine. She is also using Ventolin HFA. She does not feel like it is as effective and she also gets tremors. Will try Xopenex at this time. 01/25/2023 the patient has a telehealth visit. She is been having difficulties with her asthma again. She did start the biologic therapy that appears to be very affecting beneficial. She was able to stop the prednisone altogether and actually stopped all her inhalers after starting the Tezspire. unfortunately her symptoms came back and she is been having some difficulty with breathing. She also noticed a rash looks like eczema around her eyes. She is not sure if his from the biologic injection. Will going to continue to watch him monitor specially since she did very well with the therapy. She continue with her respiratory inhalers she knows she continued them even if she feels well after Taking the next does of Tezspire. if her rash worsen she will call the office otherwise will follow-up in 2-3 months. 10/31/2023 the patient is here for a pulmonary follow-up visit. The patient is struggling to breathe. She was started on Tezspire during the last visit. She was on it for few months. Unfortunately she did not see the benefits that she was hoping for. The patient would get some slight improvement for about a week or so and then was started having symptoms again. Therefore she stopped calling for the prescription. Will go ahead and discontinue this time. The patient however has been on chronic prednisone. Therefore, I do believe that switching over to Dupixent be the better option. The patient will be able to give her some Dupixent every 2 weeks with the hope of stabilizing her asthma and decreasing the prednisone dose. Recently her prednisone was increased to 40 mg daily although she typically uses about 10 mg a day. She does have significant wheezing on examination. She also describes different episodes of cause of shortness of breath and sometimes feels like her throat is close that. Therefore is reasonable just to do a bronchoscopy to assess for vocal cord dysfunction or other reasons for obstructive airway disease. Therefore will plan to do a bronchoscopy at this time. In the meantime because of her chronic prednisone use and chronic bronchitis the addition of Daliresp will be a good option as well 2 Mont[place]grin minimize the amount of prednisone she is using. Unfortunately she has already been diagnosed with diabetes and started on medications for that. As far as imaging the patient did have a chest x-ray demonstrating no acute disease. 09/25/2024 the patient is here for sick visit. She has had worsening respiratory symptoms for the last several weeks. She has had multiple evaluations at urgent care for asthma exacerbations. She has required multiple courses of prednisone. In the meantime she does take the Dupixent and Dupixent is helpful controlling her asthma. She does have a toddler and therefore she is at risk for respiratory infections. The patient recently was seen by the urgent Care was placed on 60 mg of prednisone although she has diabetes and causes her to have significantly elevated blood sugars as she has only been taking 20 mg. The patient him today and she is having hard time with cough which is croupy in nature and she does have evidence of stridor. I did provide her an EpiPen in case she is having angioedema. In addition to that she has been taking a blood pressure medication, nifedipine that has been associated with angioedema so she will hold it for now. She will continue with the prednisone as well. I did provide her a nebulizer machine so she can use to treat her asthma in addition to use budesonide and albuterol to both help her angioedema and likely her asthma symptoms. She will continue her current respiratory therapy and will start azithromycin to treat for the possibility of will been cough. Also she will be provided with cough medication to try to minimize the cough and break the cough cycle. The patient will follow-up in 2-3 weeks. If she is no better she will call back or go to the ER. [facility] Medical History Eosinophilia Anti-cardiolipin antibody positive History of miscarriage Hx of polyarthritis Severe persistent allergic asthma Anxiety Sleep difficulties Allergic rhinitis Family History Maternal Aunt DVT (deep venous thrombosis) Father CHF (congestive heart failure) Diabetes Mother HTN (hypertension) Asthma Social History (Reviewed 09/25/24 @ 15:26 by Taylor Thomas [facility]) Alcohol intake: never Patient Tobacco Use Status: Never used Tobacco Substance Use Type: Marijuana Current occupational status: employed 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 Review of Systems Const Denies fatigue and Reports weight gain Eyes Denies change in vision ENT Reports nasal congestion Card Denies chest pain, Reports dyspnea and Reports dyspnea on exertion Resp Reports cough, Reports dyspnea, Reports dyspnea on exertion, Reports stridor and Reports wheezing GI Denies abdominal pain Denies no additional complaints Musc Reports no additional complaints Skin/Breast Reports rash Neuro Reports no additional complaints and Denies Sensory deficit (Neuro) Endo Denies fatigue Aller/Immun Reports wheezing Physical Exam Vital Signs: Last Vital Signs Pulse 90 09/25/24 15:21 BP 130/72 09/25/24 15:21 Pulse Ox 98 06/13/25 15:21 Oxygen Delivery Method Room Air 09/25/24 15:21 BMI result Body Mass Index 27.1 Const General: healthy appearing Nutritional Appearance: average body habitus Orientation/consciousness: oriented to person and patient oriented x3 Limitations: no limitations HEENT Head: Yes normal to inspection Ears: external ears normal General nose exam: Normal external nose present Mouth: Normal oral and palatal mucosa present and oropharynx normal Throat: Yes posterior oropharynx normal Eyes General: appearance normal, both eyes and all related structures Neck Other: supple Neck: Yes normal visual inspection Chest Chest palpation & inspection: normal inspection of the chest Resp Other: slight wheeze bilaterally Effort & Inspection: normal respiratory effort and stridor Auscultation: diminished lung sounds Cardio Jugular venous distension: no JVD Rate: regular rate Rhythm: regular rhythm Heart sounds: S1 normal heart sound present and S2 normal heart sound present GI Other: gravid uterus Palpation (GI): Soft to palpation, nontender and No hepatosplenomegaly present Auscultation: normal bowel sounds General: Yes no CVA tenderness Back/Spine/Pelvis Back: no CVA tenderness Skin General skin exam: no rashes or lesions noted Neuro General: oriented to person and patient oriented x3 Cranial nerves: Yes CN's II-XII intact bilaterally Motor exam (neuro): 5/5 motor strength present throughout Sensory Exam: No Sensory deficit (Neuro) Extrem General: Yes normal to inspection Psych Appearance: grossly normal Assessment & Plan Assessment & Plan (1) Severe persistent allergic asthma: Code(s): J45.50 - Severe persistent asthma, uncomplicated Category: Medical (2) Allergic rhinitis: Code(s): J30.9 - Allergic rhinitis, unspecified Category: Medical Qualifiers: Allergic rhinitis trigger: other Allergic rhinitis seasonality: seasonal Qualified Code(s): J30.89 - Other allergic rhinitis (3) Eosinophilia: Code(s): D72.10 - Eosinophilia, unspecified Category: Medical Qualifiers: Eosinophilia type: other eosinophilia Qualified Code(s): D72.19 - Other eosinophilia (4) Rash: Comment: eczema like around eyes Code(s): R21 - Rash and other nonspecific skin eruption Category: Medical (5) Stridor: Code(s): R06.1 - Stridor Category: Medical Plan start budesonide nebs BID coug medicine will stop Nifedipine for now and will monitor BP continue Xopenex as needed continue albuterol nebulized therapy wean the prednisone slowly off continue Singulair Tessalon pearls as needed for cough stop Tezspire, monitor for eczema rash, not effective continue Dupixent bronchosocopy to assess the persistent wheezing if no better EPI pen, instructions provided in the office F/U 2-3 weeks Medications: New epinephrine (EpiPen 2-Hiram) for 2 doses 0.3 mg (0.3 mL) IM Q10M PRN 2 ea 6RF anaphylaxis 30 days J45.40 - Moderate persistent asthma, uncomplicated benzonatate 200 mg PO BID PRN 60 caps 3RF cough 30 days azithromycin 500 mg PO DAILY 5 tabs 0RF 5 days Refilled budesonide 0.5 mg (2 mL) inhalation BID 120 mL 11RF 30 days J44.9 - Chronic obstructive pulmonary disease, unspecified albuterol sulfate 2.5 mg (3 mL) inhalation Q6H PRN 180 mL 7RF shortness of breath or wheezing Coding Level of Care Code Est Pt Level 4 (08381) Complex EM visit Add On G2211 Diagnoses Severe persistent allergic asthma J45.50 Seasonal allergic rhinitis due to other allergic trigger J30.89 Allergic rhinitis trigger: other Allergic rhinitis seasonality: seasonal Other eosinophilia D72.19 Eosinophilia type: other eosinophilia Rash R21 Stridor R06.1 Time Spent (min) 20
== END 2024-09-25 15:52 | disposition home or self-care (01) ==
LOC: HO.HPS 15:16
PROVIDERS: PCP General Practice; Visit Provider Hospitalist
DX: J45.50 Severe persistent asthma, uncomplicated (principal); J30.89 Other allergic rhinitis; D72.19 Other eosinophilia; R21 Rash and other nonspecific skin eruption; R06.1 Stridor
CPT/HCPCS: 99214

== ENCOUNTER → 2024-09-25 15:15 | Outpatient (BNVA) | payer MEDICAID, SELFPAY | PROVIDERS: PCP General Practice; Visit Provider Hospitalist | DX: J45.50 Severe persistent asthma, uncomplicated (principal); J30.89 Other allergic rhinitis; D72.19 Other eosinophilia; R21 Rash and other nonspecific skin eruption; R06.1 Stridor | CPT/HCPCS: 99212 ==

== ENCOUNTER 2024-11-02 15:13 | Outpatient (REF) | payer MEDICAID, SELFPAY ==
--- OUTSIDE RECORDS SUMMARY | 2024-11-02 15:49 | XMS_ITS | Encounter Summary ---
Author Organization [employer] Address [address] [place] [address] Care Team Providers Care Automation And Controls Manager Name Role Phone Yvonne Kee MD Primary Care Provider [phone] Celina Bettencourt RN Unavailable [phone] Harper Zhang Unavailable Encounter Details Date Type Department Care Team ([facility] st Contact Info) Description 12/17/2023 Orders Only [facility] [address] [place] [address] Yvonne Kee MD [address] [place] [address] Social History Tobacco Use Types Packs/Day Years [...] Description 12/17/2024 1:00 PM EDT Office Visit [facility] [address] [place] [address] Lindsey Ram 12/21/2024 3:30 PM EDT Clinical Support [facility] [address] [place] [address] documented as of this encounter Visit Diagnoses Not on filedocumented in this encounter Additional Health Concerns Assessment Noted Time PHQ-9 Depression Total Score: 0 08/09/19 24 2:42 PM EDT documented as of this encounter Care Teams Automation And Controls Manager Relationship Specialty Start Date End Date Yvonne Kee MD [address] [place] [address] PCP - General Family Medicine 03/12/22 Celina Bettencourt, ALISHA [address] [place] [address] Registered Nurse Family Medicine 09/11/24 Harper Zhang 09/11/24 documented as of this encounter
--- OUTSIDE RECORDS SUMMARY | 2024-11-02 15:49 | XMS_ITS | Clinical Summary ---
Author Organization [facility] Address [address] [place] [address] Care Team Providers Care Operations Technician Name Role Phone Unavailable Primary Care Provider [...] Vaccine ( - 2023-2 5 season) 2023 Depression Screening 04/15/2024 Influenza Vaccine (#1) 2024 HIB Vaccines Aged Out No longer [...] 5 Years) and At-Risk Patients (6 to 49 Years) Aged Out No longer eligible b ased on patient's age to complete this topic RSV Immunization Patients Un radha 20 months Aged Out No longer eligible b ased on patient's age to complete this topic Varicella Vaccines Aged Out No longer eligible based on patient's age to complete this topic
[2024-11-04 19:18] LABS: TS Negative Control Passed; TS Panel A 0; TS Panel B 0; TS Positive Control Passed; TSpotTB Negative (Negative)
== END 2024-11-02 15:14 | disposition home or self-care (01) ==
LOC: HO.HHCL 15:13
PROVIDERS: PCP General Practice; Visit Provider General Practice
DX: Z11.1 Encounter for screening for respiratory tuberculosis (principal)
CPT/HCPCS: 36415; 86481

== ENCOUNTER 2024-11-09 12:32 | Emergency (ER) | payer MEDICAID, SELFPAY ==
--- NOTE | ~2024-11-09 | US_ITS ---
EXAMINATION: US RETROPERITONEAL LIMITED, LEFT(RENAL ONLY) CLINICAL INFORMATION: Left flank pain. COMPARISON: None available. TECHNIQUE: Color Doppler and grayscale imaging to the left kidney was performed FINDINGS: LEFT KIDNEY: 10.2 x 5.1 x 4.7 cm (SAG x AP x TRV). The kidney is normal in size, contour, and echogenicity. Renal cortical thickness is normal. No calculi or focal parenchymal lesions. No hydronephrosis. US/US renal LT IMPRESSION: No stones or hydronephrosis.. Electronically signed by: Job Fajardo MD 11/09/2024 01:39 PM EDT
--- NOTE | ~2024-11-09 | XR_ITS ---
CLINICAL HISTORY: pain Single view of the abdomen. COMPARISON: None provided. FINDINGS: Normal bowel distention. No abnormal calcifications. No pneumoperitoneum identified. Mild stool burden. No fracture identified. Visualized portions of the lung bases were unremarkable. IMPRESSION: 1. Nonspecific nonobstructive bowel gas pattern. This document has been electronically signed by: Seng Hall MD on 11/09/2024 19:22:38
[2024-11-09 12:44] VITALS: BP 151/90; PULSE 126; RESP 16; TEMP 39.2; O2SAT 98; BMI 26.6
--- NOTE | 2024-11-09 12:44 | ED_ITS ---
HPI - General Adult General Chief complaint: Back Pain/Injury Stated complaint: l side abd pain shaking chills Time Seen by Provider: 11/09/24 18:16 Source: patient Limitations: no limitations History of Present Illness ED Provider: Johanny Toro PA-C HPI narrative: 29-year-old otherwise healthy female presents with left-sided abdominal pain x 1 day. Pain over left upper quadrant, unable to describe the nature of her discomfort, it is nonradiating. Associated fever, chills, and body aches. Denies cough or cold symptoms, back pain, nausea, vomiting, dysuria, hematuria or history of kidney stones. Related Data Home Medications ?Medication ?Instructions ?Recorded ?Confirmed nebulizer and compressor 06/06/20 06/06/20 cetirizine 10 mg tablet (Zyrtec) 10 mg PO DAILY 11/10/24 dulaglutide 0.75 mg/0.5 mL 0.75 mg subcut QWEEK 11/10/24 subcutaneous pen injector ([employer]) fluticasone propionate 50 1 spray intranasal DAILY 11/10/24 mcg/actuation nasal spray,suspension medroxyprogesterone 150 mg/mL 150 mg IM Q3M PRN Allerg ic Reaction 11/10/24 11/10/24 intramuscular suspension vit no.95-ferrous 1 tab PO DAILY 11/10/24 fumarate 28 mg-folic acid 800 mcg tablet () Previous Rx's ?Medication ?Instructions ?Recorded albuterol sulfate 2.5 mg/3 mL 2.5 mg (3 mL) inhalation Q6H PRN 09/25/24 (0.083 %) solution for nebulization shortness of breat h or wheezing #180 mL dupilumab 300 mg/2 mL subcutaneous 300 mg (2 mL) subcu t Q2W 4 weeks 09/30/24 pen injector (BreathalEyes) #4 mL albuterol sulfate 90 mcg/actuation 2 puff inhalation Q 4-6H PRN 11/08/24 aerosol inhaler shortness of breath or wheez ing #6.7 grams budesonide 0.5 mg/2 mL suspension 0.5 mg (2 mL) inhala tion BID 30 11/08/24 for nebulization days #120 mL epinephrine 0.3 mg/0.3 mL 0.3 mg (0.3 mL) IM Q10M PRN 11/08/24 injection, auto-injector (EpiPen anaphylaxis 30 days # 2 ea 2-Hiram) prednisone 5 mg tablet 5 mg PO DAILY 30 days #30 ta bs 11/08/24 cefuroxime axetil 500 mg tablet 500 mg PO BID #28 tabs 11/12/24 Allergies Allergy/AdvReac Type Severity Reaction Status Date / Time peach (PEACH) Allergy Severe RASH Verified 11/10/24 10:40 perfume (PERFUME) Allergy Severe ASTHMA Verified 11/10/24 10:40 ATTACK dog dander (DOG DANDER) Allergy Unknown ITCHY, Verified 11/10/24 10:40 HIVES mite-Dermatophagoides Allergy Unknown ASTHMA, Verified 11/10/24 10:40 farinae, wendy (DUST MITES) ITCHY THROAT kiwi Allergy Swelling Verified 11/10/24 10:40 strawberry Allergy Itching Verified 11/10/24 10:40 Review of Systems 2 Review of Systems: Yes all other systems are reviewed and are negative Constitutional: Constitutional: Reports chills, Denies fatigue, Reports fever(s) and Reports malaise Cardiovascular: Cardiovascular: Denies chest pain and Denies dyspnea Respiratory: Respiratory: Denies cough and Denies dyspnea Gastrointestinal: Gastrointestinal: Reports abdominal pain, Denies nausea and Denies vomiting Genitourinary: Genitourinary: Denies dysuria Musculoskeletal: Musculoskeletal: Denies back pain and Reports myalgias Endocrine: Endocrine: Denies fatigue PMF Past Medical History Attestation statement: The following information was validated with the patient. Medical History Eosinophilia Anti-cardiolipin antibody positive History of miscarriage Hx of polyarthritis Severe persistent allergic asthma Anxiety Sleep difficulties Allergic rhinitis Family History Family History Maternal Aunt DVT (deep venous thrombosis) Father CHF (congestive heart failure) Diabetes Mother HTN (hypertension) Asthma Social History Social History Household Members: Children Housing: Apartment Do you presently have visiting nurse or other home services: No Alcohol intake: never Patient Tobacco Use Status: Never used Tobacco Substance Use Type: Marijuana service: No Current occupational status: employed 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 [employer] Physical Exam ED Vital Signs: Vital Signs - 24 hr 11/09/24 12:44 11/09/24 16:00 11/09/24 19:44 Temperature 102.5 F H 98.8 F 98.4 F Pulse Rate 126 H 72 97 Respiratory Rate 16 18 16 Blood Pressure 151/90 H 130/80 135/91 H Pulse Oximetry 98 99 100 Oxygen Delivery Method Room Air Room Air Room Air 11/09/24 20:55 Temperature 98.4 F Pulse Rate 97 Respiratory Rate 16 Blood Pressure 135/91 H Pulse Oximetry 100 Oxygen Delivery Method Room Air BMI result Body Mass Index 26.6 Const Other: Alert well-appearing Orientation/consciousness: patient oriented x3 Resp Effort & Inspection: normal respiratory effort Cardio Other: Normal peripheral perfusion GI Other: Abdomen is soft, mild tenderness over left side, without guarding, no distention General: Yes no CVA tenderness Back/Spine/Pelvis Back: no CVA tenderness Skin Other: Warm dry no rash Neuro General: patient oriented x3, gait normal, no focal motor deficits and CN's II- XI intact bilaterally Psych Other: Cooperative Course Course Course Narrative: This is a rapid medical exam performed by Ramesh Ji NP: Additional HPI, ROS, PE not included below will be deferred to primary provider. Patient is a 29-year-old female presenting with complaint of severe left flank pain since yesterday. Associated nausea, vomiting, diarrhea. Plan: labs, UA, U/S Reevaluation(s) Reevaluation #1: 11/10/24- received follow-up labs at the patient has positive blood cultures, both sets of bottles resulted Gram-negative rods. This is consistent with her urine culture which is also throwing Gram-negative rods and the patient is likely uroseptic. I called the patient 3 times and the phone did not even ring. I called the patient's mother who is listed as her primary contact and I spoke to Belinda mejía. I asked the mother to have the patient call us back to return to the hospital for abnormal lab results. Given that we could not contact the patient directly we did also send a certified letter Time: 10:09 Medications Administered Discontinued Medications Generic Name Dose Route Start Last Admin Trade Name Freq PRN Reason Stop Dose Admin Acetaminophen 975 mg 11/09/24 12:47 11/09/24 12:50 Acetaminophen 325 Mg Tablet PO 11/09/24 12:48 975 mg ONCE ONE Administration Cephalexin HCl 500 mg 11/09/24 20:38 11/09/24 20:49 Cephalexin 500 Mg Capsule PO 11/09/24 20:39 500 mg ONCE ONE Administration Ketorolac Tromethamine 15 mg 11/09/24 18:39 11/09/24 19:24 Ketorolac Tromethamine 15 Mg/Ml Vial IM 11/09/24 18:40 15 mg ONCE ONE Administration Ondansetron HCl 4 mg 11/09/24 12:47 11/09/24 12:50 Ondansetron Odt 4 Mg Tab.Rapdis TRANSLINGU 11/09/24 12:48 4 mg ONCE ONE Administration Medical Decision Making Medical Decision Making MDM Narrative: 29-year-old otherwise healthy female presents with left-sided abdominal pain x 1 day. Pain over left upper quadrant, unable to describe the nature of her discomfort, it is nonradiating. Associated fever, chills, and body aches. Denies cough or cold symptoms, back pain, nausea, vomiting, dysuria, hematuria or history of kidney stones. No chronic issues History: Per patient I have considered the following differential diagnoses: Viral syndrome, pyelonephritis, UTI, pancreatitis, renal colic, bowel obstruction Plan: Screening labs were obtained and a urinalysis, she does have a urinary tract infection. She has no exam findings that was suggest pyelonephritis, there was no CVA tenderness, she has no nausea vomiting or complaint of back pain. She also has no history of kidney stones. A renal ultrasound was obtained from triage, it is unremarkable, there was no evidence of pyelonephritis and/or hydronephrosis. The patient does have irregular bowel habits at times, perhaps she is concurrently constipated, which could cause a urinary tract infection, adding a KUB. She has no obstructive symptoms, and overall her abdominal exam was benign. I have independently reviewed the following tests: Labs: Slight leukocytosis, not anemic, no electrolyte abnormality, not , urine is infected Renal ultrasound: US/US renal LT FINDINGS: LEFT KIDNEY: 10.2 x 5.1 x 4.7 cm (SAG x AP x TRV). The kidney is normal in size, contour, and echogenicity. Renal cortical thickness is normal. No calculi or focal parenchymal lesions. No hydronephrosis. US/US renal LT IMPRESSION: No stones or hydronephrosis.. KUB:INDINGS: Normal bowel distention. No abnormal calcifications. No pneumoperitoneum identified. Mild stool burden. No fracture identified. Visualized portions of the lung bases were unremarkable. IMPRESSION: 1. Nonspecific nonobstructive bowel gas pattern. Patient found to be mildly constipated, again this is the likely cause of her urinary tract infection. In regard to the fever, she could have concurrent viral syndrome, there was no finding suggestive of pyelonephritis or obstructing kidney stone. Lab Data 11/09/24 13:10 11/09/24 13:10 Labs: Lab Results 11/09/24 11/09/24 11/09/24 Range/Units 13:10 13:10 18:34 WBC 16.3 H (4.8-10.8) X10*3/uL RBC 4.66 (4.20-5.50) X10*6/uL Hgb 13.3 (12.0-16.0) g/dl Hct 40.9 (37.0-47.0) % MCV 87.8 (80.0-98.0) fL MCH 28.5 (27.0-33.0) pg MCHC 32.5 (31.0-35.0) g/dl RDW 12.9 (11.0-16.0) % Plt Count 277 D (160-400) X10*3/uL MPV 9.9 (9.4-12.3) fL Immature Gran % (Auto) 0.5 H (0.0-0.4) % Neut % (Auto) 83.9 H (45-73) % Lymph % (Auto) 12.7 L (20-40) % [place] % (Auto) 1.2 L (2-11) % Eos % (Auto) 1.3 (0-4) % Baso % (Auto) 0.4 (0-2) % Lymph # (Auto) 2.1 (1.2-4.9) X10*3/uL [place] # (Auto) 0.2 (0.1-1.2) X10*3/uL Eos # (Auto) 0.2 (0.0-0.4) X10*3/uL Baso # (Auto) 0.1 (0.0-0.2) X10*3/uL Abs Immat Gran (auto) 0.08 H (0.00-0.03) X10*3/uL Absolute Neuts (auto) 13.6 H (2.0-8.3) x10*3/uL Absolute Nucleated RBC 0.000 (0.0-0.012) X10*3/uL Nucleated RBC % (auto) 0.0 (0.0-0.2) /100WBC Sodium 140 (135-145) mmol/L Potassium 3.6 (3.3-5.1) mmol/L Chloride 102 (96-108) mmol/L Carbon Dioxide 27 (22-29) mmol/L Anion Gap 15 (12-20) BUN 9 (9-16) mg/dL Creatinine 0.86 (0.5-1.4) mg/dL Estim Creat Clear Calc 97.2 Estimated GFR > 60 Random Glucose 111 (60-115) mg/dL Lactic Acid 1.8 (0.5-2.0) mmol/L Calcium 8.9 (8.4-10.2) mg/dL Total Bilirubin 0.3 (0.0-1.0) mg/dL AST 21 (5-31) U/L ALT 21 (0-31) U/L Alkaline Phosphatase 103 (39-117) U/L Total Protein 7.3 (6.5-8.0) g/dL Albumin 4.2 (3.5-5.0) g/dL Beta HCG, Quant < 2 < 2 mIU/mL Urine Color Yellow Urine Appearance Cloudy Urine pH 8.0 (5.0-9.0) Ur Specific [place] 1.015 (1.005-1.025) Urine Protein Trace (Neg-Trace) mg/dL Urine Glucose (UA) Negative (Negative) mg/dL Urine Ketones Negative (Negative) mg/dL Urine Blood Trace H (Negative) Urine Nitrite Positive H (Negative) Ur Leukocyte Esterase Large (3+) H (Negative) Urine RBC 0-2 (0-2) /HPF Urine WBC >50 H (0-5) /HPF Ur Squamous Epith Cells 11-20 (0-2) /HPF Urine Bacteria 4+ (None Seen) Hyaline Casts 3-5 (0-2) /LPF Influenza Type A (PCR) NEGATIVE (Negative) Influenza Type B (PCR) NEGATIVE (Negative) RSV RNA Qual (PCR) NEGATIVE (Negative) SARS-CoV-2 RNA (RT-PCR) NEGATIVE (Negative) Discharge Plan Discharge Clinical Impression: Acute viral syndrome, Constipation, Urinary tract infection Patient Disposition: Home, Self-Care Instructions: Constipation (ED), Urinary Tract Infection in Women (ED), Viral Syndrome (ED) Additional Instructions: The x-ray revealed that you are constipated, you were also found to have a urinary tract infection. See home care instructions. Take the cephalexin as directed make sure to complete the course of this antibiotic. In regard to the constipation, you can use [id number] stool softener such as Colace, twice a day. Also purchase [id number] MiraLax, use this medication 1 to 2 times a day until your bowel habits self regulate. Follow up with your primary care provider as needed. Prescriptions: No Action Dupixent Pen 300 mg/2 mL pen injector 300 mg subcut Q2W 28 Days Qty: 4 11RF albuterol sulfate 90 mcg/actuation HFA aerosol inhaler 2 puff inhalation Q4-6H PRN (Reason: shortness of breath or wheezing) Qty: 6.7 11RF budesonide 0.5 mg/2 mL suspension for nebulization 0.5 mg inhalation BID 30 Days Qty: 120 11RF epinephrine [EpiPen 2-Hiram] 0.3 mg/0.3 mL auto-injector 0.3 mg IM Q10M PRN (Reason: anaphylaxis) 30 Days Qty: 2 6RF Rx Instructions: for 2 doses prednisone 5 mg tablet 5 mg PO DAILY 30 Days Qty: 30 1RF (DME) nebulizer and compressor Device MISCELLANEOUS medroxyprogesterone 150 mg/mL suspension 150 mg IM Q3M PRN (Reason: Allergic Reaction) [facility]-FA [] 28 mg iron- 800 mcg tablet 1 tab PO DAILY fluticasone propionate 50 mcg/actuation spray,suspension 1 spray intranasal DAILY Trulicity 0.75 mg/0.5 mL pen injector 0.75 mg subcut QWEEK cetirizine [Zyrtec] 10 mg Tablet 10 mg PO DAILY cefuroxime axetil 500 mg tablet 500 mg PO BID Qty: 28 0RF Rx Instructions: Take one tablet twice a day for the next two weeks. Antibiotic course should end on 11/27 albuterol sulfate 2.5 mg /3 mL (0.083 %) solution for nebulization 2.5 mg inhalation Q6H PRN (Reason: shortness of breath or wheezing) Qty: 180 7RF Stand Alone Forms: Work/School Release Interventions: ED Discharge Assessment Last Done: 11/09/24 20:55 Discharge Date/Time: 11/09/24 20:57 Print Language: Kiswahili
[2024-11-09 13:20] LABS: MANUAL DIFF FLAG NO
[2024-11-09 13:22] LABS: Hematocrit 40.9 % (37.0-47.0); Hemoglobin 13.3 g/dl (12.0-16.0); Imm Gran Abs Auto 0.08 X10*3/uL (0.00-0.03); Imm Gran Pct Auto 0.5 % (0.0-0.4); Lymphocytes Absolute Auto 2.1 X10*3/uL (1.2-4.9); Mean Corpuscular HGB Conc 32.5 g/dl (31.0-35.0); Mean Corpuscular Hemoglobin 28.5 pg (27.0-33.0); Mean Corpuscular Volume 87.8 fL (80.0-98.0); NRBC Abs Auto 0.000 X10*3/uL (0.0-0.012); NRBC Pct Auto 0.0 /100WBC (0.0-0.2); Platelet Count 277 X10*3/uL (160-400); Red Blood Count 4.66 X10*6/uL (4.20-5.50); White Blood Count 16.3 X10*3/uL (4.8-10.8)
[2024-11-09 13:44] LABS: Alanine Aminotransferase 21 U/L (0-31); Albumin Level 4.2 g/dL (3.5-5.0); Alkaline Phosphatase 103 U/L (39-117); Anion Gap 15 (12-20); Aspartate Amino Transferase 21 U/L (5-31); Blood Urea Nitrogen 9 mg/dL (9-16); Calcium 8.9 mg/dL (8.4-10.2); Carbon Dioxide 27 mmol/L (22-29); Chloride 102 mmol/L (96-108); Creatinine Clr Calc Pharmacy 97.2; Estimated Glomerular Filt Rate > 60; Potassium 3.6 mmol/L (3.3-5.1); Sodium 140 mmol/L (135-145); Total Protein 7.3 g/dL (6.5-8.0)
[2024-11-09 16:00] VITALS: BP 130/80; PULSE 72; RESP 18; TEMP 37.1; O2SAT 99
--- OUTSIDE RECORDS SUMMARY | 2024-11-09 16:48 | XMS_ITS | Clinical Summary ---
[facility] Address [address] [place] [address] Care Team Providers Care Director Case Name Role Phone Unavailable Primary Care Provider [...]
--- OUTSIDE RECORDS SUMMARY | 2024-11-09 16:48 | XMS_ITS | Encounter Summary ---
Author Organization [employer] Address [address] [place] [address] Care Team Providers Care Telecommunications Technician Name Role Phone Yvonne Kee MD Primary Care Provider [phone] Celina Bettencourt RN Unavailable [phone] Harper Zhang Unavailable Encounter Details Date Type Department Care Team ([facility] Contact Info) Description 12/17/2023 Orders Only [facility] [address] [place] [address] Yvonne Kee MD [address] [place] [address] Social History Tobacco Use Types Packs/Day Years [...] Description 12/17/2024 1:00 PM EDT Office Visit [facility] [address] [place] [address] Lindsey Ram 12/21/2024 3:30 PM EDT Clinical Support [facility] [address] [place] [address] documented as of this encounter Visit Diagnoses Not on filedocumented in this encounter Additional Health Concerns Assessment Noted Time PHQ-9 Depression Total Score: 0 08/09/19 24 2:42 PM EDT documented as of this encounter Care Teams Telecommunications Technician Relationship Specialty Start Date End Date Yvonne Kee MD [address] [place] [address] PCP - General Family Medicine 03/12/22 Celina Bettencourt, ALISHA [address] [place] [address] Registered Nurse Family Medicine 09/11/24 Harper Zhang 09/11/24 documented as of this encounter
[2024-11-09 18:39] LABS: Appearance Urine Cloudy; Glucose Urine UA Negative (Negative); PH 8.0 (5.0-9.0); Specific Gravity - Urine 1.015 (1.005-1.025); UMIC TRIGGER UACC YES
[2024-11-09 18:59] LABS: UACC Culture Trigger YES
[2024-11-09 19:15] LABS: Resp Syncy Virus RNA Qual PCR NEGATIVE (Negative); SARS COV2 PCR INHOUSE NEGATIVE (Negative)
[2024-11-09 19:44] VITALS: BP 135/91; PULSE 97; RESP 16; TEMP 36.9; O2SAT 100
[2024-11-09 20:55] VITALS: BP 135/91; PULSE 97; RESP 16; TEMP 36.9; O2SAT 100
== END 2024-11-09 20:57 | disposition home or self-care (01) ==
PROVIDERS: Physician Assistant Medical; Registered Nurse Emergency; Emergency Provider Emergency Medicine; PCP General Practice
DX: B34.9 Viral infection, unspecified (principal); K59.00 Constipation, unspecified; N39.0 Urinary tract infection, site not specified; R10.12 Left upper quadrant pain; J45.50 Severe persistent asthma, uncomplicated; Z03.818 Encounter for observation for suspected exposure to other biological agents ruled out
CPT/HCPCS: 36415; 74018; 76775; 80053; 81001; 83605; 84702; 85025; 87040; 87077; 87086; 87088; 87186; 87205; 87637; 96372; 99283; 99284; J1885

== ENCOUNTER → 2024-11-09 12:46 | Outpatient (BNV) | payer MEDICAID, SELFPAY | PROVIDERS: PCP General Practice; Visit Provider Radiology Diagnostic Radiology | DX: R10.812 Left upper quadrant abdominal tenderness (principal) | CPT/HCPCS: 74018; 76775 ==

== ENCOUNTER 2024-11-10 10:35 | Inpatient (IN) | payer MEDICAID, SELFPAY ==
[2024-11-10] VITALS (7 sets, daily range): BP systolic 113–142; BP diastolic 68–93; PULSE 78–108; RESP 16–20; TEMP 36.3–37.2; O2SAT 97–99; BMI 26.6; BMI 26.7
--- NOTE | 2024-11-10 11:13 | ED.FEMALEGU ---
HPI - Female Genitourinary General Chief complaint: Urogenital-Female Stated complaint: Told to return, seen yesterday Time Seen by Provider: 11/10/24 10:46 Source: patient, RN notes reviewed and old records reviewed Mode of arrival: ambulatory Limitations: no limitations History of Present Illness ED Provider: Vish JAY Narrative: 29-year-old female presents for evaluation due to bacteremia. The patient was seen here yesterday complaining of body aches, fever, weakness, chills pain She was diagnosed with a UTI, constipation and a viral illness and was ultimately discharged home with cephalexin b.i.d. times 1 week However, the follow-up labs informed us that the patient had positive blood cultures, both bottles were positive for Gram-negative rods and the patient's urine culture is growing Gram-negative rods. It is likely that she is uroseptic from E coli and she was instructed to return to the hospital. She reports since her discharge she feels somewhat better but still had fevers last night with fatigue and tiredness and body aches today. Related Data Home Medications ?Medication ?Instructions ?Recorded ?Confirmed montelukast 10 mg tablet 10 mg PO BEDTIME 06/06/20 08/28/21 (Singulair) nebulizer and compressor 06/06/20 06/06/20 omeprazole 20 mg capsule,delayed 20 mg PO DAILY 06/06/20 08/28/21 release tiotropium bromide 2.5 2 puff PO DAILY 06/06/20 08/28/21 mcg/actuation mist for inhalation (Spiriva Respimat) diphenhydramine HCl 25 mg capsule 25 mg PO BEDTIME PRN Allergy 08/28/21 08/28/21 (Benadryl) Symptoms Previous Rx's ?Medication ?Instructions ?Recorded budesonide-formoterol HFA 160 2 puff inhalation BID 30 days 10/17/21 mcg-4.5 mcg/actuation aerosol #10.2 grams inhaler (Symbicort) roflumilast 250 mcg tablet 250 mcg PO DAILY 30 days #30 tabs 10/31/23 (Daliresp) albuterol sulfate 2.5 mg/3 mL 2.5 mg (3 mL) inhalation Q6H PRN 09/25/24 (0.083 %) solution for nebulization shortness of breath or wheezing #180 mL dupilumab 300 mg/2 mL subcutaneous 300 mg (2 mL) subcut Q2W 4 weeks 09/30/24 pen injector (Dupixent) #4 mL albuterol sulfate 90 mcg/actuation 2 puff inhalation Q4-6H PRN 11/08/24 aerosol inhaler shortness of breath or wheezing #6.7 grams azithromycin 500 mg tablet 500 mg PO DAILY 5 days #5 tabs 11/08/24 benzonatate 200 mg capsule 200 mg PO BID PRN cough 30 days 11/08/24 #60 caps budesonide 0.5 mg/2 mL suspension 0.5 mg (2 mL) inhalation BID 30 11/08/24 for nebulization days #120 mL epinephrine 0.3 mg/0.3 mL 0.3 mg (0.3 mL) IM Q10M PRN 11/08/24 injection, auto-injector (EpiPen anaphylaxis 30 days #2 ea 2-Hiram) prednisone 5 mg tablet 5 mg PO DAILY 30 days #30 tabs 11/08/24 cephalexin 500 mg capsule 500 mg PO Q12H #13 caps 11/09/24 Allergies Allergy/AdvReac Type Severity Reaction Status Date / Time peach (PEACH) Allergy Severe RASH Verified 11/10/24 10:40 perfume (PERFUME) Allergy Severe ASTHMA Verified 11/10/24 10:40 ATTACK dog dander (DOG DANDER) Allergy Unknown ITCHY, Verified 11/10/24 10:40 HIVES mite-Dermatophagoides Allergy Unknown ASTHMA, Verified 11/10/24 10:40 farinae, wendy (DUST MITES) ITCHY THROAT kiwi Allergy Swelling Verified 11/10/24 10:40 strawberry Allergy Itching Verified 11/10/24 10:40 Review of Systems Constitutional: Constitutional: Reports body ache(s), Reports chills, Reports fever(s), Reports lethargy and Reports malaise Eyes: Eyes: Denies blurry vision Cardiovascular: Cardiovascular: Denies chest pain and Denies dyspnea on exertion Respiratory: Respiratory: Denies cough and Denies dyspnea on exertion Gastrointestinal: Gastrointestinal: Denies abdominal pain, Denies nausea and Denies vomiting Genitourinary: Genitourinary: Reports dysuria and Reports urinary urgency Musculoskeletal: Musculoskeletal: Reports back pain Integumentary/Breasts: Skin/Breast: Denies rash PMFSH Past Medical History Medical History Eosinophilia Anti-cardiolipin antibody positive History of miscarriage Hx of polyarthritis Severe persistent allergic asthma Anxiety Sleep difficulties Allergic rhinitis Family History Family History Maternal Aunt DVT (deep venous thrombosis) Father CHF (congestive heart failure) Diabetes Mother HTN (hypertension) Asthma Social History Social History Alcohol intake: never Patient Tobacco Use Status: Never used Tobacco Substance Use Type: Marijuana Advance Directives: No Advance Directives Information Provided: No Do you have a plan to hurt others: No Plan Current occupational status: employed 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 Physical Exam Vital Signs: Vital Signs: Last Vital Signs Temp 98.3 F 11/10/24 11:54 Pulse 99 11/10/24 11:54 Resp 16 11/10/24 11:54 BP 123/80 11/10/24 11:54 Pulse Ox 98 11/10/24 11:54 O2 Del Method Room Air 11/10/24 11:54 BMI result Body Mass Index 26.6 Const: General: healthy appearing, comfortable, no acute distress, alert and awake Nutritional Appearance: well nourished Orientation/consciousness: patient oriented x3 HEENT: Head: Yes normocephalic and Yes atraumatic Eyes: Eyelids: Yes eyelids normal Conjunctivae: conjunctivae normal Sclerae: sclerae normal Corneas: corneas normal Pupils: Equal, round and reactive pupils present EOM: EOMs intact bilaterally Neck: Neck: Yes full ROM Resp: Effort & Inspection: normal respiratory effort, able to speak in complete sentences and not labored Cardio: Rate: regular rate Rhythm: regular rhythm GI: Inspection: No distended Palpation (GI): Soft to palpation, not firm, nontender, no guarding and not rigid Skin: General skin exam: elasticity normal Neuro: General: patient oriented x3 Cranial nerves: Yes Equal, round and reactive pupils present and Yes Bilaterally intact EOM present Cognition (Neuro): normal cognition Medications Administered Discontinued Medications Generic Name Dose Route Start Last Admin Trade Name Freq PRN Reason Stop Dose Admin Ceftriaxone Sodium 1 gm 11/10/24 10:52 11/10/24 11:09 Ceftriaxone Sodium 1 Gm Vial IVPUSH 11/10/24 10:53 1 gm ONCE ONE Administration Sodium Chloride 1,000 mls @ 999 mls/hr 11/10/24 11:00 11/10/24 11:54 Ns IV 11/10/24 12:00 Infused .Q1H1M LORI Infusion Medical Decision Making Medical Decision Making [facility] Narrative: 29-year-old female with past medical history significant for severe asthma presents for evaluation of fevers and body aches. She was called to return due to positive blood cultures. She has Gram-negative rods in her urine culture as well as both bottles of blood cultures. I ordered repeat labs, blood cultures, urinalysis, I ordered IV fluids and ceftriaxone. Plan to admit the patient to the hospitalist service for treatment of bacteremia due to complicated UTI. She did have a renal ultrasound ordered yesterday that was unremarkable. She appears well, less likely surgical abdomen. Differential Diagnosis Differential Diagnoses: The differential diagnosis associated with the presentation includes Urosepsis Bacteremia UTI Pyelonephritis Admission/Observation Consideration of admission/observation: Escalation of care including admission/observation considered Consult Healthcare Provider Management of the patient was discussed with: Hospitalist Lab Data [facility] Lab Attestation statement: I reviewed the patient's lab results. Patient is still has a leukocytosis however improved from yesterday. No significant anemia. Normal platelet count. Patient's potassium is low at 3.1 and this will be repleted orally. No other significant electrolyte abnormalities. Random glucose elevated to 118. 11/10/24 11:07 11/10/24 11:07 Labs: Lab Results 11/10/24 Range/Units 11:07 WBC 14.1 H (4.8-10.8) X10*3/uL RBC 4.53 (4.20-5.50) X10*6/uL Hgb 13.3 (12.0-16.0) g/dl Hct 38.5 (37.0-47.0) % MCV 85.0 (80.0-98.0) fL MCH 29.4 (27.0-33.0) pg MCHC 34.5 (31.0-35.0) g/dl RDW 12.6 (11.0-16.0) % Plt Count 249 (160-400) X10*3/uL MPV 9.6 (9.4-12.3) fL Immature Gran % (Auto) 0.5 H (0.0-0.4) % Neut % (Auto) 74.2 H (45-73) % Lymph % (Auto) 15.4 L (20-40) % [place] % (Auto) 6.6 (2-11) % Eos % (Auto) 2.8 (0-4) % Baso % (Auto) 0.5 (0-2) % Lymph # (Auto) 2.2 (1.2-4.9) X10*3/uL [place] # (Auto) 0.9 (0.1-1.2) X10*3/uL Eos # (Auto) 0.4 (0.0-0.4) X10*3/uL Baso # (Auto) 0.1 (0.0-0.2) X10*3/uL Abs Immat Gran (auto) 0.07 H (0.00-0.03) X10*3/uL Absolute Neuts (auto) 10.5 H (2.0-8.3) x10*3/uL Absolute Nucleated RBC 0.000 (0.0-0.012) X10*3/uL Nucleated RBC % (auto) 0.0 (0.0-0.2) /100WBC Sodium 138 (135-145) mmol/L Potassium 3.1 L (3.3-5.1) mmol/L Chloride 104 (96-108) mmol/L Carbon Dioxide 26 (22-29) mmol/L Anion Gap 11 L (12-20) BUN 9 (9-16) mg/dL Creatinine 0.84 (0.5-1.4) mg/dL Estim Creat Clear Calc 99.5 Estimated GFR > 60 Random Glucose 218 H (60-115) mg/dL Lactic Acid 0.9 (0.5-2.0) mmol/L Calcium 9.3 (8.4-10.2) mg/dL Beta HCG, Quant < 2 mIU/mL Discharge Plan Discharge Clinical Impression: Complicated urinary tract infection, Bacteremia Patient Disposition: Admitted As Inpatient Print Language: Finnish
[2024-11-10 11:14] LABS: MANUAL DIFF FLAG NO
[2024-11-10 11:15] LABS: Hematocrit 38.5 % (37.0-47.0); Hemoglobin 13.3 g/dl (12.0-16.0); Imm Gran Abs Auto 0.07 X10*3/uL (0.00-0.03); Imm Gran Pct Auto 0.5 % (0.0-0.4); Lymphocytes Absolute Auto 2.2 X10*3/uL (1.2-4.9); Mean Corpuscular HGB Conc 34.5 g/dl (31.0-35.0); Mean Corpuscular Hemoglobin 29.4 pg (27.0-33.0); Mean Corpuscular Volume 85.0 fL (80.0-98.0); NRBC Abs Auto 0.000 X10*3/uL (0.0-0.012); NRBC Pct Auto 0.0 /100WBC (0.0-0.2); Platelet Count 249 X10*3/uL (160-400); Red Blood Count 4.53 X10*6/uL (4.20-5.50); White Blood Count 14.1 X10*3/uL (4.8-10.8)
[2024-11-10 11:34] LABS: Anion Gap 11 (12-20); Blood Urea Nitrogen 9 mg/dL (9-16); Calcium 9.3 mg/dL (8.4-10.2); Carbon Dioxide 26 mmol/L (22-29); Chloride 104 mmol/L (96-108); Creatinine Clr Calc Pharmacy 99.5; Estimated Glomerular Filt Rate > 60; Potassium 3.1 mmol/L (3.3-5.1); Sodium 138 mmol/L (135-145)
--- NOTE | 2024-11-10 12:07 | PM.IMHP ---
History of Present Illness Date of Service: 11/10/24 Attending physician on admission: Murphy Garcia Chief Complaint: Bacteremia Pt is a 29-year-old female with a PMH significant for?severe allergic asthma on Dupixent and chronic prednisone 5 mg daily, non-insulin steroid-induced diabetes type 2, and GERD who presents to the ED after 2/2 blood cultures came back positive for gram-negative rods. Pt initially presented to the hospital yesterday after experiencing fever, rigors, left-sided abdominal pain, and N/V beginning 3 days ago. Workup at that time found pt had an acute UTI. KUB showing nonspecific nonobstructive bowel gas pattern and renal ultrasound negative for hydronephrosis or nephrolithiasis. Pt was discharged home on cephalexin. Had overall symptom improvement, but still some N/V, left-sided abdominal pain, and F/C. Denies shortness or breath or difficulty breathing. No chest pain/pressure, palpitations. Pt also denies polyuria or dysuria. Abdominal pain still present, though much improved over yesterday. In the ED pt was tachycardic up to 108 and low-grade fever of 99.0. Labs were significant for leukocytosis 14.1, potassium 3.1, and random glucose 218. UA remains consistent with UTI. Pt was treated in the ED with IVF, potassium chloride 40 mEq p.o., and ceftriaxone. Pt is admitted to the hospital for treatment and further evaluation of bacteremia with sepsis likely secondary to acute UTI. Review of Systems Review of Systems: Negative except for that which is stated in the HPI. [facility] Medical History Eosinophilia Anti-cardiolipin antibody positive History of miscarriage Hx of polyarthritis Severe persistent allergic asthma Anxiety Sleep difficulties Allergic rhinitis Family History Maternal Aunt DVT (deep venous thrombosis) Father CHF (congestive heart failure) Diabetes Mother HTN (hypertension) Asthma Social History Alcohol intake: never Patient Tobacco Use Status: Never used Tobacco Smoked in Last 30 Days: No Use of substances other than those prescribed or required for medical reasons: No Substance Use Type: Marijuana Advance Directives: No Advance Directives Information Provided: No Do you have a plan to hurt others: No Plan Current occupational status: employed 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 Meds Allergies Allergy/AdvReac Type Severity Reaction Status Date / Time peach (PEACH) Allergy Severe RASH Verified 11/10/24 10:40 perfume (PERFUME) Allergy Severe ASTHMA Verified 11/10/24 10:40 ATTACK dog dander (DOG DANDER) Allergy Unknown ITCHY, Verified 11/10/24 10:40 HIVES mite-Dermatophagoides Allergy Unknown ASTHMA, Verified 11/10/24 10:40 farinae, wendy (DUST MITES) ITCHY THROAT kiwi Allergy Swelling Verified 11/10/24 10:40 strawberry Allergy Itching Verified 11/10/24 10:40 Home Medications ?Medication ?Instructions ?Recorded ?Confirmed ?Last Taken ?Type montelukast 10 mg tablet 10 mg PO BEDTIME 06/06/20 08/28/21 08/27/21 History (Singulair) nebulizer and compressor 06/06/20 06/06/20 Unknown History omeprazole 20 mg capsule,delayed 20 mg PO DAILY 06/06/20 08/28/21 08/27/21 History release tiotropium bromide 2.5 2 puff PO DAILY 06/06/20 08/28/21 08/27/21 History mcg/actuation mist for inhalation (Spiriva Respimat) diphenhydramine HCl 25 mg capsule 25 mg PO BEDTIME PRN Allergy 08/28/21 08/28/21 08/27/21 History (Benadryl) Symptoms fluticasone propionate 50 1 spray intranasal DAILY 11/10/24 Unknown History mcg/actuation nasal spray,suspension medroxyprogesterone 150 mg/mL 150 mg IM Q3M 11/10/24 Unknown History intramuscular suspension nifedipine 30 mg tablet,extended 30 mg PO DAILY 11/10/24 Unknown History release 24 hr vit no.95-ferrous 1 tab PO DAILY 11/10/24 Unknown History fumarate 28 mg-folic acid 800 mcg tablet () Physical Exam Vital Signs and Narrative: Vital Signs: Last Vital Signs Temp 98.3 F 11/10/24 11:54 Pulse 99 11/10/24 11:54 Resp 16 11/10/24 11:54 BP 123/80 11/10/24 11:54 Pulse Ox 98 11/10/24 11:54 O2 Del Method Room Air 11/10/24 11:54 BMI result Body Mass Index 26.6 General: AOx3, no acute distress Resp: CTA bilaterally CVS: S1, S2, RRR GI: +BS, no distention, mild left-sided abd pain Back: Mild left-sided CVA tenderness Skin: Warm, dry Neuro: Cranial nerves II-XII grossly intact bilaterally. Motor grossly intact bilaterally Extremities: No edema Psych: Appropriate affect Results Labs 11/10/24 11:07 11/10/24 11:07 Labs: Laboratory Results - last 24 hr 11/10/24 11:07 MCV 85.0 MCH 29.4 MCHC 34.5 RDW 12.6 Plt Count 249 MPV 9.6 Immature Gran % (Auto) 0.5 H Neut % (Auto) 74.2 H Lymph % (Auto) 15.4 L [place] % (Auto) 6.6 Eos % (Auto) 2.8 Baso % (Auto) 0.5 Lymph # (Auto) 2.2 [place] # (Auto) 0.9 Eos # (Auto) 0.4 Baso # (Auto) 0.1 Abs Immat Gran (auto) 0.07 H Absolute Neuts (auto) 10.5 H Absolute Nucleated RBC 0.000 Nucleated RBC % (auto) 0.0 Anion Gap 11 L Estim Creat Clear Calc 99.5 Estimated GFR > 60 Random Glucose 218 H Lactic Acid 0.9 Calcium 9.3 Beta HCG, Quant < 2 Assessment and Plan (1) Bacteremia: Status: Acute (2) Urinary tract infection: Status: Inactive Plan Pt is a 29-year-old female with a PMH significant for?severe allergic asthma on Dupixent and chronic prednisone 5 mg daily, non-insulin steroid-induced diabetes type 2, and GERD who presents to the ED after 2/2 blood cultures came back positive for gram-negative rods. Pt is admitted to the hospital for treatment and further evaluation of bacteremia with sepsis likely secondary to acute UTI. Bacteremia with sepsis in the setting of acute UTI UA+ growing gram-rods, 2/2 blood cultures growing gram- rods Meets sepsis criteria with tachycardia and leukocytosis; lactic acid WNL Pt given IVF and started on broad-spectrum antibiotics in the ED Will treat with ceftriaxone 2 g IV, started 11/10/2024 Follow cultures Abdominal pain Likely secondary to UTI/pyelonephritis Renal ultrasound yesterday negative for nephrolithiasis or hydronephrosis Pain has improved since starting antibiotics Treat as above, no indication right now for additional imaging Hypokalemia, mild Potassium 3.1, supplemented with 40 mEq p.o. in the ED Follow potassium Moderate persistent asthma Not in acute exacerbation Continue home inhalers, chronic prednisone Non-insulin dependent diabetes type 2 Likely steroid-induced On Trulicity at home Will place on SSI GERD Continue PPI Full Code Attending:?Dr. Garcia DVT Prophylaxis: Lovenox Pt will require a hospitalization of at least two nights for treatment of?Gram-negative bacteremia with sepsis in the setting of acute UTI. Pt will require hospital level stay for administration of IV antibiotics and waiting results from repeat blood cultures. Quality Stroke Does the patient have a stroke diagnosis?: No VTE Prior VTE?: No VTE Risk Level:: Medical - moderate - high VTE Device Contraindication: Treatment Not Indicated VTE Drug Contraindication: N/A - Med Ordered
[2024-11-10 12:08] LABS: Appearance Urine Clear; Glucose Urine UA Negative (Negative); PH 7.0 (5.0-9.0); Specific Gravity - Urine 1.010 (1.005-1.025); UMIC TRIGGER UACC YES
--- OUTSIDE RECORDS SUMMARY | 2024-11-10 12:09 | XMS_ITS | Clinical Summary ---
[facility] Organization [facility] Address [address] [place] [address] Care Team Providers Care Application Systems Administrator Name Role Phone Unavailable Primary Care Provider [...]
--- OUTSIDE RECORDS SUMMARY | 2024-11-10 12:09 | XMS_ITS | Encounter Summary ---
Author Organization [employer] Address [address] [place] [address] Care Team Providers Care Inspector Salvage Name Role Phone Yvonne Kee MD Primary Care Provider [phone] Celina Bettencourt RN Unavailable [phone] Harper Zhang Unavailable Encounter Details Date Type Department Care Team ([facility] st Contact Info) Description 12/17/2023 Orders Only [facility] [address] [place] [address] Yvonne Kee MD [address] [place] [address] Social History Tobacco Use Types Packs/Day Years [...] Description 12/17/2024 1:00 PM EDT Office Visit [facility] [address] [place] [address] Lindsey Ram 12/21/2024 3:30 PM EDT Clinical Support [facility] [address] [place] [address] documented as of this encounter Visit Diagnoses Not on filedocumented in this encounter Additional Health Concerns Assessment Noted Time PHQ-9 Depression Total Score: 0 08/09/19 24 2:42 PM EDT documented as of this encounter Care Teams Inspector Salvage Relationship Specialty Start Date End Date Yvonne Kee MD [address] [place] [address] PCP - General Family Medicine 03/12/22 Celina Bettencourt, ALISHA [address] [place] [address] Registered Nurse Family Medicine 09/11/24 Harper Zhang 09/11/24 documented as of this encounter
[2024-11-10 12:11] LABS: UACC Culture Trigger YES
[2024-11-10] MEDS: Potassium Chloride ER 20 MEQ TAB.ER.PRT 40 MEQ PO (12:32)
--- NOTE | 2024-11-10 13:23 | PC.NURSE ---
Contacted PA regarding Rocephin dosing. OK to give second 1g dose now for 2g total today
--- NOTE | 2024-11-10 14:52 | PHA.MEDREC ---
Addendum entered by Kolton Bkaer PharmD 11/10/24 15:00: reviewed Original Note: Pharmacy Consult ? Medication Reconciliation Pharmacy has completed the medication reconciliation. Spoke to patient to confirm med list. Patient confirmed Dupixent 300 mg q4 weeks , next dose is 11/13/24, Trulicity 0.75 mg qweek. Patient last had her medications 3 days ago.
[2024-11-10] MEDS: 0.9 % Sodium Chloride Flush 3 ML SYRINGE IVFLUSH ×2 (15:14→23:40)
[2024-11-10] MEDS: Milk of Magnesia 30 ML ORAL.SUSP PO (15:36)
[2024-11-10 18:21] LABS: Glucose, Whole Blood 203 mg/dL (60-115)
[2024-11-10 20:42] LABS: Glucose, Whole Blood 166 mg/dL (60-115)
[2024-11-10] MEDS: Magnesium Hydrox/Alum Hydrox 30 ML ORAL.SUSP 15 ML PO (21:03)
[2024-11-11 02:35] VITALS: O2SAT 96
[2024-11-11 03:18] VITALS: BP 128/86; PULSE 85; RESP 18; TEMP 36.1; O2SAT 100
--- NOTE | 2024-11-11 03:30 | PC.NURSE ---
PT had bouts of persistent coughing around 2am, pt claimed some SOB, pt took her own Albuterol puff 2x prior to reproting to RN, pt also claimed she had missed her daily prednisone for 3 days, noted audible upper airway and upper lobe wheezing, O2 sats at 97%RA, reported to Dr. Villafana, Prednisone 5 mg po given, pt needs met, relieved after.
[2024-11-11 06:01] LABS: Hematocrit 37.6 % (37.0-47.0); Hemoglobin 12.6 g/dl (12.0-16.0); Mean Corpuscular HGB Conc 33.5 g/dl (31.0-35.0); Mean Corpuscular Hemoglobin 28.8 pg (27.0-33.0); Mean Corpuscular Volume 85.8 fL (80.0-98.0); NRBC Abs Auto 0.000 X10*3/uL (0.0-0.012); NRBC Pct Auto 0.0 /100WBC (0.0-0.2); Platelet Count 254 X10*3/uL (160-400); Red Blood Count 4.38 X10*6/uL (4.20-5.50); White Blood Count 12.7 X10*3/uL (4.8-10.8)
[2024-11-11 06:17] LABS: Anion Gap 13 (12-20); Blood Urea Nitrogen 8 mg/dL (9-16); Calcium 8.6 mg/dL (8.4-10.2); Carbon Dioxide 23 mmol/L (22-29); Chloride 105 mmol/L (96-108); Creatinine Clr Calc Pharmacy 108.7; Estimated Glomerular Filt Rate > 60; Potassium 3.8 mmol/L (3.3-5.1); Sodium 137 mmol/L (135-145)
--- NOTE | 2024-11-11 07:12 | P.PNIM_ITS ---
Subjective Subjective Date of Service: 11/11/24 Interval History: No acute events overnight Feeling much better Abdominal and back pain almost fully resolved No significant fever or chills Physical Exam 2 Exam: Exam: General: AOx3, no acute distress Resp: CTA bilaterally CVS: S1, S2, RRR GI: +BS, NT, no distention Skin: Warm, dry Back: No CVA tenderness Neuro: Cranial nerves II-XII grossly intact bilaterally. Motor grossly intact bilaterally Extremities: No edema Psych: Appropriate affect Vital Signs: Vital Signs: Last Vital Signs Temp 97.0 F 11/11/24 03:18 Pulse 85 11/11/24 03:18 Resp 18 11/11/24 03:18 BP 128/86 11/11/24 03:18 Pulse Ox 100 11/11/24 03:18 O2 Del Method Room Air 11/11/24 03:18 O2 Flow Rate 2 11/11/24 02:35 BMI result Body Mass Index 26.7 Objective Data Active Medications Acetaminophen (Acetaminophen 325 Mg Tablet) 650 mg PO Q6H PRN PRN Reason: Pain, Mild 1-3,fever,headache Last Admin: 11/10/24 23:27 Dose: 650 mg Documented By: MIAH Calcium Carbonate (Calcium Carbonate 750 Mg Tab.Chew) 750 mg PO Q4H PRN PRN Reason: Heartburn Ceftriaxone Sodium (Ceftriaxone Sodium 2 Gm Vial) 2 gm IVPUSH Q24H LORI Dextrose (Dextrose 50 % 25 Gm/50 Ml Syringe) 25 gm IVPUSH Q15M PRN; Protocol PRN Reason: per Hypoglycemia Standing Ord. Enoxaparin Sodium (Enoxaparin Sodium 40 Mg/0.4 Ml Syringe) 40 mg SUBCUT Q24H LORI Last Admin: 11/10/24 15:14 Dose: 40 mg Documented By: SARAH Glucose (Glucose Gel 15 Gm Gel..Gram.) 15 gm PO Q15M PRN; Protocol PRN Reason: per Hypoglycemia Standing Ord. Insulin Human Lispro (Insulin Lispro 100 Unit/Ml 3 Ml Vial) 0 unit SUBCUT QIDACHS [facility]; Protocol Last Admin: 11/10/24 21:02 Dose: 2 unit Documented By: CASTILJones Magnesium Hydroxide (Milk Of Magnesia 30 Ml Oral.Susp) 30 ml PO DAILY PRN PRN Reason: Constipation Last Admin: 11/10/24 15:36 Dose: 30 ml Documented By: SARAH Melatonin (Melatonin 3 Mg Tablet) 6 mg PO BEDTIME PRN PRN Reason: Insomnia Prednisone (Prednisone 5 Mg Tablet) 5 mg PO DAILY [facility] Last Admin: 11/11/24 02:44 Dose: 5 mg Documented By: NAY Sodium Chloride (0.9 % Sodium Chloride Flush 3 Ml Syringe) 3 ml IVFLUSH QSHIFT [facility] Last Admin: 11/10/24 23:40 Dose: 3 ml Documented By: GRACIEQC Labs 11/11/24 05:17 11/11/24 05:17 Labs: Laboratory Results - last 24 hr 11/10/24 11/10/24 11/10/24 11:07 12:01 18:08 MCV 85.0 MCH 29.4 MCHC 34.5 RDW 12.6 Plt Count 249 MPV 9.6 Immature Gran % (Auto) 0.5 H Neut % (Auto) 74.2 H Lymph % (Auto) 15.4 L Schuyler % (Auto) 6.6 Eos % (Auto) 2.8 Baso % (Auto) 0.5 Lymph # (Auto) 2.2 Schuyler # (Auto) 0.9 Eos # (Auto) 0.4 Baso # (Auto) 0.1 Abs Immat Gran (auto) 0.07 H Absolute Neuts (auto) 10.5 H Absolute Nucleated RBC 0.000 Nucleated RBC % (auto) 0.0 Anion Gap 11 L Estim Creat Clear Calc 99.5 Estimated GFR > 60 POC Glucose 203 H Random Glucose 218 H Lactic Acid 0.9 Calcium 9.3 Beta HCG, Quant < 2 Urine Color Yellow Urine Appearance Clear Urine pH 7.0 Ur Specific [place] 1.010 Urine Protein Negative Urine Glucose (UA) Negative Urine Ketones Negative Urine Blood Trace H Urine Nitrite Negative Ur Leukocyte Esterase Moderate (2+) H Urine RBC 3-5 H Urine WBC 11-20 H Ur Squamous Epith Cells 6-10 Urine Bacteria None Seen Hyaline Casts 0-2 11/10/24 11/11/24 20:37 05:17 MCV 85.8 MCH 28.8 MCHC 33.5 RDW 12.6 Plt Count 254 MPV 10.0 Immature Gran % (Auto) Neut % (Auto) Lymph % (Auto) Schuyler % (Auto) Eos % (Auto) Baso % (Auto) Lymph # (Auto) Schuyler # (Auto) Eos # (Auto) Baso # (Auto) Abs Immat Gran (auto) Absolute Neuts (auto) Absolute Nucleated RBC 0.000 Nucleated RBC % (auto) 0.0 Anion Gap 13 Estim Creat Clear Calc 108.7 Estimated GFR > 60 POC Glucose 166 H Random Glucose 241 H Lactic Acid Calcium 8.6 D Beta HCG, Quant Urine Color Urine Appearance Urine pH Ur Specific [place] Urine Protein Urine Glucose (UA) Urine Ketones Urine Blood Urine Nitrite Ur Leukocyte Esterase Urine RBC Urine WBC Ur Squamous Epith Cells Urine Bacteria Hyaline Casts Assessment and Plan (1) Complicated urinary tract infection: Status: Acute (2) Bacteremia: Status: Acute Plan Pt is a 29-year-old female with a PMH significant for?severe allergic asthma on Dupixent and chronic prednisone 5 mg daily, non-insulin steroid-induced diabetes type 2, and GERD who presents to the ED after 2/2 blood cultures came back positive for gram-negative rods. Pt is admitted to the hospital for treatment and further evaluation of bacteremia with sepsis likely secondary to acute UTI. Bacteremia with sepsis in the setting of acute UTI UA+ growing gram-rods, 2/2 blood cultures growing gram- rods Meets sepsis criteria with tachycardia and leukocytosis; lactic acid WNL Continue ceftriaxone 2 g IV, day 2 Follow cultures Abdominal pain Likely secondary to UTI/pyelonephritis Renal ultrasound yesterday negative for nephrolithiasis or hydronephrosis Pain has improved since starting antibiotics, currently no pain or tenderness Treat as above, no indication right now for additional imaging Hypokalemia resovled Potassium 3.1, supplemented with 40 mEq p.o. in the ED with repeat 3.8 Moderate persistent asthma Not in acute exacerbation Continue home inhalers, chronic prednisone Non-insulin dependent diabetes type 2 Likely steroid-induced On Trulicity at home Will place on SSI, diabetic diet GERD Continue PPI Full Code Attending:?Dr. Garcia DVT Prophylaxis: Lovenox Pt will require a continue hospitalization for IV abx while awaiting blood cultures and sensitivities. Quality Stroke Does the patient have a stroke diagnosis?: No VTE Prior VTE?: No VTE Risk Level:: Medical - moderate - high VTE Device Contraindication: Treatment Not Indicated VTE Drug Contraindication: N/A - Med Ordered
[2024-11-11 07:31] LABS: Glucose, Whole Blood 249 mg/dL (60-115)
[2024-11-11 07:32] VITALS: BP 118/72; PULSE 84; RESP 18; TEMP 36.4; O2SAT 98
[2024-11-11] MEDS: 0.9 % Sodium Chloride Flush 3 ML SYRINGE IVFLUSH ×3 (07:45→21:11)
[2024-11-11 11:24] LABS: Glucose, Whole Blood 204 mg/dL (60-115)
--- NOTE | 2024-11-11 11:31 | MHC.CM.PN ---
pt lives with her son..she is working and independent will not need services when dcd dc plan home n/s
[2024-11-11 15:58] VITALS: BP 129/82; PULSE 95; RESP 18; TEMP 36.6; O2SAT 97
[2024-11-11 16:43] LABS: Glucose, Whole Blood 207 mg/dL (60-115)
[2024-11-11 20:00] VITALS: BP 138/86; PULSE 104; RESP 18; TEMP 36.3; O2SAT 98
[2024-11-11 20:16] VITALS: PULSE 104; RESP 16; O2SAT 98
[2024-11-11 20:35] LABS: Glucose, Whole Blood 155 mg/dL (60-115)
[2024-11-12 03:26] VITALS: BP 123/82; PULSE 89; RESP 18; TEMP 37.1; O2SAT 97
[2024-11-12 07:35] LABS: Glucose, Whole Blood 172 mg/dL (60-115)
[2024-11-12 07:37] VITALS: BP 126/80; PULSE 95; RESP 18; TEMP 36.8; O2SAT 98
[2024-11-12] MEDS: 0.9 % Sodium Chloride Flush 3 ML SYRINGE IVFLUSH (07:44)
[2024-11-12 08:08] VITALS: PULSE 133; RESP 18; O2SAT 98
[2024-11-12 08:18] VITALS: PULSE 106; RESP 18; O2SAT 96
--- NOTE | 2024-11-12 10:15 | MHC.CM.PN ---
PER MD ROUNDS, PT EXPECTED TO DC HOME TODAY ON PO MEDS PT TO ARRANGE TRANSPORT
[2024-11-12 11:18] LABS: Glucose, Whole Blood 188 mg/dL (60-115)
--- NOTE | 2024-11-12 11:38 | PM.DS ---
DS: Providers Provider Date of Service: 11/12/24 Date of admission: 11/10/24 12:08 Date of discharge: 11/12/24 Primary care physician: Yvonne Kee MD DS: Diagnosis Discharge Diagnosis (1) Complicated urinary tract infection: Status: Acute (2) Bacteremia: Status: Acute DS: Summary Hospital Course Hospital Course: From admission HPI Date of Service: 11/10/24 Attending physician on admission: Murphy Garcia Chief Complaint: Bacteremia Pt is a 29-year-old female with a PMH significant for?severe allergic asthma on Dupixent and chronic prednisone 5 mg daily, non-insulin steroid-induced diabetes type 2, and GERD who presents to the ED after 2/2 blood cultures came back positive for gram-negative rods. Pt initially presented to the hospital yesterday after experiencing fever, rigors, left-sided abdominal pain, and N/V beginning 3 days ago. Workup at that time found pt had an acute UTI. KUB showing nonspecific nonobstructive bowel gas pattern and renal ultrasound negative for hydronephrosis or nephrolithiasis. Pt was discharged home on cephalexin. Had overall symptom improvement, but still some N/V, left-sided abdominal pain, and F/C. Denies shortness or breath or difficulty breathing. No chest pain/pressure, palpitations. Pt also denies polyuria or dysuria. Abdominal pain still present, though much improved over yesterday. In the ED pt was tachycardic up to 108 and low-grade fever of 99.0. Labs were significant for leukocytosis 14.1, potassium 3.1, and random glucose 218. UA remains consistent with UTI. Pt was treated in the ED with IVF, potassium chloride 40 mEq p.o., and ceftriaxone. Pt is admitted to the hospital for treatment and further evaluation of bacteremia with sepsis likely secondary to acute UTI. Hospital course: Pt was admitted to the hospital for sepsis secondary to pyelonephritis and bacteremia. Blood and urine cultures both grew pansensitive E coli. Pt was treated with ceftriaxone 2 g IV daily. Patient's hospital stay was overall uncomplicated. Mild hypokalemia was resolved with supplementation. Pt had resolution of abdominal and left flank pain. Pt was noted to be tachycardic, but this was likely secondary to albuterol use. Pt seen and evaluated this morning where she is resting comfortably in bed with no acute medical complaints. Pt is agreeable to discharge plan. Pt will be discharged on cefuroxime 500 mg b.i.d. x14 days, set to complete on 11/26. For asthma, continue home inhalers and chronic prednisone For frl-zuofrnp-[id number] type 2 diabetes, continue Trulicity For GERD, continue PPI Time Attestation Discharge Coordination Time (in mins): 35 Quality: Safe Use of Opioids Does Pt have an Active Cancer Diagnosis on the Problem List?: No Quality: Stroke Does the patient have a stroke diagnosis?: No Physical Exam Exam: Exam: General: AOx3, no acute distress Resp: Mild expiratory wheezing, no respiratory distress CVS: S1, S2, RRR GI: +BS, NT, no distention Skin: Warm, dry Neuro: Cranial nerves II-XII grossly intact bilaterally. Motor grossly intact bilaterally Extremities: No edema Psych: Appropriate affect Vital Signs: Vital Signs: Last Vital Signs Temp 98.2 F 11/12/24 07:37 Pulse 106 H 11/12/24 08:18 Resp 18 11/12/24 08:18 BP 126/80 11/12/24 07:37 Pulse Ox 96 11/12/24 08:18 O2 Del Method Room Air 11/12/24 08:18 O2 Flow Rate 97 11/12/24 03:26 BMI result Body Mass Index 26.7 DS: Data Data Completed and Pending Labs on day of discharge: Laboratory Results - last 24 hr 11/11/24 11/11/24 11/12/24 16:40 20:15 07:21 POC Glucose 207 H 155 H 172 H 11/12/24 11:13 POC Glucose 188 H Preliminary micro results at discharge 11/10/24 11:07 Blood Culture - Preliminary Blood - Venous No growth after 24 hours. 11/10/24 11:02 Blood Culture - Preliminary Blood - Venous No growth after 24 hours. Discharge Plan Discharge Anticipated Discharge Date/Time: 11/12/24 11:21 Patient Disposition: Home, Self-Care Discharge Diagnosis: Sepsis secondary to bacteremia and pyelonephritis Referrals: Yvonne Kee MD [Primary Care Provider, Internal Medicine] - 1 Week Discharge Medications: New cefuroxime axetil 500 mg tablet 500 mg PO BID Qty: 28 0RF Rx Instructions: Take one tablet twice a day for the next two weeks. Antibiotic course should end on 11/27 Continued Dupixent Pen 300 mg/2 mL pen injector 300 mg subcut Q2W 28 Days Qty: 4 11RF albuterol sulfate 90 mcg/actuation HFA aerosol inhaler 2 puff inhalation Q4-6H PRN (Reason: shortness of breath or wheezing) Qty: 6.7 11RF budesonide 0.5 mg/2 mL suspension for nebulization 0.5 mg inhalation BID 30 Days Qty: 120 11RF epinephrine [EpiPen 2-Hiram] 0.3 mg/0.3 mL auto-injector 0.3 mg IM Q10M PRN (Reason: anaphylaxis) 30 Days Qty: 2 6RF Rx Instructions: for 2 doses prednisone 5 mg tablet 5 mg PO DAILY 30 Days Qty: 30 1RF (DME) nebulizer and compressor Device MISCELLANEOUS medroxyprogesterone 150 mg/mL suspension 150 mg IM Q3M PRN (Reason: Allergic Reaction) PNV cmb#95-ferrous fumarate-FA [] 28 mg iron- 800 mcg tablet 1 tab PO DAILY fluticasone propionate 50 mcg/actuation spray,suspension 1 spray intranasal DAILY Trulicity 0.75 mg/0.5 mL pen injector 0.75 mg subcut QWEEK cetirizine [Zyrtec] 10 mg Tablet 10 mg PO DAILY albuterol sulfate 2.5 mg /3 mL (0.083 %) solution for nebulization 2.5 mg inhalation Q6H PRN (Reason: shortness of breath or wheezing) Qty: 180 7RF Discharge Orders: Discharge Order (Routine); Ordered 11/12/24 Ordered By: Marielena Garcia Activity on Discharge: As tolerated Stand Alone Forms: Patient Portal Discharge page, Work/School Release Print Language: Slovak Care Plan Goals: See below Health Concerns: Complicated UTI/pyelonephritis Bacteremia Back and flank pain Plan of Treatment: You were admitted to the hospital for sepsis secondary to bacteremia and pyelonephritis from a complicated UTI for which you were treated with IV antibiotics that were appropriate given culture sensitivities. Take cefuroxime 500 mg twice a day for the next 2 weeks. Began taking oral antibiotics on 11/13 and course set to be completed on 11/26. Take with food and complete whole course of antibiotics. Returned to the ED if symptoms return, including fever/chills or abdominal pain Resume all other home medications Assessment: See discharge summary Discharge Date/Time: 11/12/24 12:39
[2024-11-12 12:33] VITALS: BP 156/76; PULSE 107; RESP 18; TEMP 36; O2SAT 94
== END 2024-11-12 12:39 | disposition home or self-care (01) | DRG 720 ==
LOC: HO.ED 11:19 → HO.EDOVER 12:12 → HO.S3 17:55
PROVIDERS: Physician Assistant; Admitting Provider Student in an Organized Health Care Education/Training Program; Emergency Provider Emergency Medicine; PCP General Practice; Visit Provider Student in an Organized Health Care Education/Training Program
DX: A41.9 Sepsis, unspecified organism (principal); E11.9 Type 2 diabetes mellitus without complications; E87.6 Hypokalemia; N10 Acute pyelonephritis; J45.40 Moderate persistent asthma, uncomplicated; N39.0 Urinary tract infection, site not specified; Z79.51 Long term (current) use of inhaled steroids; Z79.52 Long term (current) use of systemic steroids; Z79.85 Long-term (current) use of injectable non-insulin antidiabetic drugs; Z79.620 Long term (current) use of immunosuppressive biologic; Z79.899 Other long term (current) drug therapy
CPT/HCPCS: 36415; 80048; 81001; 82947; 83605; 84702; 85025; 85027; 87040; 87086; 94640; 99285; J0696; J1650

== ENCOUNTER → 2024-11-10 12:08 | Outpatient (BNV) | payer MEDICAID, SELFPAY | PROVIDERS: Admitting Provider Student in an Organized Health Care Education/Training Program; Emergency Provider Emergency Medicine; PCP General Practice; Visit Provider Student in an Organized Health Care Education/Training Program | DX: N39.0 Urinary tract infection, site not specified (principal); R78.81 Bacteremia | CPT/HCPCS: 99223; 99233; 99239 ==

== ENCOUNTER 2025-02-02 09:47 | Outpatient (REF) | payer MEDICAID, SELFPAY ==
--- OUTSIDE RECORDS SUMMARY | 2025-02-01 15:15 | XMS_ITS | Encounter Summary ---
Author Organization [employer] Address [address] [facility] [address] [place] [address] Care Team Providers Care Tube Cleaner Name Role Phone Yvonne Kee MD Primary Care Provider [phone] Reason for Visit * Reason Comments Follow-up Encounter Details Date Type Department Care Team ([facility] Contact Info) Description 02/01/2025 3:15 PM EDT Office Visit [facility] [address] [place] [address] Yvonne Kee MD [address] [place] [address] Type 2 diabetes mellitus without complication, without long-term current use of insulin (HCC) (Primary Dx); Elevated blood pressure reading; History of pyelonephritis; Routine screening for STI (sexually transmitted infection) Social History Tobacco Use Types Packs/Day Years Used Date Smoking Tobacco: Never Passive Smoke Exposure: Never Smokeless Tobacco: Never Alcohol Use Standard Drinks/Week Comments Yes 0 (1 standard drink = 0.6 oz pur e alcohol) occasionally Alcohol Answer Date Recorded How often do you have a drink containing alcohol ? 2 11/30/2024 How many drinks containing a lcohol do you have on a typical day when you are drinking? 1 11/30/2024 How often do you have six or more drinks on one occasion? 1 11/30/2024 Depression Answer Date Recorded Patient Health Questionnaire-9 Score 0 10/29/2024 Patient Health Questionnaire-9 Score 0 10/29/2024 Last PHQ-9: Questionnaire Data Not on file 0 10/29/2024 Housing Stability Answer Date Recorded What is your housing situation today? I have merritt bernard 11/30/[address] you li ve. Do you have problems with any of the following? None of the above 11/30/2024 Food Insecurity Answer Date Recorded Within the past 12 months, y ou worried that your food would run out before you got money to buy more: Never True 11/30/2024 Within the past 12 months,th e food you bought just didn't last and you didn't have enough money to get more: Never True Transportation Answer Date Recorded In the past 12 months, has l ack of transportation kept you from medical appts, meetings, work or from getting things needed for daily living? No 11/30/2024 Utilities Answer Date Recorded In the past 12 months, has t he electric, gas, oil or water company threatened to shut off services in your home? No 12/23/2024 Depression Answer Date Recorded Patient Health Questionnaire-2 Score 0 10/29/2024 Internet Access Answer Date Recorded Internet Access Q1 Yes 11/30/2024 Internet Access Q2 Not on file 11/30/2024 Comments No Sex and Gender Information Value Date Recorded Sex Assigned at Female 02/12/2022 10:14 AM EDT Legal Sex Female 10:14 AM EDT Gender Identity Female 02/12/2022 10:14 AM EDT Sexual Orientation Straight 02/12/2022 10 :14 AM EDT documented as of this encounter Last Filed Vital Signs Vital Sign Reading Time Taken Comments Blood Pressure 120/80 02/01/2025 3:13 PM EDT Pulse 64 02/01/2025 3:13 PM EDT Temperature 38.3 C (100.9 F) 02/01/2025 3:13 PM EDT Respiratory Rate 20 02/01/2025 3:13 PM EDT Oxygen Saturation - - Inhaled Oxygen Concentration - - Weight 71.8 kg (158 lb 6.4 oz) 02/01/2025 3:13 P M EDT Height 165.1 cm (5' 5 ) 02/01/2025 3:13 PM EDT Body Mass Index 26.36 02/01/2025 3:13 PM EDT documented in this encounter Plan of Treatment Upcoming Encounters Date Type Department Care Team (Late st Contact Info) Description 03/15/2025 1:00 PM EST Clinical Support [address] [address] Scheduled Orders Name Type Priority Associated Diagnoses Orde r Schedule Albumin, Random Urine W/Creatinine Lab Routine Type 2 diabetes mellitus without complication, without long-term current use of insulin (HCC) Expected: 02/01/2025 (Approximate), Expires: 02/01/2026 Culture, Urine, Routine Microbiology Routine History of pyelonephritis Expected: 02/01/2025 (Approximate), Expires: 02/01/2026 Hemoglobin A1c Lab Routine Type 2 diabetes mellitus without complication, without long-term current use of insulin (HCC) Expected: 02/01/2025 (Approximate), Expires: 02/01/2026 HIV-1/2 Antigen and Antibodies, Fourth Generation, with Reflexes Lab Routine Routine screening for STI (sexually transmitted infection) Expected: 02/01/2025 (Approximate), Expires: 02/01/2026 RPR (Monitor) with Reflex to Titer Lab Routine Routine screening for STI (sexually transmitted infection) Expected: 02/01/2025, Expires: 02/01/2026 Hepatitis C Antibody with Reflex to HCV, RNA, Quantitative, Real-Time PCR Lab Routine Routine screening for STI (sexually transmitted infection) Expected: 02/01/2025, Expires: 02/01/2026 Chlamydia/N. Gonorrhoeae RNA, TMA, Urogenitial Microbiology Routine Routine screening for STI (sexually transmitted infection) Expected: 02/01/2025 (Approximate), Expires: 02/01/2026 documented as of this encounter Visit Diagnoses Diagnosis Type 2 diabetes mellitus without complication, without long-term current use of insulin (HCC)- Primary Elevated blood pressure reading Elevated blood pressure reading without diagnosis of hypertension History of pyelonephritis Routine screening for STI (sexually transmitted infection) Screening examination for venereal disease documented in this encounter Additional Health Concerns Assessment Noted Time PHQ-9 Depression Total Score: 0 10/30/19 25 8:37 AM EDT documented as of this encounter Care Teams Tube Cleaner Relationship Specialty Start Date End Date Yvonne Kee MD [address] [place] [id number] PCP - General Family Medicine 03/12/22 documented as of this encounter
--- OUTSIDE RECORDS SUMMARY | 2025-02-02 11:08 | XMS_ITS | Encounter Summary ---
Author Organization [employer] Address [address] [facility] 7t [place] [address] Care Team Providers Care Sleep Tech Name Role Phone Yvonne Kee MD Primary Care Provider [phone] Celina Bettencourt RN Unavailable [phone] Harper Zhang Unavailable Reason for Visit * Reason Onset Date Comments Med Refill 11/06/2024 Encounter Details Date Type Department Care Team (Late st Contact Info) Description 11/06/2024 Refill [facility] [address] [place] [address] Yvonne Kee MD [address] [place], [place] [id number] Social History Tobacco Use Types Packs/Day Years Used Date Smoking Tobacco: Never Passive Smoke Exposure: Never Smokeless Tobacco: Never Alcohol Use Standard Drinks/Week Comments Yes 0 (1 standard drink = 0.6 oz pur e alcohol) occasionally Depression Answer Date Recorded Patient Health Questionnaire-9 [...] Recorded Patient Health Questionnaire-2 Score 0 10/29/2024 Comments No Sex and Gender Information Value [...] Description 03/15/2025 1:00 PM EST Clinical Support [facility] [address] [place] [address] documented as of this encounter Visit Diagnoses Not on filedocumented in this encounter Additional Health Concerns Assessment Noted Time PHQ-9 Depression Total Score: 0 10/30/19 25 8:37 AM EDT documented as of this encounter Care Teams Sleep Tech Relationship Specialty Start Date End Date Yvonne Kee MD [address] [place] [address] PCP - General Family Medicine 03/12/22 Celina Bettencourt RN [address] [place] [id number] Registered Nurse Family Medicine 09/11/24 01/27/25 Harper Zhang 09/11/24 01/27/25 documented as of this encounter
--- OUTSIDE RECORDS SUMMARY | 2025-02-02 11:08 | XMS_ITS | Encounter Summary ---
Author Organization [employer] Address [address] [facility] [address]t [place] [address] Care Team Providers Care Store Custodian Name Role Phone Yvonne Kee MD Primary Care Provider [phone] Celina Bettencourt RN Unavailable [phone] Harper Zhang Unavailable Encounter Details Date Type Department Care Team ([facility] st Contact Info) Description 12/17/2023 Orders Only [facility] [address] [place] [address] Yvonne Kee MD [address] [place] [address] Social History Tobacco Use Types Packs/Day Years [...] Description 03/15/2025 1:00 PM EST Clinical Support [facility] [address] [place] [address] documented as of this encounter Visit Diagnoses Not on filedocumented in this encounter Additional Health Concerns Assessment Noted Time PHQ-9 Depression Total Score: 0 08/09/19 24 2:42 PM EDT documented as of this encounter Care Teams Store Custodian Relationship Specialty Start Date End Date Yvonne Kee MD [address] [place] [address] PCP - General Family Medicine 03/12/22 Celina Bettencourt, ALISHA [address] [place] [phone] Registered Nurse Family Medicine 09/11/24 01/27/25 Harper Zhang 09/11/24 01/27/25 documented as of this encounter
--- OUTSIDE RECORDS SUMMARY | 2025-02-02 11:08 | XMS_ITS | Encounter Summary ---
Author Organization [employer] Address [address] [place] [address] [address] [place] [address] Care Team Providers Care Captain Assistant Name Role Phone Yvonne Kee MD Primary Care Provider [phone] Celina Bettencourt RN Unavailable [phone] Harper Zhang Unavailable Encounter Details Date Type Department Care Team (Late Contact Info) Description 04/19/2022 Orders Only [facility] [address] [place] [address] Yvonne Kee MD [address] [place] [id number] Social History Tobacco Use Types Packs/Day Years [...] Department Care Team (Late Contact Info) Description 03/15/2025 1:00 PM EST Clinical Support [facility] [address] [place] [address] documented as of this encounter Visit Diagnoses Not on filedocumented in this encounter Care Teams Captain Assistant Relationship Specialty Start Date End Date Yvonne Kee MD [address] [place] [address] PCP - General Family Medicine 03/12/22 Celina Bettencourt RN [address] [place] [phone] Registered Nurse Family Medicine 09/11/24 01/27/25 Harper Zhang 09/11/24 01/27/25 documented as of this encounter
--- OUTSIDE RECORDS SUMMARY | 2025-02-02 11:08 | XMS_ITS | Encounter Summary ---
Author Organization [employer] Address [address] [facility] [address] [place] [address] Care Team Providers Care Manager Code Name Role Phone Yvonne Kee MD Primary Care Provider [phone] Celina Bettencourt RN Unavailable [phone] Harper Zhang Unavailable Encounter Details Date Type Department Care Team ([facility] st Contact Info) Description 12/28/2024 Orders Only [facility] [address] [place] [address] Yvonne Kee MD [address] [place] [address] Social History Tobacco Use Types Packs/Day Years [...] Description 03/15/2025 1:00 PM EST Clinical Support [facility] [address] [place] [address] documented as of this encounter Visit Diagnoses Not on filedocumented in this encounter Additional Health Concerns Assessment Noted Time PHQ-9 Depression Total Score: 0 10/30/19 25 8:37 AM EDT documented as of this encounter Care Teams Manager Code Relationship Specialty Start Date End Date Yvonne Kee MD [address] [place] [address] PCP - General Family Medicine 03/12/22 Celina Bettencourt RN [address] [place] [id number] Registered Nurse Family Medicine 09/11/24 01/27/25 Harper Zhang 09/11/24 01/27/25 documented as of this encounter
--- OUTSIDE RECORDS SUMMARY | 2025-02-02 11:08 | XMS_ITS | Encounter Summary ---
Author Organization [employer] Address [address] [facility] [address] [place] [address] Care Team Providers Care Educational Psychology Teacher Name Role Phone Yvonne Kee MD Primary Care Provider [phone] Celina Bettencourt RN Unavailable [phone] Harper Zhang Unavailable Reason for Visit * Reason Comments Med Refill Encounter Details Date Type Department Care Team ([facility] st Contact Info) Description 09/23/2024 Refill [facility] [address] [place], [place] [id number] Yvonne Kee MD [address] [place], [place] [id number] Social History Tobacco Use Types Packs/Day Years [...] Description 03/15/2025 1:00 PM EST Clinical Support [facility] [address] [place] [address] documented as of this encounter Visit Diagnoses Not on filedocumented in this encounter Additional Health Concerns Assessment Noted Time PHQ-9 Depression Total Score: 0 08/09/19 24 2:42 PM EDT documented as of this encounter Care Teams Educational Psychology Teacher Relationship Specialty Start Date End Date Yvonne Kee MD [address] [place] [address] PCP - General Family Medicine 03/12/22 Celina Bettencourt RN [address] [place] [id number] Registered Nurse Family Medicine 09/11/24 01/27/25 Harper Zhang 09/11/24 01/27/25 documented as of this encounter
--- OUTSIDE RECORDS SUMMARY | 2025-02-02 11:08 | XMS_ITS | Encounter Summary ---
Author Organization [employer] Address [address] [facility] [address] [place] [address] Care Team Providers Care Land[employer] Collection Operator Name Role Phone Yvonne Kee MD Primary Care Provider [phone] Celina Bettencourt RN Unavailable [phone] Harper Zhang Unavailable Encounter Details Date Type Department Care Team ([facility] st Contact Info) Description 09/26/2023 Orders Only [facility] [address] [place] [address] Yvonne Kee MD [address] [place] [address] Social History Tobacco Use Types Packs/Day Years [...] Description 03/15/2025 1:00 PM EST Clinical Support [facility] [address] [place] [address] documented as of this encounter Visit Diagnoses Not on filedocumented in this encounter Additional Health Concerns Assessment Noted Time PHQ-9 Depression Total Score: 0 08/09/19 24 2:42 PM EDT documented as of this encounter Care Teams [employer] Collection Operator Relationship Specialty Start Date End Date Yvonne Kee MD [address] [place] [address] PCP - General Family Medicine 03/12/22 Celina Bettencourt, ALISHA [address] [place] [id number] Registered Nurse Family Medicine 09/11/24 01/27/25 Harper Zhang 09/11/24 01/27/25 documented as of this encounter
--- OUTSIDE RECORDS SUMMARY | 2025-02-02 11:08 | XMS_ITS | Clinical Summary ---
Author Organization [facility] [employer] Address [address] [address] [place] [address] Care Team Providers Care Supervisor Grower Name Role Phone Yvonne Kee MD Primary Care Provider [phone] Allergies Active Allergy Reactions Criticality Noted Date Comments Dog Epithelium 11/19/2022 Kiwi Extract 11/19/2022 Prunus Persica 10/05/2011 Medications cetirizine (ZyrTEC) 10 MG tabletIndicatio ns:Severe persistent asthma, unspecified whether complicated (HCC) Take 1 tablet (10 mg) by mouth in the morning. 90 tablet 3 024 Active Dupilumab (Dupixent) 100 MG/0.67ML solution prefilled syringe Inject under the skin. Active 28-0.8 MG tablet Take 1 tablet by mouth Once per day. 90 tablet 3 025 2025 Active Acetaminophen Extra Strength 500 MG tablet TAKE 1 TABLET BY MOUTH EVERY 6 HOURS NEEDED FOR PAIN 30 tablet 1 025 Active Nebulizers miscIndications :Severe persistent asthma, unspecified whether complicated (HCC) Use nebulizer as instructed 1 each 025 Active Respiratory Therapy Supplies (Nebulizer/Tubi ng/Mouthpiece) kitIndications: Severe persistent asthma, unspecified whether complicated (HCC) To be used with Nebulizer 1 kit 11 025 Active Ventolin HFA 108 (90 Base) MCG/ACT inhaler INHALE 2 PUFFS BY MOUTH EVERY 4 HOURS NEEDED FOR WHEEZING 18 g 11 025 Active medroxyPROGESTE Ludwin (Depo-Provera) 150 MG/ML injectionIndica tions:Encounter for initial prescription of injectable contraceptive Inject 1 mL (150 mg) into the muscle every 3 (three) months. 1 mL 3 Active Trulicity 0.75 MG/0.5ML solution auto-injectorIn dications:Type 2 diabetes mellitus without complication, without long-term current use of insulin (HCC) INJECT ONE PEN (=0.75MG) SUBCUTANEOUSLY ONCE A WEEK DIRECTED 2 mL 11 Active budesonide (Pulmicort) 0.5 MG/2ML nebulizer solution Take 0.5 mg by nebulization in the morning and at bedtime. Active EPINEPHrine (Epipen) 0.3 MG/0.3ML injection syringe INJECT INTRAMUSCULARLY DIRECTED ON PACKAGE AND GO TO EMERGENCY ROOM Active predniSONE (Deltasone) 5 MG tablet Take 1 tablet (5 mg) by mouth Once per day. 30 tablet 2 Active Alcohol Swabs (Alcohol Prep) pads Check blood sugar once daily 100 each 3 Active Blood Glucose Monitoring Suppl (FreeStyle [place] Lite) w/Device kitIndications: Hyperglycemia Test blood sugar fasting and more as needed 1 kit Active FREESTYLE LITE test stripIndication s:Hyperglycemia Test blood sugar fasting daily and after 2 hours after eating a meal 100 each Active TRUEplus Lancets 33G miscIndications :Hyperglycemia Test blood sugar once daily and as needed 100 each Active olmesartan (Benicar) 5 MG tablet Take 1 tablet (5 mg) by mouth Once per day. 30 tablet 11 025 2025 Active montelukast (Singulair) 10 MG tablet Take 10 mg by mouth in the evening. Active amoxicillin-cla vulanate (Augmentin) 875-125 MG tablet Take 1 tablet by mouth 2 times daily for 7 days. 14 tablet 2024 Active fluticasone (Flonase Allergy Relief) 50 MCG/ACT nasal spray Administer 1 spray into each nostril Once per day. Shake gently. Before first use, prime pump. After use, clean tip and replace cap. 16 g 12 025 2025 Active diphenhydrAMINE (BENADryl) 25 MG tablet Take 1 tablet (25 mg) by mouth if needed at bedtime for allergies. 30 tablet 025 2024 Active fluticasone (Flonase Allergy Relief) 50 MCG/ACT nasal spray Administer 1 spray into each nostril Once per day. Shake gently. Before first use, prime pump. After use, clean tip and replace cap. 16 g 12 024 2024 Discontinued(R eorder (will not trigger notification to Pharmacy)) Blood Pressure kit 1 each 2 times daily. 1 kit 024 2024 albuterol (2.5 MG/3ML) 0.083% nebulizer solution INHALE 1 AMPULE USING A NEBULIZER EVERY 6 HOURS NEEDED FOR WHEEZING OR SHORTNESS OF BREATH 025 2024 Discontinued(T herapy completed) predniSONE (Deltasone) 10 MG tablet TAKE 4 TABLETS BY MOUTH DAILY X3 DAYS, 3 TABS X3 DAYS, 2 TABS X3 DAYS THEN 1 TAB X3 DAYS DIRECTED 025 2024 Discontinued(T herapy completed) Hospital, Clinic, or Other Facility Administered Medication Ordered Dose Route Frequency Start Date End Date Status medroxyPROGESTERone (Depo-Provera) injection 150 mgIndications:Encounte r for initial prescription of injectable contraceptive 150 mg IM Every 3 months 09/28/2024 12/22/2025 Active Active Problems Patient Care Coordination No te Formatting of this note migh t be different from the original. C3/CM Cleo Pérez RN /[id number] Cornelia Bettencourt Problem Noted Date Diagnosed Date Type 2 diabetes mellitus wit hout complication, without long-term current use of insulin 09/29/2024 Assessment & Plan (12/04/2024 9:26 AM EDT): Continue Trulicity 0.75mg weekly Glucometer supply prescription was sent Assessment & Plan (09/29/2024 8:15 AM EDT): Continue Trulicity 0.75mg weekly Encounter for initial prescr iption of injectable contraceptive 09/29/2024 Assessment & Plan (09/29/2024 8:18 AM EDT): Risks and benefits of Depo reviewed. She would like Depo today. Report worsening headache, chest pain, shortness of breath, visual changes, abdominal pain, heavy bleeding or jaundice. Expect irregular bleeding for the first 3-6 months. It is normal to not have any bleeding at all. Urged diet with good sources of calcium and Vitamin D, stay active. Reviewed delay in return to fertility with Depo. Reviewed newer data showing slight increase in meningiomas with Depo (benign brain tumors). Report worsening headache or neurological symptoms. Continue condoms for at least 7 days. Advised 100% condoms to boost Depo's effectiveness and for STI prevention. Elevated blood pressure reading 06/17/2024 Assessment & Plan (12/04/2024 9:24 AM EDT): - She was started on Nifedipine 30mg XL in June 2024, but her plum packer has discontinued due to its association with angioedema. - On daily systemic steroid - Will prescribe amlodipine 2.5 mg daily - Work on lifestyle modification Assessment & Plan (06/17/2024 10:27 AM EST): Start PNV for preconception Start Nifedipine 30mg XL Normal renal and liver function History of gestational diabetes 10/17/2022 Family planning 10/15/2022 Assessment & Plan (06/17/2024 10:34 AM EST): Start PNV Monitor BP, ensure good control of BP prior to conception Also endorsing some postcoital bleeding and one year overdue for repeat Pap due to LSILHPV pos in 11/2021 Will schedule [facility] for pap Assessment & Plan (10/15/2022 2:28 PM EDT): All options discussed. -Pt would like to start NuvaRing. Severe persistent allergic asthma 03/16/2022 Assessment & Plan (12/04/2024 9:25 AM EDT): Last PCP's note as the following: Continue Symbicort, Budesonide inh, SOCO prn Call to make pulm followup ER/UC for any worsening symptoms, SOB Goal is to taper off prednisone eventually Refill for prednisone given Assessment & Plan (08/13/2023 8:48 AM EDT): [...] Problem Noted Date Diagnosed Date Resolved Date Vaginal discharge 07/24/2024 09/29/2024 Assessment & Plan (07/24/2024 10:22 AM EDT): Consistent with candidate per hx, Will treat, Bv and gc.chl pending Acute cough 07/24/2024 09/29/2024 Assessment & Plan (07/24/2024 10:22 AM EDT): In setting of severe asthma with allergies and seasonal change as trigger. Pt appropriately increased steroid dose to meet asthma exacerbation and is now out of medication, will continue taper, (20 mg x 3 days, 10 mg x 5 days) return to baseline dose of 5 mg Pt will monitor sugars and opts to utilize trulicity despite gi side effects Pt will call prednisone Dysuria 07/24/2024 09/29/2024 Assessment & Plan (07/24/2024 10:22 AM EDT): Reassuring ua. Hyperglycemia 06/19/2023 09/29/2024 Overview (06/19/2023): check fasting BG at least [...] 500mg BID - A1C, lipids, CMP ordered Disease due to severe acute respiratory syndrome [...] Encounters Date Type Department Care Team Description 02/01/2025 3:15 PM EDT Office Visit [address] [address] Yvonne Kee MD Type 2 diabetes mellitus without complication, without long-term current use of insulin (HCC) (Primary Dx); Elevated blood pressure reading; History of pyelonephritis; Routine screening for STI (sexually transmitted infection) 02/01/2025 Travel 01/29/[address] [address] Yvonne Kee MD chart prep 01/27/2025 Patient Outreach [address] [address] Yvonne Kee MD Care Coordination (SDOH f/u) 01/27/2025 Patient Outreach [address] [address] Yvonne Kee MD Care Management (C3CM- f/u call lvm) 01/25/2025 Travel 01/25/2025 Patient Outreach [address] [address] Yvonne Kee MD Pre-visit Planning (LVM) 01/21/2025 Patient Outreach [address] [address] Yvonne Kee MD Pre-visit Planning (SDOH screening completed on 12/23/24 ) 01/15/2025 Patient Outreach [address] [address] Yvonne Kee MD Care Coordination (SDOH f/u) 01/15/2025 Patient Outreach [address] [address] Yvonne Kee MD Care Management (C3CM- f/u call) 01/04/2025 Patient Outreach [address] [address] Yvonne Kee MD Care Management (C3CM- f/u call lv) 12/28/2024 Orders Only [address] [address] Yvonne Kee MD 12/24/2024 11:30 AM EDT Clinical Support [address] [address] Ibeth Avalos, RN Encounter for initial prescription of injectable contraceptive 12/24/2024 Travel 12/23/2024 Patient Outreach [address] [address] Yvonne Kee MD Care Coordination (SDOH f/u) 12/23/2024 Patient Outreach [address] [address] Yvonne Kee MD Care Management (C3CM- f/u call) 12/17/2024 1:00 PM EDT Office Visit [facility] [address] [place] [phone] Lindsey Ram Dental calculus (Primary Dx); Dental plaque 12/10/2024 Patient Outreach [address] [address] Yvonne Kee MD Care Coordination (SDOH f/u) 12/10/2024 Patient Outreach [address] [address] Yvonne Kee MD Care Management (C3CM- f/u call lvm) 11/30/2024 9:00 AM EDT Office Visit [address] [address] Eliza Walton MD Pyelonephritis (Primary Dx); Type 2 diabetes mellitus without complication, without long-term current use of insulin ([facility]); Severe persistent allergic asthma; Elevated blood pressure reading; Hyperglycemia 11/30/2024 Patient Outreach [address] [address] Yvonne Kee MD Care Coordination (SDOH f/u) 11/30/2024 Patient Outreach [address] [address] Yvonne Kee MD Care Management (C3CM- f/u call) 11/30/2024 Patient Outreach [address] [address] Yvonne Kee MD Care Coordination ([facility] outreach for [facility] housing search-referral completed ) 11/30/2024 Travel 11/27/[address] [address] Yvonne Kee MD Error (VOID this visit) 11/27/[address] [address] Yvonne Kee MD chart prep 11/26/[address] [address] Carla Bernardo, PharmD 11/16/[address] [address] Yvonne Kee MD Hyperglycemia 11/16/2024 Patient Outreach [address] [address] Yvonne Kee MD Care Management (C3CM- f/u call) 11/12/2024 Patient Outreach [facility] [address] [place] [address] Yvonne Kee MD 11/11/2024 Patient Outreach [facility] [address] [place] [address] Yvonne Kee MD 11/10/2024 Patient Outreach [facility] [address] [place] [address] Yvonne Kee MD 11/10/2024 Orders Only GENERIC EXTERNAL DATA DEPARTMENT Provider, Generic External Data 11/09/2024 Orders Only GENERIC EXTERNAL DATA DEPARTMENT Provider, Generic External Data 11/09/2024 Travel 11/06/2024 Refill [facility] [address] [place] [phone] Karma Barreto NP Moderate asthma, unspecified whether complicated, unspecified whether persistent 11/06/2024 Refill [facility] [address] [place] [phone] Yvonne Kee MD 11/04/2024 Refill [facility] [address] [place] [address] Yvonne Kee MD Type 2 diabetes mellitus without complication, without long-term current use of insulin ([facility]) from Last 3 Months Immunizations Immunization Administration Dates Next Due DTaP 02/06/2001, 8,06/29/1997,04/27,1996 HPV, Quadrivalent 10/05/2011,05/25/2010,03/22/20 09 Hep A, ped/adol, 2 dose 02/10/2014,02/10/2013 Hep B, Adolescent or Pediatric 06/29/1997,1996,1996 Hib ([facility]) 10/06/1997, 8,04/27/1997,10/14 IPV 02/06/2001, 9,02/16/1998,04/27,1996 Influenza injectable quadriv alent IIV4 with preservative 04/10/2022,12/24/2018 Influenza injectable quadriv alent preservative free 04/19/2020,05/20/2018,02/13/2017,01/26 Influenza live intranasal qu adrivalent LIAV4 02/10/2014 Influenza live intranasal trivalent 02/10/2013 Influenza, High Dose Seasona l, Preservative Free 05/09/2017 Influenza, live, intranasal 02/10/2013 Influenza, trivalent, adjuvanted 12/24/2018 MMR 02/06/2001,10/06/1997 Meningococcal MPSV4 03/22/2009 Pfizer Covid-19 Vaccine 12+ 04/24/2021, Pneumococcal Polysaccharide PPSV23 05/09/2017, Tdap 03/05/2022,05/06/2018,03/22/2009 Varicella 03/22/2009,10/06/1997 Family History Medical History Relation Name Comments Diabetes Father carolann zacarias Heart disease Father carolann zacarias Relation Name Status Comments Father carolann zacarias Social History Tobacco Use Types Packs/Day Years Used Date Smoking Tobacco: Never Passive Smoke Exposure: Never Smokeless Tobacco: Never Tobacco Cessation:Counseling Given: Not Answered Alcohol Use Standard Drinks/Week Comments Yes 0 [...] Q2 Not on file 11/30/2024 Comments No Intention Date Recorded No desire to become (finding) 0 12/24/2024 Sex and Gender Information Value Date Recorded [...] 20 02/01/2025 3:13 PM EDT Oxygen Saturation 98% 11/30/2024 9:20 AM EDT Inhaled Oxygen Concentration - - Weight 71.8 kg (158 lb 6.4 oz) 02/01/2025 3:13 P M EDT Height 165.1 cm (5' 5 ) 02/01/2025 3:13 PM EDT Body Mass Index 26.36 02/01/2025 3:13 PM EDT Plan of Treatment Upcoming Encounters Date Type Department Care Team (Late st Contact Info) Description 03/15/2025 1:00 PM EST Clinical Support [facility] [address] [place] [address] Health Maintenance Due Date Last Done Comments Diabetes: Foot Exam 2006 Diabetes: Urine Protein Screening 07/20/2015 Pneumococcal Vaccine: Pediatrics (0 to 5 Years) and At-Risk Patients (6 to 49) Years (2 of 2 - PCV) 05/09/2018 05/09/2017, 02/13/2017 COVID-19 Vaccine (3 - 2024- season) 2024 04/24/2021, 04/03/2021 Influenza Vaccine (#1) 2024 , 04/19/2020, 12/24/2018, Additional history exists Diabetes: Hemoglobin A1C 12/16/2024 025, 08/09/2023, 08/03/2022 Dental Oral Exam 01/17/2025 07/17/2024 Lipid Panel 06/15/2025 06/15/2024, 05/17/2020 Dental Prophylaxis 06/17/2025 12/17/2024 HPV/Cotest 07/06/2025 07/06/2024, 11/14/2021 Pap Smear 07/06/2025 07/06/2024, 08/0 05/2021, 05/05/2020, Additional history exists Dental X-Ray: Bitewings 07/18/2025 07/17/2024 Eye Exam 10/14/2025 10/15/2023, 07/0 05/2023, 10/15/2023, Additional history exists Depression Screening 10/29/2025 10/29/2024, 10/30/19 Alcohol/Substance Use Screening 11/30/2025 11/30/2024 Disability Screening 11/30/2025 11/30/2024 SDOH Screening 12/23/2025 12/23/2024 Family Planning (PISQ) 12/24/2025 12/24/2024 Tobacco Screening 02/01/2026 02/01/2025 Dental X-Ray: Full Mouth 2027 07/17/2024 DTaP/Tdap/Td Vaccines (9 - Td or Tdap) [...] Completed 02/10/2014, 02/11/20 13 HIV Screening Completed 06/15/2024, 06/2022, 05/17/2020 Hepatitis C Screening Completed 06/15/2024 , 10/15/2022, 05/17/2020 Meningococcal B Vaccine Aged Out No l onger eligible based on patient's age to complete this topic RSV under 20 months Aged Out No longe r eligible based on patient's age to complete this topic Rotavirus Vaccines Aged Out No longer eligible based on patient's age to complete this topic Procedures Procedure Name Priority Date/Time Associated Diagnosis Comments POCT , URINE Routine 12/24/2024 12:47 PM EDT Encounter for initial prescription of injectable contraceptive CASE PRESENTATION, DETAILED AND EXTENSIVE TREATMENT PLANNING Routine 12/17/2024 1:00 PM EDT ORAL HYGIENE INSTRUCTIONS Routine 12/17/2024 1:00 PM EDT Dental calculus Dental plaque PROPHYLAXIS - ADULT Routine 12/17/2024 1 :00 PM EDT Dental calculus Dental plaque URINALYSIS, COMPLETE, WITH REFLEX TO CULTURE Routine 11/10/2024 12:01 PM EDT HCG, TOTAL, QN Routine 11/10/2024 11:07 AM EDT BASIC METABOLIC PANEL Routine 11/10/2024 11:07 AM EDT LACTIC ACID Routine 11/10/2024 11:07 AM EDT CBC WITH AUTO DIFFERENTIAL Routine 11/10/2024 11:07 AM EDT XR KUB AND UPRIGHT 2 VIEWS Routine 11/09/2024 7:22 PM EDT URINALYSIS, COMPLETE, WITH REFLEX TO CULTURE Routine 11/09/2024 6:34 PM EDT URINALYSIS WITH REFLEX MICROSCOPIC Routine 11/09/2024 6:34 PM EDT SARS COV2/INFLUENZA A/B AND RSV RNA QL NAAT Routine 11/09/2024 6:34 PM EDT CBC WITH AUTO DIFFERENTIAL Routine 11/09/2024 1:10 PM EDT HCG, TOTAL, QN Routine 11/09/2024 1:10 PM EDT COMPREHENSIVE METABOLIC PANEL Routine 11/09/2024 1:10 PM EDT HCG, TOTAL, QN Routine 11/09/2024 1:10 PM EDT LACTIC ACID Routine 11/09/2024 1:10 PM EDT BLOOD CULTURE (FIRST) Routine 11/09/2024 1:10 PM EDT BLOOD CULTURE (SECOND) Routine 11/09/2024 1:10 PM EDT US RENAL LT Routine 11/09/2024 12:21 PM EDT CULTURE, URINE, ROUTINE Routine 11/09/2024 12:00 AM EDT T-SPOT(R).TB Routine 11/02/2024 3:17 PM EDT Encounter for screening for respiratory tuberculosis INTRAORAL - COMPLETE SERIES OF RADIOGRAPHIC IMAGES Routine 07/17/2024 1:30 PM EDT Encounter for dental examination Dental caries Dental calculus COMPREHENSIVE ORAL EVALUATION - NEW OR ESTABLISHED PATIENT Routine 07/17/2024 1:30 PM EDT Encounter for dental examination Dental caries Dental calculus PAP SMEAR Routine 07/06/2024 10:02 AM EDT Low grade squamous intraepithelial lesion (LGSIL) on cervical Pap smear HPV DNA, LOW/HIGH RISK Routine 07/06/2024 12:00 AM EDT HEPATITIS C AB W/REFL TO HCV RNA, QN, PCR Routine 06/15/2024 2:15 PM EST Screening examination for STI HIV 1/2 ANTIGEN/ANTIBODY, FOURTH GENERATION W/RFL Routine 06/15/2024 2:15 PM EST Screening examination for STI HEMOGLOBIN A1C Routine 06/15/2024 2:15 PM EST Hyperglycemia LIPID PANEL, STANDARD Routine 06/15/2024 2:15 PM EST Elevated blood pressure reading from Last 3 Months or Most Recently Relevant to Health Maintenance Results * POCT Urine (12/24/2024 12:47 PM EDT) Preg Test, Ur Negative Negative, Indeterminate, None Detected, Invalid, Specimen unsatisfactory for evaluation, Weakly Positive, 2+ QC Media Lot # [id number] Lot# Expiration Date [id number] Urine 12/24/2024 12:4 7 PM EDT Laura Smiley DO POINT OF CARE TEST ENTER/GUSTAVO T ORDERABLES Final Result * (ABNORMAL) Urinalysis, Complete, with Reflex to Culture (11/10/2024 12:01 PM EDT) Only the most recent of2 resultswithin the time period is included. Color Urine Yellow [facility] Appearance Urine Clear [facility] PH 7.0 5.0 - 9.0 [facility] Glucose Urine UA Negative Negative mg/dL [facility] Urine Blood Trace(A) Negative [facility] Specific [place] - Urine 1.010 1.005 - 1.025 [facility] Urine Protein Negative Neg-Trace mg/dL [facility] Urine Ketones Negative Negative mg/dL [facility] Nitrite Urine Negative Negative [facility] Leukocyte Esterase Urine Moderate (2+)(A) Negative [facility] RBC Urine 3-5(A) 0 - 2 /HPF [facility] Urine WBC 11-20(A) 0 - 5 /HPF [facility] Urine Squamous Epithelial Cell 6-10 0 - 2 /HPF [facility] Urine Bacteria None Seen None Seen [facility] Hyaline Casts, Urine 0-2 0 - 2 /LPF [facility] 11/10/2024 12:0 1 PM EDT 11/10/2024 12:04 PM EDT Narrative [facility] - 11/10/2024 12:12 PM EDT Urine, Clean Catch us Generic External Data Provider LAB URINE ORDERAB LES Final Result [facility] [address] [place] [address] [phone] * (ABNORMAL) CBC auto differential (11/10/2024 11:07 AM EDT) Only the most recent of2 resultswithin the time period is included. White Blood Count 14.1(H) 4.8 - 10.8 X10*3/uL [facility] Red Blood Count 4.53 4.20 - 5.50 X10*6/uL [facility] Hemoglobin 13.3 12.0 - 16.0 g/dl [facility] Hematocrit 38.5 37.0 - 47.0 % [facility] Mean Corpuscular Volume 85.0 80.0 - 98.0 fL [facility] Mean Corpuscular Hemoglobin 29.4 27.0 - 33.0 pg [facility] Mean Corpuscular HGB Conc 34.5 31.0 - 35.0 g/dl [facility] Red Cell Distribution Width 12.6 11.0 - 16.0 % [facility] Platelet Count 249 160 - 400 X10*3/uL [facility] Mean Platelet Volume 9.6 9.4 - 12.3 fL [facility] Neutrophils Percent Auto 74.2(H) 45 - 73 % [facility] Imm Gran Pct Auto 0.5(H) 0.0 - 0.4 % [facility] Lymphocytes Percent Auto 15.4(L) 20 - 40 % [facility] Monocytes Percent Auto 6.6 2 - 11 % [facility] Eosinophils Percent Auto 2.8 0 - 4 % [facility] Basophils Percent Auto 0.5 0 - 2 % [facility] NRBC Pct Auto 0.0 0.0 - 0.2 /100WBC [facility] Neutrophils Absolute Auto 10.5(H) 2.0 - 8.3 x10*3/uL [facility] Imm Gran Abs Auto 0.07(H) 0.00 - 0.03 X10*3/uL [facility] Lymphocytes Absolute Auto 2.2 1.2 - 4.9 X10*3/uL [facility] Monocytes Absolute Auto 0.9 0.1 - 1.2 X10*3/uL [facility] Eosinophils Absolute Auto 0.4 0.0 - 0.4 X10*3/uL [facility] Basophils Absolute Auto 0.1 0.0 - 0.2 X10*3/uL [facility] NRBC Abs Auto 0.000 0.0 - 0.012 X10*3/uL [facility] 11/10/2024 11:0 7 AM EDT 11/10/2024 11:12 AM EDT us Generic External Data Provider LAB BLOOD ORDERAB LES Final Result [facility] [address] [place] [address] [phone] * hCG, Total, Quantitative (11/10/2024 11:07 AM EDT) Only the most recent of3 resultswithin the time period is included. HCG Quantitative <2 mIU/mL [facility] Comment:Weeks post LMP Appro ximate hCG(Last Menstrual Period) Range (mIU/ml)3 - 4 weeks 9 - 1304 - 5 weeks 75 - 2,6005 - 6 weeks 850 - 20,8006 - 7 weeks 4000 - 100,2007 - 12 weeks 11,500 - 289,71638 - 16 weeks 18,300 - 137,45917 - 29 weeks (2nd trimester) 1,400 - 53,29003 - 41 weeks (3rd trimester) 940 - 60,000The Cohen B- hCG assay is used for the early detection ofpregnancy; it cannot be used to diagnose any conditionunrelated to . If a B-hCG level is not supportedby the clinical evidence, results should be confirmed by analternative method (qualitative urine hCG, for example). 11/10/2024 11:0 7 AM EDT 11/10/2024 11:12 AM EDT Generic External Data Provider LAB BLOOD ORDERAB LES Final Result Performing Organization Address [facility]/ZIP Co de Phone Number [facility] [address] [place] [phone] * Lactic Acid (11/10/2024 11:07 AM EDT) Only the most recent of2 resultswithin the time period is included. Lactic Acid 0.9 0.5 - 2.0 mmol/L [facility] 11/10/2024 11:0 7 AM EDT 11/10/2024 11:12 AM EDT Generic External Data Provider LAB BLOOD ORDERAB LES Final Result Performing Organization Address [facility] Co de Phone Number [facility] [address] [place] [phone] * (ABNORMAL) Basic Metabolic Panel (11/10/2024 11:07 AM EDT) Sodium 138 135 - 145 mmol/L [facility] Potassium 3.1(L) 3.3 - 5.1 mmol/L [facility] Chloride 104 96 - 108 mmol/L [facility] Carbon Dioxide 26 22 - 29 mmol/L [facility] Anion Gap 11(L) 12 - 20 [facility] Urea Nitrogen (BUN) 9 9 - 16 mg/dL [facility] Creatinine, Serum 0.84 0.5 - 1.4 mg/dL [facility] Creatinine Clr Calc Pharmacy 99.5 [facility] Comment:Provided height and weight: 165.1 cm,72.575 kg.eGFR (calculated from the MDRD study equation) and eCrCl(calculated from the Cockcroft-Gault equation) are based ondifferent parameters and may not yield comparable results.If eCrCl result is absurd, please check patient'sheight/weight. Estimated Glomerular Filt Rate >60 [facility] Comment:Chronic Kidney Disea se: Estimated GFR < 60 mL/min/1.54x8Zpmpek Kidney Disease: Estimated GFR < 15 mL/min/1.73m2 Glucose 218(H) 60 - 115 mg/dL [facility] Calcium 9.3 8.4 - 10.2 mg/dL [facility] 11/10/2024 11:0 7 AM EDT 11/10/2024 11:12 AM EDT us Generic External Data Provider LAB BLOOD ORDERAB LES Final Result [facility] [address] [place] [phone] * XR KUB and Upright 2 Views (11/09/2024 7:22 PM EDT) Anatomical Region Laterality Modality Radiographic Britni ging 11/09/2024 7:22 PM EDT Narrative 11/09/2024 7:23 PM EDT [address] [address] XRay Report Signed Patient: Afshan Zacarias MR#: [id number] : 1995 Acct:[id number] Age/Sex: 29 / F ADM Date: 11/09/24 Loc: HO.ED Attending Dr: Ordering Physician: Johanny Toro Date of Service: 11/09/24 Procedure(s): XR KUB Accession Number(s): [id number] cc: Johanny Toro; Yvonne Kee CLINICAL HISTORY: pain Single view of the abdomen. COMPARISON: None provided. FINDINGS: Normal bowel distention. No abnormal calcifications. No pneumoperitoneum identified. Mild stool burden. No fracture identified. Visualized portions of the lung bases were unremarkable. IMPRESSION: 1. Nonspecific nonobstructive bowel gas pattern. This document has been electronically signed by: Seng Hall MD on 11/09/2024 19:22:38 Dictated By: Seng Hall MD Signed By: <Electronically signed by Seng Hall MD in OV> 11/09/241922 DD/ 21 TD/TT: 11/09/241921 Shared Services And Outsourcing Manager: Procedure Note Donotuseinterpreter, Image - 11/09/[address] [address] XRay Report Signed Patient: Afshan Zacarias#: [id number] : 1995Acct:[id number] Age/Sex: Date: 11/09/24 Loc: .ED Attending Dr: Ordering Physician: Johanny Toro Date of Service: 11/09/24 Procedure(s): XR KUB Accession Number(s): [id number] cc: Johanny Toro; Yvonne Kee CLINICAL HISTORY: pain Single view of the abdomen. COMPARISON: None provided. FINDINGS: Normal bowel distention. No abnormal calcifications. No pneumoperitoneum identified. Mild stool burden. No fracture identified. Visualized portions of the lung bases were unremarkable. IMPRESSION: 1. Nonspecific nonobstructive bowel gas pattern. This document has been electronically signed by: Seng Hall MD on 11/09/2024 19:22:38 Dictated By: Seng Hall MD Signed By: <Electronically signed by Seng Hall MD in OV> 11/09/241922 DD/ 21 TD/TT: 11/09/241921 Shared Services And Outsourcing Manager: [facility] External Provider IMG XR PROCEDURES Final Result * SARS-CoV-2 RNA, Influenza A/B, and RSV RNA, Ql NAAT (11/09/2024 6:34 PM EDT) Influenza A PCR NEGATIVE Negative [facility] Influenza B PCR NEGATIVE Negative [facility] Resp Syncy Virus RNA Qual PCR NEGATIVE Negative [facility] SARS COV2 PCR NEGATIVE Negative [facility] Comment:All test results mus t be [...] use by authorized laboratories.Testing performed on the [employer] GeneXpert utilizingreal-time RT-PCR.All SARS CoV2 and positive influenza A/B results arereported to [facility]. 11/09/2024 6:34 PM EDT 11/09/2024 6:36 PM EDT Generic External Data Provider LAB MICROBIOLOGY - GENERAL ORDERABLES Final Result [facility] [address] [place] [phone] * (ABNORMAL) Urinalysis w/reflex microscopic (11/09/2024 6:34 PM EDT) Color Urine Yellow [facility] Appearance Urine Cloudy [facility] PH 8.0 5.0 - 9.0 [facility] Glucose Urine UA Negative Negative mg/dL [facility] Urine Blood Trace(A) Negative [facility] Specific [place] - Urine 1.015 1.005 - 1.025 [facility] Urine Protein Trace Neg-Trace mg/dL [facility] Urine Ketones Negative Negative mg/dL [facility] Nitrite Urine Positive(A) Negative [facility] Leukocyte Esterase Urine Large (3+)(A) Negative [facility] 11/09/2024 6:34 PM EDT 11/09/2024 6:36 PM EDT Narrative [facility] - 11/09/2024 6:51 PM EDT Urine, Clean Catch us Generic External Data Provider LAB URINE ORDERAB LES Final Result Performing Organization Address City/State/[facility] Co de Phone Number [facility] [address] [place] [phone] * Blood Culture (First) (11/09/2024 1:10 PM EDT) Blood Venous blood specimen / Unknown 11/09/2024 1:10 PM EDT 11/09/2024 1:19 PM EDT Comment:Blood Narrative [facility] - 11/12/2024 7:38 AM EDT Blood Culture (First) null Blood Culture (First) null Blood Culture (First) null Blood Culture (First) null Blood Culture (First) null Blood Culture (First) null Blood Culture (First) null Blood Culture (First) null Blood Culture (First) null Blood Culture (First) BC Positive/Drawn Blood Culture (First) 2 sets positive/2 sets drawn Blood Culture (First) GS - on external report Blood Culture (First) Gram-negative rods Blood Culture (First) Review Comment Blood Culture (First) Gram stain reviewed by a Brake Holder Escherichia coli Results of Blood Culture gram stain called to and read back by MINH at 0301 on 11/10/24 by NESHA. Escherichia coli: Ampicillin <=2(S) Escherichia coli: Cefazolin (Non-Urine) <=1(S) Escherichia coli: Cefepime <=0.12(S) Escherichia coli: Ceftriaxone <=0.25(S) Escherichia coli: Ciprofloxacin <=0.06(S) Escherichia coli: Gentamicin <=1(S) Escherichia coli: Trimethoprim/Sulfamethoxazole <=20(S) Specimen Source: Blood Generic External Data Provider LAB MICROBIOLOGY - GENERAL ORDERABLES Final Result Performing Organization Address [facility] Co de Phone Number [facility] [address] [place] [phone] * Blood Culture (Second) (11/09/2024 1:10 PM EDT) Blood Venous blood specimen / Unknown 11/09/2024 1:10 PM EDT 11/09/2024 1:19 PM EDT Comment:Blood Narrative [facility] - 11/12/2024 7:39 AM EDT Blood Culture (Second) null Blood Culture (Second) null Blood Culture (Second) null Blood Culture (Second) null Blood Culture (Second) null Blood Culture (Second) null Blood Culture (Second) null Blood Culture (Second) null Blood Culture (Second) null Blood Culture (Second) BC Positive/Drawn Blood Culture (Second) 2 sets positive/2 sets drawn Blood Culture (Second) GS - on external report Blood Culture (Second) Gram-negative rods Blood Culture (Second) Review Comment Blood Culture (Second) Gram stain reviewed by a Brake Holder Escherichia coli Refer [facility] ORG #1: Susceptibility testing of same organism(s) from Refer [facility] similar site will not be repeated within 4 days. Results of Blood Culture gram stain called to and read back by MINH at 0222 on 11/10/24 by NESHA. Specimen Source: Blood Generic External Data Provider LAB MICROBIOLOGY - GENERAL ORDERABLES Final Result Performing Organization Address [facility] Co de Phone Number [facility] [address] [place] [address] [phone] * Comprehensive Metabolic Panel (11/09/2024 1:10 PM EDT) Sodium 140 135 - 145 mmol/L [facility] Potassium 3.6 3.3 - 5.1 mmol/L [facility] Chloride 102 96 - 108 mmol/L [facility] Carbon Dioxide 27 22 - 29 mmol/L [facility] Anion Gap 15 12 - 20 [facility] Urea Nitrogen (BUN) 9 9 - 16 mg/dL [facility] Creatinine, Serum 0.86 0.5 - 1.4 mg/dL [facility] Creatinine Clr Calc Pharmacy 97.2 [facility] Comment:Provided height and weight: 165.1 cm,72.575 kg.eGFR (calculated from the MDRD study equation) and eCrCl(calculated from the Cockcroft-Gault equation) are based ondifferent parameters and may not yield comparable results.If eCrCl result is absurd, please check patient'sheight/weight. Estimated Glomerular Filt Rate >60 [facility] Comment:Chronic Kidney Disea se: Estimated GFR < 60 mL/min/1.51n0Igycdv Kidney Disease: Estimated GFR < 15 mL/min/1.73m2 Glucose 111 60 - 115 mg/dL [facility] Calcium 8.9 8.4 - 10.2 mg/dL [facility] Bilirubin, Total 0.3 0.0 - 1.0 mg/dL [facility] Aspartate Amino Transferase 21 5 - 31 U/L [facility] Alanine Aminotransferase 21 0 - 31 U/L [facility] Total Protein 7.3 6.5 - 8.0 g/dL [facility] Albumin Level 4.2 3.5 - 5.0 g/dL [facility] Alkaline Phosphatase 103 39 - 117 U/L [facility] 11/09/2024 1:10 PM EDT 11/09/2024 1:19 PM EDT us Generic External Data Provider LAB BLOOD ORDERAB LES Final Result [facility] [address] [place] [phone] [phone] * US RENAL LT (11/09/2024 12:21 PM EDT) Anatomical Region Laterality Modality Abdomen Ultrasound 11/09/2024 12:2 1 PM EDT Narrative 11/09/2024 1:42 PM EDT [address] [address] Ultrasound Report Signed Patient: Afshan Zacarias MR#: [id number] : 1995 Acct:[id number] Age/Sex: 29 / F ADM Date: 11/09/24 Loc: .ED Attending Dr: Ordering Physician: Kelli Ji NP Date of Service: 11/09/24 Procedure(s): US renal LT Accession Number(s): [id number] cc: Yvonne Kee; Kelli Ji NP EXAMINATION: US RETROPERITONEAL LIMITED, LEFT(RENAL ONLY) CLINICAL INFORMATION: Left flank pain. COMPARISON: None available. TECHNIQUE: Color Doppler and grayscale imaging to the left kidney was performed FINDINGS: LEFT KIDNEY: 10.2 x 5.1 x 4.7 cm (SAG x AP x TRV). The kidney is normal in size, contour, and echogenicity. Renal cortical thickness is normal. No calculi or focal parenchymal lesions. No hydronephrosis. US/US renal LT IMPRESSION: No stones or hydronephrosis.. Electronically signed by: Job Fajardo MD 11/09/2024 01:39 PM EDT Dictated By: Job Fajardo MD Signed By: <Electronically signed by Job Fajardo MD in OV> 11/09/24 1339 DD/ 1221 TD/TT: 11/09/24 1226 Shared Services And Outsourcing Manager: Procedure Note Donotuseinterpreter, Image - 11/09/[address] [address] Ultrasound Report Signed Patient: Afshan ZacariasMR#: [id number] : 1995Acct:[id number] Age/Sex: 29 / FADM Date: 11/09/24 Loc: .ED Attending Dr: Ordering Physician: Kelli Ji NP Date of Service: 11/09/24 Procedure(s): US renal LT Accession Number(s): [id number] cc: Yvonne Kee; Kelli Ji MASTER CONTROL OPERATOR EXAMINATION: US RETROPERITONEAL LIMITED, LEFT(RENAL ONLY) CLINICAL INFORMATION: Left flank pain. COMPARISON: None available. TECHNIQUE: Color Doppler and grayscale imaging to the left kidney was performed FINDINGS: LEFT KIDNEY: 10.2 x 5.1 x 4.7 cm (SAG x AP x TRV). The kidney is normal in size, contour, and echogenicity. Renal cortical thickness is normal. No calculi or focal parenchymal lesions. No hydronephrosis. US/US renal LT IMPRESSION: No stones or hydronephrosis.. Electronically signed by: Job Fajardo MD 11/09/2024 01:39 PM EDT RP Dictated By: Job Fajardo MD Signed By: <Electronically signed by Job Fajardo MD in OV> 11/09/24 1339 DD/ 1221 TD/TT: 11/09/24 1226 Shared Services And Outsourcing Manager: [facility] External Provider IMG US PROCEDURES Final Result * Culture, Urine, Routine (11/09/2024 12:00 AM EDT) Urine Urine specimen obtained by clean catch procedure / Unknown 11/09/2024 11/09/2024 Comment:[facility] - 11/11/2024 7:31 AM EDT Escherichia coli Quant > 100,000 cfu/mL Escherichia coli: Ampicillin <=2(S) Escherichia coli: Cefazolin (Urine) <=1(S) Escherichia coli: Cefepime <=0.12(S) Escherichia coli: Ceftriaxone <=0.25(S) Escherichia coli: Ciprofloxacin <=0.06(S) Escherichia coli: Gentamicin <=1(S) Escherichia coli: Nitrofurantoin <=16(S) Escherichia coli: Trimethoprim/Sulfamethoxazole <=20(S) Specimen Source: Urine clean catch Generic External Data Provider LAB MICROBIOLOGY - GENERAL ORDERABLES Final Result [facility] [address] [place] [phone] * T-SPOT??.TB (11/02/2024 3:17 PM EDT) T Spot TB Negative Negative [facility] Comment:A negative test resu lt does not exclude the possibilityof exposure to or infection with Mycobacteriumtuberculosis (M. tuberculosis). Patients with recentexposure to TB infected individuals exhibiting anegative T-SPOT.TB result should be considered forretesting within 6 weeks or if other relevant clinicalsymptoms indicate. Results from T-SPOT.TB testing mustbe used in conjunction with each individual'sepidemiological history, current medical status,and results of other diagnostic evaluations.The T-SPOT.TB test is qualitative and results arereported as positive, borderline, or negative, giventhat the test controls perform as expected. In linewith the Centers for Disease Control and Prevention's2010 recommendation to report quantitative measurementsalongside the qualitative result, the laboratoryprovides spot counts for informational purposes only.The T-SPOT.TB test should not be interpreted as aquantitative test. TS PANEL A 0 [facility] TS PANEL B 0 [facility] Negative Control Passed [facility] Positive Control Passed [facility] Comment:For additional infor rj, please refer tohttp://education.deltamethod/faq/LJH794(This link is being provided for informational/educational purposes only.)REPORT COMMENT:REC'D IN YTHIS TEST WAS PERFORMED AT:[id number] [place] [address]OADSUULSHANTELL YBARRA MD,PHD 11/02/2024 3:17 PM EDT 11/02/2024 4:11 PM EDT us Yvonne Kee MD LAB BLOOD ORDERABLES Final Res ult [facility] [address] [place] [phone] * Pap Smear (07/06/2024 10:02 AM EDT) Swab Cervix uteri structure / Unknown 07/06/2024 10:02 AM EDT 07/07/2024 6:00 AM EDT Esvin [facility] - 07/09/2024 2:13 PM EDT ----- ------- Name: Afshan Zacarias Age/Sex: : 1995 Unit#: [id number] Attend Dr: Re07/06/24 Status: PRE REF Location: LNP Disch: ----- ------- SPEC : [id number] RECD: 07/07/24 STATUS: RYAN VILLARREAL NUM: [id number] NELDA: 07/06/24-[address] [facility] [address]: BEBETO BELLA [facility] ENTERED: 07/07/24 SP TYPE: Pap Smr [facility] DR: ORDERED: Pap Smear Interpretation Satisfactory for evaluation. Negative for intraepithelial lesion or malignancy. HPV High Risk: Negative HPV Genotyping 16: Negative HPV Genotyping 18: Negative Clinical Information LMP: Unknown date Previous PAP test: LSIL 2021 Material Received Cervix ----- ------- Signed (signature on file) Brittany Mock CT (ASCP) 07/09/24 1413 ----- ------- END OF REPORT Bebeto Bella [facility] LAB CYTOLOGY ORDERABLES F inal Result [facility] [address] [place] [phone] * HPV DNA, Low/High Risk (07/06/2024 12:00 AM EDT) Pathologist [facility] HPV High Risk Negative Negative [facility] HPV Genotype 16 Negative Negative [facility] HPV Genotype 18 Negative Negative [facility] Comment:HPV testing performe d at [facility] (CLIA#[id number]), [address] [place] [address].Testing for HPV was performed using the Jonatan GLENIS 6800system. The presence of HPV in the female genital tract isassociated with a number of diseases, including cervicalcarcinoma. The HPV DNA high risk pool tests for HPV 31, 33,35, 39, 45, 51, 52, 56, 58, 59, 66 and 68. The testing forHPV 16 and 18 genotypes has also been performed. A positiveresult indicates detection of nucleic acid sequences fromone or more subtypes, whereas a negative result indicatessuch sequences were not detected. 07/06/2024 07/07/2024 6:0 0 AM EDT Bebeto Bella [facility] LAB BLOOD ORDERABLES Mami l Result Performing Organization Address [facility] Co de Phone Number [facility] [address] [place] [phone] * Hepatitis C Antibody with Reflex to HCV, RNA, Quantitative, Real-Time PCR (06/15/2024 2:15 PM EST) Hepatitis C Antibody Nonreactive Nonreactive [facility] Comment:Antibodies to HCV no t detected; does not exclude early acuteHCV infection. Blood Venous blood specimen / Unknown 06/15/2024 2:15 PM EST 06/15/2024 4:15 PM EST Result [facility] Yvonne Kee MD LAB BLOOD ORDERABLES Final Res ult Performing Organization Address [facility] Co de Phone Number [facility] [address] [place] [phone] * HIV-1/2 Antigen and Antibodies, Fourth Generation, with Reflexes (06/15/2024 2:15 PM EST) HIV AB/AG Nonreactive Nonreactive [facility] Comment:HIV-1 p24 Ag and/or HIV-1/HIV-2 Ab not detected.A test result that is nonreactive does not exclude thepossibility of exposure to or infection with HIV-1 and/orHIV-2. Nonreactive results in this assay for individualswith prior exposure to HIV-1 and/or HIV-2 may be due toantigen and antibody levels that are below the limit ofdetection of this assay.The [employer] HIV Ag/Ab Combo assay result andsupplemental assay results should be interpreted inconjunction with the patient's clinical presentation,history and other laboratory results. If the results areinconsistent with clinical evidence, additional testing issuggested to confirm the result. Blood Venous blood specimen / Unknown 06/15/2024 2:15 PM EST 06/15/2024 4:15 PM EST Result [facility] Yvonne Kee MD LAB BLOOD ORDERABLES Final Res ult Performing Organization Address [facility] Co de Phone Number [facility] [address] [place] [phone] * Hemoglobin A1c (06/15/2024 2:15 PM EST) Hemoglobin A1c 5.8 <6.0 % [facility] Comment:Hemoglobin A1C Refer ence Range Adults: 4.8 - 6.0 % Non diabetic: < 6.0 % Goal: < 7.0 %Additional Action Suggested: > 8.0 %Note: Hemoglobin A1c results are invalid for patients with abnormal amounts of HbF. Blood transfusions may impact the HbA1c concentration in the patient sample. Estimated Average Glucose 120 mg/dL [facility] Comment:eAG = Estimated ave rage glucose which is %A1C expressed asaverage glucose, using the formula of the P7F-RasbznsBwkjzzg Glucose study (ADAG), Diabetes Care, Vol.31,#8,2007 Blood Venous blood specimen / Unknown 06/15/2024 2:15 PM EST 06/15/2024 4:15 PM EST Yvonne Kee MD LAB BLOOD ORDERABLES Final Res ult Performing Organization Address [facility] Co de Phone Number [facility] [address] [place] [phone] * (ABNORMAL) Lipid Panel, Standard (06/15/2024 2:15 PM EST) Triglycerides 215(H) <150 mg/dL [facility] Comment:Desirable Triglyceri de: less than 150 mg/dLBorderline High Triglyceride 150-199 mg/dLHigh Triglyceride: 200-499 mg/dLVery High Triglyceride: greater than or equal to 5OO mg/dL Cholesterol 263(H) <200 mg/dL [facility] Comment:Desirable Cholestero l: less than 200 mg/dLBorderline High Cholesterol: 200-239 mg/dLHigh Cholesterol: greater than 239 mg/dL LDL Cholesterol Calculated 155(H) <100 mg/dL [facility] Comment:Desirable LDL: less than 100 mg/dLNear Optimal/Above Optimal LDL: 110- 129 mg/dLBorderline High LDL: 130-159 mg/dLHigh LDL: 160-189 mg/dLVery High LDL: greater than or equal to 190 mg/dL HDL Cholesterol 65 >40 mg/dL [facility] Comment:Desirable HDL: great er than 40 mg/dL Note: This HDL assay may give artificially low results in patients with liver disease. Blood Venous blood specimen / Unknown 06/15/2024 2:15 PM EST 06/15/2024 4:15 PM EST us Yvonne Kee MD LAB BLOOD ORDERABLES Final Res ult [facility] [address] [place] [phone] from Last 3 Months or Most Recently Relevant to Health Maintenance Insurance [facility] C3 DENTAL-[facility] MEDICAID STAND ADULT Care Teams Supervisor Grower Relationship Specialty Start Date End Date Yvonne Kee MD [address] [place] [address] PCP - General Family Medicine 03/12/22
--- OUTSIDE RECORDS SUMMARY | 2025-02-02 11:08 | XMS_ITS | Encounter Summary ---
Author Organization [employer] Address [address] [facility] [address] [place] [address] Care Team Providers Care Assembler Finger Buffs Name Role Phone Yvonne Kee MD Primary Care Provider [phone] Encounter Details Date Type Department Care Team (Latest Contact Info) Description 02/01/2025 Travel Social History Tobacco Use Types Packs/Day [...] Description 03/15/2025 1:00 PM EST Clinical Support [facility] [address] [place] [address] documented as of this encounter Visit Diagnoses Not on filedocumented in this encounter Additional Health Concerns Assessment Noted Time PHQ-9 Depression Total Score: 0 10/30/19 25 8:37 AM EDT documented as of this encounter Care Teams Assembler Finger Buffs Relationship Specialty Start Date End Date Yvonne Kee MD [address] [place] [address] PCP - General Family Medicine 03/12/22 documented as of this encounter
--- OUTSIDE RECORDS SUMMARY | 2025-02-02 11:08 | XMS_ITS | Encounter Summary ---
Author Organization [employer] Address [address] [facility] [address] [place] [address] Care Team Providers Care Plastic Printer Name Role Phone Yvonne Kee MD Primary Care Provider [phone] Celina Bettencourt RN Unavailable [phone] Zhang Unavailable Reason for Visit * Reason Comments Med Refill Encounter Details Date Type Department Care Team ([facility] st Contact Info) Description 11/06/2024 Refill [facility] [address] [place] [address] Karma Barreto NP [address] [place] [address] Moderate asthma, unspecified whether complicated, unspecified whether persistent Social History Tobacco Use Types Packs/Day Years [...] Description 03/15/2025 1:00 PM EST Clinical Support [facility] [address] [place] [address] documented as of this encounter Visit Diagnoses Diagnosis Moderate asthma, unspecified whether complicated, unspecified whether persistent documented in this encounter Additional Health Concerns Assessment Noted Time PHQ-9 Depression Total Score: 0 10/30/19 25 8:37 AM EDT documented as of this encounter Care Teams Plastic Printer Relationship Specialty Start Date End Date Yvonne Kee MD [address] [place] [address] PCP - General Family Medicine 03/12/22 Celina Bettencourt RN [address] [place] [phone] Registered Nurse Family Medicine 09/11/24 01/27/25 Harper Zhang 09/11/24 01/27/25 documented as of this encounter
--- OUTSIDE RECORDS SUMMARY | 2025-02-02 11:08 | XMS_ITS | Encounter Summary ---
Author Organization [employer] Address [address] [facility] 7t [place] [address] Care Team Providers Care Application Support Manager Name Role Phone Yvonne Kee MD Primary Care Provider [phone] Reason for Visit * Reason Onset Date Comments chart prep 01/29/2025 Encounter Details Date Type Department Care Team ([facility] Contact Info) Description 01/29/2025 Telephone [facility] [address] [place] [address] Yvonne Kee MD [address] [place] [address] chart prep Social History Tobacco Use Types Packs/Day Years [...] AM EDT documented as of this encounter Miscellaneous Notes * Telephone Encounter - Debra Burnett MA - 01/29/2025 10:15 AM EDT Chart Prep Labs: not applicable Images: done Referrals: not applicable Vaccines due: Covid, Flu, and PCV20 Screenings: foot exam Overdue care gaps: A1c and Glucose documented in this encounter Plan of Treatment Upcoming Encounters Date Type Department Care Team (Late st Contact Info) Description 03/15/2025 1:00 PM EST Clinical Support [facility] [address] [place] [address] documented as of this encounter Visit Diagnoses Not on filedocumented in this encounter Additional Health Concerns Assessment Noted Time PHQ-9 Depression Total Score: 0 10/30/19 25 8:37 AM EDT documented as of this encounter Care Teams Application Support Manager Relationship Specialty Start Date End Date Yvonne Kee MD [address] [place] [address] PCP - General Family Medicine 03/12/22 documented as of this encounter
--- OUTSIDE RECORDS SUMMARY | 2025-02-02 11:09 | XMS_ITS | Encounter Summary ---
Author Organization [employer] Address [address] [facility] 7t [place] [address] Care Team Providers Care Montessori Toddler Teacher Name Role Phone Yvonne Kee MD Primary Care Provider [phone] Celina Bettencourt RN Unavailable [phone] Harper Zhang Unavailable Reason for Visit * Reason Comments Med Refill Encounter Details Date Type Department Care Team (Late Contact Info) Description 06/22/2022 Refill [facility] [address] [place] [address] [phone] Yvonne Kee MD [address] [place] [address] [phone] Severe persistent asthma, uncomplicated Social History Tobacco [...] 1:00 PM EST Clinical Support [facility] [address] [place] [address] [phone] documented as of this encounter Visit Diagnoses Diagnosis Severe persistent asthma, uncomplicated (HCC) documented in this encounter Care Teams Montessori Toddler Teacher Relationship Specialty Start Date End Date Yvonne Kee MD [address] [place] [address] PCP - General Family Medicine 03/12/22 Celina Bettencourt, ALISHA [address] [place] [address] Registered Nurse Family Medicine 09/11/24 01/27/25 Harper Zhang 09/11/24 01/27/25 documented as of this encounter
--- OUTSIDE RECORDS SUMMARY | 2025-02-02 11:09 | XMS_ITS | Encounter Summary ---
Author Organization [employer] Address [address] [facility] 7t [place] [address] Care Team Providers Care Imitation Marble Mechanic Name Role Phone Yvonne Kee MD Primary Care Provider Celina Bettencourt RN Unavailable [phone] Harper Zhang Unavailable Encounter Details Date Type Department Care Team ([facility] st Contact Info) Description 06/06/2022 Orders Only [facility] [address] [place] [address] Yvonne Kee MD [address] [place] [address] Severe persistent allergic asthma (Primary Dx) Social [...] Description 03/15/2025 1:00 PM EST Clinical Support [facility] [address] [place] [address] documented as of this encounter Visit Diagnoses Diagnosis Severe persistent allergic asthma (HCC)- Primary documented in this encounter Care Teams Imitation Marble Mechanic Relationship Specialty Start Date End Date Yvonne Kee MD [address] [place] [address] PCP - General Family Medicine 03/12/22 Celina Bettencourt RN [address] [place] [phone] Registered Nurse Family Medicine 09/11/24 01/27/25 Harper Zhang 09/11/24 01/27/25 documented as of this encounter
--- OUTSIDE RECORDS SUMMARY | 2025-02-02 11:09 | XMS_ITS | Encounter Summary ---
Author Organization [employer] Address [address] [facility] 7t [place] [address] Care Team Providers Care Director Strategy Name Role Phone Yvonne Kee MD Primary Care Provider [phone] Celina Bettencourt RN Unavailable [phone] Harper Zhang Unavailable Reason for Visit * Reason Comments Med Refill Encounter Details Date Type Department Care Team ([facility] st Contact Info) Description 06/20/2023 Refill [facility] [address] [place], [place] [phone] Yvonne Kee MD [address] [place], [place] [phone] 34 weeks gestation of Social History Tobacco Use Types Packs/Day Years Used Date Smoking Tobacco: Never Passive Smoke Exposure: Never Smokeless Tobacco: Never Alcohol Use Standard Drinks/Week Comments Never 0 (1 standard drink = 0.6 oz pur e alcohol) Housing Stability Answer Date Recorded What is your housing situation today? I have merritt bernard 01/28/[address] you [...] Description 03/15/2025 1:00 PM EST Clinical Support [facility] [address] [place] [address] documented as of this encounter Visit Diagnoses Diagnosis 34 weeks gestation of documented in this encounter Care Teams Director Strategy Relationship Specialty Start Date End Date Yvonne Kee MD [address] [place] [address] PCP - General Family Medicine 03/12/22 Celina Bettencourt, ALISHA [address] [place] [phone] Registered Nurse Family Medicine 09/11/24 01/27/25 Harper Zhang 09/11/24 01/27/25 documented as of this encounter
--- OUTSIDE RECORDS SUMMARY | 2025-02-02 11:09 | XMS_ITS | Encounter Summary ---
Author Organization [employer] Address 75 [facility] 7t [place] [address] Care Team Providers Care Client Delivery Specialist Name Role Phone Yvonne Kee MD Primary Care Provider [phone] Celina Bettencourt RN Unavailable [phone] Harper Zhang Unavailable Encounter Details Date Type Department Care Team (Late Contact Info) Description 11/22/2022 Telephone [facility] [address] [place] [address] [phone] Yvonne Kee MD [address] [place] [address] [phone] Social History Tobacco Use Types Packs/Day Years [...] Description 03/15/2025 1:00 PM EST Clinical Support [facility] [address] [place] [address] [phone] documented as of this encounter Visit Diagnoses Not on filedocumented in this encounter Care Teams Client Delivery Specialist Relationship Specialty Start Date End Date Yvonne Kee MD [address] [place] [address] PCP - General Family Medicine 03/12/22 Celina Bettencourt RN [address] [place] [phone] Registered Nurse Family Medicine 09/11/24 01/27/25 Harper Zhang 09/11/24 01/27/25 documented as of this encounter
--- OUTSIDE RECORDS SUMMARY | 2025-02-02 11:09 | XMS_ITS | Encounter Summary ---
Author Organization [employer] Address [address] [facility] 7t [place] [address] Care Team Providers Care Supervisor Research Shop Name Role Phone Yvonne Kee MD Primary Care Provider [phone] Celina Bettencourt RN Unavailable [phone] Harper Zhang Unavailable Encounter Details Date Type Department Care Team (Late st Contact Info) Description 10/17/2022 Orders Only [facility] [address] [place] [phone] Cherie Gonzalez MD [address] [place] [address] [phone] Social History Tobacco Use Types Packs/Day Years [...] Description 03/15/2025 1:00 PM EST Clinical Support [facility] [address] [place] [phone] documented as of this encounter Visit Diagnoses Not on filedocumented in this encounter Care Teams Supervisor Research Shop Relationship Specialty Start Date End Date Yvonne Kee MD [address] [place] [address] PCP - General Family Medicine 03/12/22 Celina Bettencourt RN [address] [place] [address] Registered Nurse Family Medicine 09/11/24 01/27/25 Harper Zhang 09/11/24 01/27/25 documented as of this encounter
[2025-02-02 12:19] LABS: Alanine Aminotransferase 24 U/L (0-31); Albumin Level 4.6 g/dL (3.5-5.0); Alkaline Phosphatase 93 U/L (39-117); Anion Gap 10 (12-20); Aspartate Amino Transferase 24 U/L (5-31); Blood Urea Nitrogen 11 mg/dL (9-16); Calcium 9.5 mg/dL (8.4-10.2); Carbon Dioxide 26 mmol/L (22-29); Chloride 108 mmol/L (96-108); Cholesterol 244 mg/dL (<200); Estimated Glomerular Filt Rate > 60; HDL Cholesterol 47 mg/dL (>40); Potassium 3.5 mmol/L (3.3-5.1); Sodium 140 mmol/L (135-145); Total Protein 7.8 g/dL (6.5-8.0); Triglycerides 176 mg/dL (<150)
[2025-02-02 12:47] LABS: Microalbum/Creatinine Ratio Ur 3.1 ug/mg cr (<30)
[2025-02-02 13:43] LABS: HIV Num 1 0.06 S/CO (0.00-0.99); ~HepC Num1 0.10 S/CO (0.00-0.79); ~Hepatitis C Antibody Nonreactive (Nonreactive)
== END 2025-02-02 09:48 | disposition home or self-care (01) ==
LOC: HO.HHCL 09:47
PROVIDERS: PCP General Practice; Visit Provider General Practice
DX: Z11.4 Encounter for screening for human immunodeficiency virus [HIV] (principal); Z11.3 Encounter for screening for infections with a predominantly sexual mode of transmission; Z11.59 Encounter for screening for other viral diseases; E11.9 Type 2 diabetes mellitus without complications; R73.9 Hyperglycemia, unspecified; Z87.448 Personal history of other diseases of urinary system
CPT/HCPCS: 36415; 80053; 80061; 82043; 82570; 83036; 86592; 86803; 87086; 87389

== ENCOUNTER 2025-02-09 10:05 | Outpatient (AMB) | payer MEDICAID, SELFPAY ==
[2025-02-09 10:09] VITALS: BP 124/74; PULSE 112; O2SAT 97; BMI 26.6
--- NOTE | 2025-02-09 10:09 | A.OFFVIS_ITS ---
Vital Signs 02/09/25 10:09 Height 5 ft 5 in Weight 159 lb 13.362 oz BMI 26.6 BP 124/74 Blood Pressure Location Lt brachial Position Sitting Pulse 112 H Pulse Source Pulse Oximeter Pulse Oximetry (%) 97 Oxygen Delivery Method Room Air Intake Visit Reasons: asthma Tax Clerk Required: No Accompanied by: Self / Same As Patient Allergies peach (PEACH) Allergy (Severe, Verified 02/09/25 10:12) RASH perfume (PERFUME) Allergy (Severe, Verified 02/09/25 10:12) ASTHMA ATTACK dog dander (DOG DANDER) Allergy (Unknown, Verified 02/09/25 10:12) ITCHY, HIVES mite-Dermatophagoides farinae, wendy (DUST MITES) Allergy (Unknown, Verified 02/09/25 10:12) ASTHMA, ITCHY THROAT kiwi Allergy (Verified 02/09/25 10:12) Swelling strawberry Allergy (Verified 02/09/25 10:12) Itching HPI Comments Details: The patient is a 29 y/o F with severe allergic asthma, chronically steroid-depe ndent, and on immunotherapy with Fasenra (benralizumab) at [facility], with history of prior intubation in 2019, Who presented to [facility] couple months ago worsening respiratory symptoms. She was admitted with status asthmaticus. The patient was able to improved. She did follow-up with her primary care doctor found that she is . Currently she is around 6-7 weeks gestation. This is her 2nd and had 1 miscarriage. She is concerned about the medication she is taking and the health of her baby. Therefore will try to help her with a respiratory regimen that is safe for her baby and also helps her with her respiratory symptoms. This patient has been on prednisone off and on because of her uncontrolled asthma. She has been off the biologic therapy. She does use her allergy medicine. 11/07/2021 the patient is here for a pulmonary follow-up visit. Her still Going well. She continues on the Symbicort twice a day. Unfortunately she still continues on the prednisone because of worsening asthma symptoms. We had prescribed her budesonide to optimize her inhaled steroids and hopefully wean her off the prednisone. However, this has been just approved and she will pick it up at the pharmacy. Also the patient complains of a cough primarily at nighttime that starts triggering her asthma symptoms. She is having some reflux symptoms. We did talk about raising the head of the bed to try to eliminate that. Also she can try Tessalon Perles as needed for cough. She also continues on her allergy medication. Spiriva was not effective for her and therefore she is not taking any longer. 01/05/2022 the patient is here for a pulmonary follow-up visit. She still struggling with her asthma. We did add the budesonide nebs but she did not see any improvement. The only thing that helps her is prednisone. We also talked about restarting the Spiriva but, she did not feel that that helped either. She has been a prednisone now for about 5-6 years. again, talking about her regimen she does not take her medications as prescribed. She is reluctant to take medications specially because of her . I emphasized to her that she needs to take her medications in order to allow him to work and improve her symptoms and to minimize her prednisone use. Understanding that she will need to stay on a small dose prednisone since she has been on it for so many years. I did write around a program of how to take her inhalers and nebulized therapy and she will follow up. 10/25/2022 the patient is here for pulmonary follow-up visit. The patient is now 6 months post gestation. She did have a very tough with significant asthma flare ups. She was also hospitalized because of hypoxia. The patient continues to be on prednisone chronically. Prior to becoming she had a good response to biologics. She does have an elevated eosinophil count. Her IgE level is only slightly elevated. The patient is known to have significant allergies. Will go ahead and retest her at this time. The patient needs to come off prednisone. Therefore, she needs to go back in biologics now that she is no longer . She continues on Symbicort and also Spiriva out although some time she is not a 6 year into the therapy. I do believe that a triple agent will be best in order to provide better adherence to the medicine. She is also using Ventolin HFA. She does not feel like it is as effective and she also gets tremors. Will try Xopenex at this time. 01/25/2023 the patient has a telehealth visit. She is been having difficulties with her asthma again. She did start the biologic therapy that appears to be very affecting beneficial. She was able to stop the prednisone altogether and actually stopped all her inhalers after starting the Tezspire. unfortunately her symptoms came back and she is been having some difficulty with breathing. She also noticed a rash looks like eczema around her eyes. She is not sure if his from the biologic injection. Will going to continue to watch him monitor specially since she did very well with the therapy. She continue with her respiratory inhalers she knows she continued them even if she feels well after Taking the next does of Tezspire. if her rash worsen she will call the office otherwise will follow-up in 2-3 months. 10/31/2023 the patient is here for a pulmonary follow-up visit. The patient is struggling to breathe. She was started on Tezspire during the last visit. She was on it for few months. Unfortunately she did not see the benefits that she was hoping for. The patient would get some slight improvement for about a week or so and then was started having symptoms again. Therefore she stopped calling for the prescription. Will go ahead and discontinue this time. The patient however has been on chronic prednisone. Therefore, I do believe that switching over to Dupixent be the better option. The patient will be able to give her some Dupixent every 2 weeks with the hope of stabilizing her asthma and decreasing the prednisone dose. Recently her prednisone was increased to 40 mg daily although she typically uses about 10 mg a day. She does have significant wheezing on examination. She also describes different episodes of cause of shortness of breath and sometimes feels like her throat is close that. Therefore is reasonable just to do a bronchoscopy to assess for vocal cord dysfunction or other reasons for obstructive airway disease. Therefore will plan to do a bronchoscopy at this time. In the meantime because of her chronic prednisone use and chronic bronchitis the addition of Daliresp will be a good option as well 2 Divehi minimize the amount of prednisone she is using. Unfortunately she has already been diagnosed with diabetes and started on medications for that. As far as imaging the patient did have a chest x-ray demonstrating no acute disease. 09/25/2024 the patient is here for sick visit. She has had worsening respiratory symptoms for the last several weeks. She has had multiple evaluations at urgent care for asthma exacerbations. She has required multiple courses of prednisone. In the meantime she does take the Dupixent and Dupixent is helpful controlling her asthma. She does have a toddler and therefore she is at risk for respiratory infections. The patient recently was seen by the urgent Care was placed on 60 mg of prednisone although she has diabetes and causes her to have significantly elevated blood sugars as she has only been taking 20 mg. The patient him today and she is having hard time with cough which is croupy in nature and she does have evidence of stridor. I did provide her an EpiPen in case she is having angioedema. In addition to that she has been taking a blood pressure medication, nifedipine that has been associated with angioedema so she will hold it for now. She will continue with the prednisone as well. I did provide her a nebulizer machine so she can use to treat her asthma in addition to use budesonide and albuterol to both help her angioedema and likely her asthma symptoms. She will continue her current respiratory therapy and will start azithromycin to treat for the possibility of will been cough. Also she will be provided with cough medication to try to minimize the cough and break the cough cycle. The patient will follow-up in 2-3 weeks. If she is no better she will call back or go to the ER. 02/09/2025 the patient is here for pulmonary follow-up visit. Overall the patient is feeling lot better. She was able to wean off completely from the prednisone. She still have some at home but she is trying to minimize any use. Seems like her diabetes is better at this time off the prednisone. She also is taking Trulicity and hopefully she will see some weight loss as well. She continues on her respiratory inhalers with good response. She also uses the budesonide at times to help her minimize the need for prednisone. The Dupixent has been very affecting beneficial for her. She does see that he has been helping her a lot in his reassuring. However, it does cause her discomfort to use it. She also developed some conjunctivitis after she uses it. I will send some eyedrops so she can use to decrease the conjunctivitis. In the meantime she needs to find somebody to give her the shots because they are too painful for her. She needs to make sure to stay on top of the shots and get them regularly because she understands the symptoms can return and want to try to avoid any use of prednisone. But overall she is doing well she will continue her current respiratory therapy and will follow-up in the springtime. [facility] Medical History Eosinophilia Anti-cardiolipin antibody positive History of miscarriage Hx of polyarthritis Severe persistent allergic asthma Anxiety Sleep difficulties Allergic rhinitis Family History Maternal Aunt DVT (deep venous thrombosis) Father CHF (congestive heart failure) Diabetes Mother HTN (hypertension) Asthma Social History Household Members: Children Housing: Apartment Do you presently have visiting nurse or other home services: No Alcohol intake: never Patient Tobacco Use Status: Never used Tobacco Substance Use Type: Marijuana service: No Current occupational status: employed 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 Review of Systems Const Denies fatigue and Denies weight gain Eyes Denies change in vision ENT Reports nasal congestion Card Denies chest pain, Denies dyspnea and Reports dyspnea on exertion Resp Reports cough, Denies dyspnea, Reports dyspnea on exertion, Denies stridor and Reports wheezing GI Denies abdominal pain Denies no additional complaints Musc Reports no additional complaints Skin/Breast Reports rash Neuro Reports no additional complaints and Denies Sensory deficit (Neuro) Endo Denies fatigue Aller/Immun Reports wheezing Physical Exam Vital Signs: Last Vital Signs Pulse 112 H 02/09/25 10:09 BP 124/74 02/09/25 10:09 Pulse Ox 97 02/09/25 10:09 Oxygen Delivery Method Room Air 02/09/25 10:09 BMI result Body Mass Index 26.6 Const General: healthy appearing Nutritional Appearance: average body habitus Orientation/consciousness: oriented to person and patient oriented x3 Limitations: no limitations HEENT Head: Yes normal to inspection Ears: external ears normal General nose exam: Normal external nose present Mouth: Normal oral and palatal mucosa present and oropharynx normal Throat: Yes posterior oropharynx normal Eyes General: appearance normal, both eyes and all related structures Neck Other: supple Neck: Yes normal visual inspection Chest Chest palpation & inspection: normal inspection of the chest Resp Other: slight wheeze bilaterally Effort & Inspection: normal respiratory effort and no stridor Auscultation: diminished lung sounds Cardio Jugular venous distension: no JVD Rate: regular rate Rhythm: regular rhythm Heart sounds: S1 normal heart sound present and S2 normal heart sound present GI Other: gravid uterus Palpation (GI): Soft to palpation, nontender and No hepatosplenomegaly present Auscultation: normal bowel sounds General: Yes no CVA tenderness Back/Spine/Pelvis Back: no CVA tenderness Skin General skin exam: no rashes or lesions noted Neuro General: oriented to person and patient oriented x3 Cranial nerves: Yes CN's II-XII intact bilaterally Motor exam (neuro): 5/5 motor strength present throughout Sensory Exam: No Sensory deficit (Neuro) Extrem General: Yes normal to inspection Psych Appearance: grossly normal Assessment & Plan Assessment & Plan (1) Severe persistent allergic asthma: Code(s): J45.50 - Severe persistent asthma, uncomplicated Category: Medical (2) Allergic rhinitis: Code(s): J30.9 - Allergic rhinitis, unspecified Category: Medical Qualifiers: Allergic rhinitis seasonality: seasonal Allergic rhinitis trigger: other Qualified Code(s): J30. - Other allergic rhinitis (3) Eosinophilia: Code(s): D72.10 - Eosinophilia, unspecified Category: Medical Qualifiers: Eosinophilia type: other eosinophilia Qualified Code(s): D72.19 - Other eosinophilia (4) Rash: Comment: eczema like around eyes Code(s): R21 - Rash and other nonspecific skin eruption Category: Medical Plan Budesonide nebs BID continue Xopenex as needed continue albuterol nebulized therapy prednisone off continue Singulair Tessalon pearls as needed for cough continue Dupixent eye drops for conjunctivitis EPI pen, instructions provided in the office F/U 4-6 months Medications: New dexamethasone sodium phosphate 0.1% 1 drp ophthalmic (eye) DAILY 5 mL 1RF 10 days Coding Level of Care Code Est Pt Level 4 (49942) Complex EM visit Add On G2211 Diagnoses Severe persistent allergic asthma J45.50 Seasonal allergic rhinitis due to other allergic trigger J30. Allergic rhinitis seasonality: seasonal Allergic rhinitis trigger: other Other eosinophilia D72.19 Eosinophilia type: other eosinophilia Rash R21 Time Spent (min) 17
--- OUTSIDE RECORDS SUMMARY | 2025-02-09 12:09 | XMS_ITS | Clinical Summary ---
Author Organization [employer] Address [address] [facility] [address] [place] [address] Care Team Providers Care Pot Sander Name Role Phone Yvonne Kee MD Primary Care Provider [phone] Allergies Active Allergy Reactions Criticality Noted Date [...] 3 Active Blood Glucose Monitoring Suppl (FreeStyle [place] Lite) w/Device kitIndications: Hyperglycemia Test blood sugar fasting and more as needed 1 kit Active FREESTYLE LITE test stripIndication s:Hyperglycemia Test blood sugar fasting daily and after 2 hours after eating a meal 100 each Active TRUEplus Lancets 33G miscIndications :Hyperglycemia Test blood sugar once daily and as needed 100 each 11 Active olmesartan (Benicar) 5 MG tablet Take 1 tablet (5 mg) by mouth Once per day. 30 tablet 11 025 2025 Active montelukast (Singulair) 10 MG tabletIndicatio ns:Severe persistent allergic asthma (HCC) Take 10 mg by mouth in the evening. Active fluticasone (Flonase Allergy Relief) 50 MCG/ACT nasal sprayIndication s:Severe persistent allergic asthma (HCC) Administer 1 spray into each nostril Once per day. Shake gently. Before first use, prime pump. After use, clean tip and replace cap. 16 g 12 025 2025 Active diphenhydrAMINE (BENADryl) 25 MG tabletIndicatio ns:Severe persistent allergic asthma (HCC) Take 1 tablet (25 mg) by mouth if needed at bedtime for allergies. 30 tablet 025 2024 Active fluticasone (Flonase Allergy Relief) 50 MCG/ACT nasal spray Administer 1 spray into each nostril Once per day. Shake gently. Before first use, prime pump. After use, clean tip and replace cap. 16 g 12 024 2024 Discontinued(R eorder (will not trigger notification to Pharmacy)) albuterol (2.5 MG/3ML) 0.083% nebulizer solution INHALE 1 AMPULE USING A NEBULIZER EVERY 6 HOURS NEEDED FOR WHEEZING OR SHORTNESS OF BREATH 025 2024 Discontinued(T herapy completed) predniSONE (Deltasone) 10 MG tablet TAKE 4 TABLETS BY MOUTH DAILY X3 DAYS, 3 TABS X3 DAYS, 2 TABS X3 DAYS THEN 1 TAB X3 DAYS DIRECTED 025 2024 Discontinued(T herapy completed) amoxicillin-cla vulanate (Augmentin) 875-125 MG tabletIndicatio ns:Acute non-recurrent frontal sinusitis Take 1 tablet by mouth 2 times daily for 7 days. 14 tablet 025 2024 Hospital, Clinic, or Other Facility Administered Medication Ordered Dose Route Frequency Start Date End Date Status medroxyPROGESTERone (Depo-Provera) injection 150 mgIndications:Encounte r for initial prescription of injectable contraceptive 150 mg IM Every 3 months 09/28/2024 12/22/2025 Active Active Problems Patient Care Coordination No te Formatting of this note migh t be different from the original. C3/CM Cleo Pérez RN /[id number] Cornelia Bettencourt Problem Noted Date Diagnosed Date [...] 30mg XL in June 2024, but her printer's devil has discontinued due to its association with [...] severe acute respiratory syndrome coronavirus 2 (SARS-CoV-2) 10/17/202209/2023 Asthma complicating , antepartum 10/17/2022 06/19/2023 Urinary [...] Encounters Date Type Department Care Team Description 02/02/2025 Orders Only [facility] [address] [place] [address] Yvonne Kee MD 02/01/2025 3:15 PM EDT Office Visit [facility] [address] [place] [address] Yvonne Kee MD Type 2 diabetes mellitus without complication, without long-term current use of insulin (HCC) (Primary Dx); Elevated blood pressure reading; History of pyelonephritis; Routine screening for STI (sexually transmitted infection); Acute non-recurrent frontal sinusitis; Severe persistent allergic asthma (HCC) 02/01/2025 Travel 01/29/[address] [address] Yvonne Kee MD chart prep 01/27/2025 Patient Outreach [address] [address] Yvonne Kee MD Care Coordination (SDOH f/u) 01/27/2025 Patient Outreach [address] [address] Yvonne Kee MD Care Management (C3CM- f/u call lvm) 01/25/2025 Travel 01/25/2025 Patient Outreach [address] [address] Yvonne Kee MD Pre-visit Planning (LVM) 01/21/2025 Patient Outreach [address] [address] Yvonne Kee MD Pre-visit Planning (SDDE screening completed on 12/23/24 ) 01/15/2025 Patient Outreach [address] [address] Yvonne Kee MD Care Coordination (SDOH f/u) 01/15/2025 Patient Outreach [address] [address] Yvonne Kee MD Care Management (C3CM- f/u call) 01/04/2025 Patient Outreach [address] [address] Yvonne Kee MD Care Management (C3CM- f/u call lv) 12/28/2024 Orders Only [address] [address] Yvonne Kee MD 12/24/2024 11:30 AM EDT Clinical Support [address] [address] Ibeth Avalos, RN Encounter for initial prescription of injectable contraceptive 12/24/2024 Travel 12/23/2024 Patient Outreach [address] [address] Yvonne Kee MD Care Coordination (SDOH f/u) 12/23/2024 Patient Outreach [facility] [address] [place] [phone] Yvonne Kee MD Care Management (C3CM- f/u call) 12/17/2024 1:00 PM EDT Office Visit [facility] [address] [place] [phone] Ram Lindsey Dental calculus (Primary Dx); Dental plaque 12/10/2024 Patient Outreach [address] [address] Yvonne Kee MD Care Coordination (SDOH f/u) 12/10/2024 Patient Outreach [address] [address] Yvonne Kee MD Care Management (C3CM- f/u call lvm) 11/30/2024 9:00 AM EDT Office Visit [address] [address] Eliza Walton MD Pyelonephritis (Primary Dx); Type 2 diabetes mellitus without complication, without long-term current use of insulin ([facility]); Severe persistent allergic asthma; Elevated blood pressure reading; Hyperglycemia 11/30/2024 Patient Outreach [address] [address] Yvonne Kee MD Care Coordination (SDOH f/u) 11/30/2024 Patient Outreach [address] [address] Yvonne Kee MD Care Management (C3- f/u call) 11/30/2024 Patient Outreach [address] [address] Yvonne Kee MD Care Coordination (CHW outreach for SDDE housing search-referral completed ) 11/30/2024 Travel 11/27/[address] [address] Yvonne Kee MD Error (VOID this visit) 11/27/[address] [address] Yvonne Kee MD chart prep 11/26/[address] [address] Carla Bernardo PharmD 11/16/[address] [address] Yvonne Kee MD Hyperglycemia 11/16/2024 Patient Outreach [address] [address] Yvonne Kee MD Care Management (C3- f/u call) 11/12/2024 Patient Outreach [address] [address] Yvonne Kee MD 11/11/2024 Patient Outreach [address] [address] Yvonne Kee MD 11/10/2024 Patient Outreach [address] [address] Yvonne Kee MD 11/10/2024 Orders Only GENERIC EXTERNAL DATA DEPARTMENT Provider, Generic External Data 11/09/2024 Orders Only GENERIC EXTERNAL DATA DEPARTMENT Provider, Generic External Data 11/09/2024 Travel from Last 3 Months Immunizations Immunization Administration Dates Next Due DTaP 02/06/2001, 8,06/29/1997,04/27,1996 HPV, Quadrivalent 10/05/2011,05/25/2010,03/22/20 09 Hep A, ped/adol, 2 dose 02/10/2014,02/10/2013 Hep B, Adolescent or Pediatric 06/29/1997,1996,1996 Hib ([facility]) 10/06/1997, 8,04/27/1997,10/14 IPV 02/06/2001, 9,02/16/1998,04/27,1996 Influenza injectable [...] Description 03/15/2025 1:00 PM EST Clinical Support [facility] [address] [place] [address] Health Maintenance Due Date Last Done Comments Pneumococcal Vaccine: Pediatrics (0 to 5 Years) and At-Risk Patients (6 to 49) Years (2 of 2 - PCV) 05/09/2018 05/09/2017, 02/13/2017 COVID-19 Vaccine (3 - season) 2024 04/24/2021, 04/03/2021 Influenza Vaccine (#1) 2024 2, 04/19/2020, 12/24/2018, Additional history exists Dental Oral Exam 01/17/2025 07/17/2024 Dental Prophylaxis 06/17/2025 12/17/2024 HPV/Cotest 07/06/2025 07/06/2024, 11/14/2021 Pap Smear 07/06/2025 07/06/2024, 08/0 05/2021, 05/05/2020, Additional history exists Dental X-Ray: Bitewings 07/18/2025 07/17/2024 Diabetes: Hemoglobin A1C 08/03/2025 025, 06/15/2024, 08/09/2023, Additional history exists Eye Exam 10/14/2025 10/15/2023, 05/2023, 10/15/2023, Additional history exists Depression Screening 10/29/2025 10/29/2024, 10/30/19 Alcohol/Substance Use Screening 11/30/2025 11/30/2024 Disability Screening 11/30/2025 11/30/2024 SDOH Screening 12/23/2025 12/23/2024 Family Planning (PISQ) 12/24/2025 12/24/2024 Diabetes: Foot Exam 02/01/2026 02/01/2025, 02/01/2025, 02/01/2025 Tobacco Screening 02/01/2026 02/01/2025 Diabetes: Urine Protein Screening 02/02/2026 02/02/2025 Lipid Panel 02/02/2026 02/02/2025, 03/0 06/2024, 05/17/2020 Dental X-Ray: Full Mouth 2027 07/17/2024 DTaP/Tdap/Td [...] Completed 02/10/2014, 02/11/20 13 HIV Screening Completed 02/02/2025, 06/2024, 10/15/2022, Additional history exists Hepatitis C Screening Completed 02/02/2025 , 06/15/2024, 10/15/2022, Additional history exists Meningococcal B Vaccine Aged Out No l onger eligible based on patient's age to complete this topic RSV under 20 months Aged Out No longe r eligible based on patient's age to complete this topic Rotavirus Vaccines Aged Out No longer eligible based on patient's age to complete this topic Procedures Procedure Name Priority Date/Time Associated Diagnosis Comments LIPID PANEL, STANDARD Routine 02/02/2025 9:54 AM EDT COMPREHENSIVE METABOLIC PANEL Routine 02/02/2025 9:54 AM EDT HEPATITIS C AB W/REFL TO HCV RNA, QN, PCR Routine 02/02/2025 9:54 AM EDT Routine screening for STI (sexually transmitted infection) RPR (MONITOR) W/REFL TITER Routine 02/02/2025 9:54 AM EDT Routine screening for STI (sexually transmitted infection) HIV 1/2 ANTIGEN/ANTIBODY, FOURTH GENERATION W/RFL Routine 02/02/2025 9:54 AM EDT Routine screening for STI (sexually transmitted infection) HEMOGLOBIN A1C Routine 02/02/2025 9:54 AM EDT Type 2 diabetes mellitus without complication, without long-term current use of insulin (HCC) ALBUMIN, RANDOM URINE W/CREATININE Routine 02/02/2025 9:52 AM EDT Type 2 diabetes mellitus without complication, without long-term current use of insulin (HCC) CULTURE, URINE, ROUTINE Routine 02/02/2025 9:52 AM EDT History of pyelonephritis POCT , URINE Routine 12/24/2024 12:47 PM [...] URINE, ROUTINE Routine 11/09/2024 12:00 AM EDT INTRAORAL - COMPLETE SERIES OF RADIOGRAPHIC IMAGES [...] LOW/HIGH RISK Routine 07/06/2024 12:00 AM EDT from Last 3 Months or Most Recently Relevant to Health Maintenance Results * Hepatitis C Antibody with Reflex to HCV, RNA, Quantitative, Real-Time PCR (02/02/2025 9:54 AM EDT) Hepatitis C Antibody Nonreactive Nonreactive [facility] Comment:Antibodies to HCV no t detected; does not exclude early acuteHCV infection. Blood Venous blood specimen / Unknown 02/02/2025 9:54 AM EDT 02/02/2025 11:36 AM EDT us Yvonne Kee MD LAB BLOOD ORDERABLES Final Res ult [facility] [address] [place] [address] [phone] * RPR (Monitor) with Reflex to??Titer (02/02/2025 9:54 AM EDT) RPR (Monitor) w/Refl Titer NON-REACTI VE NON-REACT JUAN PABLO [facility] Comment:THIS TEST WAS PERFOR MED AT:[employer] [place] [phone] ANDERSON MD Rapid Plasma Reagin Ab Titer TNP [facility] Blood Venous blood specimen / Unknown 02/02/2025 9:54 AM EDT 02/02/2025 11:36 AM EDT Yvonne Kee MD LAB BLOOD ORDERABLES Final Res ult [facility] [address] [place] [phone] * HIV-1/2 Antigen and Antibodies, Fourth Generation, with Reflexes (02/02/2025 9:54 AM EDT) HIV AB/AG Nonreactive Nonreactive [facility] Comment:HIV-1 p24 Ag and/or HIV-1/HIV-2 Ab not detected.A test result that is nonreactive does not exclude thepossibility of exposure to or infection with HIV-1 and/orHIV-2. Nonreactive results in this assay for individualswith prior exposure to HIV-1 and/or HIV-2 may be due toantigen and antibody levels that are below the limit ofdetection of this assay.The [employer] HIV Ag/Ab Combo assay result andsupplemental assay results should be interpreted inconjunction with the patient's clinical presentation,history and other laboratory results. If the results areinconsistent with clinical evidence, additional testing issuggested to confirm the result. Blood Venous blood specimen / Unknown 02/02/2025 9:54 AM EDT 02/02/2025 11:36 AM EDT Yvonne Kee MD LAB BLOOD ORDERABLES Final Res ult Performing Organization Address [facility]/ZIP Co de Phone Number [facility] [address] [place] [phone] * (ABNORMAL) Hemoglobin A1c (02/02/2025 9:54 AM EDT) Hemoglobin A1c 6.2(H) <6.0 % [facility] Comment:Hemoglobin A1C Refer ence Range Adults: 4.8 - 6.0 % Non diabetic: < 6.0 % Goal: < 7.0 %Additional Action Suggested: > 8.0 %Note: Hemoglobin A1c results are invalid for patients with abnormal amounts of HbF. Blood transfusions may impact the HbA1c concentration in the patient sample. Estimated Average Glucose 131 mg/dL [facility] Comment:eAG = Estimated ave rage glucose which is %A1C expressed asaverage glucose, using the formula of the W7D-RdvzjyxGrtosvs Glucose study (ADAG), Diabetes Care, Vol.31,#8,Nov. 2007 Blood Venous blood specimen / Unknown 02/02/2025 9:54 AM EDT 02/02/2025 11:36 AM EDT Yvonne Kee MD LAB BLOOD ORDERABLES Final Res ult Performing Organization Address [facility] Co de Phone Number [facility] [address] [place] [phone] * (ABNORMAL) Lipid Panel, Standard (02/02/2025 9:54 AM EDT) Triglycerides 176(H) <150 mg/dL [facility] Comment:Desirable Triglyceri de: less than 150 mg/dLBorderline High Triglyceride 150-199 mg/dLHigh Triglyceride: 200-499 mg/dLVery High Triglyceride: greater than or equal to 5OO mg/dL Cholesterol 244(H) <200 mg/dL [facility] Comment:Desirable Cholestero l: less than 200 mg/dLBorderline High Cholesterol: 200-239 mg/dLHigh Cholesterol: greater than 239 mg/dL LDL Cholesterol Calculated 162(H) <100 mg/dL [facility] Comment:Desirable LDL: less than 100 mg/dLNear Optimal/Above Optimal LDL: 110- 129 mg/dLBorderline High LDL: 130-159 mg/dLHigh LDL: 160-189 mg/dLVery High LDL: greater than or equal to 190 mg/dL HDL Cholesterol 47 >40 mg/dL [facility] Comment:Desirable HDL: great er than 40 mg/dL Note: This HDL assay may give artificially low results in patients with liver disease. 02/02/2025 9:54 AM EDT 02/02/2025 11:36 AM EDT us Yvonne Kee MD LAB BLOOD ORDERABLES Final Res ult [facility] [address] [place] [phone] [phone] * (ABNORMAL) Comprehensive Metabolic Panel (02/02/2025 9:54 AM EDT) Only the most recent of2 resultswithin the time period is included. Sodium 140 135 - 145 mmol/L [facility] Potassium 3.5 3.3 - 5.1 mmol/L [facility] Chloride 108 96 - 108 mmol/L [facility] Carbon Dioxide 26 22 - 29 mmol/L [facility] Anion Gap 10(L) 12 - 20 [facility] Urea Nitrogen (BUN) 11 9 - 16 mg/dL [facility] Creatinine, Serum 0.78 0.5 - 1.4 mg/dL [facility] Estimated Glomerular Filt Rate >60 [facility] Comment:Chronic Kidney Disea se: Estimated GFR < 60 mL/min/1.01d4Ywamvg Kidney Disease: Estimated GFR < 15 mL/min/1.73m2 Glucose 145(H) 60 - 115 mg/dL [facility] Calcium 9.5 8.4 - 10.2 mg/dL [facility] Bilirubin, Total 0.5 0.0 - 1.0 mg/dL [facility] Aspartate Amino Transferase 24 5 - 31 U/L [facility] Alanine Aminotransferase 24 0 - 31 U/L [facility] Total Protein 7.8 6.5 - 8.0 g/dL [facility] Albumin Level 4.6 3.5 - 5.0 g/dL [facility] Alkaline Phosphatase 93 39 - 117 U/L [facility] 02/02/2025 9:54 AM EDT 02/02/2025 11:36 AM EDT Yvonne Kee MD LAB BLOOD ORDERABLES Final Res ult Performing Organization Address [facility] de Phone Number [facility] [address] [place] [phone] * Albumin, Random Urine W/Creatinine (02/02/2025 9:52 AM EDT) Creatinine, Urine 193.17 mg/dL [facility] Microalbumin Urine 6.0 mg/L [facility] Microalbum Creatinine Ratio Ur 3.1 <30 ug/mg cr [facility] Comment:Albumin/Creatinine R atio Reference Ranges: Normal: < 30 ug/mg creatinine Microalbuminuria: 30 - 300 ug/mg creatinineClinical Albuminuria: > 300 ug/mg creatinine Urine (Urine, Random) 02/02/2025 9:52 AM EDT 02/02/2025 11:48 AM EDT Yvonne Kee MD LAB URINE ORDERABLES Final Res ult Performing Organization Address [facility] Co de Phone Number [facility] [address] [place] [phone] * Culture, Urine, Routine (02/02/2025 9:52 AM EDT) Only the most recent of2 resultswithin the time period is included. Urine Urine specimen obtained by clean catch procedure / Unknown 02/02/2025 9:52 AM EDT 02/02/2025 11:48 AM EDT Comment:UACC Narrative [facility] - 02/03/2025 1:32 PM EDT Urine Culture No growth. Specimen Source: Urine clean catch Yvonne Kee MD LAB MICROBIOLOGY - GENERAL ORD ERABLES Final Result [facility] [address] [place] [phone] * POCT Urine (12/24/2024 12:47 PM EDT) Preg Test, Ur Negative Negative, Indeterminate, None Detected, Invalid, Specimen unsatisfactory for evaluation, Weakly Positive, 2+ QC Media Lot # [id number] Lot# Expiration Date [id number] Urine 12/24/2024 12:4 7 PM EDT Laura Smiley DO POINT OF CARE TEST ENTER/GUSTAVO T ORDERABLES Final Result * (ABNORMAL) Urinalysis, Complete, with Reflex to Culture (11/10/2024 12:01 PM EDT) Only the most recent of2 resultswithin the time period is included. Color Urine Yellow [facility] Appearance Urine Clear [facility] PH 7.0 5.0 - 9.0 [facility] Glucose Urine UA Negative Negative mg/dL [facility] Urine Blood Trace(A) Negative [facility] Specific [place] - Urine 1.010 1.005 - 1.025 [facility] Urine Protein Negative Neg-Trace mg/dL [facility] Urine Ketones Negative Negative mg/dL [facility] Nitrite Urine Negative Negative [facility] Leukocyte Esterase Urine Moderate (2+)(A) Negative [facility] RBC Urine 3-5(A) 0 - 2 /HPF [facility] Urine WBC 11-20(A) 0 - 5 /HPF [facility] Urine Squamous Epithelial Cell 6-10 0 - 2 /HPF [facility] Urine Bacteria None Seen None Seen [facility] Hyaline Casts, Urine 0-2 0 - 2 /LPF [facility] 11/10/2024 12:0 1 PM EDT 11/10/2024 12:04 PM EDT Narrative [facility] - 11/10/2024 12:12 PM EDT Urine, Clean Catch us Generic External Data Provider LAB URINE ORDERAB LES Final Result [facility] [address] [place] [phone] * (ABNORMAL) CBC auto differential (11/10/2024 11:07 AM EDT) Only the most recent of2 resultswithin the time period is included. White Blood Count 14.1(H) 4.8 - 10.8 X10*3/uL [facility] Red Blood Count 4.53 4.20 - 5.50 X10*6/uL [facility] Hemoglobin 13.3 12.0 - 16.0 g/dl [facility] Hematocrit 38.5 37.0 - 47.0 % [facility] Mean Corpuscular Volume 85.0 80.0 - 98.0 fL [facility] Mean Corpuscular Hemoglobin 29.4 27.0 - 33.0 pg [facility] Mean Corpuscular HGB Conc 34.5 31.0 - 35.0 g/dl [facility] Red Cell Distribution Width 12.6 11.0 - 16.0 % [facility] Platelet Count 249 160 - 400 X10*3/uL [facility] Mean Platelet Volume 9.6 9.4 - 12.3 fL [facility] Neutrophils Percent Auto 74.2(H) 45 - 73 % [facility] Imm Gran Pct Auto 0.5(H) 0.0 - 0.4 % [facility] Lymphocytes Percent Auto 15.4(L) 20 - 40 % [facility] Monocytes Percent Auto 6.6 2 - 11 % [facility] Eosinophils Percent Auto 2.8 0 - 4 % [facility] Basophils Percent Auto 0.5 0 - 2 % [facility] NRBC Pct Auto 0.0 0.0 - 0.2 /100WBC [facility] Neutrophils Absolute Auto 10.5(H) 2.0 - 8.3 x10*3/uL [facility] Imm Gran Abs Auto 0.07(H) 0.00 - 0.03 X10*3/uL [facility] Lymphocytes Absolute Auto 2.2 1.2 - 4.9 X10*3/uL [facility] Monocytes Absolute Auto 0.9 0.1 - 1.2 X10*3/uL [facility] Eosinophils Absolute Auto 0.4 0.0 - 0.4 X10*3/uL [facility] Basophils Absolute Auto 0.1 0.0 - 0.2 X10*3/uL [facility] NRBC Abs Auto 0.000 0.0 - 0.012 X10*3/uL [facility] 11/10/2024 11:0 7 AM EDT 11/10/2024 11:12 AM EDT us Generic External Data Provider LAB BLOOD ORDERAB LES Final Result [facility] [address] [place] [phone] * hCG, Total, Quantitative (11/10/2024 11:07 AM EDT) Only the most recent of3 resultswithin the time period is included. HCG Quantitative <2 mIU/mL [facility] Comment:Weeks post LMP Appro ximate hCG(Last Menstrual Period) Range (mIU/ml)3 - 4 weeks 9 - 1304 - 5 weeks 75 - 2,6005 - 6 weeks 850 - 20,8006 - 7 weeks 4000 - 100,2007 - 12 weeks 11,500 - 289,79403 - 16 weeks 18,300 - 137,24939 - 29 weeks (2nd trimester) 1,400 - 53,09572 - 41 weeks (3rd trimester) 940 - [...] ORDERAB LES Final Result Performing Organization Address [facility] Co de Phone Number [facility] [address] [place] [phone] * Lactic Acid (11/10/2024 11:07 AM EDT) Only the most recent of2 resultswithin the time period is included. Lactic Acid 0.9 0.5 - 2.0 mmol/L [facility] 11/10/2024 11:0 7 AM EDT 11/10/2024 11:12 AM EDT Generic External Data Provider LAB BLOOD ORDERAB LES Final Result Performing Organization Address [facility] de Phone Number [facility] [address] [place] [phone] * (ABNORMAL) Basic Metabolic Panel (11/10/2024 11:07 AM EDT) Sodium 138 135 - 145 mmol/L [facility] Potassium 3.1(L) 3.3 - 5.1 mmol/L [facility] Chloride 104 96 - 108 mmol/L [facility] Carbon Dioxide 26 22 - 29 mmol/L [facility] Anion Gap 11(L) 12 - 20 [facility] Urea Nitrogen (BUN) 9 9 - 16 mg/dL [facility] Creatinine, Serum 0.84 0.5 - 1.4 mg/dL [facility] Creatinine Clr Calc Pharmacy 99.5 [facility] Comment:Provided height and weight: 165.1 cm,72.575 kg.eGFR (calculated from the MDRD study equation) and eCrCl(calculated from the Cockcroft-Gault equation) are based ondifferent parameters and may not yield comparable results.If eCrCl result is absurd, please check patient'sheight/weight. Estimated Glomerular Filt Rate >60 [facility] Comment:Chronic Kidney Disea se: Estimated GFR < 60 mL/min/1.11b4Nnieqb Kidney Disease: Estimated GFR < 15 mL/min/1.73m2 Glucose 218(H) 60 - 115 mg/dL [facility] Calcium 9.3 8.4 - 10.2 mg/dL [facility] 11/10/2024 11:0 7 AM EDT 11/10/2024 11:12 AM EDT us Generic External Data Provider LAB BLOOD ORDERAB LES Final Result Performing Organization Address City/State/[facility] Co de Phone Number [facility] [address] [place] [phone] * XR KUB and Upright 2 Views (11/09/2024 7:22 PM EDT) Anatomical Region Laterality Modality Radiographic Britni ging 11/09/2024 7:22 PM EDT Narrative 11/09/2024 7:23 PM EDT [address] [address] XRay Report Signed Patient: Afshan Zacarias MR#: [id number] : 1995 Acct:[id number] Age/Sex: 29 / F ADM Date: 11/09/24 Loc: HO.ED Attending Dr: Ordering Physician: Johanny Toro Date of Service: 11/09/24 Procedure(s): XR KUB Accession Number(s): [id number] cc: Johanny Toro; Yvonne Kee CLINICAL HISTORY: [...] in OV> 11/09/241922 DD/ 21 TD/TT: 11/09/241921 Ore Feeder: Procedure Note Donotuseinterpreter, Image - 11/09/[address] [address] XRay Report Signed Patient: Afshan ZacariasMR#: [id number] : 1995Acct:[id number] Age/Sex: Date: 11/09/24 Loc: .ED Attending Dr: Ordering Physician: Johanny Toro Date of Service: 11/09/24 Procedure(s): XR KUB Accession Number(s): [id number] cc: Johanny Toro; Yvonne Kee CLINICAL HISTORY: [...] in OV> 11/09/241922 DD/ 21 TD/TT: 11/09/241921 Ore Feeder: [facility] External Provider IMG XR PROCEDURES Final Result * SARS-CoV-2 RNA, Influenza A/B, and RSV RNA, Ql NAAT (11/09/2024 6:34 PM EDT) Influenza A PCR NEGATIVE Negative [facility] Influenza B PCR NEGATIVE Negative [facility] Resp Syncy Virus RNA Qual PCR NEGATIVE Negative [facility] SARS COV2 PCR NEGATIVE Negative [facility] Comment:All test results mus t [...] use by authorized laboratories.Testing performed on the Reflex GeneXpert utilizingreal-time RT-PCR.All SARS CoV2 and positive influenza A/B results arereported to [facility]. 11/09/2024 6:34 PM EDT 11/09/2024 6:36 PM EDT Generic External Data Provider LAB MICROBIOLOGY - GENERAL ORDERABLES Final Result [facility] [address] [place] [phone] * (ABNORMAL) Urinalysis w/reflex microscopic (11/09/2024 6:34 PM EDT) Color Urine Yellow [facility] Appearance Urine Cloudy [facility] PH 8.0 5.0 - 9.0 [facility] Glucose Urine UA Negative Negative mg/dL [facility] Urine Blood Trace(A) Negative [facility] Specific [place] - Urine 1.015 1.005 - 1.025 [facility] Urine Protein Trace Neg-Trace mg/dL [facility] Urine Ketones Negative Negative mg/dL [facility] Nitrite Urine Positive(A) Negative [facility] Leukocyte Esterase Urine Large (3+)(A) Negative [facility] 11/09/2024 6:34 PM EDT 11/09/2024 6:36 PM EDT Narrative [facility] - 11/09/2024 6:51 PM EDT Urine, Clean Catch Generic External Data Provider LAB URINE ORDERAB LES Final Result Performing Organization Address [facility]/ZIP Co de Phone Number [facility] [address] [place] [phone] * Blood Culture (First) (11/09/2024 1:10 PM EDT) Blood Venous blood specimen / Unknown 11/09/2024 1:10 PM EDT 11/09/2024 1:19 PM EDT Comment:Blood Narrative [facility] - 11/12/2024 7:38 AM EDT Blood [...] Culture (First) Gram stain reviewed by a Mechanical And Auto Body Car Checker Escherichia coli Results of Blood Culture gram [...] GENERAL ORDERABLES Final Result Performing Organization Address [facility]/ZIP Co de Phone Number [facility] [address] [place] [phone] * Blood Culture (Second) (11/09/2024 1:10 PM EDT) Blood Venous blood specimen / Unknown 11/09/2024 1:10 PM EDT 11/09/2024 1:19 PM EDT Comment:Blood Narrative [facility] - 11/12/2024 7:39 AM EDT Blood [...] Culture (Second) Gram stain reviewed by a Mechanical And Auto Body Car Checker Escherichia coli Refer [facility] ORG #1: Susceptibility testing of same organism(s) from Refer [facility] similar site will not be repeated within 4 days. Results of Blood Culture gram stain called to and read back by MINH at 0222 on 11/10/24 by NESHA. Specimen Source: Blood us Generic External Data Provider LAB MICROBIOLOGY - GENERAL ORDERABLES Final Result [facility] [address] [place] [address] [phone] * US RENAL LT (11/09/2024 12:21 PM EDT) Anatomical Region Laterality Modality Abdomen Ultrasound 11/09/2024 12:2 1 PM EDT Narrative 11/09/2024 1:42 PM EDT [address] [address] Ultrasound Report Signed Patient: Afshan Zacarias MR#: [id number] : 1995 Acct:[id number] Age/Sex: 29 / F ADM Date: 11/09/24 Loc: HOSHARYN Attending Dr: Ordering Physician: Kelli Ji NP Date of Service: 11/09/24 Procedure(s): US renal LT Accession Number(s): [id number] cc: Yvonne Kee; Kelli Ji NP EXAMINATION: [...] 11/09/24 1339 DD/ 1221 TD/TT: 11/09/24 1226 Ore Feeder: Procedure Note Donotuseinterpreter, Image - 11/09/2024 [place] [address] Ultrasound Report Signed Patient: Jethro Zaacrias#: [id number] : 1995Acct:[id number] Age/Sex: Date: 11/09/24 Loc: .ED Attending Dr: Ordering Physician: Kelli iJ NP Date of Service: 11/09/24 Procedure(s): US renal LT Accession Number(s): [id number] cc: Yvonne Kee; Kelli Ji SURVEILLANCE AGENT EXAMINATION: US RETROPERITONEAL LIMITED, LEFT(RENAL ONLY) CLINICAL [...] 11/09/24 1339 DD/ 1221 TD/TT: 11/09/24 1226 Ore Feeder: us [facility] External Provider IMG US PROCEDURES Final Result * Pap Smear (07/06/2024 10:02 AM EDT) Swab Cervix uteri structure / Unknown 07/06/2024 10:02 AM EDT 07/07/2024 6:00 AM EDT Narrative [facility] - 07/09/2024 2:13 PM EDT ----- ------- Name: ZacariasAfshan Age/Sex: 28/F : 1995 Unit#: [id number] Attend Dr: Re07/06/24 Status: PRE REF Location: [facility] Disch: ----- ------- SPEC : [id number] RECD: 07/07/24 STATUS: RYAN VILLARREAL NUM: [id number] NELDA: 07/06/24-[address] [facility] [address]: BEBETO BELLA CNM ENTERED: 07/07/24 SP TYPE: Pap Smr OTHR DR: ORDERED: Pap Smear Interpretation Satisfactory for evaluation. Negative for intraepithelial lesion or malignancy. HPV High Risk: Negative HPV Genotyping 16: Negative HPV Genotyping 18: Negative Clinical Information LMP: Unknown date Previous PAP test: LSIL 2021 Material Received Cervix ----- ------- Signed (signature on file) EDILMA Perales (ASCP) 07/09/24 1413 ----- ------- END OF REPORT Bebeto Bella [facility] CYTOLOGY ORDERABLES F inal Result [facility] [address] [place] [phone] * HPV DNA, Low/High Risk (07/06/2024 12:00 AM EDT) HPV High Risk Negative Negative [facility] HPV Genotype 16 Negative Negative [facility] HPV Genotype 18 Negative Negative [facility] Comment:HPV testing performe d at [facility] ([id number]), [address] [place] [phone].Testing for HPV was performed using the [employer] Endurance0system. The presence of HPV in the female [...] detected. 07/06/2024 07/07/2024 6:0 0 AM EDT us Bebeto Bella [facility] BLOOD ORDERABLES Mami fernandez Result [facility] [address] [place] [phone] from Last 3 Months or Most Recently Relevant to Health Maintenance Insurance [address] [address] C[facility] STAND ADULT Care Teams Pot Sander Relationship Specialty Start Date End Date Yvonne Kee MD [address] [place] [address] PCP - General Family Medicine 03/12/22
--- OUTSIDE RECORDS SUMMARY | 2025-02-09 12:09 | XMS_ITS | Encounter Summary ---
Author Organization [employer] Address [address] [facility] 7t [place] [address] Care Team Providers Care Water Purification Chemist Name Role Phone Yvonne Kee MD Primary Care Provider [phone] Celnia Bettencourt RN Unavailable [phone] Harper Zhang Unavailable Encounter Details Date Type Department Care Team ([facility] st Contact Info) Description 12/28/2024 Orders Only [facility] [address] [place] [address] Yvonne Kee MD [address] [place] [address] Social History Tobacco Use Types Packs/Day Years [...] 1:00 PM EST Clinical Support [facility] [address] [place] [address] documented as of this encounter Visit Diagnoses Not on filedocumented in this encounter Additional Health Concerns Assessment Noted Time PHQ-9 Depression Total Score: 0 10/30/19 25 8:37 AM EDT documented as of this encounter Care Teams Water Purification Chemist Relationship Specialty Start Date End Date Yvonne Kee MD [address] [place] [address] PCP - General Family Medicine 03/12/22 Celina Bettencourt RN [address] [place] [phone] Registered Nurse Family Medicine 09/11/24 01/27/25 Harper Zhang 09/11/24 01/27/25 documented as of this encounter
--- OUTSIDE RECORDS SUMMARY | 2025-02-09 12:09 | XMS_ITS | Encounter Summary ---
Author Organization [employer] Address [address] [facility] 7t [place] [address] Care Team Providers Care Weapons And Tactics Instructor Name Role Phone Yvonne Kee MD Primary Care Provider [phone] Celina Bettencourt RN Unavailable [phone] Harper Zhang Unavailable Reason for Visit * Reason Comments Med Refill Encounter Details Date Type Department Care Team ([facility] st Contact Info) Description 09/23/2024 Refill [facility] [address] [place], [place] [phone] Yvonne Kee MD [address] [place], [place] [phone] Social History Tobacco Use Types Packs/Day Years [...] Description 03/15/2025 1:00 PM EST Clinical Support [facility] [address] [place] [address] documented as of this encounter Visit Diagnoses Not on filedocumented in this encounter Additional Health Concerns Assessment Noted Time PHQ-9 Depression Total Score: 0 08/09/19 24 2:42 PM EDT documented as of this encounter Care Teams Weapons And Tactics Instructor Relationship Specialty Start Date End Date Yvonne Kee MD [address] [place] [address] PCP - General Family Medicine 03/12/22 Celina Bettencourt RN [address] [place] [address] Registered Nurse Family Medicine 09/11/24 01/27/25 Harper Zhang 09/11/24 01/27/25 documented as of this encounter
--- OUTSIDE RECORDS SUMMARY | 2025-02-09 12:09 | XMS_ITS | Encounter Summary ---
Author Organization [employer] Address [address] [facility] 7t [place] [address] Care Team Providers Care Melt House Supervisor Name Role Phone Yvonne Kee MD Primary Care Provider [phone] Celina Bettencourt RN Unavailable [phone] Harper Zhang Unavailable Encounter Details Date Type Department Care Team ([facility] st Contact Info) Description 12/17/2023 Orders Only [facility] [address] [place] [address] Yvonne Kee MD [address] [place] [address] Social History Tobacco Use Types Packs/Day Years [...] Description 03/15/2025 1:00 PM EST Clinical Support [facility] [address] [place] [address] documented as of this encounter Visit Diagnoses Not on filedocumented in this encounter Additional Health Concerns Assessment Noted Time PHQ-9 Depression Total Score: 0 08/09/19 24 2:42 PM EDT documented as of this encounter Care Teams Melt House Supervisor Relationship Specialty Start Date End Date Yvonne Kee MD [address] [place] [address] PCP - General Family Medicine 03/12/22 Celina Bettencourt, ALISHA [address] [place] [address] Registered Nurse Family Medicine 09/11/24 01/27/25 Harper Zhang 09/11/24 01/27/25 documented as of this encounter
--- OUTSIDE RECORDS SUMMARY | 2025-02-09 12:09 | XMS_ITS | Encounter Summary ---
Author Organization [employer] Address [address] [place] [address] 7t [place] [address] Care Team Providers Care Vp Analysis Name Role Phone Yvonne Kee MD Primary Care Provider [phone] Celina Bettencourt RN Unavailable [phone] Harper Zhang Unavailable Encounter Details Date Type Department Care Team (Late Contact Info) Description 04/19/2022 Orders Only [facility] [address] [place] [address] Yvonne Kee MD [address] [place] [address] Social History Tobacco Use Types Packs/Day Years [...] 03/15/2025 1:00 PM EST Clinical Support [facility] [address] [place] [address] documented as of this encounter Visit Diagnoses Not on filedocumented in this encounter Care Teams Vp Analysis Relationship Specialty Start Date End Date Yvonne Kee MD [address] [place] [address] PCP - General Family Medicine 03/12/22 Celina Bettencourt RN [address] [place] [address] Registered Nurse Family Medicine 09/11/24 01/27/25 Harper Zhang 09/11/24 01/27/25 documented as of this encounter
--- OUTSIDE RECORDS SUMMARY | 2025-02-09 12:09 | XMS_ITS | Encounter Summary ---
Author Organization [employer] Address [address] [facility] 7t [place] [address] Care Team Providers Care Inverform Machine Operator Name Role Phone Yvonne Kee MD Primary Care Provider [phone] Celina Bettencourt RN Unavailable [phone] Harper Zhang Unavailable Encounter Details Date Type Department Care Team ([facility] st Contact Info) Description 09/26/2023 Orders Only [facility] [address] [place] [address] Yvonne Kee MD [address] [place] [address] Social History Tobacco Use Types Packs/Day Years [...] Clinical Support [facility] [address] [place] [address] documented as of this encounter Visit Diagnoses Not on filedocumented in this encounter Additional Health Concerns Assessment Noted Time PHQ-9 Depression Total Score: 0 08/09/19 24 2:42 PM EDT documented as of this encounter Care Teams Inverform Machine Operator Relationship Specialty Start Date End Date Yvonne Kee MD [address] [place] [address] PCP - General Family Medicine 03/12/22 Celina Bettencourt, ALISHA [address] [place] [address] Registered Nurse Family Medicine 09/11/24 01/27/25 Harper Zhang 09/11/24 01/27/25 documented as of this encounter
--- OUTSIDE RECORDS SUMMARY | 2025-02-09 12:09 | XMS_ITS | Encounter Summary ---
Author Organization [employer] Address 75 [facility] 7t [place] [address] Care Team Providers Care Service Order Taker Name Role Phone Yvonne Kee MD Primary Care Provider [phone] Celina Bettencourt RN Unavailable [phone] Harper Zhang Unavailable Reason for Visit * Reason Onset Date Comments Med Refill 11/06/2024 Encounter Details Date Type Department Care Team (Late st Contact Info) Description 11/06/2024 Refill [facility] [address] [place] [address] Yvonne Kee MD [address] [place], [place] [phone] Social History Tobacco Use Types Packs/Day Years [...] 03/15/2025 1:00 PM EST Clinical Support [facility] [address] [place] [address] documented as of this encounter Visit Diagnoses Not on filedocumented in this encounter Additional Health Concerns Assessment Noted Time PHQ-9 Depression Total Score: 0 10/30/19 25 8:37 AM EDT documented as of this encounter Care Teams Service Order Taker Relationship Specialty Start Date End Date Yvonne Kee MD [address] [place] [address] PCP - General Family Medicine 03/12/22 Celina Bettencourt RN [address] [place] [address] Registered Nurse Family Medicine 09/11/24 01/27/25 Harper Zhang 09/11/24 01/27/25 documented as of this encounter
--- OUTSIDE RECORDS SUMMARY | 2025-02-09 12:09 | XMS_ITS | Encounter Summary ---
Author Organization [employer] Address 75 [facility] 7t [place] [address] Care Team Providers Care Material Mover Name Role Phone Yvonne Kee MD Primary Care Provider [phone] Ceilna Bettencourt RN Unavailable [phone] Harper Zhang Unavailable Reason for Visit * Reason Comments Med Refill Encounter Details Date Type Department Care Team ([facility] st Contact Info) Description 11/06/2024 Refill [facility] [address] [place] [address] Karma Barreto NP [address] [place] [address] Moderate asthma, unspecified whether complicated, unspecified whether [...] Description 03/15/2025 1:00 PM EST Clinical Support [facility] [address] [place] [address] documented as of this encounter Visit Diagnoses Diagnosis Moderate asthma, unspecified whether complicated, unspecified whether persistent documented in this encounter Additional Health Concerns Assessment Noted Time PHQ-9 Depression Total Score: 0 10/30/19 25 8:37 AM EDT documented as of this encounter Care Teams Material Mover Relationship Specialty Start Date End Date Yvonne Kee MD [address] [place] [address] PCP - General Family Medicine 03/12/22 Celina Bettencourt RN [address] [place] [address] Registered Nurse Family Medicine 09/11/24 01/27/25 Harper Zhang 09/11/24 01/27/25 documented as of this encounter
--- OUTSIDE RECORDS SUMMARY | 2025-02-09 12:09 | XMS_ITS | Clinical Summary ---
Author Organization [facility] Address [address] [place] [address] Care Team Providers Care Rn Postpartum Name Role Phone Unavailable Primary Care Provider [...] Cervical Cancer Screening: P ap Smear 2017 HPV Vaccines (1 - 3-dose SCD M series) 07/20/2023 Depression Screening 04/15/2024 COVID-19 Vaccine ( - 2023-2 5 season) 2024 Influenza Vaccine (#1) 2024 RSV Immunization Adult Patie nts (1 - 1-dose 75+ series) 07/20/2071 HIB Vaccines Aged Out No longer eligi [...]
--- OUTSIDE RECORDS SUMMARY | 2025-02-09 12:10 | XMS_ITS | Encounter Summary ---
Author Organization [employer] Address 75 [facility] 7t [place] [address] Care Team Providers Care Purifying Plant Operator Name Role Phone Yvonne Kee MD Primary Care Provider [phone] Celina Bettencourt RN Unavailable [phone] Harper Zhang Unavailable Encounter Details Date Type Department Care Team (Late Contact Info) Description 11/22/2022 Telephone [facility] MEDICINE [address] [place] [address] [phone] Yvonne Kee MD [address] [place] [address] [phone] Social History Tobacco Use Types Packs/Day Years [...] Description 03/15/2025 1:00 PM EST Clinical Support [facility] [address] [place] [address] [phone] documented as of this encounter Visit Diagnoses Not on filedocumented in this encounter Care Teams Purifying Plant Operator Relationship Specialty Start Date End Date Yvonne Kee MD [address] [place] [address] PCP - General Family Medicine 03/12/22 Celina Bettencourt RN [address] [place] [address] Registered Nurse Family Medicine 09/11/24 01/27/25 Harper Zhang 09/11/24 01/27/25 documented as of this encounter
--- OUTSIDE RECORDS SUMMARY | 2025-02-09 12:10 | XMS_ITS | Encounter Summary ---
Author Organization [employer] Address 75 [facility] 7t [place] [address] Care Team Providers Care Entry Level Drafter Name Role Phone Yvonne Kee MD Primary Care Provider [phone] Celina Bettencourt RN Unavailable [phone] Harper Zhang Unavailable Encounter Details Date Type Department Care Team (Late st Contact Info) Description 10/17/2022 Orders Only [facility] MEDICINE [address] [place] [phone] Cherie Gonzalez MD [address] [place] [address] [phone] Social History Tobacco Use Types Packs/Day Years [...] Description 03/15/2025 1:00 PM EST Clinical Support [facility] [address] [place] [phone] documented as of this encounter Visit Diagnoses Not on filedocumented in this encounter Care Teams Entry Level Drafter Relationship Specialty Start Date End Date Yvonne Kee MD [address] [place] [address] PCP - General Family Medicine 03/12/22 Celina Bettencourt RN [address] [place] [address] Registered Nurse Family Medicine 09/11/24 01/27/25 Harper Zhang 09/11/24 01/27/25 documented as of this encounter
--- OUTSIDE RECORDS SUMMARY | 2025-02-09 12:10 | XMS_ITS | Encounter Summary ---
Author Organization [employer] Address [address] [facility] 7t [place] [address] Care Team Providers Care Supervisor Photocomposition Name Role Phone Yvonne Kee MD Primary Care Provider [phone] Celina Bettencourt RN Unavailable [phone] Harper Zhang Unavailable Reason for Visit * Reason Comments Med Refill Encounter Details Date Type Department Care Team ([facility] st Contact Info) Description 06/20/2023 Refill [facility] [address] [place], [place] [phone] Yvonne Kee MD [address] [place], [place] [phone] 34 weeks gestation of Social History Tobacco [...] 03/15/2025 1:00 PM EST Clinical Support [facility] [address] [place] [address] documented as of this encounter Visit Diagnoses Diagnosis 34 weeks gestation of documented in this encounter Care Teams Supervisor Photocomposition Relationship Specialty Start Date End Date Yvonne Kee MD [address] [place] [address] PCP - General Family Medicine 03/12/22 Celina Bettencourt, ALISHA [address] [place] [address] Registered Nurse Family Medicine 09/11/24 01/27/25 Harper Zhang 09/11/24 01/27/25 documented as of this encounter
--- OUTSIDE RECORDS SUMMARY | 2025-02-09 12:10 | XMS_ITS | Encounter Summary ---
Author Organization [employer] Address [address] [facility] 7t [place] [address] Care Team Providers Care Laborer Chemical Processing Name Role Phone Yvonne Kee MD Primary Care Provider Celina Bettencourt RN Unavailable [phone] Harper Zhang Unavailable Encounter Details Date Type Department Care Team ([facility] st Contact Info) Description 06/06/2022 Orders Only [facility] [address] [place] [address] Yvonne Kee MD [address] [place] [address] Severe persistent allergic asthma (Primary Dx) Social [...] Description 03/15/2025 1:00 PM EST Clinical Support [facility] [address] [place] [address] documented as of this encounter Visit Diagnoses Diagnosis Severe persistent allergic asthma (HCC)- Primary documented in this encounter Care Teams Laborer Chemical Processing Relationship Specialty Start Date End Date Yvonne Kee MD [address] [place] [address] PCP - General Family Medicine 03/12/22 Celina Bettencourt RN [address] [place] [address] Registered Nurse Family Medicine 09/11/24 01/27/25 Harper Zhang 09/11/24 01/27/25 documented as of this encounter
--- OUTSIDE RECORDS SUMMARY | 2025-02-09 12:10 | XMS_ITS | Encounter Summary ---
Author Organization [employer] Address [address] [facility] 7t [place] [address] Care Team Providers Care Cop Winder Name Role Phone Yvonne Kee MD Primary Care Provider [phone] Celina Bettencourt RN Unavailable [phone] Harper Zhang Unavailable Reason for Visit * Reason Comments Med Refill Encounter Details Date Type Department Care Team (Late Contact Info) Description 06/22/2022 Refill [facility] MED[facility]INE [address] [place] [address] [phone] Yvonne Kee MD [address] [place] [address] [phone] Severe persistent asthma, uncomplicated Social History Tobacco [...] Description 03/15/2025 1:00 PM EST Clinical Support [facility] [address] [place] [address] [phone] documented as of this encounter Visit Diagnoses Diagnosis Severe persistent asthma, uncomplicated (HCC) documented in this encounter Care Teams Cop Winder Relationship Specialty Start Date End Date Yvonne Kee MD [address] [place] [address] PCP - General Family Medicine 03/12/22 Celina Bettencourt, ALISHA [address] [place] [address] Registered Nurse Family Medicine 09/11/24 01/27/25 Harper Zhang 09/11/24 01/27/25 documented as of this encounter
== END 2025-02-09 10:38 | disposition home or self-care (01) ==
LOC: HO.HPS 10:06
PROVIDERS: PCP General Practice; Visit Provider Hospitalist
DX: J45.50 Severe persistent asthma, uncomplicated (principal); J30.89 Other allergic rhinitis; D72.19 Other eosinophilia; R21 Rash and other nonspecific skin eruption
CPT/HCPCS: 99214

== ENCOUNTER → 2025-02-09 10:05 | Outpatient (BNVA) | payer MEDICAID, SELFPAY | PROVIDERS: PCP General Practice; Visit Provider Hospitalist | DX: J45.50 Severe persistent asthma, uncomplicated (principal); J30.89 Other allergic rhinitis; D72.19 Other eosinophilia; R21 Rash and other nonspecific skin eruption | CPT/HCPCS: 99212 ==